=== PATIENT | male | born 1950 | race Caucasian/White ===

== ENCOUNTER 2018-10-27 13:59 | Inpatient (IN) | payer MEDICARE, OTHER, SELFPAY ==
[2018-10-27] VITALS (8 sets, daily range): BP systolic 106–129; BP diastolic 67–75; PULSE 67–72; RESP 14–18; TEMP 36.8–37.1; O2SAT 94–98; BMI 37.0; BMI 35.8
--- NOTE | 2018-10-27 14:15 | RAD_ITS ---
STUDY: X-RAY - RIGHT KNEE REASON FOR EXAM: Male, 67 years old. Fall. Pain. TECHNIQUE: 4 view(s) of the knee. COMPARISON: None. FINDINGS: There is no evidence of fracture or dislocation. There are mild tricompartmental degenerative changes. There is chondrocalcinosis of the menisci. There are no radiodense foreign bodies. RAD/Knee 4 or More Views IMPRESSION: No fracture or dislocation in the right knee. Mild degenerative change. Chondrocalcinosis.. Electronically Signed: Lance Wilder, at 15:55 EDT Tel , Service support ,
--- NOTE | 2018-10-27 14:15 | CT_ITS ---
STUDY: CT BRAIN WITHOUT CONTRAST REASON FOR EXAM: Male, 67 years old. Injury RADIATION DOSAGE (If Supplied By Facility): CTDIvol = ( 44.99 ) mGy, DLP = ( 863.60 ) mGycm TECHNIQUE: Transaxial CT imaging of the brain was performed without administration of intravenous contrast material. Individualized dose optimization techniques were used for this CT. COMPARISON: None. FINDINGS: There is no acute bleed or infarct. There are chronic ischemic and atrophic changes. The ventricles are normal in configuration. There is no hydrocephalus. The visualized paranasal sinuses are clear. The mastoid air cells are well aerated. There is no skull fracture. CT/Brain/Head without Contrast IMPRESSION: No acute intracranial abnormality. Chronic ischemic and atrophic changes. Electronically Signed: Lance Wilder, at 16:12 EDT Tel , Service support ,
--- NOTE | 2018-10-27 14:16 | RAD_ITS ---
STUDY: X-RAY CHEST REASON FOR EXAM: Male, 67 years old. Status post fall. Pain. TECHNIQUE: Frontal and lateral views of the chest COMPARISON: None. FINDINGS: The lungs are clear. There are no pleural effusions. There is no pneumothorax. The heart is enlarged. The visualized osseous structures are within normal limits. RAD/Chest PA and Lateral IMPRESSION: Cardiomegaly. Clear lungs. Electronically Signed: Lance Wilder, at 15:51 EDT Tel , Service support ,
--- NOTE | 2018-10-27 14:16 | RAD_ITS ---
STUDY: X-RAY - LEFT KNEE REASON FOR EXAM: Male, 67 years old. Fall. Pain. TECHNIQUE: 3 view(s) of the knee. COMPARISON: None. FINDINGS: There are cortical irregularities in the tibial eminence and medial tibial plateau which likely represent nondisplaced fractures. There is a minimally displaced fracture of the proximal fibula. There is a small joint effusion noted. There is a vascular stent noted in the left thigh. RAD/Knee 3 Views IMPRESSION: Minimally displaced fracture of the proximal fibula. Cortical irregularities in the tibial eminence and medial tibial plateau which likely represent nondisplaced fractures. Electronically Signed: Lance Wilder, at 15:53 EDT Tel , Service support ,
--- NOTE | 2018-10-27 14:16 | RAD_ITS ---
STUDY: X-RAY - LEFT WRIST REASON FOR EXAM: Male, 67 years old. Fall. Pain. TECHNIQUE: 4 view(s) of the wrist were obtained. COMPARISON: None. FINDINGS: There is no evidence of fracture or dislocation. There are mild degenerative changes. There are no radiodense foreign bodies. RAD/Wrist min 3 Views IMPRESSION: No fracture or dislocation in the left wrist. Mild degenerative change. Electronically Signed: Lance Wilder, at 15:56 EDT Tel , Service support ,
--- NOTE | 2018-10-27 14:16 | RAD_ITS ---
STUDY: X-RAY - RIGHT TIBIA AND FIBULA REASON FOR EXAM: Male, 67 years old. Trauma TECHNIQUE: 4 view(s) of the tibia and fibula were obtained. COMPARISON: None. FINDINGS: There is a minimally displaced fracture of the right distal fibula. The remainder of the visualized osseous structures are intact. There are no radiodense foreign bodies. RAD/Tibia & Fibula 2 Views IMPRESSION: Minimally displaced fracture of the distal fibula. Electronically Signed: Lance Wilder, at 16:01 EDT Tel , Service support ,
--- NOTE | 2018-10-27 14:18 | ED.DCSUM_ITS ---
- ER Visit Summary Date of Service: 10/27/18 Chief Complaint: Fall 6 feet and no load test mechanic. History of Present Illness: The patient is a 67 M history of peripheral arterial disease and hypertension. Prior right femur normal scope for meniscal tear. Patient states that he was carrying boxes into a load test mechanic shop he did not see that as the load test mechanic pit was open and he stepped in the etiology striking his head against the floor wall then landing on his feet and the following of both knees. This occurred yesterday. States today he has had trouble walking due to pain. He was not evaluated yesterday. He is on a blood thinner Eliquis. He denies any headache, neck pain, chest pain or abdominal pain. No back pain. Physical Examination: Older male no acute distress. Vital signs are stable. Afebrile. H EENT exam is superficial laceration which is closed and not bleeding on his right moravian area. There is a small tender area there about signs of a quarter. Gives her a reactive light. Otherwise scalp and posterior scalp unremarkable. C-spine nontender. Trachea midline. Lungs clear to auscultation bilaterally. Heart regular rhythm no murmur. Chest wall nontender. Abdomen soft nontender. Nondistended normal bowel sounds no peritoneal signs. Pelvic girdle intact. Patient is moving all 4 extremities. He is able to dorsi plantar flexion. He is diabetic neuropathy and chronic decreased sensation in both feet. There is an abrasion along the length of his right lower tibia. He has bilateral knee discomfort with no gross bony deformity. He has mild tenderness to his left wrist but no bony deformity. He is equal symmetrical shear scrapman strength. Neurologically is awake and alert with no focal motor deficits. Test Results: CT scan of the brain without contrast acute abnormality. No acute bleed. Left wrist x-ray 3 views shows no acute abnormality 3 views read both by myself the radiologist. Right knee x-ray 4 views shows no acute abnormality. Chronic changes. Right tib-fib x-ray distal fibula fracture lateral malleolus. This may be old patient had a prior fracture of the right lateral malleolus. Left knee x-ray 4 views shows a tibial spine nondisplaced fracture and proximal fibula fracture. Chest x-ray AP and lateral 2 views no acute abnormality. Hospitalist will need a CBC, BMP which he will check. Emergency Department Course and Treatment: Patient is currently stable. He is not requesting anything for pain. X-rays and CAT scan will be obtained. Treatment Plan: Patient is unable to ambulate. Was placed on the left knee immobilizer. The fracture of the right hallux may be old. He and I discussed that and I read the interpretation of his prior ankle x-ray clinic. The hospitalist will admit the patient. The orthopedic surgeon who will consult. And manager social media. Disposition: Patient Impression: Fell 6 feet into load test mechanic pit Closed head injury on blood thinner Bilateral knee pain post fall Left knee tibial spine and proximal fibula fracture Left wrist pain post fall secondary to wrist sprain and contusion Recent right distal fibula fracture Unable to ambulate secondary to bilateral lower extremity fractures Anticoagulated on Eliquis, aspirin and Plavix. This note was generated with [employer] dictation software. It may contain incorrect words, spelling, and punctuation that were not noted in review of the chart prior to signing ED Disposition - Plan for ED Patient: Referrals: Pedro Mcnair MD [Primary Care Provider] -
--- NOTE | 2018-10-27 16:10 | RAD_ITS ---
STUDY: X-RAY - LEFT ANKLE REASON FOR EXAM: Male, 67 years old. Fall TECHNIQUE: 3 view(s) of the ankle. COMPARISON: None. FINDINGS: There is no evidence of fracture or dislocation. There are no significant degenerative changes. There are no radiodense foreign bodies. RAD/Ankle min 3 Views IMPRESSION: No fracture or dislocation. Electronically Signed: Lance Wilder, at 17:14 EDT Tel , Service support ,
[2018-10-27] MEDS: HYDROcodone Bitartrate/Apap 5/325 Tablet PO (16:30)
--- NOTE | 2018-10-27 16:33 | PCM.HP.STD ---
Problem List (1) Left medial tibial plateau fracture Status: Acute (2) Displaced fracture of proximal end of left fibula Status: Acute (3) Closed head injury Status: Acute (4) Ocular melanoma Status: Chronic (5) Paroxysmal atrial fibrillation Status: Chronic (6) Peripheral vascular disease Status: Chronic (7) Tobacco abuse Status: Chronic (8) Hypertension Status: Chronic History of Present Illness Date of Admission: 10/27/18 Chief Complaint: Fall, left knee pain. The patient is a 67 year old M with past medical history as mentioned above presented to the emergency room because of left knee pain after he had a fall yesterday. Yesterday, he was carrying boxes into a construction equipment mechanic shop and he did not realize that the construction equipment mechanic pit was open and he fell down into the pit Which Is about 6 Feet depth striking his head and landed on his feet and both knees. He mentioned that yesterday, he did have some pain on his left knee but was manageable and he was able to walk. Today, the pain got worse, it was on the front of the left knee, sharp pain, nonradiating, aggravated by movement of his left knee or standing on it, 10 out of 10 in severity upon movement or standing and to oxygen at rest and without relieving factors. He strike his head but he denied loss of consciousness, headache, dizziness or lightheadedness. In the emergency department, his vital signs were stable. Routine blood work was remarkable for mild leukocytosis, chronic thrombocytopenia and serum creatinine of 1.50. INR is 1.3. CT scan brain without contrast showed no acute abnormality, no intracerebral bleed and no skull fractures. X-ray of the right knee showed no acute fractures. X-ray of the left knee revealed minimally displaced fracture of the proximal fibula with probable nondisplaced fracture of the medial tibial plateau. X-ray of the right tibia and fibula revealed minimally displaced fracture of the distal fibula. Chest x-ray showed mild cardiomegaly, no acute findings. He is being admitted for fall with closed head injury, minimally displaced fracture of the proximal left fibula, probable nondisplaced fracture of the left medial tibial plateau and minimally displaced fracture of the right distal fibula. Past Medical History Past Medical History (Chronic Problems): Chronic Problems Ocular melanoma (Chronic) Paroxysmal atrial fibrillation (Chronic) Peripheral vascular disease (Chronic) Tobacco abuse (Chronic) Hypertension (Chronic) Allergies nebivolol HCl [From Bystolic] Allergy (Verified 10/27/18 14:00) Other Penicillins Allergy (Verified 10/27/18 14:00) Other trandolapril [From Tarka] Allergy (Verified 10/27/18 14:00) Other verapamil HCl [From Tarka] Allergy (Verified 10/27/18 14:00) Other Home Medications: Ambulatory Orders Medication Instructions Recorded Apixaban [Eliquis] 5 mg PO BID 10/27/18 Clonidine HCl 0.2 mg PO BID 10/27/18 Dorzolamide HCl/Timolol Maleat 1 drp RIGHT EYE BID 10/27/18 [Cosopt Eye Drops] Hydrochlorothiazide [Hctz] 25 mg PO DAILY 10/27/18 Losartan Potassium 100 mg PO DAILY 10/27/18 Metoprolol Tartrate [Lopressor 25 mg PO BID 10/27/18 (beta kenny)] Multivit-Min/FA/Lycopen/Lutein 1 tab PO DAILY 10/27/18 [Centrum Silver Men Tablet] Surgical History: - - Angioplasty of the bilateral lower extremities with stenting of the left lower extremity for peripheral vascular disease. Eye surgery for melanoma. Psychiatric History: No pertinent psych hx Lives: Spouse/ Significant Other Smoking Status: Current every day smoker Tobacco Use: Cigarettes Alcohol: None Drugs: None - *Family History Maternal History Items: No pertinent history Paternal History Items: No pertinent history Review of Systems Constitutional: Denies: Anorexia, Chills, Fever, Weakness Eyes: Denies: Blurred vision, Double vision, Drainage, Redness HEENT: Denies: Difficulty Hearing, Ear Pain, Eye Pain, Nasal Congestion, Sore Throat Cardiovascular: Denies: Chest Pain, Chest Pressure, Chest Tightness, Heaviness, Light Headedness, Palpitations, Syncope Respiratory: Denies: Cough, Hemoptysis, Pleuritic Pain, Shortness of Breath, Sputum production, Wheezing Gastrointestinal: Denies: Abdominal Pain, Constipation, Diarrhea, Nausea, Vomiting Genitourinary: Denies: Dysuria, Frequency, Hematuria Musculoskeletal: Reports: Leg Pain. Denies: Arm Pain, Back Pain, Foot Pain Skin: Denies: Dryness, Rash Neurological: Denies: Balance problems, Blurred vision, Double vision, Change in Speech, Slurred speech, Confusion, Headaches, Incoordination, Numbness, Tingling Psychiatric: Denies: Anxiety, Depression Endocrine: Denies: Change in Body Habitus, Polydipsia, Polyuria VTE Information - Inpt Only VTE Present on Admission: No VTE Mechan Device Prophylaxis: None VTE Pharm Prophylaxis ordered?: No Patient Problems: Active and Suspected Problems Left medial tibial plateau fracture (Acute) Displaced fracture of proximal end of left fibula (Acute) Closed head injury (Acute) - Physical Exam General: Alert, Oriented x3, Cooperative, No apparent distress HEENT: Atraumatic, PERRLA, EOMI, Normocephalic Oral: Moist Mucosa Neck: Supple, No JVD, Negative Carotid Bruits, Trachea Midline, Thyroid Normal Size and Texture Lungs: Clear to auscultation, Normal air movement, No rhonchi, No wheeze, No rales, Diminished Cardiovascular: Regular rate, Regular Rhythm, Normal S1, Normal S2, PMI Normal Abdomen: Bowel Sounds Present, Soft, Non Tender, Non-Distended, No Hepato-splenomegaly Extremities: No clubbing, No cyanosis, No edema Skin: No rashes, No breakdown Lymphatic: No Cervical, Supraclavicular, or Inguinal Adenopathy Neurological: Cranial nerves II-XII grossly intact, Motor Exam 5/5 strength throughout Psych/Mental Status: Normal Affect, Appropriate, Alert and oriented to time, place, person, mood and affect Vital Signs Temp Pulse Resp BP Pulse Ox 98.3 F 68 18 125/70 H 96 10/27/18 14:00 10/27/18 16:19 10/27/18 16:19 10/27/18 16:19 10/27/18 16:19 Oxygen Delivery Method Room Air Weight: 289 lb 0.416 oz Body Mass Index (BMI) 37.0 Assessment/Plan All Active Problems Left medial tibial plateau fracture (Acute) Displaced fracture of proximal end of left fibula (Acute) Closed head injury (Acute) This is a 67 years old male patient presented to the emergency room because of fall with left knee pain, found to have closed head injury, minimally displaced fracture of the left proximal fibula, probable left medial tibial plateau nondisplaced fracture and minimally displaced fracture of the right proximal fibula and is being admitted for evaluation and treatment. #1 minimally displaced fracture of the left proximal fibula/probable left medial tibial plateau nondisplaced fracture/minimally displaced fracture of the right distal fibula: Secondary to mechanical fall, patient fell into the mechanical pit which is 6 feet down. X-ray of the right and left knees reviewed. His vital signs are stable. Plan: Admit to [facility] floor, telemetry, OxyIR PRN for pain, Tylenol PRN for pain, IV fluids, IV Zofran PRN, orthopedic surgery consult, repeat CBC and BMP tomorrow morning, PT OT evaluation and treatment. #2 closed head injury: While on Eliquis. Patient denies any loss of consciousness or headache. CT scan brain showed no acute findings. Plan to monitor for now. #3 renal insufficiency: Unknown if it is acute or chronic. Back in 2013, BUN and creatinine was normal. Admission creatinine is 1.50, BUN is 22. Patient has been on HCTZ and losartan. Plan: IV fluids for hydration, input output chart, repeat BMP tomorrow morning, hold HCTZ and losartan. #4 hypertension: Blood pressure stable, continue clonidine and metoprolol, hold losartan and HCTZ as above. #5 paroxysmal atrial fibrillation: Rate is controlled, in sinus rhythm. Plan to continue metoprolol for rate control, hold Eliquis for now. #6 peripheral vascular disease: Status post bilateral angioplasty and stent placement to the left lower extremity. Stable, no acute issues. #7 history of ocular melanoma: Status post surgery, in remission. #8 DVT prophylaxis: Hold Eliquis for now until orthopedic surgery decide if patient needs surgical repair. This note was generated with [employer] dictation software. It may contain incorrect words, spelling, and punctuation that were not noted in checking the note before signing. Code Visit Inpatient E&M: 19540 Init Hosp L3
[2018-10-27 16:51] LABS: Absolute Lymphocyte Count 2.34 X10^3/uL (0.83-4.51); Absolute Neutrophil Count 8.7 X10^3/uL (2.0-7.7); Basophil# 0.04 X10^3/uL; Basophil% 0.3 % (0-1); Eosinophil# 0.46 X10^3/uL; Eosinophils% 3.5 % (0-5); Hematocrit 45.2 % (40-54); Hemoglobin 15.1 g/dL (13.0-16.5); Lymphocyte # 2.34 X10^3/ul (4.0); Lymphocyte % 17.6 % (19-41); Mean Corp Hgb Conc 33.4 g/dL (32-36); Mean Corpuscular Hgb 33.7 pg (27.0-32.0); Mean Corpuscular Volume 100.9 fL (80-94); Mean Platelet Vol. 12.4 fl (6.2-12.0); Monocyte# 1.66 X10^3/uL; Monocyte% 12.5 % (0-10); NRBC Flagged by Analyzer 0 % (0-5); Neutrophil # 8.69 X10^3/uL (2.7-7.7); Neutrophil % 65.6 % (47-70); POSITIVE DIFFERENTIAL YES; Platelet Count 100 K/mm3 (150-450); RBC Distribution Width CV 14.2 % (11.6-14.6); RBC Distribution Width SD 52.4 fl (35.1-43.9); Red Blood Count 4.48 M/mm3 (4.6-6.2); White Blood Count 13.3 K/mm3 (4.4-11.0)
[2018-10-27 16:55] LABS: Differential Indicated SCAN CRITERIA MET
[2018-10-27 17:03] LABS: International Normalized Ratio 1.3; Prothrombin Time (Protime)PT. 15.8 SECONDS (11.7-14.9)
[2018-10-27 17:06] LABS: Anion Gap 6 (5-15); BUN 22 mg/dL (7-18); BUN/Creat Ratio 14.7 RATIO (10-20); Calcium,Total 9.5 mg/dL (8.5-10.1); Chloride 100 mmol/L (98-107); EST Glomerular Filtration Rate 49 mL/min (>60); Est Glom Filt Rate - Afr Amer 60 mL/min (>60); Glucose 102 mg/dL (74-106); Potassium 3.7 mmol/L (3.5-5.1); Sodium Level 138 mmol/L (136-145)
[2018-10-27 17:24] LABS: Differential Comment SCANNED
[2018-10-27] MEDS: 0.9% Normal Saline 1,000 ML 100 ML IV (18:03)
[2018-10-27] MEDS: oxyCODONE 5 MG Tablet PO (21:04)
[2018-10-27] MEDS: cloNIDine HCl 0.2 MG Tablet PO (21:05)
[2018-10-27] MEDS: Metoprolol Tartrate 25 MG Tablet PO (21:05)
[2018-10-27] MEDS: Dorzolamide HCL/Timolol 10 ml Bottle 1 DRP RIGHT EYE (23:08)
[2018-10-28] VITALS (12 sets, daily range): BP systolic 124–142; BP diastolic 69–88; PULSE 68–78; RESP 16–18; TEMP 36.7–37.2; O2SAT 92–96
[2018-10-28] MEDS: 0.9% Normal Saline 1,000 ML 100 ML IV (04:12)
[2018-10-28 06:14] LABS: Absolute Lymphocyte Count 2.09 X10^3/uL (0.83-4.51); Absolute Neutrophil Count 6.1 X10^3/uL (2.0-7.7); Basophil# 0.03 X10^3/uL; Basophil% 0.3 % (0-1); Eosinophil# 0.52 X10^3/uL; Eosinophils% 5.2 % (0-5); Lymphocyte # 2.09 X10^3/ul (4.0); Lymphocyte % 20.7 % (19-41); Mean Corp Hgb Conc 33.3 g/dL (32-36); Mean Corpuscular Hgb 33.9 pg (27.0-32.0); Mean Corpuscular Volume 101.7 fL (80-94); Monocyte# 1.24 X10^3/uL; Monocyte% 12.3 % (0-10); NRBC Flagged by Analyzer 0 % (0-5); Neutrophil # 6.14 X10^3/uL (2.7-7.7); Neutrophil % 60.9 % (47-70); Platelet Count 83 K/mm3 (150-450); RBC Distribution Width CV 13.9 % (11.6-14.6); RBC Distribution Width SD 52.6 fl (35.1-43.9); Red Blood Count 4.13 M/mm3 (4.6-6.2); White Blood Count 10.1 K/mm3 (4.4-11.0)
[2018-10-28 06:35] LABS: Anion Gap 6 (5-15); BUN 22 mg/dL (7-18); BUN/Creat Ratio 15.8 RATIO (10-20); Calcium,Total 8.6 mg/dL (8.5-10.1); Chloride 103 mmol/L (98-107); Creatinine, Serum 1.39 mg/dL (0.70-1.30); EST Glomerular Filtration Rate 54 mL/min (>60); Est Glom Filt Rate - Afr Amer 65 mL/min (>60); Estimated Creatinine Clearance 59.14 ml/min; Glucose 122 mg/dL (74-106); Potassium 3.5 mmol/L (3.5-5.1); Sodium Level 138 mmol/L (136-145)
--- NOTE | 2018-10-28 06:44 | PCM.PROGNOTE ---
Patient Problems: Active and Suspected Problems Left medial tibial plateau fracture (Acute) Displaced fracture of proximal end of left fibula (Acute) Closed head injury (Acute) Subjective: Pain is adequately controlled. He had a fracture of the R ankle in August and saw a Dr. Redman at [facility] and wore a boot. He denies CP, SOB, Nausea. Dr. Rodriguez has been consulted from orthopedics. Objective: PHYSICAL EXAM: GENERAL: alert, oriented X 3, Cooperative, NAD ORAL: moist mucosa, no mucosal lesions NECK: No JVD, supple, trachea midline LUNGS: CTA, symmetric chest expansion HEART: RRR, Normal S1 and S2, no rub, no gallop ABDOMEN: soft, NT, ND, BS present, no guarding with palpation EXTREMITIES: no edema, no cyanosis, no calf tenderness SKIN: No rashes, no breakdown NEUROLOGIC: no focal neurologic deficits PSYCH: appropriate, normal affect, pleasant - Physical Exam Vital Signs Temp Pulse Resp BP Pulse Ox 99 F 68 18 131/69 H 94 10/28/18 02:15 10/28/18 05:19 10/28/18 02:15 10/28/18 02:15 10/28/18 02:15 Oxygen Delivery Method Room Air Weight: 279 lb 3 oz Body Mass Index (BMI) 35.8 Intake and Output for Last 24 Hours 10/26/18 10/27/18 10/28/18 23:59 23:59 23:59 Intake Total 240 / 440 1200 / 1200 Output Total 700 / 700 Balance 240 / 40 500 / 500 Laboratory Tests Past 24 Hrs 10/27/18 10/27/18 10/27/18 16:40 16:40 16:40 WBC 13.3 H RBC 4.48 L Hgb 15.1 Hct 45.2 MCV 100.9 H MCH 33.7 H MCHC 33.4 RDW Std Deviation 52.4 H RDW Coeff of Sabra 14.2 Plt Count 100 L MPV 12.4 H Immature Gran % (Auto) 0.500 Neut % (Auto) 65.6 Lymph % (Auto) 17.6 L [place] % (Auto) 12.5 H Eos % (Auto) 3.5 Baso % (Auto) 0.3 Absolute Neuts (auto) 8.7 H Absolute Lymphs (auto) 2.34 Nucleated RBC % 0 Differential Comment SCANNED Diff Path Review July foll PT 15.8 H INR 1.3 Sodium 138 Potassium 3.7 Chloride 100 Carbon Dioxide 32.0 Anion Gap 6 BUN 22 H Creatinine 1.50 H Estim Creat Clear Calc 54.80 Est GFR (MDRD) Af Amer 60 Est GFR (MDRD) Non-Af 49 L BUN/Creatinine Ratio 14.7 Glucose 102 Calcium 9.5 10/28/18 10/28/18 05:42 05:42 WBC 10.1 RBC 4.13 L Hgb 14.0 Hct 42.0 MCV 101.7 H MCH 33.9 H MCHC 33.3 RDW Std Deviation 52.6 H RDW Coeff of [place] 13.9 Plt Count 83 L MPV 13.0 H Immature Gran % (Auto) 0.600 Neut % (Auto) 60.9 Lymph % (Auto) 20.7 [place] % (Auto) 12.3 H Eos % (Auto) 5.2 H Baso % (Auto) 0.3 Absolute Neuts (auto) 6.1 Absolute Lymphs (auto) 2.09 Nucleated RBC % 0 Differential Comment Diff Path Review PT INR Sodium 138 Potassium 3.5 Chloride 103 Carbon Dioxide 29.0 Anion Gap 6 BUN 22 H Creatinine 1.39 H Estim Creat Clear Calc 59.14 Est GFR (MDRD) Af Amer 65 Est GFR (MDRD) Non-Af 54 L BUN/Creatinine Ratio 15.8 Glucose 122 H Calcium 8.6 Medical Necessity - Tobacco Use Smoking Status: Current every day smoker Tobacco Use: Cigarettes Assessment/Plan All Active Problems Left medial tibial plateau fracture (Acute) Displaced fracture of proximal end of left fibula (Acute) Closed head injury (Acute) Impressions 1. Left medial tibial plateau fracture, displaced fracture of the proximal end of the left fibula, left hemarthrosis of the knee, closed head injury secondary to a fall approximately [address] Hunt today and placed in a long cast left. 2. Right subacute lateral malleolus fracture-Dr. Hunt recommended a tall Cam walking boot and weightbearing as tolerated. 3. Closed head injury in a patient on Eliquis-a noncontrasted CT brain at admission showed no acute findings. Patient denies cephalgia. No focal neurologic deficits. Will continue to hold Eliquis for another 24 hours and if no headache or deficits were likely restart. 4. Paroxysmal atrial fibrillation-currently in sinus rhythm. Continue metoprolol and restart Eliquis in another few days. DC today if he is able to get around....awaiting PT eval. Pt has improved quicker than expected......we anticipated he may need surgery Will need a wheelchair to get around since he has fractures in both legs. Pt refuses to stay in the hospital even though he did poorly with PT and he has steps at home. also refused to consider admission to rehab for gait training. will DC home
--- NOTE | 2018-10-28 07:47 | RAD_ITS ---
STUDY: X-RAY - RIGHT ANKLE REASON FOR EXAM: Male, 67 years old. Pain following injury. TECHNIQUE: 3 view(s) of the ankle. COMPARISON: None. FINDINGS: Nondisplaced oblique fracture of the lateral malleolus. Normal tibiotalar articulation and ankle mortise. Normal visualized talus and calcaneus. 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 Soft tissue swelling. RAD/Ankle min 3 Views IMPRESSION: Nondisplaced oblique fracture of the lateral malleolus with overlying soft tissue swelling. Electronically Signed: Hubert Bolaños, at 13:22 EDT , Service support ,
[2018-10-28] MEDS: Dorzolamide HCL/Timolol 10 ml Bottle 1 DRP RIGHT EYE ×2 (08:13→21:28)
[2018-10-28] MEDS: cloNIDine HCl 0.2 MG Tablet PO ×2 (08:13→21:28)
[2018-10-28] MEDS: Metoprolol Tartrate 25 MG Tablet PO ×2 (08:13→21:28)
[2018-10-28] MEDS: oxyCODONE 5 MG Tablet PO ×3 (09:21→19:00)
--- NOTE | 2018-10-28 12:07 | CASEMGMT ---
RN CM Assessment Presentation: L tibial spine nondisplaced fracture and proximal fibula fracture, L knee immobilizer. Intro role of CM and purpose of RN CM assessment to patient in room. Demographics, PCP and Pharmacy verified. Pt states he was independent prior to admission, hopes to return home using crutches or cane. RN CM discussed PT/OT will see pt and give recommendations. PCP: Dr. Pedro Mcnair Specialists: Dr. Hunt Preferred Pharmacy: [facility] Pharmacy Insurance: [facility] Prescription Benefit: yes LNOK: Daughter, Addie Cash Living Arrangements: Lives in one story home, 1 stair in home only. Pt has crutches, cane. Plans to return home on dc.Pt states he was independent prior to admission. Transportation: Drives, however states he has assistance with transportation if needed. DME: crutches, cane. HHC: none Patient DC goals: Home with family support DC PLAN: anticipate home. PT/OT evaluations and ortho consult pending. Sonya MCINTOSH RN ACM
--- NOTE | 2018-10-28 13:30 | CON.PCM_ITS ---
Reason for Consult Date of Consultation: 10/28/18 Reason for Consultation: Left tibial plateau fracture fibular head fracture. right distal fibula fracture History of Present Illness: The patient is a 67 year old M who is retired who stepped into a 6 foot pit at a friend's house injuring his left leg. July 15 patient did sustain a minimally displaced lateral malleolus fracture treated at another facility with a walking boot for 6 weeks he was complaining of increased pain over this area as well I do not have images from other facility to compare however he was admitted to the hospital secondary to in the inability to ambulate he denies hip or back pain admits to mild left ankle pain as well. Denies any loss of consciousness numbness tingling o Past Medical History Past Medical History (Chronic Problems): Chronic Problems Ocular melanoma (Chronic) Paroxysmal atrial fibrillation (Chronic) Peripheral vascular disease (Chronic) Tobacco abuse (Chronic) Hypertension (Chronic) Allergies nebivolol HCl [From Bystolic] Allergy (Verified 10/27/18 14:00) Other Penicillins Allergy (Verified 10/27/18 14:00) Other trandolapril [From Tarka] Allergy (Verified 10/27/18 14:00) Other verapamil HCl [From Tarka] Allergy (Verified 10/27/18 14:00) Other Home Medications: Ambulatory Orders Medication Instructions Recorded Apixaban [Eliquis] 5 mg PO BID 10/27/18 Clonidine HCl 0.2 mg PO BID 10/27/18 Dorzolamide HCl/Timolol Maleat 1 drp RIGHT EYE BID 10/27/18 [Cosopt Eye Drops] Hydrochlorothiazide [Hctz] 25 mg PO DAILY 10/27/18 Losartan Potassium 100 mg PO DAILY 10/27/18 Metoprolol Tartrate [Lopressor 25 mg PO BID 10/27/18 (beta kenny)] Multivit-Min/FA/Lycopen/Lutein 1 tab PO DAILY 10/27/18 [Centrum Silver Men Tablet] Surgical History: - - Angioplasty of the bilateral lower extremities with stenting of the left lower extremity for peripheral vascular disease. Eye surgery for melanoma. Psychiatric History: No pertinent psych hx Lives: Spouse/ Significant Other Smoking Status: Current every day smoker Tobacco Use: Cigarettes Alcohol: None Drugs: None - *Family History Maternal History Items: No pertinent history Paternal History Items: No pertinent history Review of Systems Constitutional: Denies: Chills, Fever, Fatigue Respiratory: Denies: Shortness of Breath Musculoskeletal: Reports: Joint Pain, Muscle pain Patient Problems: Active and Suspected Problems Left medial tibial plateau fracture (Acute) Displaced fracture of proximal end of left fibula (Acute) Closed head injury (Acute) Objective: X-ray left knee:demonstrates nondisplaced tibial spine fracture extending into medial and lateral joint line nondisplaced fibular head fracture X-ray right ankle demonstrates minimally displaced distal fibula fracture Serrano A Procedure: Arthrocentesis of left knee under sterile conditions with alcohol and Betadine superior lateral approach used with 18-gauge needle 25 cc of blood removed to aid in full extension of casting Procedure: Long leg cast applied with knee in full extension - Physical Exam General: Alert, Oriented x3, Cooperative, No apparent distress Extremities: - - Left knee joint effusion no sign of infection compartment soft compressible neurovascular intact nontender medial or lateral malleoli he is tender over the proximal fibula tappable pedal pulses intact sensation light touch. Right ankle tender to palpation lateral malleolus nontender medial malleolus neurovascular intact Psych/Mental Status: Normal Affect Vital Signs Temp Pulse Resp BP Pulse Ox 98.6 F 69 16 124/81 H 92 10/28/18 08:15 10/28/18 08:15 10/28/18 08:15 10/28/18 08:15 10/28/18 08:15 Oxygen Delivery Method Room Air Weight: 279 lb 3 oz Body Mass Index (BMI) 35.8 Intake and Output for Last 24 Hours 10/26/18 10/27/18 10/28/18 23:59 23:59 23:59 Intake Total 240 / 440 1972.33 / 1972.33 Output Total 700 / 700 Balance 240 / 40 1273.33 / 1273.33 Laboratory Tests Past 24 Hrs 10/27/18 10/27/18 10/27/18 16:40 16:40 16:40 WBC 13.3 H RBC 4.48 L Hgb 15.1 Hct 45.2 MCV 100.9 H MCH 33.7 H MCHC 33.4 RDW Std Deviation 52.4 H RDW Coeff of Sabra 14.2 Plt Count 100 L MPV 12.4 H Immature Gran % (Auto) 0.500 Neut % (Auto) 65.6 Lymph % (Auto) 17.6 L [place] % (Auto) 12.5 H Eos % (Auto) 3.5 Baso % (Auto) 0.3 Absolute Neuts (auto) 8.7 H Absolute Lymphs (auto) 2.34 Nucleated RBC % 0 Differential Comment SCANNED Diff Path Review July foll PT 15.8 H INR 1.3 Sodium 138 Potassium 3.7 Chloride 100 Carbon Dioxide 32.0 Anion Gap 6 BUN 22 H Creatinine 1.50 H Estim Creat Clear Calc 54.80 Est GFR (MDRD) Af Amer 60 Est GFR (MDRD) Non-Af 49 L BUN/Creatinine Ratio 14.7 Glucose 102 Calcium 9.5 10/28/18 10/28/18 05:42 05:42 WBC 10.1 RBC 4.13 L Hgb 14.0 Hct 42.0 MCV 101.7 H MCH 33.9 H MCHC 33.3 RDW Std Deviation 52.6 H RDW Coeff of Sabra 13.9 Plt Count 83 L MPV 13.0 H Immature Gran % (Auto) 0.600 Neut % (Auto) 60.9 Lymph % (Auto) 20.7 [place] % (Auto) 12.3 H Eos % (Auto) 5.2 H Baso % (Auto) 0.3 Absolute Neuts (auto) 6.1 Absolute Lymphs (auto) 2.09 Nucleated RBC % 0 Differential Comment Diff Path Review PT INR Sodium 138 Potassium 3.5 Chloride 103 Carbon Dioxide 29.0 Anion Gap 6 BUN 22 H Creatinine 1.39 H Estim Creat Clear Calc 59.14 Est GFR (MDRD) Af Amer 65 Est GFR (MDRD) Non-Af 54 L BUN/Creatinine Ratio 15.8 Glucose 122 H Calcium 8.6 Assessment/Plan All Active Problems Left medial tibial plateau fracture (Acute) Displaced fracture of proximal end of left fibula (Acute) Closed head injury (Acute) Left knee tibial spine fracture nondisplaced Aspiration of left knee hemarthrosis was performed Application of left long leg cast was performed Patient should keep the left lower extremity elevated above heart for next week. He will benefit from crutches as well as a wheelchair with leg extension support Toe-touch weightbearing left lower extremity We will have cast shoe applied to left leg cast Right subacute lateral malleolus fracture Serrano A no films available for comparison from injury in July would recommend tall cam walking boot weightbearing as tolerated Follow-up in the office 3 weeks x-rays out of cast and likely conversion to locking Troy brace
--- NOTE | 2018-10-28 15:21 | CASEMGMT ---
Addendum entered by Candis Persaud 10/28/18 16:13: SW still waiting for call back from Courtney. SW met with pt and introduced self and role at [facility]. Pt's present in room. Pt is alert and orientated x3. Pt gave this worker permission to speak to him in front of his guest. SW informed pt that per PT/OT pt is not safe to return home and are recommending [facility]. SW informed pt that this worker would have to check with [facility] to determine if they are able to accept pt if he is agreeable. Pt states I am going home, I will do therapy but at home or outpatient. SW informed pt that it is safety concern for him to return home at this time as pt was min assist of 1-2 for transfers and bed mobility today. Pt states I got up off the bathroom by myself. SW asked pt if he got to the bathroom on his own and pt stated no. SW asked pt how he was going to make it to the bathroom at home and pt stated I'll walk. SW again reiterated that it is a safety concern for pt to return home at this time and informed pt that he could fall at home and hurt himself or his . Pt still denying RU or SNF. Pt's asked pt how she was going to get him into the home and pt again stated put me in the back of the truck and I'll walk from the truck to the door. SW informed pt that he is a fall risk and could fall at home and pt stated I won't fall at home. Pt again adamant about going home, denied RU or SNF. Pt agreeable to [facility]. SW informed pt that RN FREDDY is working on HHC and wheelchair for pt. Pt and pt's state understanding, denied additional needs or concerns at this time. VENU updated RN FREDDY, RN and physician that pt is adamantly refusing RU or SNF. Plan: Pt refusing SNF or RU. Pt to go home with [facility] JOSEPHINE Head Original Note: Social Work Note PT/OT are recommending RU for Pt. VENU placed a call to Courtney with RU and left her a message regarding referral. SW waiting for call back. JOSEPHINE Head
--- NOTE | 2018-10-28 16:09 | DCINST_ITS ---
- Discharge Diagnoses Current Active Problems: Current Active and Chronic Problems Left medial tibial plateau fracture (Acute) Displaced fracture of proximal end of left fibula (Acute) Closed head injury (Acute) Ocular melanoma (Chronic) Paroxysmal atrial fibrillation (Chronic) Peripheral vascular disease (Chronic) You will use the following diet at home:: Cardiac Your food should be the consistency of: Regular Your liquids should be the consistency of: Regular/Thin Discharge Activity: - - Weight bearing as tolerated on the R leg and toe touch weight bearing only on the left leg. Ice area for (Minutes): 15 - Left knee 3 times a day Keep extremity elevated above heart level: Left Leg Call your doctor if you observe: Fever of 101 or Higher, Inability to have a bowel movement, Shortness of breath, Dizziness, Chest pain, Calf discomfort, Uncontrolled pain, - - headaches, change in mental status Additional Instructions: You can restart the Apixaban tomorrow. Allergies/Adverse Reactions: Allergies nebivolol HCl [From Bystolic] Allergy (Verified 10/27/18 14:00) Other Penicillins Allergy (Verified 10/27/18 14:00) Other trandolapril [From Tarka] Allergy (Verified 10/27/18 14:00) Other verapamil HCl [From Tarka] Allergy (Verified 10/27/18 14:00) Other Medications to take at Discharge Apixaban [Eliquis] 5 mg PO BID 10/27/18 Clonidine HCl 0.2 mg PO BID 10/27/18 Dorzolamide HCl/Timolol Maleat [Cosopt Eye Drops] 1 drp RIGHT EYE BID 10/27/18 Hydrochlorothiazide [Hctz] 25 mg PO DAILY 10/27/18 Losartan Potassium 100 mg PO DAILY 10/27/18 Metoprolol Tartrate [Lopressor (beta kenny)] 25 mg PO BID 10/27/18 Multivit-Min/FA/Lycopen/Lutein [Centrum Silver Men Tablet] 1 tab PO DAILY 10/27/18 Oxycodone HCl/Acetaminophen [Percocet 7.5-325 mg Tablet] 1 tab PO Q6H PRN PRN 7 Days #28 tab 10/28/18 The following prescriptions were given: Oxycodone HCl/Acetaminophen [Percocet 7.5-325 mg Tablet] 1 tab PO Q6H PRN PRN 7 Days #28 tab PRN Reason: Pain Prescription Printed Primary Care Physician: Pedro Mcnair MD [Primary Care Provider] - Please follow up with your Primary Care Physician in: 1 week Test Results: Test results from this visit will be discussed in further detail at your follow- up appointment, if applicable. Please Follow Up With: Jose David Hunt DO When: 3 weeks Proposed Discharge Date: 10/28/18
--- NOTE | 2018-10-28 16:14 | CASEMGMT ---
Addendum entered by Nicolasa Tesfaye 10/28/18 16:24: Confirmation received that fax to [employer] went through successfully. Original Note: LUCI HAYES NOTE: PT/OT evals have been completed. SNF recommended. Candis LEA, made aware and in to talk with pt. Per Candis, pt is refusing to go to a SNF. To room to discuss discharge planning with pt and pt's who is at bedside. Pt states he is aware of therapies recommendations but pt states he still wishes to return home and wants HHC. Discussed concerns for his safety if returning home, but pt adamant that he goes home, stating I can do just as well doing my own therapy @ home. Pt given list of [facility] agencies. Pt and request [facility]. Call placed to [facility] and spoke with Milly/referral made. She states they are able to accept pt and start of care will be Friday. Pt and made aware and are agreeable to this. Per Dr Delatorre, pt will need W/C w/elevated leg rest. Pt and state they have no preference of DME company and are agreeable to [facility]. Script obtained for W/C and faxed to [employer]. [place] to [place] [facility] was made aware pt is [place] today. She states they will deliver the W/C once they have the information scanned into their system. Documentation from physician stating the need for the W/C also faxed to [facility] at this time. Pt has been given cast boot/shoe for left foot per Dr Delatorre's request. Darren MCINTOSH RN, CM
--- NOTE | 2018-10-28 16:20 | DS.PCM_ITS ---
Discharge Date and Diagnosis - Problem List Patient Problems: Active and Suspected Problems Left medial tibial plateau fracture (Acute) Displaced fracture of proximal end of left fibula (Acute) Closed head injury (Acute) Date of Admission: 10/27/18 Date of Discharge: 10/28/18 - Primary Discharge Diagnosis Active and Suspected Problems Traumatic Left medial tibial plateau fracture (Acute) due to a fall Traumatic Displaced fracture of proximal end of left fibula (Acute) Closed head injury (Acute) Right subacute lateral malleolus fracture - Secondary Discharge Diagnosis Chronic Problems Ocular melanoma (Chronic) Paroxysmal atrial fibrillation (Chronic) Peripheral vascular disease (Chronic) Tobacco abuse (Chronic) Hypertension (Chronic) Hospital Course and Treatment Imaging Results: 10/28/18 07:47 Ankle min 3 Views [RAD] Urgent Clinical Impression(s) from Imaging Studies Brain CT 10/27/18 14:15 IMPRESSION: No acute intracranial abnormality. Chronic ischemic and atrophic changes. Electronically Signed: Lance Wilder, at 16:12 EDT Tel , Service support , Knee X-Ray 10/27/18 14:15 IMPRESSION: No fracture or dislocation in the right knee. Mild degenerative change. Chondrocalcinosis.. Electronically Signed: Lance Wilder, at 15:55 EDT Tel , Service support , Chest X-Ray 10/27/18 14:16 IMPRESSION: Cardiomegaly. Clear lungs. Electronically Signed: Lance Wilder, at 15:51 EDT Tel , Service support , Knee X-Ray 10/27/18 14:16 IMPRESSION: Minimally displaced fracture of the proximal fibula. Cortical irregularities in the tibial eminence and medial tibial plateau which likely represent nondisplaced fractures. Electronically Signed: Lance Wilder, at 15:53 EDT Tel , Service support , Tibia/Fibula X-Ray 10/27/18 14:16 IMPRESSION: Minimally displaced fracture of the distal fibula. Electronically Signed: Lance Wilder, at 16:01 EDT Tel , Service support , Wrist X-Ray 10/27/18 14:16 IMPRESSION: No fracture or dislocation in the left wrist. Mild degenerative change. Electronically Signed: Lance Wilder, at 15:56 EDT Tel , Service support , Ankle X-Ray 10/27/18 16:10 IMPRESSION: No fracture or dislocation. Electronically Signed: Lance Wilder, at 17:14 EDT Tel , Service support , Ankle X-Ray 10/28/18 07:47 IMPRESSION: Nondisplaced oblique fracture of the lateral malleolus with overlying soft tissue swelling. Electronically Signed: Hubert Bolaños, at 13:22 EDT , Service support , Laboratory Results - last 24 hr 10/27/18 10/27/18 10/27/18 16:40 16:40 16:40 WBC 13.3 H RBC 4.48 L Hgb 15.1 Hct 45.2 MCV 100.9 H MCH 33.7 H MCHC 33.4 RDW Std Deviation 52.4 H RDW Coeff of Sabra 14.2 Plt Count 100 L MPV 12.4 H Immature Gran % (Auto) 0.500 Neut % (Auto) 65.6 Lymph % (Auto) 17.6 L Early % (Auto) 12.5 H Eos % (Auto) 3.5 Baso % (Auto) 0.3 Absolute Neuts (auto) 8.7 H Absolute Lymphs (auto) 2.34 Nucleated RBC % 0 Differential Comment SCANNED Diff Path Review May foll PT 15.8 H INR 1.3 Sodium 138 Potassium 3.7 Chloride 100 Carbon Dioxide 32.0 Anion Gap 6 BUN 22 H Creatinine 1.50 H Estim Creat Clear Calc 54.80 Est GFR (MDRD) Af Amer 60 Est GFR (MDRD) Non-Af 49 L BUN/Creatinine Ratio 14.7 Glucose 102 Calcium 9.5 10/28/18 10/28/18 05:42 05:42 WBC 10.1 RBC 4.13 L Hgb 14.0 Hct 42.0 MCV 101.7 H MCH 33.9 H MCHC 33.3 RDW Std Deviation 52.6 H RDW Coeff of Sabra 13.9 Plt Count 83 L MPV 13.0 H Immature Gran % (Auto) 0.600 Neut % (Auto) 60.9 Lymph % (Auto) 20.7 Early % (Auto) 12.3 H Eos % (Auto) 5.2 H Baso % (Auto) 0.3 Absolute Neuts (auto) 6.1 Absolute Lymphs (auto) 2.09 Nucleated RBC % 0 Differential Comment Diff Path Review PT INR Sodium 138 Potassium 3.5 Chloride 103 Carbon Dioxide 29.0 Anion Gap 6 BUN 22 H Creatinine 1.39 H Estim Creat Clear Calc 59.14 Est GFR (MDRD) Af Amer 65 Est GFR (MDRD) Non-Af 54 L BUN/Creatinine Ratio 15.8 Glucose 122 H Calcium 8.6 Consultations 10/27/18 19:14 Consult: 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 He also has a subacute fracture of the right malleolus which we have no comparison film for. He is chronically on Eliquis and struck his head but noncontrasted CT of the brain at admission showed no acute abnormalities. He has not complained of headaches, visual changes or any focal neurologic deficits since admission. He was seen in consult by Dr. Hunt and a long cast was placed on the LLE after draining hemarthrosis from the left knee. He was also placed in a tall cam walking boot on the RLE. He was seen in consult by PT and OT and he was not steady ambulating with crutches. Rehab was recommended prior to going home. Pt was agreeable to transfer to 4th floor rehab on 10/29/18. He will follow up with Dr. Hunt in the office in 3 weeks. Eliquis will be restarted. He remained in NSR for the duration of the time on telemetry while in the hospital. GENERAL: alert, oriented X 3, Cooperative, NAD ORAL: moist mucosa, no mucosal lesions NECK: No JVD, supple, trachea midline LUNGS: CTA, symmetric chest expansion HEART: RRR, Normal S1 and S2, no rub, no gallop ABDOMEN: soft, NT, ND, BS present, no guarding with palpation EXTREMITIES: no edema, no cyanosis, no calf tenderness SKIN: No rashes, no breakdown NEUROLOGIC: no focal neurologic deficits PSYCH: appropriate, normal affect, not happy about going to rehab.....would rather go home but he is not stable, has steps at home and he is at high risk for falls. This note was generated with [employer] dictation software. It may contain incorrect words, spelling, and punctuation that were not noted in checking the note before signing. Patient Problems: Active and Suspected Problems Left medial tibial plateau fracture (Acute) Displaced fracture of proximal end of left fibula (Acute) Closed head injury (Acute) - Physical Exam Vital Signs Temp Pulse Resp BP Pulse Ox 98.0 F 78 18 136/88 H 95 10/28/18 15:20 10/28/18 15:20 10/28/18 15:20 10/28/18 15:20 10/28/18 15:20 Oxygen Delivery Method Room Air Weight: 279 lb 3 oz Body Mass Index (BMI) 35.8 Intake and Output for Last 24 Hours 10/26/18 10/27/18 10/28/18 23:59 23:59 23:59 Intake Total 240 / 440 1973.33 / 1973.33 Output Total 700 / 700 Balance 240 / 40 1273.33 / 1273.33 Laboratory Tests Past 24 Hrs 10/27/18 10/27/18 10/27/18 16:40 16:40 16:40 WBC 13.3 H RBC 4.48 L Hgb 15.1 Hct 45.2 MCV 100.9 H MCH 33.7 H MCHC 33.4 RDW Std Deviation 52.4 H RDW Coeff of Sabra 14.2 Plt Count 100 L MPV 12.4 H Immature Gran % (Auto) 0.500 Neut % (Auto) 65.6 Lymph % (Auto) 17.6 L Early % (Auto) 12.5 H Eos % (Auto) 3.5 Baso % (Auto) 0.3 Absolute Neuts (auto) 8.7 H Absolute Lymphs (auto) 2.34 Nucleated RBC % 0 Differential Comment SCANNED Diff Path Review July foll PT 15.8 H INR 1.3 Sodium 138 Potassium 3.7 Chloride 100 Carbon Dioxide 32.0 Anion Gap 6 BUN 22 H Creatinine 1.50 H Estim Creat Clear Calc 54.80 Est GFR (MDRD) Af Amer 60 Est GFR (MDRD) Non-Af 49 L BUN/Creatinine Ratio 14.7 Glucose 102 Calcium 9.5 10/28/18 10/28/18 05:42 05:42 WBC 10.1 RBC 4.13 L Hgb 14.0 Hct 42.0 MCV 101.7 H MCH 33.9 H MCHC 33.3 RDW Std Deviation 52.6 H RDW Coeff of Sabra 13.9 Plt Count 83 L MPV 13.0 H Immature Gran % (Auto) 0.600 Neut % (Auto) 60.9 Lymph % (Auto) 20.7 Early % (Auto) 12.3 H Eos % (Auto) 5.2 H Baso % (Auto) 0.3 Absolute Neuts (auto) 6.1 Absolute Lymphs (auto) 2.09 Nucleated RBC % 0 Differential Comment Diff Path Review PT INR Sodium 138 Potassium 3.5 Chloride 103 Carbon Dioxide 29.0 Anion Gap 6 BUN 22 H Creatinine 1.39 H Estim Creat Clear Calc 59.14 Est GFR (MDRD) Af Amer 65 Est GFR (MDRD) Non-Af 54 L BUN/Creatinine Ratio 15.8 Glucose 122 H Calcium 8.6 Discharge Activity: - - Weight bearing as tolerated on the R leg and toe touch weight bearing only on the left leg. Ice area for (Minutes): 15 - Left knee 3 times a day Keep extremity elevated above heart level: Left Leg Call your doctor if you observe: Fever of 101 or Higher, Inability to have a bowel movement, Shortness of breath, Dizziness, Chest pain, Calf discomfort, Uncontrolled pain, - - headaches, change in mental status Home Medications: Medications to take at Discharge Apixaban [Eliquis] 5 mg PO BID 10/27/18 Clonidine HCl 0.2 mg PO BID 10/27/18 Dorzolamide HCl/Timolol Maleat [Cosopt Eye Drops] 1 drp RIGHT EYE BID 10/27/18 Hydrochlorothiazide [Hctz] 25 mg PO DAILY 10/27/18 Losartan Potassium 100 mg PO DAILY 10/27/18 Metoprolol Tartrate [Lopressor (beta kenny)] 25 mg PO BID 10/27/18 Multivit-Min/FA/Lycopen/Lutein [Centrum Silver Men Tablet] 1 tab PO DAILY 10/27/18 Oxycodone [Oxyir] 5 - 10 mg PO Q4H PRN PRN 1 Days #1 tab 10/29/18 Following Prescrptions Were Given to Patient: Oxycodone [Oxyir] 5 - 10 mg PO Q4H PRN PRN 1 Days #1 tab PRN Reason: Pain Primary Care Physician: Pedro Mcnair MD [Primary Care Provider] - Please follow up with your Primary Care Physician in: 1 week Please Follow Up With: Jose David Hunt DO When: 3 weeks Disposition: Inpt Rehab Unit/Facility Minutes spent on discharge:: 30 Patient Condition:: Stable Medical Necessity - Tobacco Use Smoking Status: Current every day smoker Tobacco Use: Cigarettes Meaningful Use Info Meaningful Use Diagnoses (Choose all that apply): None applicable Code Visit Inpatient E&M: 75315 Disch Hosp
[2018-10-29 03:35] VITALS: BP 137/90; PULSE 71; RESP 20; TEMP 36.5; O2SAT 92
[2018-10-29 08:15] VITALS: O2SAT 95
[2018-10-29 08:28] LABS: Pathologist Review Reviewed
[2018-10-29 08:50] VITALS: BP 161/75; PULSE 75; RESP 16; TEMP 37; O2SAT 92
[2018-10-29 08:51] VITALS: PULSE 75
[2018-10-29] MEDS: Dorzolamide HCL/Timolol 10 ml Bottle 1 DRP RIGHT EYE (08:51)
[2018-10-29] MEDS: cloNIDine HCl 0.2 MG Tablet PO (08:51)
[2018-10-29] MEDS: Metoprolol Tartrate 25 MG Tablet PO (08:51)
[2018-10-29] MEDS: oxyCODONE 5 MG Tablet PO ×2 (08:52→14:14)
[2018-10-29] MEDS: 0.9% NaCl Peripheral Flush Adult/Peds IV (09:45)
--- NOTE | 2018-10-29 10:48 | CASEMGMT ---
Social Work Note VENU placed a call to Courtney with RU and provided referral. Courtney states is able to accept pt today. VENU met with pt and discussed RU. Pt agreeable to discharging to today. VENU placed a call to Courtney with [facility] and updated her that pt will be discharged to today. Plan: RU today Candis Persaud [employer], [employer]
--- NOTE | 2018-10-29 11:48 | PCM.HP.COS ---
History of Present Illness Date of Admission: 10/29/18 Chief Complaint: Debility secondary to left tibial plateau fx, fibular head fx, right malleous fx. The patient is a 67 year old M with PMH of Paroxysmal atrial fibrillation, PVD, HTN, and Closed head injury, HX of right subacute lateral malleolus fx 6 weeks ago, Tobacco use, ocular melanoma in 2011, admitted to [facility] IP RU on 10/29/18 for debility secondary to left tibial plateau fx, fibular head fx, right malleolus fx, for greater than 3 hours of therapy with a goal of retuning home at or near his prior level of independence. 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 Patient stated he did hit his head and but denied LOC. CT of brain showed no acute bleed, infarct or skull fx. X-rays obtained. Right knee x-ray showed minimally displaced fx of the proximal fibula, cortical irregularities in the tibial eminence and medial tibial plateau, likely represent nondisplaced fractures, Tibia/Fibula X-ray showed minimally displace fx of the distal fibula. Left ankle X-ray no fx or dislocation. Right ankle X-ray showed nondisplaced fx of the lateral malleolus with overlying soft tissue swelling. Right wrist X-ay showed no fx or dislocation. Orthopedic Surgeon Dr. Hunt was consulted on 10/28/2018 and performed arthrocentesis of left knee and removed 25 cc of blood to aid in full extension of casting. Patient to wear Cam walking boot to right lower extremity d/t right subacute lateral malleolus fx. Patient is weight bearing at tolerated to RLE and Toe-touch weightbearing to LLE. Patient was currently on Elquis for atrial fibrillation, ok to resume on 10/30/2018. Patient lives in a one level house with 3 steps to enter with significant other. Currently retired. Patient was independent with ADL's, mobility and driving prior to admission. Past Medical History Past Medical History (Chronic Problems): Chronic Problems Ocular melanoma (Chronic) Paroxysmal atrial fibrillation (Chronic) Peripheral vascular disease (Chronic) Tobacco abuse (Chronic) Hypertension (Chronic) Allergies nebivolol HCl [From [facility]] Allergy (Verified 10/27/18 14:00) Other Penicillins Allergy (Verified 10/27/18 14:00) Other trandolapril [From [facility]] Allergy (Verified 10/27/18 14:00) Other verapamil HCl [From [facility]] Allergy (Verified 10/27/18 14:00) Other Home Medications: Ambulatory Orders Medication Instructions Recorded Apixaban [Eliquis] 5 mg PO BID 10/27/18 Clonidine HCl 0.2 mg PO BID 10/27/18 Dorzolamide HCl/Timolol Maleat 1 drp RIGHT EYE BID 10/27/18 [Cosopt Eye Drops] Hydrochlorothiazide [Hctz] 25 mg PO DAILY 10/27/18 Losartan Potassium 100 mg PO DAILY 10/27/18 Metoprolol Tartrate [Lopressor 25 mg PO BID 10/27/18 (beta kenny)] Multivit-Min/FA/Lycopen/Lutein 1 tab PO DAILY 10/27/18 [Centrum Silver Men Tablet] Oxycodone [Oxyir] 5 - 10 mg PO Q4H PRN PRN 1 Days #1 10/29/18 tab Surgical History: - - Angioplasty of the bilateral lower extremities with stenting of the left lower extremity for peripheral vascular disease. Right eye surgery for ocular melanoma [place] [address] Diaz. 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 Denies: Blurred vision, Cataracts, Double vision, Vision Change HEENT: Denies: Difficulty Hearing, Difficulty Swallowing, Head Aches, Sinus Congestion, Sinus Drainage Cardiovascular: Denies: Chest Pain, Chest Pressure, Chest Tightness, Palpitations Respiratory: Denies: Cough, Shortness of Breath, Shortness of breath at rest, Sputum production Gastrointestinal: Denies: Abdominal Pain, Constipation, Diarrhea, Nausea, Vomiting Genitourinary: Denies: Dysuria, Frequency, Incontinence Musculoskeletal: Reports: Joint Pain - Left lower extremity post fractures- dull, constant mild ache at rest. Skin: Denies: Rash, Wounds Neurological: Denies: Blurred vision, Double vision, Change in Speech, Slurred speech, Confusion, Focal weakness, Numbness, Tingling Psychiatric: Reports: Anxiety - at times has anxiety, no medication. Denies: Depression, Homicidal Ideations, Suicidal Ideations Hematologic/ Lymphatic: Denies: Easy Bruising, Easy Bleeding VTE Information - Inpt Only VTE Present on Admission: No VTE Mechan Device Prophylaxis: None VTE Pharm Prophylaxis ordered?: Yes Patient Problems: Active and Suspected Problems Left medial tibial plateau fracture (Acute) Displaced fracture of proximal end of left fibula (Acute) Closed head injury (Acute) - Physical Exam General: Alert, Oriented x3, Cooperative HEENT: PERRLA, - - right eye blind- chronic 2012 Oral: Moist Mucosa Neck: Supple, No JVD Lungs: Clear to auscultation, Normal air movement Cardiovascular: Regular rate, Regular Rhythm Abdomen: Bowel Sounds Present, Soft, Non Tender, Obese Extremities: No clubbing, No cyanosis, No edema Musculoskeletal: - - LLE full cast Neurological: Cranial nerves II-XII grossly intact - except blind to right eye-chronic, - - Motor strength RUE, RLE, LUE 5/5, Cast to LLE minimal movement Psych/Mental Status: Normal Affect, Appropriate, Alert and oriented to time, place, person, mood and affect Vital Signs Temp Pulse Resp BP Pulse Ox 98.6 F 75 16 161/75 H 92 10/29/18 08:50 10/29/18 08:51 10/29/18 08:50 10/29/18 08:50 10/29/18 08:50 Oxygen Delivery Method Room Air Weight: 126.637 kg Body Mass Index (BMI) 35.8 Intake and Output for Last 24 Hours 10/27/18 10/28/18 10/29/18 23:59 23:59 23:59 Intake Total 240 / 440 2573.33 / 2823.33 1080 / 1080 Output Total 1250 / 1250 600 / 600 Balance 240 / 40 1323.33 / 1573.33 480 / 480 Laboratory Tests Past 24 Hrs 10/27/18 16:40 Diff Path Review Reviewed Assessment/Plan All Active Problems Left medial tibial plateau fracture (Acute) Displaced fracture of proximal end of left fibula (Acute) Closed head injury (Acute) The patient is a 67 year old M with PMH of Paroxysmal atrial fibrillation, PVD, HTN, and Closed head injury, HX of right subacute lateral malleolus fx 6 weeks ago, Tobacco use, ocular melanoma in 2011, admitted to [facility] IP RU on 10/29/18 for debility secondary to left tibial plateau fx, fibular head fx, right malleolus fx, for greater than 3 hours of therapy with a goal of retuning home at or near his prior level of independence. 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 Patient stated he did hit his head and but denied LOC. CT of brain showed no acute bleed, infarct or skull fx. X-rays obtained. Right knee x-ray showed minimally displaced fx of the proximal fibula, cortical irregularities in the tibial eminence and medial tibial plateau, likely represent nondisplaced fractures, Tibia/Fibula X-ray showed minimally displace fx of the distal fibula. Left ankle X-ray no fx or dislocation. Right ankle X-ray showed nondisplaced fx of the lateral malleolus with overlying soft tissue swelling. Right wrist X-ay showed no fx or dislocation. Orthopedic Surgeon Dr. Hunt was consulted on 10/28/2018 and performed arthrocentesis of left knee and removed 25 cc of blood to aid in full extension of casting. Patient to wear Cam walking boot to right lower extremity d/t right subacute lateral malleolus fx. Patient is weight bearing at tolerated to RLE and Toe-touch weightbearing to LLE. Patient was currently on Elquis for atrial fibrillation, ok to resume on 10/30/2018. Patient lives in a one level house with 3 steps to enter with significant other. Currently retired. Patient was independent with ADL's, mobility and driving prior to admission. Plan - PT for mobility - OT for ADLs - Analgesics as needed - Left tibial, fibular head, right malleolus fx. Weightbearing status: LLE TTWB, RLE WBAT, Cam boot walking boot to RLE. Cast to LLE. F/U with Dr. Hunt in 3 weeks. Do not get cast wet. - Paroxysmal atrial fibrillation: on Lopressor, restart eliquis on 10/30/18 - HTN on clonidine, HCTZ, losartan - PVD discussed smoking cessation - Tobacco use- on nicotine patch - Closed head injury- stable CT of brain showed no acute hemorrhage, infarct or skull fx - Anxiety no tx at this time - GI/DVT prophylaxis on pepcid/eliquis - Medical management per hospitalist- consult - Bowel protocol - Fall precautions - F/U with Dr. Hunt in 3 weeks and PCP
[2018-10-29 14:10] VITALS: BP 114/55; PULSE 68; RESP 16; TEMP 36.7; O2SAT 94
[2018-10-29] MEDS: Acetaminophen 325 MG Tablet 650 MG PO (14:16)
== END 2018-10-29 14:30 | DRG 563 ==
LOC: ED 14:40 → MS3 16:29
PROVIDERS: Admitting Provider Internal Medicine; Emergency Provider Emergency Medicine; Family Provider Family Medicine; PCP Family Medicine; Referring Provider Hospitalist; Visit Provider Internal Medicine
DX: S82.832A Other fracture of upper and lower end of left fibula, initial encounter for closed fracture (principal); M25.062 Hemarthrosis, left knee; S82.145A Nondisplaced bicondylar fracture of left tibia, initial encounter for closed fracture; S82.61XA Displaced fracture of lateral malleolus of right fibula, initial encounter for closed fracture; W17.89XA Other fall from one level to another, initial encounter; S09.90XA Unspecified injury of head, initial encounter; D69.6 Thrombocytopenia, unspecified; N18.3 Chronic kidney disease, stage 3 (moderate); I48.0 Paroxysmal atrial fibrillation; I12.9 Hypertensive chronic kidney disease with stage 1 through stage 4 chronic kidney disease, or unspecified chronic kidney disease; I73.9 Peripheral vascular disease, unspecified; F17.210 Nicotine dependence, cigarettes, uncomplicated; Z79.82 Long term (current) use of aspirin; Z95.820 Peripheral vascular angioplasty status with implants and grafts; Z85.840 Personal history of malignant neoplasm of eye; Z79.01 Long term (current) use of anticoagulants
CPT/HCPCS: 36415; 70450; 71046; 73110; 73562; 73564; 73590; 73610; 80048; 85025; 85610; 97163; 97166; 99285; 99406; J7030; A4216

== ENCOUNTER 2018-10-29 14:38 | Inpatient (IN) | payer MEDICARE, OTHER, SELFPAY ==
[2018-10-27 17:09] VITALS: BMI 35.8
[2018-10-29 14:55] VITALS: BP 161/76; PULSE 74; RESP 18; TEMP 36.8; O2SAT 96; BMI 36.9; BMI 37.0
--- NOTE | 2018-10-29 15:28 | PCM.RU.PYE ---
Admission Information Status Changes from Prescreening?: No changes Identified Actual Problem List:: Mobility Impaired, Self Care Deficit Potential Problem List:: DVT, Bleeding, Infection, UTI, Aspiration, Falls, Skin Integrity, Depression Risk of Complications DVT: LMWH, KYLAH Hose, Sequential Compression Device Bleeding: Monitor Lab Values, Nursing to Teach Precautions for anti-coagulation therapy., Wound, if applicable, to be assessed every shift., Stroke patients assessed for lethargy or change in status. Infection: Clinical Staff to Monitor for S/S of infection:, S/S of infection include fever, redness, warmth, etc. Urinary Tract Infection: Monitor for frequency, burning, discomfort, or incontinence., Nursing will obtain urine sample for urinalysis and C&S when ordered. Aspiration: Clinical staff will monitor for coughing, drooling, congestion., Speech will evaluate swallowing and dsyphasia., Nursing will monitor patient swallowing during meals. Falls: Patient will be evaluated for Fall Precautions, Patient will be placed on Fall Precautions as indicated per protocol. Skin Breakdown: Nursing will assess skin daily using assessment tool., Nursing will place on Skin Breakdown Precautions as indicated. Pain: Clinical staff will assess patient's pain level per protocol., Medications will be given, if needed, and the pain level reassessed., Other methods: Massage, distraction, decrease stimulus, etc. used PRN. Plan of Care Patient requires physician specializing in physical medicine and rehab oversight to provide close medical supervision of rehab issues including: Pain Management, Sleep Problems, Bowel and Bladder, Medical and co-morbidity Management, DVT prophylaxis, Rehabilitation Leadership, Coordination of treatment team Patient needs Physical Therapy: For a minimum of 1 hour, At least 5 out of 7 days Patient needs Physical Therapy to improve:: Mobility, Mobility, Mobility, Strengthening, Transfers, Stretching, ROM, Endurance, Stairs, Gait, Balance Patient needs Occupational Therapy: For a minimum of 1 hour, At least 5 out of 7 days Patient needs Occupational Therapy to improve ADL's incl.: Eating, Grooming, Bathing, Dressing, Toileting, Toilet transfers, Community Reintegration, Higher functioning activities, Household tasks, Adaptive Equipment, Splinting, Other activities as determined Patient requires speech therapy: For a minimum of 1 hour, At least 5 out of 7 days Patient requires speech therapy for: Swallowing, Cognition, Language Skills, Compensatory Strategies Patient requires 24/ Rehabilitation Nursing for: Pain Issues, Identifying and preventing risk factors, Monitoring and reporting current medical conditions, Assisting with ambulation, transfer, and all ADL's, Teaching patients about disease process and medications, Family teaching, Providing safe environment, Bowel and Bladder Issues, Skin integrity, Medication Management Patient needs Local City Driver/ Case Management for: Discharge Planning, Arranging Home Equipment or Services, Family Interventions Patient needs Dietary and Nutrition Services for: Adequate Nutrition, Nutritional Supplements, Nutritional Education Goals Patient will remain: free from falls, or injury at time of discharge. Patient will perform bed mobility at: MOD I level of assist. Patient will complete transfers from bed to chair at: MOD I level of assist. Patient will ambulate: 100 feet, with MOD I assist, with LRD Patient will complete upper body dressing at: MOD I level of assist. Patient will complete lower body dressing at: MOD I level of assist. Patient will complete toileting at: MOD I level of assist. Patient will perform bathing at: MOD I level of assist. Patient will complete grooming at: MOD I level of assist. Patient will complete home management skills at: MOD I level of assist. Patient will achieve: 12 stairs, at MOD I assist Patient will have pain level of: of 3 or less Patient's skin will: remain intact, free from infection. Patient will receive: adequate nutrition. Discharge Planning Pt Prognosis for Sig. Practical Improv. w/in Reasonable Time: Good Estimated Length of stay (days): 16 Anticipated D/C Destination: Home with Outpt Therapy Was Preadmission Assessment Accurate?: Yes
[2018-10-29 18:39] VITALS: BP 115/53; PULSE 76; RESP 18; TEMP 36.9; O2SAT 93
[2018-10-29 20:59] VITALS: BP 139/80; PULSE 111
[2018-10-29] MEDS: Acetaminophen 500 MG Tablet 1000 MG PO (21:03)
[2018-10-29 21:04] VITALS: BP 139/80; PULSE 111
[2018-10-29] MEDS: Dorzolamide HCL/Timolol 10 ml Bottle 1 DRP RIGHT EYE (21:04)
[2018-10-29] MEDS: Metoprolol Tartrate 25 MG Tablet PO (21:04)
[2018-10-29] MEDS: cloNIDine HCl 0.2 MG Tablet PO (21:05)
[2018-10-29 23:24] VITALS: O2SAT 95
--- NOTE | 2018-10-30 02:33 | NURSING ---
PT HAS NOT VOIDED YET THIS SHIFT. PT HAS BEEN SLEEPING. PT AWAKENED BY STAFF AND ASKED IF HE WOULD ATTEMPT TO URINATE AT THIS TIME. PT STATES THAT HE FEELS HE COULD URINATE IF HE ATTEMPTED, BUT THAT HE WANTS TO WAIT LONGER UNTIL HE HAS A STRONGER URGE TO VOID. PT DENIES WANTED ANY PAIN MEDICATION AT THIS TIME. RETURNS TO RESTING WITH EYES CLOSED.
[2018-10-30 05:40] LABS: Hematocrit 42.1 % (40-54); Hemoglobin 14.1 g/dL (13.0-16.5); Mean Corp Hgb Conc 33.5 g/dL (32-36); Mean Corpuscular Hgb 33.8 pg (27.0-32.0); Platelet Count 107 K/mm3 (150-450); RBC Distribution Width CV 13.6 % (11.6-14.6); RBC Distribution Width SD 50.4 fl (35.1-43.9); Red Blood Count 4.17 M/mm3 (4.6-6.2)
[2018-10-30 05:50] LABS: Anion Gap 9 (5-15); BUN 20 mg/dL (7-18); BUN/Creat Ratio 14.4 RATIO (10-20); Calcium,Total 8.3 mg/dL (8.5-10.1); Chloride 105 mmol/L (98-107); Creatinine, Serum 1.39 mg/dL (0.70-1.30); EST Glomerular Filtration Rate 54 mL/min (>60); Est Glom Filt Rate - Afr Amer 65 mL/min (>60); Estimated Creatinine Clearance 59.14 ml/min; Glucose 130 mg/dL (74-106); Potassium 3.3 mmol/L (3.5-5.1); Sodium Level 142 mmol/L (136-145)
[2018-10-30] MEDS: Acetaminophen 500 MG Tablet 1000 MG PO ×3 (06:26→19:57)
[2018-10-30 08:00] VITALS: BP 141/75; PULSE 105; RESP 20; TEMP 36.8; O2SAT 94
[2018-10-30 09:06] VITALS: BP 141/75; PULSE 105
[2018-10-30] MEDS: cloNIDine HCl 0.2 MG Tablet PO ×2 (09:06→20:00)
[2018-10-30] MEDS: Metoprolol Tartrate 25 MG Tablet PO ×2 (09:06→19:58)
[2018-10-30] MEDS: Losartan Potassium 100 MG Tablet PO (09:06)
[2018-10-30] MEDS: Multivitamins,Ther W-Minerals Tablet 1 TABLET PO (09:06)
[2018-10-30] MEDS: Famotidine 20 MG Tablet PO (09:07)
[2018-10-30] MEDS: hydroCHLOROthiazide 25 MG Tablet PO (09:07)
[2018-10-30] MEDS: Dorzolamide HCL/Timolol 10 ml Bottle 1 DRP RIGHT EYE ×2 (09:07→20:00)
[2018-10-30] MEDS: oxyCODONE 5 MG Tablet PO ×2 (09:12→13:29)
--- NOTE | 2018-10-30 09:30 | NURSING ---
PT IS IRRITABLE WITH CARE, IS NONCOMPLIENT WITH DIRECTIONS FROM NURSING STAFF. PT REFUSES TO FOLLOW SAFETY GUIDELINES. DOES NOT ALLOW GAIT BELT, ASSISTIVE DEVICE OR ASSIST FROM STAFF. PT EDUCATED ON REASONS FOR SAFETY DEVICES. PT FOUND WITH CIGARETTE AND RESOLUTION ANALYST IN BED. CIGARETTE AND RESOLUTION ANALYST REMOVED FROM ROOM-LOCKED IN MED DRAWER UNTIL SIG OTHER COMES TO TAKE HOME-PT AGREEABLE- NICOTINE PATCH IN PLACE. WILL CONT TO MONITOR AND ENFORCE SAFETY PROCEDURES.
[2018-10-30 10:55] VITALS: O2SAT 96
--- NOTE | 2018-10-30 10:57 | PCM.PN.NEU ---
Subjective: K+ 3.3, K-dur 40 meq x1, repeat K+ level in am. Nursing notified hospitalist aware labs, no further new orders. Discussed with patient to call for assistance with all transfers, use of gait belt, no smoking/cessation, use devices recommended by therapy, and to wear Cam boot to right foot as directed. Patient verbalized understanding. At this time, pain is controlled. Denies further questions. - Physical Exam General: Alert, Oriented x3, Cooperative HEENT: PERRLA - blind right eye-chronic, EOMI Oral: Moist Mucosa Neck: Supple, No JVD Lungs: Clear to auscultation, Normal air movement Cardiovascular: Regular rate, Regular Rhythm Abdomen: Bowel Sounds Present, Soft, Non Tender Extremities: No clubbing, No cyanosis, No edema Musculoskeletal: - - LLE full cast Neurological: Cranial nerves II-XII grossly intact - chronic-blind to right eye, - - Motor strength RUE, RLE, LUE 5/5, Cast to LLE minimal movement Psych/Mental Status: Normal Affect, Appropriate, Alert and oriented to time, place, person, mood and affect Vital Signs Temp Pulse Resp BP Pulse Ox 98.2 F 105 H 20 H 141/75 H 94 10/30/18 08:00 10/30/18 09:06 10/30/18 08:00 10/30/18 09:06 10/30/18 08:00 Oxygen Delivery Method Room Air Weight: 130.635 kg Body Mass Index (BMI) 36.9 Intake and Output for Last 24 Hours 10/28/18 10/29/18 10/30/18 23:59 23:59 23:59 Intake Total 240 / 240 220 / 220 Output Total 450 / 450 Balance 240 / 240 -230 / -230 Laboratory Tests Past 24 Hrs 10/30/18 10/30/18 05:05 05:05 WBC 8.0 RBC 4.17 L Hgb 14.1 Hct 42.1 MCV 101.0 H MCH 33.8 H MCHC 33.5 RDW Std Deviation 50.4 H RDW Coeff of Sabra 13.6 Plt Count 107 L MPV 13.0 H Sodium 142 Potassium 3.3 L Chloride 105 Carbon Dioxide 28.0 Anion Gap 9 BUN 20 H Creatinine 1.39 H Estim Creat Clear Calc 59.14 Est GFR (MDRD) Af Amer 65 Est GFR (MDRD) Non-Af 54 L BUN/Creatinine Ratio 14.4 Glucose 130 H Calcium 8.3 L Medical Necessity - Tobacco Use Smoking Status: Current every day smoker Assessment/Plan All Active Problems Left medial tibial plateau fracture (Acute) Displaced fracture of proximal end of left fibula (Acute) Closed head injury (Acute) The patient is a 67 year old M with PMH of Paroxysmal atrial fibrillation, PVD, HTN, and Closed head injury, HX of right subacute lateral malleolus fx 6 weeks ago, Tobacco use, ocular melanoma in 2011, admitted to [facility] IP RU on 10/29/18 for debility secondary to left tibial plateau fx, fibular head fx, right malleolus fx, for greater than 3 hours of therapy with a goal of retuning home at or near his prior level of independence. Patient presented to 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 Patient stated he did hit his head and but denied LOC. CT of brain showed no acute bleed, infarct or skull fx. X-rays obtained. Right knee x-ray showed minimally displaced fx of the proximal fibula, cortical irregularities in the tibial eminence and medial tibial plateau, likely represent nondisplaced fractures, Tibia/Fibula X-ray showed minimally displace fx of the distal fibula. Left ankle X-ray no fx or dislocation. Right ankle X-ray showed nondisplaced fx of the lateral malleolus with overlying soft tissue swelling. Right wrist X-ay showed no fx or dislocation. Orthopedic Surgeon Dr. Hunt was consulted on 10/28/2018 and performed arthrocentesis of left knee and removed 25 cc of blood to aid in full extension of casting. Patient to wear Cam walking boot to right lower extremity d/t right subacute lateral malleolus fx. Patient is weight bearing at tolerated to RLE and Toe-touch weightbearing to LLE. Patient was currently on Elquis for atrial fibrillation, ok to resume on 10/30/2018. Patient lives in a one level house with 3 steps to enter with significant other. Currently retired. Patient was independent with ADL's, mobility and driving prior to admission. Plan - PT for mobility - OT for ADLs - Analgesics as needed - Left tibial, fibular head, right malleolus fx. Weightbearing status: LLE TTWB, RLE WBAT, Cam boot walking boot to RLE. Cast to LLE. F/U with Dr. Hunt in 3 weeks. Do not get cast wet. - Paroxysmal atrial fibrillation: on Lopressor, restart eliquis on 10/30/18 - HTN on clonidine, HCTZ, losartan - PVD discussed smoking cessation - Tobacco use- on nicotine patch - Closed head injury- stable CT of brain showed no acute hemorrhage, infarct or skull fx - Anxiety no tx at this time - GI/DVT prophylaxis on pepcid/eliquis - Hypokalemia 3.3 K-dur 40 meq x1, repeat K+ in am - Medical management per hospitalist- consult - Bowel protocol - Fall precautions - F/U with Dr. Hunt in 3 weeks and PCP
--- NOTE | 2018-10-30 14:54 | NURSING ---
PT FOUND SITTING ON SIDE OF BED WITH PA ALARMING. PT REPORTS DIFFICULTY TALKING. STATES HE HAS TO GO TO RESTROOM AND ATTEMPTING TO GET OUT OF BED ON OWN. REPORTS TO TAPE CONTROLLED MACHINE STITCHER I DON'T FEEL RIGHT. II=140/77, IM=590. AFTER A MIN OF SITTING ON SIDE OF BED PT REPORTS HE HAD BEEN SLEEPING AND WOKE SUDDENLY. NO DIFFICULTY SPEAKING OR CONFUSION NOTED AT THIS TIME. PT STATES HE FEELS FINE NOW. LU LOCKETT IN ROOM-EVALUATED PT. PT TOOK 10MG OXYIR AT 1330 THEN TOOK NAP. NNO FROM LU LOCKETT AT THIS TIME. WILL CONT TO MONITOR. PA REAPPLIED.
[2018-10-30 19:52] VITALS: BP 120/89; PULSE 110; RESP 16; TEMP 36.7; O2SAT 96
[2018-10-30 19:58] VITALS: PULSE 96
[2018-10-30] MEDS: APIXABAN 5 MG TABLET PO (20:00)
--- NOTE | 2018-10-30 22:53 | NURSING ---
PA found off x2 so far this shift. Bed alarm now on
[2018-10-31] MEDS: Acetaminophen 500 MG Tablet 1000 MG PO ×3 (04:37→19:40)
--- NOTE | 2018-10-31 07:31 | NURSING ---
When transferring to during night to go to bathroom, pt refused to use walker. States I want to do this my way. Nearly fell x2 even with two assist. RN repeated that pt should use walker, pt refused again.
--- NOTE | 2018-10-31 07:54 | PCA ---
While in bathroom this AM patient refused to use assistive devices to maintain balance while transferring to toilet and refused assist from OPERATIONS RESEARCH ENGINEER x2. Patient using edge of sink and door to maintain balance even with 2 staff members present to assist stating I am in control My feet work Don't touch me I can do it. RNWendy notified.
[2018-10-31] MEDS: Losartan Potassium 100 MG Tablet PO (08:38)
[2018-10-31] MEDS: oxyCODONE 5 MG Tablet PO (08:38)
[2018-10-31] MEDS: cloNIDine HCl 0.2 MG Tablet PO ×2 (08:38→19:42)
[2018-10-31] MEDS: Multivitamins,Ther W-Minerals Tablet 1 TABLET PO (08:38)
[2018-10-31] MEDS: hydroCHLOROthiazide 25 MG Tablet PO (08:38)
[2018-10-31] MEDS: Senna/Docusate Sodium 1 Tablet 2 TABLET PO (08:38)
[2018-10-31] MEDS: Famotidine 20 MG Tablet PO (08:38)
[2018-10-31 08:39] VITALS: BP 119/77; PULSE 77
[2018-10-31] MEDS: Metoprolol Tartrate 25 MG Tablet PO ×2 (08:39→19:41)
[2018-10-31] MEDS: APIXABAN 5 MG TABLET PO ×2 (08:39→19:41)
[2018-10-31] MEDS: Dorzolamide HCL/Timolol 10 ml Bottle 1 DRP RIGHT EYE ×2 (09:07→19:39)
[2018-10-31 09:47] VITALS: BP 119/77; PULSE 77; RESP 18; TEMP 36.7; O2SAT 94
[2018-10-31 10:41] LABS: Anion Gap 6 (5-15); BUN 24 mg/dL (7-18); BUN/Creat Ratio 16.2 RATIO (10-20); Calcium,Total 8.8 mg/dL (8.5-10.1); Chloride 106 mmol/L (98-107); Creatinine, Serum 1.48 mg/dL (0.70-1.30); EST Glomerular Filtration Rate 50 mL/min (>60); Est Glom Filt Rate - Afr Amer 61 mL/min (>60); Estimated Creatinine Clearance 55.54 ml/min; Glucose 116 mg/dL (74-106); Potassium 4.1 mmol/L (3.5-5.1); Sodium Level 141 mmol/L (136-145)
--- NOTE | 2018-10-31 16:40 | NURSING ---
Pt and pt's girl friend transferred pt into his wheel chair without staff assistance. Educated pt and his girl friend on the need to have staff assist with transfers. They both verbalize understaging. Will continue to monitor.
--- NOTE | 2018-10-31 18:01 | NURSING ---
Pt is irritable with care and is noncompliant with directions from nursing staff and therapy. Pt refuses to follow safety guidelines. Refusing Gait belt, and to use walker. Refusing to allow staff to assist him with transfers. States I can do it, don't touch me. Pt reeducated on reason for safety devices. Will continue to monitor and reenforce safety procedures.
[2018-10-31 19:41] VITALS: PULSE 83
[2018-10-31 19:45] VITALS: BP 123/68; PULSE 83; RESP 16; TEMP 36.6; O2SAT 95
[2018-11-01] MEDS: Acetaminophen 500 MG Tablet 1000 MG PO ×3 (06:54→20:06)
[2018-11-01 07:28] VITALS: BP 131/95; PULSE 72; RESP 20; TEMP 36.7; O2SAT 93
[2018-11-01] MEDS: Dorzolamide HCL/Timolol 10 ml Bottle 1 DRP RIGHT EYE ×2 (09:55→20:06)
[2018-11-01 09:56] VITALS: PULSE 74
[2018-11-01] MEDS: hydroCHLOROthiazide 25 MG Tablet PO (09:56)
[2018-11-01] MEDS: Famotidine 20 MG Tablet PO (09:56)
[2018-11-01] MEDS: Losartan Potassium 100 MG Tablet PO (09:56)
[2018-11-01] MEDS: Metoprolol Tartrate 25 MG Tablet PO ×2 (09:56→20:04)
[2018-11-01] MEDS: cloNIDine HCl 0.2 MG Tablet PO ×2 (09:57→20:06)
[2018-11-01] MEDS: APIXABAN 5 MG TABLET PO ×2 (09:57→20:05)
[2018-11-01] MEDS: Multivitamins,Ther W-Minerals Tablet 1 TABLET PO (09:57)
--- NOTE | 2018-11-01 13:07 | NURSING ---
Pt girlfriend transferring pt from bed to chair unassisted by staff. Education provided to pt and girlfriend on importance of staff being present and assisting with all transfers etc. Pt disarming alarms. Education provided. Both pt and girlfriend voiced understanding at this time. Will continue to monitor.
[2018-11-01 16:28] VITALS: O2SAT 94
--- NOTE | 2018-11-01 18:39 | NURSING ---
Reviewed and agree with APPLICATIONS SYSTEMS ENGINEER's FIMS and charting
--- NOTE | 2018-11-01 19:59 | PN_ITS ---
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 He also has a subacute fracture of the right malleolus which we have no comparison film for. He is chronically on Eliquis and struck his head but noncontrasted CT of the brain at admission showed no acute abnormalities. He did not complain of headaches, visual changes or any focal neurologic deficits. He was seen in consult by Dr. Hunt and a long cast was placed on the LLE after draining hemarthrosis from the left knee. He was also placed in a tall cam walking boot on the RLE. He was seen in consult by PT and OT and he was not steady ambulating with crutches. Rehab was recommended prior to going home. He initially refused to go to rehab and wanted to go home. He was later agreeable to transfer to 4th floor rehab on 10/29/18. He has been disagreeable with the staff and refuses to use a gait belt and refuses to participate in many of the activities. He tells me that he walks fi ne. He tells me that his pain is well controlled. and he denies CP, SOB, nausea, constipation. He is not very pleasant. He is frustrated that he is not home. Objective: GENERAL: alert, oriented X 3, no very pleasant, short clipped answers and not wanting to talk. Has been refusing activities with PT and also refusing to use the gait belt when they have him up. He is lying in bed without the boot on the RLE. ORAL: moist mucosa, no mucosal lesions NECK: No JVD, supple, trachea midline LUNGS: CTA, symmetric chest expansion, diminished HEART: RRR, Normal S1 and S2, no rub, no gallop ABDOMEN: soft, NT, ND, BS present, no guarding with palpation EXTREMITIES: no edema, no cyanosis, no calf tenderness SKIN: No rashes, no breakdown, the abrasions on the anterior RLE are healing. There is no erythema and not purulent DC NEUROLOGIC: no focal neurologic deficits PSYCH: appropriate, normal affect, not happy about going to rehab.....would rather go home but he is not stable, has steps at home and he is at high risk for falls. - Physical Exam Vital Signs Temp Pulse Resp BP Pulse Ox 98.0 F 74 20 H 131/95 H 94 11/01/18 07:28 11/01/18 09:56 11/01/18 07:28 11/01/18 07:28 11/01/18 16:28 Oxygen Delivery Method Room Air Weight: 287 lb 14.779 oz Body Mass Index (BMI) 36.9 Intake and Output for Last 24 Hours 10/30/18 10/31/18 11/01/18 23:59 23:59 23:59 Intake Total 650 / 650 860 / 860 Output Total 450 / 450 Balance 200 / 200 860 / 860 Medical Necessity - Tobacco Use Smoking Status: Current every day smoker Assessment/Plan All Active Problems Left medial tibial plateau fracture (Acute) Displaced fracture of proximal end of left fibula (Acute) Closed head injury (Acute) Impressions 1. Left medial tibial plateau fracture and displaced fracture of the proximal end of the left fibula-status post placement of a long cast by Dr. Hunt. Will follow up with Dr. Hunt in the office in 3 weeks. 2. Previous right lateral malleolus fracture-in a long boot 3. Tobacco dependence 4. Paroxysmal atrial fibrillation 5. Chronic anticoagulation with apixaban 6. Hypertension 7. History of ocular melanoma 8. Chronic renal failure stage III His progress is impeded by his own stubbornness and refusal to take direction, participate in activities and wear a gait belt for safety when he is up. I do not expect him to do well because of non-compliance ....he has steps at home. Refusing to use AD. Code Visit Inpatient E&M: 06817 Subs Hosp L2
[2018-11-01 20:00] VITALS: BP 155/77; PULSE 80; RESP 16; TEMP 36.6; O2SAT 96
[2018-11-01 20:04] VITALS: PULSE 85
[2018-11-01 22:00] VITALS: PULSE 85; RESP 16; O2SAT 96
--- NOTE | 2018-11-02 00:53 | NURSING ---
Pt used call light appropriately to ask staff for assistance to empty urinal. Pt asked EDUCATION ASSISTANT to move crutches to bedside for pt in case pt gets bored during the night. EDUCATION ASSISTANT educated pt on safety measures in place and advised pt to call for assistance for ambulation in any way. Pt stated he knew the rules. Pt found with PA removed despite repeated pleas to keep safety measures in place for pt.
[2018-11-02] MEDS: Acetaminophen 500 MG Tablet 1000 MG PO ×3 (06:34→20:40)
[2018-11-02 07:24] VITALS: BP 137/82; PULSE 71; RESP 17; TEMP 36.6; O2SAT 99
--- NOTE | 2018-11-02 07:24 | NURSING ---
pt refused a.m. care when asked. Pt was compliant with call light for toileting.
[2018-11-02] MEDS: Dorzolamide HCL/Timolol 10 ml Bottle 1 DRP RIGHT EYE ×2 (07:50→20:42)
[2018-11-02] MEDS: APIXABAN 5 MG TABLET PO ×2 (07:50→20:41)
[2018-11-02] MEDS: Multivitamins,Ther W-Minerals Tablet 1 TABLET PO (07:50)
[2018-11-02 07:51] VITALS: BP 151/61; PULSE 71
[2018-11-02] MEDS: cloNIDine HCl 0.2 MG Tablet PO ×2 (07:51→20:41)
[2018-11-02] MEDS: hydroCHLOROthiazide 25 MG Tablet PO (07:51)
[2018-11-02] MEDS: Losartan Potassium 100 MG Tablet PO (07:51)
[2018-11-02] MEDS: Metoprolol Tartrate 25 MG Tablet PO ×2 (07:51→20:41)
[2018-11-02] MEDS: Famotidine 20 MG Tablet PO (07:51)
--- NOTE | 2018-11-02 15:24 | PCA ---
pt. called out for assistance for a transfer from bed to wheelchair. i pulled the wheelchair up to his bed and locked it. pt. states it can't be locked when i get in it and proceeds to unlock the wheelchair. pt refused to wear gait belt, or to use his walker for transfer. LUCI Nguyen and i tried to assist the patient to transfer, and he tells us to back up. education provided on why we need to lock the wheelchair for a transfer, and on the importance of using a gait belt and walker.
--- NOTE | 2018-11-02 16:26 | NURSING ---
pt continues to be noncompliant with directions from nursing staff and therapy. Pt refuses to follow safety guidelines. Refusing Gait belt, and to use walker. Refusing to allow staff to assist him with transfers. Pt reeducated on reason for safety devices. Will continue to monitor and reenforce safety procedures.
[2018-11-02 18:33] VITALS: BP 110/64; PULSE 80; RESP 18; TEMP 36.9; O2SAT 94
[2018-11-02 20:00] VITALS: PULSE 80; RESP 18; O2SAT 94
[2018-11-02 20:41] VITALS: BP 110/64; PULSE 80
--- NOTE | 2018-11-02 21:55 | NURSING ---
clinical findings completed at 1999, staff offered pt to do hs and oral care and pt refused stating that he would in the morning. pt reports that his pain is at a tolerant level 3/10 on pain scale.
--- NOTE | 2018-11-03 03:13 | NURSING ---
Reviewed and agree with BEAM WORKER documentation and FIMs charting.
[2018-11-03] MEDS: Acetaminophen 500 MG Tablet 1000 MG PO ×2 (06:50→12:56)
--- NOTE | 2018-11-03 06:57 | NURSING ---
staff offered am care or to have therapy assist him and pt stated that he would wait until after therapy. staff replied that he had therapy at 0800 and would be happy to assist if he would need help. pt did not respond.
[2018-11-03 07:23] VITALS: BP 140/80; PULSE 68; RESP 16; TEMP 36.6; O2SAT 93
[2018-11-03 08:37] VITALS: BP 140/80; PULSE 68
[2018-11-03] MEDS: Famotidine 20 MG Tablet PO (08:37)
[2018-11-03] MEDS: Metoprolol Tartrate 25 MG Tablet PO (08:37)
[2018-11-03] MEDS: APIXABAN 5 MG TABLET PO (08:37)
[2018-11-03] MEDS: hydroCHLOROthiazide 25 MG Tablet PO (08:37)
[2018-11-03] MEDS: oxyCODONE 5 MG Tablet PO (08:37)
[2018-11-03] MEDS: Dorzolamide HCL/Timolol 10 ml Bottle 1 DRP RIGHT EYE (08:38)
[2018-11-03] MEDS: Multivitamins,Ther W-Minerals Tablet 1 TABLET PO (08:38)
[2018-11-03] MEDS: cloNIDine HCl 0.2 MG Tablet PO (08:38)
[2018-11-03] MEDS: Losartan Potassium 100 MG Tablet PO (08:38)
--- NOTE | 2018-11-03 11:19 | PN_ITS ---
Subjective: Chief complaint: Follow-up after consultation for medical management following admission to inpatient rehabilitation unit. Patient seen and examined. No acute events overnight. Patient mentioned that his left knee pain is manageable. He denied any significant complaints. His vital signs are stable. He is being discharged home today. - Physical Exam General: Alert, Oriented x3, Cooperative, No apparent distress HEENT: Atraumatic, PERRLA, EOMI, Normocephalic Oral: Moist Mucosa, No Gingival or Mucosal Lesions/ Ulcerations Neck: Supple, No JVD, Negative Carotid Bruits, Trachea Midline, Thyroid Normal Size and Texture Lungs: Clear to auscultation, Normal air movement, No rhonchi, No wheeze, No rales, Diminished Cardiovascular: Regular rate, Regular Rhythm, Normal S1, Normal S2, PMI Normal Abdomen: Bowel Sounds Present, Soft, Non Tender, Non-Distended, No Hepato- splenomegaly Extremities: No clubbing, No cyanosis, No edema Skin: No rashes, No breakdown Lymphatic: No Cervical, Supraclavicular, or Inguinal Adenopathy Neurological: Cranial nerves II-XII grossly intact, Motor Exam 5/5 strength throughout Psych/Mental Status: Normal Affect, Alert and oriented to time, place, person, mood and affect Vital Signs Temp Pulse Resp BP Pulse Ox 97.9 F 68 16 140/80 H 93 11/03/18 07:23 11/03/18 08:37 11/03/18 07:23 11/03/18 08:37 11/03/18 07:23 Oxygen Delivery Method Room Air Weight: 287 lb 14.779 oz Body Mass Index (BMI) 36.9 Intake and Output for Last 24 Hours 11/01/18 11/02/18 11/03/18 23:59 23:59 23:59 Intake Total 440 / 440 440 / 440 Balance 440 / 440 440 / 440 Medical Necessity - Tobacco Use Smoking Status: Current every day smoker Assessment/Plan All Active Problems Left medial tibial plateau fracture (Acute) Displaced fracture of proximal end of left fibula (Acute) Closed head injury (Acute) This is a 67 years old male patient admitted to the inpatient rehabilitation unit after mechanical fall caused minimally displaced fracture of the left proximal fibula, left medial tibial plateau nondisplaced fracture with left knee hemarthrosis status post aspiration and minimally displaced fracture of the right proximal fibula and we were consulted to see the patient for medical management. #1 minimally displaced fracture of the left proximal fibula/ left medial tibial plateau nondisplaced fracture/left knee hemarthrosis: Status post aspiration. Status post application of long left leg cast. Patient is on OxyIR PRN for pain. Orthopedic surgery has been seeing the patient. He is on wheelchair. According to the patient, plan to DC home today. #2 minimally displaced fracture of the right distal fibula: He is on tall cam walking boot, weightbearing as tolerated. #3 closed head injury: While on Eliquis. Patient denies any loss of consciousness or headache. CT scan brain done when patient was admitted to the hospital showed no acute findings. He has been stable. #3 Stage III chronic kidney disease: Baseline creatinine has been around 1.3 to 1.5 mg/dL. It has been stable, most recent was 1.48. #4 hypertension: Blood pressure stable, continue clonidine, HCTZ, losartan and metoprolol. #5 paroxysmal atrial fibrillation: Rate is controlled, in sinus rhythm. continue metoprolol for rate control, continue Eliquis for anticoagulation. #6 peripheral vascular disease: Status post bilateral angioplasty and stent placement to the left lower extremity. Stable, no acute issues. #7 history of ocular melanoma: Status post surgery, in remission. #8 DVT prophylaxis: Continue Eliquis. This note was generated with [employer] dictation software. It may contain incorrect words, spelling, and punctuation that were not noted in checking the note before signing. Code Visit Inpatient E&M: 72855 Subs Hosp L2
--- NOTE | 2018-11-03 11:46 | CASEMGMT ---
Social Work IDT met with patient and loi' for Team Meeting. Patient requesting to DC today. Pt wanted to DC earlier, but needed w/c from [employer] that he was renting previously. Pt was refusing safety precautions with therapy and completing all of therapy treatments. Pt refused HHC or outpatient. No referrals needed. Plan: DC home with loi' 11/03 with w/c. KOURTNEY SalgadoW
--- NOTE | 2018-11-03 12:14 | PCM.DC ---
- Discharge Diagnoses Reason(s) for Visit for Discharge Instructions: Debility secondary to Left tibial, fibular head, right malleolus fx You will use the following diet at home:: Cardiac Your food should be the consistency of: Regular Your liquids should be the consistency of: Regular/Thin Discharge Activity: May Not Drive, - - Do not get Left lower extremity cast wet Weight Bearing Status: Weight bearing as tolerated - Right lower extremity- Wear Cam walking boot with activity/transfers, Toe touch weight bearing - Left lower extremity Call your doctor if you observe: Fever of 101 or Higher, Coldness, Increased Pain, Numbness or Tingling, Change in Color, Inability to urinate, Inability to have a bowel movement, Shortness of breath, Dizziness, Fainting spells, Swelling in the ankles, Chest pain, Prolonged hiccoughing, Increased palpitations (irregular heartbeat), Calf discomfort, Uncontrolled pain Instructions: Tips for Quitting Smoking (Cardiovascular), Kicking the Smoking Habit, Coping with Smoking Withdrawal, Getting Support for Quitting Smoking, Staying Smoke-Free, Your High Blood Pressure Risk Factors, High Blood Pressure (Hypertension) Additional Instructions: Do not smoke with nicotine patch on. Smoking cessation education risks/benefits. Allergies/Adverse Reactions: Allergies nebivolol HCl [From Bystolic] Allergy (Verified 10/27/18 14:00) Other Penicillins Allergy (Verified 10/27/18 14:00) Other trandolapril [From Tarka] Allergy (Verified 10/27/18 14:00) Other verapamil HCl [From Tarka] Allergy (Verified 10/27/18 14:00) Other Medications to take at Discharge Apixaban [Eliquis] 5 mg PO BID 10/27/18 Acetaminophen [Tylenol] 1,000 mg PO Q8 tab 11/03/18 Clonidine HCl [Catapres] 0.2 mg PO BID tab 11/03/18 Dorzolamide HCL/Timolol [Cosopt Opth Drops] 1 drp RIGHT EYE BID bottle 11/03/18 Hydrochlorothiazide [Hctz] 25 mg PO DAILY tab 11/03/18 Losartan Potassium [Cozaar] 100 mg PO DAILY tab 11/03/18 Metoprolol Tartrate [Lopressor (beta kenny)] 25 mg PO BID tab 11/03/18 Multivitamins,Ther W-Minerals [Multivitamin With Minerals] 1 tab PO DAILY@0800 tab 11/03/18 Nicotine [Nicoderm] 14 mg TRANSDERM. DAILY #30 patch 11/03/18 The following prescriptions were given: Nicotine [Nicoderm] 14 mg TRANSDERM. DAILY #30 patch Transmission Status: Received by [facility]/pharmacy #[id number] Primary Care Physician: Pedro Mcnair MD [Primary Care Provider] - Please follow up with your Primary Care Physician in: call to schedule an appointment today Test Results: Test results from this visit will be discussed in further detail at your follow-up appointment, if applicable. Please Follow Up With: Dr. Hunt - [phone] When: call to schedule appointment today Proposed Discharge Date: 11/03/18
--- NOTE | 2018-11-03 12:44 | DS.PCM_ITS ---
Rehab Discharge Summary DATE OF ADMISSION: 10/29/18 DATE OF DISCHARGE: 11/03/18 - Rehab Diagnosis Debility secondary to Left proximal fibula/tibial plateau,right distal fibula, right malleolus fx Patient Problems: Active and Suspected Problems Morbid obesity due to excess calories (Acute) BMI 37.0 with co-mobidity HTN - Physical Exam General: Alert, Oriented x3 HEENT: Atraumatic, PERRLA, EOMI, - - Right eye blind- chronic Oral: Moist Mucosa Neck: Supple, No JVD Lungs: Clear to auscultation, Normal air movement Cardiovascular: Regular rate, Regular Rhythm Abdomen: Bowel Sounds Present, Soft, Non Tender, Obese Extremities: No clubbing, No cyanosis, No edema Musculoskeletal: - - LLE cast Neurological: Cranial nerves II-XII grossly intact - right eye blind-chronic, Deep Tendon Reflexes 2+/4 and Symmetrical, Motor Exam 5/5 strength throughout - Cast to LLE minimal movement Psych/Mental Status: Normal Affect, Appropriate, Alert and oriented to time, place, person, mood and affect Vital Signs Temp Pulse Resp BP Pulse Ox 97.9 F 68 16 140/80 H 93 11/03/18 07:23 11/03/18 08:37 11/03/18 07:23 11/03/18 08:37 11/03/18 07:23 Oxygen Delivery Method Room Air Weight: 130.6 kg Body Mass Index (BMI) 36.9 Intake and Output for Last 24 Hours 11/01/18 11/02/18 11/03/18 23:59 23:59 23:59 Intake Total 440 / 440 440 / 440 Balance 440 / 440 440 / 440 Discharge Diet: Low fat/ Low Cholesterol Discharge Activity: May Not Drive, - - Do not get Left lower extremity cast wet Weight Bearing Status: Weight bearing as tolerated - Right lower extremity- Wear Cam walking boot with activity/transfers, Toe touch weight bearing - Left lower extremity Call your doctor if you observe: Fever of 101 or Higher, Coldness, Increased Pain, Numbness or Tingling, Change in Color, Inability to urinate, Inability to have a bowel movement, Shortness of breath, Dizziness, Fainting spells, Swelling in the ankles, Chest pain, Prolonged hiccoughing, Increased palpitations (irregular heartbeat), Calf discomfort, Uncontrolled pain Home Medications: Medications to take at Discharge Apixaban [Eliquis] 5 mg PO BID 10/27/18 Acetaminophen [Tylenol] 1,000 mg PO Q8 tab 11/03/18 Clonidine HCl [Catapres] 0.2 mg PO BID tab 11/03/18 Dorzolamide HCL/Timolol [Cosopt Opth Drops] 1 drp RIGHT EYE BID bottle 11/03/18 Hydrochlorothiazide [Hctz] 25 mg PO DAILY tab 11/03/18 Losartan Potassium [Cozaar] 100 mg PO DAILY tab 11/03/18 Metoprolol Tartrate [Lopressor (beta kenny)] 25 mg PO BID tab 11/03/18 Multivitamins,Ther W-Minerals [Multivitamin With Minerals] 1 tab PO DAILY@0800 tab 11/03/18 Nicotine [Nicoderm] 14 mg TRANSDERM. DAILY #30 patch 11/03/18 Following Prescrptions Were Given to Patient: Nicotine [Nicoderm] 14 mg TRANSDERM. DAILY #30 patch Transmission Status: Received by [facility]/pharmacy #[id number] Primary Care Physician: Pedro Mcnair MD [Primary Care Provider] - Please follow up with your Primary Care Physician in: call to schedule an appointment today Please Follow Up With: Dr. Hunt - [phone] When: call to schedule appointment today Patient Instructions: Tips for Quitting Smoking (Cardiovascular), Your High Blood Pressure Risk Factors, Getting Support for Quitting Smoking, Coping with Smoking Withdrawal, Staying Smoke-Free, High Blood Pressure (Hypertension), Kicking the Smoking Habit Additional Instructions: No smoking with nicotine patch on. Education on smoking cessation and risk/be nefits Disposition: Home Patient Condition:: Stable Rehab Course The patient is a 67 year old M with PMH of Paroxysmal atrial fibrillation, PVD, HTN, and Closed head injury, Morbid obesity (BMI 37.0 with co-morbidity HTN), HX of right subacute lateral malleolus fx 6 weeks ago, Tobacco use, ocular melanoma in 2011, admitted to [facility] on 10/29/18 for debility secondary to left tibial plateau fx, fibular head fx, right malleolus fx, for greater than 3 hours of therapy with a goal of retuning home at or near his prior level of independence. 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 Patient stated he did hit his head and but denied LOC. CT of brain showed no acute bleed, infarct or skull fx. X-rays obtained. Left knee x-ray showed minimally displaced fx of the proximal fibula, cortical irregularities in the tibial eminence and medial tibial plateau, likely represent nondisplaced fractures. Right knee x-ray showed no fx or dislocation. Right Tibia/Fibula X-ray showed minimally displace fx of the distal fibula. Left ankle X-ray no fx or dislocation. Right ankle X-ray showed nondisplaced fx of the lateral malleolus with overlying soft tissue swelling. Left wrist X-ray showed no fx or dislocation. Orthopedic Surgeon Dr. Hunt was consulted on 10/28/2018 and performed arthrocentesis of left knee and removed 25 cc of blood to aid in full extension of casting. Patient to wear Cam walking boot to right lower extremity d/t right subacute lateral malleolus fx. Patient is weight bearing at tolerated to RLE and Toe-touch weightbearing to LLE. Patient was currently on Elquis for atrial fibrillation, ok to resume on 10/30/2018. Patient lives in a one level house with 3 steps to enter with significant other. Currently retired. Patient was independent with ADL's, mobility and driving prior to admission. During IP RU course Eliquis was restarted on 10/30/18 due to diagnosis of closed head injury- stable. Patient requested discharge today on 11/03/18 and PT/OT recommended at discharge- patient declined. Discussed smoking cessation diet, exercise, wt. loss, Weightbearing status: LLE TTWB, RLE WBAT, Cam boot walking boot to RLE to be maintained until further instructions by Dr. Hunt. Pateint to f/u with Dr. Hunt and PCP. Meaningful Use Info Meaningful Use Diagnoses (Choose all that apply): None applicable
[2018-11-03 13:02] VITALS: BP 101/60; PULSE 78; RESP 16; TEMP 36.8; O2SAT 95
== END 2018-11-03 13:30 | disposition home or self-care (01) | DRG 561 ==
PROVIDERS: Nurse Practitioner Family; Admitting Provider Psychiatry & Neurology Neurology; Family Provider Family Medicine; PCP Family Medicine; Referring Provider Psychiatry & Neurology Neurology; Visit Provider Hospitalist
DX: S82.61XD Displaced fracture of lateral malleolus of right fibula, subsequent encounter for closed fracture with routine healing (principal); S82.142D Displaced bicondylar fracture of left tibia, subsequent encounter for closed fracture with routine healing; S82.832D Other fracture of upper and lower end of left fibula, subsequent encounter for closed fracture with routine healing; E66.01 Morbid (severe) obesity due to excess calories; Z68.37 Body mass index [BMI] 37.0-37.9, adult; N18.3 Chronic kidney disease, stage 3 (moderate); I12.9 Hypertensive chronic kidney disease with stage 1 through stage 4 chronic kidney disease, or unspecified chronic kidney disease; I48.0 Paroxysmal atrial fibrillation; F17.200 Nicotine dependence, unspecified, uncomplicated; I73.9 Peripheral vascular disease, unspecified; Z85.840 Personal history of malignant neoplasm of eye; W17.89XD Other fall from one level to another, subsequent encounter; S09.90XD Unspecified injury of head, subsequent encounter; H54.40 Blindness, one eye, unspecified eye
CPT/HCPCS: 36415; 80048; 85027; 97110; 97162; 97166; 97530; 97802; 99406

== ENCOUNTER → 2018-11-18 08:20 | Outpatient (CLI) | payer MEDICARE, OTHER, SELFPAY ==
[2018-11-18 08:00] VITALS: BMI 36.9
--- NOTE | 2018-11-18 08:22 | RAD_ITS ---
STUDY: X-RAY - LEFT KNEE REASON FOR EXAM: Male, 67 years old. Fracture. TECHNIQUE: 3 view(s) of the knee. COMPARISON: October 27, 2018. FINDINGS: Normal visualized distal femur. Mild lucency through the tibial eminence which may represent nondisplaced fracture. Again seen is a mildly displaced fracture of the proximal fibula. There is evidence of mild interval healing without change in alignment.. Normal proximal tibiofibular articulation. Normal medial femorotibial compartment. Normal lateral femorotibial compartment. Normal patellofemoral articulation. Again seen is a stent in the distal SFA, proximal popliteal artery unchanged from prior study. RAD/Knee 1 or 2 Views IMPRESSION: 1. Healing fracture of the proximal fibula. 2. Lucency through the base of the tibial eminence consistent with fracture. This is slightly less well visualized suggesting partial healing. There is no change in alignment. Electronically Signed: Kenji Fan DO at 17:21 EDT Tel [phone], Service support ,
--- NOTE | 2018-11-18 08:22 | RAD_ITS ---
STUDY: X-RAY - RIGHT ANKLE REASON FOR EXAM: Male, 67 years old. Fracture. TECHNIQUE: 3 view(s) of the ankle. COMPARISON: Right ankle, October 28, 2018. FINDINGS: Normal visualized distal tibia. Again seen is the fracture of the distal fibula. This appears unchanged in alignment from previous examination. There is evidence of minimal callus formation. Normal tibiotalar articulation and ankle mortise. Normal visualized talus and calcaneus. The visualized subtalar, talonavicular, calcaneocuboid and tarsal articulations are normal. Mild persistent lateral soft tissue swelling. RAD/Ankle min 3 Views IMPRESSION: Healing fracture of the distal fibula without change in alignment. Electronically Signed: Kenji Fan DO at 17:18 EDT Tel [phone], Service support ,
== END ==
PROVIDERS: Family Provider Family Medicine; PCP Family Medicine; Referring Provider Orthopaedic Surgery; Visit Provider Orthopaedic Surgery
DX: S82.891A Other fracture of right lower leg, initial encounter for closed fracture (principal)
CPT/HCPCS: 73560; 73610

== ENCOUNTER → 2018-12-09 15:12 | Outpatient (CLI) | payer MEDICARE, OTHER, SELFPAY ==
[2018-12-09 08:07] VITALS: BMI 36.9
--- NOTE | 2018-12-09 15:14 | RAD_ITS ---
STUDY: X-RAY - LEFT KNEE REASON FOR EXAM: Male, 68 years old. Follow-up tibial and fibular fracture. TECHNIQUE: 2 view(s) of the knee. COMPARISON: Prior exam of November 18, 2018 FINDINGS: Healing medial tibial plateau fracture without change in alignment. Healing fracture of the proximal fibular diaphysis and neck without change in alignment. Now out of plaster. Normal medial femorotibial compartment. Normal lateral femorotibial compartment. Normal patellofemoral articulation. Endovascular stent of the mid and distal superficial femoral artery included in the [id number]. RAD/Knee 1 or 2 Views IMPRESSION: Healing fractures of the medial tibial plateau and proximal fibula without change in alignment now out of plaster. Electronically Signed: Karley Michelle MD at 15:42 EDT , Service support ,
== END ==
PROVIDERS: Family Provider Family Medicine; PCP Family Medicine; Referring Provider Orthopaedic Surgery; Visit Provider Orthopaedic Surgery
DX: S82.132A Displaced fracture of medial condyle of left tibia, initial encounter for closed fracture (principal)
CPT/HCPCS: 73560

== ENCOUNTER 2019-01-06 14:00 | Outpatient (RCR) | payer MEDICARE, OTHER, SELFPAY ==
[2018-11-18 08:00] VITALS: BMI 36.9
--- NOTE | 2018-12-02 09:30 | HP.PTEVAL ---
Patient's Visit Information JOSE L ZARAGOZA is a 68 year old M referred to Physical Therapy by Jose David Hunt DO with a diagnosis of L medial tibial plateau fx, displaced, left fibula fx and R ankle fx. Date of Evaluation: 11/27/18 Physical Therapist: Roberto Da Silva DPT - Visit Plan Frequency: 2x /Week Duration: 4-6 Weeks Plan: Pt. is NWBing on LLE, TROM braced unlocked to 30deg for the next week, then able to be opended to full. Pt. to maintain NWBing on LLE until seeing physician. Start with B ankle strengthening to tolerance, slow progression of knee ROM. Pt. is lacking TKE on LLE and limited with flexion. Progress as tolerated. - Subjective Findings: Pt. is here today for his initial evaluation with diagnosis of L medial tibial plateau fx, displaces proximal end of left fibula fx and R ankle fx. Pt. had a R ankle fx in July and was doing. On 10/27 he fell in a garage pit and resulted in L tibial fxs. Pt. is currently NWBing on his L leg with TROM brace locked into extension. Pt. is WBAT on R ankle. Pt. has been walking short distances with crutches maintaining NWBing on his LLE. Pt. denies N/T in either LE. Pt. reports mild pain currently it only hurts if I move wrong. Pt. reports not removing his brace since getting it. He is hopeful to get back to all recreational activities without limitations. - Pain L knee Pain Intensity (Out of 10): 1 R ankle Pain Intensity (Out of 10): 0 - Objective POSTURE: Pt. is able to maintain proper WBing in stance with crutches without LOB. PALPATION: Pt. has mild edeam throughout BLEs, worse on L. Negative homans sign. Pt. has mild tenderness along knee joint line, but minimal. NEURO: Normal throughout. Pt. has normal sensation and DTR of RLE. ROM: R ankle- DF 8deg, PF 40deg, INV 8deg, EVR 3deg. R knee full without increase in symptoms. LLE: ankle- DF 10deg, PF 38deg, INV 8deg, EVR 4deg. Knee- 0 4-30deg. MMT: RLE: ankle 4/5 throughout; knee- 5/5 throughout; hip- 4+/5 throughout except hip abd 4/5. LLE: ankle 4/5 throughout; knee- DNT; hip- SLR x10 with brace, abd x10 with brace. GAIT: Pt. is able to ambulate with crutches with proper NWBing on LLE. Pt. is walking household distances wihtout issues. Pt. walked 50ft. this date. STAIRS: DNT - Goals Goal 1:: Pt. to be I with HEP. Goal Time Frame: 4-6 Weeks Goal 2:: Pt. to have increased L knee ROM to 0-0-120deg without increase in symptoms. Goal Time Frame: 4-6 Weeks Goal 3:: Pt. to walk household distances maintain proper WBing on LLE with use of crutches, Independently. Goal Time Frame: 4-6 Weeks Goal 4:: Pt. to have increased R ankle strength to 5/5 throughout withotu increase in symptoms. Goal Time Frame: 4-6 Weeks - Rehabilitation Potential Physical Therapy Diagnosis: Pt. has signs and symptoms consistent with L medial tibial plateau fx, displaces proximal end of left fibula fx and R ankle fx. Pt. has subsequent difficutly with walking, hypombility and weakness. Pt .would benefit from PT to work on above limitations. Rehabilitation Potential: Good - Anticipated Interventions Patient/Client Instruction: Educate patient on: Condition, Plan of Care, Risk Factors, Benefits of Fitness Program For the Purpose of:: To improve safety, To improve health and function, To foster healthy habits, To improve decision making, To facilitate caregiver knowledge, To improve self management, To prevent re-injury Therapeutic Exercise to Include: Strength training, Endurance training, Body mechanics, Postural training, Flexibilty training, Gait and locomotor training, Passive ROM, Active ROM For the Purpose of:: To decrease pain, To decrease swelling/inflammation, To increase ROM, To improve nutrient delivery to tissue, To increase oxygenation perfusion, To improve muscle performance and motor function, To improve ability to perform ADL's, To increase tolerance to activity/condition/position, To improve gait and locomotor functions, To improve health of tissue, To decrease soft tissue restriction Thank you for the opportunity to evaluate your patient. For Medicare and Medicare HMO plans, please review the plan of care and approve it. It will need to be FAXED BACK to us at [phone] for Medicare purposes. For Medicare only, by signing this I certify the plan of care. Please let me know if there are questions or concerns regarding this plan of care. Physician Signature: Date:
== END 2019-01-06 19:00 | disposition home or self-care (01) ==
LOC: PT 14:00
PROVIDERS: Family Provider Family Medicine; PCP Family Medicine; Visit Provider Orthopaedic Surgery
DX: S82.142D Displaced bicondylar fracture of left tibia, subsequent encounter for closed fracture with routine healing (principal); S82.832D Other fracture of upper and lower end of left fibula, subsequent encounter for closed fracture with routine healing; S82.891D Other fracture of right lower leg, subsequent encounter for closed fracture with routine healing
CPT/HCPCS: 97110; 97161

== ENCOUNTER → 2019-01-06 15:09 | Outpatient (CLI) | payer MEDICARE, OTHER, SELFPAY ==
[2019-01-06 09:36] VITALS: BMI 36.9
--- NOTE | 2019-01-06 15:17 | RAD_ITS ---
STUDY: X-RAY - LEFT KNEE REASON FOR EXAM: Male, 68 years old. Injury TECHNIQUE: For view(s) of the knee. COMPARISON: None. FINDINGS: Normal distal femur There is a mildly depressed intra-articular fracture of the medial tibial plateau with mild overlapping of fracture fragments... There is also a spiral fracture of the fibular neck with mild separation of fracture fragments. There is a nondisplaced fracture of the patella. Normal proximal tibiofibular articulation. Normal medial femorotibial compartment. Normal lateral femorotibial compartment. Normal patellofemoral articulation. There is a stent noted within the distal superficial femoral artery. RAD/Knee 4 or More Views IMPRESSION: Acute depressed fracture of the medial tibial plateau in association with spiral fracture of the fibular neck and nondisplaced fracture of the patella. Electronically Signed: Skinny Harris MD at 22:31 EST , Service support ,
== END ==
PROVIDERS: Family Provider Family Medicine; PCP Family Medicine; Referring Provider Orthopaedic Surgery; Visit Provider Orthopaedic Surgery
DX: S82.142A Displaced bicondylar fracture of left tibia, initial encounter for closed fracture (principal); S82.442A Displaced spiral fracture of shaft of left fibula, initial encounter for closed fracture; S82.002A Unspecified fracture of left patella, initial encounter for closed fracture; X58.XXXA Exposure to other specified factors, initial encounter
CPT/HCPCS: 73564

== ENCOUNTER → 2019-01-06 16:17 | Outpatient (CLI) | payer MEDICARE, OTHER, SELFPAY ==
[2019-01-06 09:36] VITALS: BMI 36.9
--- NOTE | 2019-01-06 16:22 | VDLE_ITS ---
Reason For Study: Swelling Procedure LEFT Exam performed in department. GSV is normal. Peroneal veins were not visualized well. Pt CFV is compressible, spontaneous, phasic, unable to tolerate compressions in groin, competent, and demonstrates normal demonstarted with color flow. augmentation. A preliminary report was called and/or faxed FV is compressible, spontaneous, phasic, to [place]. competent and demonstrates normal augmentation. POP V is compressible, spontaneous, phasic, competent and demonstrates normal augmentation. T/P Trunk is compressible. PTV is compressible. LT PerV is compressible. Interpretation Summary There is no evidence of left lower extremity deep vein thrombosis. Left great saphenous vein appears patent and compressible segmentally. See technical limitations of exam Ordering Physician: Jose David Hunt Referring Physician: Pedro Mcnair Performed By: Candis Casas RVT
== END ==
LOC: CVS 16:21
PROVIDERS: Family Provider Family Medicine; PCP Family Medicine; Referring Provider Orthopaedic Surgery; Visit Provider Orthopaedic Surgery
DX: S82.142A Displaced bicondylar fracture of left tibia, initial encounter for closed fracture (principal); S82.442A Displaced spiral fracture of shaft of left fibula, initial encounter for closed fracture; S82.002A Unspecified fracture of left patella, initial encounter for closed fracture; X58.XXXA Exposure to other specified factors, initial encounter; M79.89 Other specified soft tissue disorders
CPT/HCPCS: 73564; 93971

== ENCOUNTER 2020-05-04 08:32 | Outpatient (RCR) | payer MEDICARE, SELFPAY ==
[2019-01-06 09:36] VITALS: BMI 36.9
[2020-05-04] MEDS: COVID-19 VACC, MRNA(PFIZER)/PF 30 MCG/0.3 ML SYRINGE IM (17:53)
[2020-05-25] MEDS: COVID-19 VACC, MRNA(PFIZER)/PF 30 MCG/0.3 ML SYRINGE IM (16:58)
== END 2020-08-08 23:59 ==
LOC: IMMUN 08:32
PROVIDERS: PCP Family Medicine; Referring Provider Family Medicine; Visit Provider Family Medicine
DX: Z23 Encounter for immunization (principal)
CPT/HCPCS: 0001A; 0002A; 91300

== ENCOUNTER → 2020-05-19 16:13 | Outpatient (CLI) | payer MEDICARE, OTHER, SELFPAY ==
[2019-01-06 09:36] VITALS: BMI 36.9
--- NOTE | 2020-05-19 16:17 | CT_ITS ---
STUDY: CT CHEST WITHOUT CONTRAST- LOW DOSE SCREENING PROTOCOL REASON FOR EXAM: Male, 69 years old. Current smoker. 25 pack per year history. No current symptoms of lung cancer or pulmonary infection. Shared decision-making with referring PCP documented in patient''s record. TECHNIQUE: Low dose screening CT examination performed from the base of the neck to the upper abdomen. Sagittal and coronal reformatted images performed. Sagittal and coronal MIP images provided. The measurements provided are average, rounded measurements per ACR guidelines. Individualized dose optimization techniques were used for this CT. COMPARISON: None. FINDINGS: 3 mm noncalcified nodule of the right upper lobe on image 107 series 2. No additional noncalcified nodules. No localized groundglass opacities. There is no demonstrated pleural abnormality. Normal heart and pericardium. There are calcifications of the coronary arteries. Normal mediastinum. Normal hilar regions. Normal unenhanced pulmonary arteries. Mild atherosclerosis of the thoracic aorta. Normal osseous structures. There is no demonstrated abnormality of the visualized upper abdomen. CT/Low Dose CT Lung Screening IMPRESSION: 1. No significant indeterminate incidental findings requiring additional imaging. 2. Incidental findings include atherosclerosis including coronary arteries. ASSESSMENT CATEGORY: LungRADS 2 - Benign Appearance or Behavior. Continue annual screening with LDCT in 12 months, per established ACR guidelines. Electronically Signed: Mahamed Rosas MD ([place]) at 16:37 EDT , Service support ,
== END ==
PROVIDERS: PCP Family Medicine; Referring Provider Internal Medicine Hematology & Oncology; Visit Provider Internal Medicine Hematology & Oncology
DX: Z87.891 Personal history of nicotine dependence (principal)
CPT/HCPCS: 71271

== ENCOUNTER 2023-04-25 14:56 | Inpatient (IN) | payer MEDICARE, OTHER, SELFPAY ==
[2023-04-25] VITALS (12 sets, daily range): BP systolic 145–184; BP diastolic 84–103; PULSE 75–91; RESP 16–24; TEMP 36.4–37.9; O2SAT 85–96; BMI 36.7; BMI 36.6
[2023-04-25] MEDS: Acetaminophen 500 MG Tablet 1000 MG PO (15:50)
[2023-04-25] MEDS: 0.9% Normal Saline (500mL Bag) 500 ML 999 ML IV (16:05)
--- NOTE | 2023-04-25 16:10 | RAD_ITS ---
STUDY: X-RAY CHEST REASON FOR EXAM: Male, 72 years old. Hypoxia TECHNIQUE: Single frontal view of the chest. COMPARISON: CT chest May 19, 2020. October 27, 2018 chest x-ray. FINDINGS: Increased interstitial markings right lower lobe . There is no demonstrated pleural abnormality. Moderate cardiomegaly. Normal mediastinum and zee. Normal visualized pulmonary arteries. Normal visualized aortic arch and descending thoracic aorta. Normal visualized thoracic spine. Normal visualized ribs, clavicles, and shoulders. There is no demonstrated abnormality of the visualized soft tissue structures of the upper abdomen. RAD/Chest 1 View (Portable) IMPRESSION: Right lower lobe interstitial infiltrate. Electronically Signed: Guru Nelson MD at 16:47 EST ,
[2023-04-25 16:15] LABS: Absolute Lymphocyte Count 0.54 X10^3/uL (0.83-4.51); Absolute Neutrophil Count 5.3 X10^3/uL (2.0-7.7); Basophil# 0.02 X10^3/uL; Basophil% 0.3 % (0-1); Eosinophil# 0.01 X10^3/uL; Eosinophils% 0.1 % (0-5); Hematocrit 47.4 % (40-54); Hemoglobin 15.3 g/dL (13.0-16.5); Lymphocyte # 0.54 X10^3/ul (0.83-4.51); Mean Corp Hgb Conc 32.3 g/dL (32-36); Mean Corpuscular Hgb 31.7 pg (27.0-32.0); Mean Corpuscular Volume 98.1 fL (80-94); Mean Platelet Vol. 12.9 fl (6.2-12.0); Monocyte# 0.86 X10^3/uL; Monocyte% 12.8 % (0-10); NRBC Flagged by Analyzer 0 % (0-5); Neutrophil # 5.25 X10^3/uL (2.7-7.7); Neutrophil % 78.1 % (47-70); POSITIVE COUNT YES; POSITIVE DIFFERENTIAL YES; Platelet Count 85 K/mm3 (150-450); RBC Distribution Width CV 14.6 % (11.6-14.6); RBC Distribution Width SD 52.8 fl (35.1-43.9); Red Blood Count 4.83 M/mm3 (4.6-6.2); White Blood Count 6.7 K/mm3 (4.4-11.0)
[2023-04-25 16:16] LABS: Differential Indicated SCAN CRITERIA MET
--- NOTE | 2023-04-25 16:17 | EDS_ITS ---
HPI <Milly Diaz RN - Last Filed: 04/25/23 19:20> History of Present Illness Chief Complaint: Hypertension Detail of Chief Complaint: Weakness, fever, headache, cough Informant: patient Onset/Context/Timing Onset: Hours (36) Context: Sudden Onset Timing: Continuous Current Severity: 3/10 Maximum Severity: 8/10 Worsened by: Activity Relieved by: Tylenol Narrative Narrative: Patient presents to the ED from home for fever, generalized weakness, headache, and cough beginning approximately 36 hours ago. Patient reports his significant other has been ill as well. Her symptoms improved after 2 days. Cough has been productive with clear sputum. Patient reports initially had clear nasal drainage which resolved this morning. Patient also reports occasional dry heaves. He reports still drinking fluids but has had decreased appetite. He also states today he has had decreased urine output and an episode of urinary incontinence yesterday and today. Describes headache as 3/10 pain. Reports headache improved after being placed on 2 L O2 via nasal cannula due to sats 85% on room air upon arrival to ED. Patient reports chills, sweats, and fever at home. Did not take temperature at home. Was taking Tylenol 1 g for fever and headache at home with moderate relief. Last dose 0800. Patient also reports he did not receive the influenza vaccine for this year. Patient denies recent travel and recent surgeries. Prior similar symptoms: No Recent Illness/Hospitalization: No PFSH <Milly Diaz RN - Last Filed: 04/25/23 19:20> PFSH Home Medications apixaban 5 mg tablet 5 mg PO BID blood thinner 10/27/18 [History Last Taken 10/27/18] acetaminophen 500 mg tablet 1,000 mg (2 x 500 mg) PO Q8 11/03/18 [Rx Last Taken Unknown] clonidine HCl 0.2 mg tablet 0.2 mg PO BID 11/03/18 [Rx Last Taken Unknown] dorzolamide 22.3 mg-timolol 6.8 mg/mL eye drops 1 drp RIGHT EYE BID 11/03/18 [Rx Last Taken Unknown] hydrochlorothiazide 25 mg tablet 25 mg PO DAILY 11/03/18 [Rx Last Taken Unknown] losartan 100 mg tablet 100 mg PO DAILY 11/03/18 [Rx Last Taken Unknown] metoprolol tartrate 25 mg tablet 25 mg PO BID 11/03/18 [Rx Last Taken Unknown] multivitamin,ot-bzwd-bonrtbbu 27 mg-0.4 mg tablet 1 tab PO DAILY@0800 11/03/18 [Rx Last Taken Unknown] nicotine 14 mg/24 hr daily transdermal patch 14 mg TRANSDERM. DAILY #30 patches 11/03/18 [Rx Last Taken Unknown] tramadol 50 mg tablet 50 mg PO Q8H PRN pain #30 tabs 12/09/18 [Rx Last Taken Unknown] Allergy/AdvReac Type Severity Reaction Status Date / Time nebivolol HCl [From Bystolic] Allergy Other Verified 04/25/23 14:57 Penicillins Allergy Other Verified 04/25/23 14:57 trandolapril [From Tarka] Allergy Other Verified 04/25/23 14:57 verapamil HCl [From Tarka] Allergy Other Verified 04/25/23 14:57 Social History Smoking Status: Current every day smoker tobacco type: cigarettes ROS <Milly Diaz RN - Last Filed: 04/25/23 19:20> ROS ED Constitutional Constitutional ED: Reports chills, fever(s) and sweats Eyes Eyes: Denies change in vision ENT ENT ED: Reports rhinorrhea and sore throat; Denies ear pain Cardiovascular Cardiovascular: Denies chest pain, palpitations or racing heartbeat Respiratory/Chest Respiratory/Chest: Reports cough, dyspnea on exertion and other Details: Productive cough with clear sputum Gastrointestinal Gastrointestinal: Reports other Details: Dry heaves ; Denies abdominal pain or diarrhea Genitourinary Genitourinary ED: Reports other Details: 2 episodes of urinary incontinence with 1 being yesterday and 1 today. ; Denies dysuria or hematuria Musculoskeletal Musculoskeletal: Reports arthralgias and myalgias Integumentary Denies rash Neurologic Neurologic: Reports headache(s) and weakness Hematologic/Lymphatic Hematologic/Lymphatic: Reports systems reviewed and no addt'l complaints, except as documented EXAM <Milly Diaz RN - Last Filed: 04/25/23 19:20> Physical Exam Const Vital Signs: 04/25/23 15:00 04/25/23 15:03 04/25/23 16:04 Temperature 100.2 F H 100.2 F H 98.4 F Temperature Source Oral Oral Oral Pulse Rate 91 75 90 Respiratory Rate 22 H 18 24 H Respiratory Effort Respiratory Pattern Blood Pressure 166/101 H 166/101 H 166/103 H Blood Pressure Mean 122 122 124 Pulse Ox 85 92 94 Oxygen Delivery Method Room Air Nasal Cannula Nasal Cannula Oxygen Flow Rate (L/min) 2 2 04/25/23 16:10 04/25/23 17:03 04/25/23 18:04 Temperature 98.2 F 97.8 F Temperature Source Oral Oral Pulse Rate 86 89 Respiratory Rate 24 H 17 Respiratory Effort Short of Breath Respiratory Pattern Tachypnea Blood Pressure 161/84 H 151/87 H Blood Pressure Mean 109 108 Pulse Ox 95 96 Oxygen Delivery Method Nasal Cannula Nasal Cannula Oxygen Flow Rate (L/min) 2 2 04/25/23 18:37 Temperature Temperature Source Pulse Rate Respiratory Rate 23 H Respiratory Effort Respiratory Pattern Blood Pressure Blood Pressure Mean Pulse Ox 87 Oxygen Delivery Method Room Air Oxygen Flow Rate (L/min) Positive well nourished and well developed General Appearance ED: well developed and NAD HEENT Reports moist mucous membranes Eyes PERRL Neck no lymphadenopathy, supple and no JVD Chest Wall inspection of chest normal and palpation of chest normal Resp normal respiratory effort and clear to auscultation bilaterally Auscultation: Negative for rales, rhonchi or wheezes Cardio S1 normal heart sound and S2 normal heart sound Rhythm: abnormal rhythm irregularly irregular and other (A-fib on monitor. Patient with history of paroxysmal atrial fibrillation.) GI normal to inspection, nondistended, normoactive bowel sounds and non-tender Palpation: soft Extremity Extremity Narrative: 2+ pitting edema to bilateral lower extremities. Chronic discussion coloration of lower extremities noted. General Extremety ED: Yes edema; Negative for tenderness General Extremity: edema Neuro oriented x3 Sensorium / Orientation: alert Motor Exam: strength 5/5 throughout Psych mental status grossly normal Skin no rashes or lesions noted and no wounds <Dr. Fatoumata Rodas MD - Last Filed: 04/25/23 19:10> Physical Exam Const Vital Signs: 04/25/23 15:00 04/25/23 15:03 04/25/23 16:04 Temperature 100.2 F H 100.2 F H 98.4 F Temperature Source Oral Oral Oral Pulse Rate 91 75 90 Respiratory Rate 22 H 18 24 H Respiratory Effort Respiratory Pattern Blood Pressure 166/101 H 166/101 H 166/103 H Blood Pressure Mean 122 122 124 Pulse Ox 85 92 94 Oxygen Delivery Method Room Air Nasal Cannula Nasal Cannula Oxygen Flow Rate (L/min) 2 2 04/25/23 16:10 04/25/23 17:03 04/25/23 18:04 Temperature 98.2 F 97.8 F Temperature Source Oral Oral Pulse Rate 86 89 Respiratory Rate 24 H 17 Respiratory Effort Short of Breath Respiratory Pattern Tachypnea Blood Pressure 161/84 H 151/87 H Blood Pressure Mean 109 108 Pulse Ox 95 96 Oxygen Delivery Method Nasal Cannula Nasal Cannula Oxygen Flow Rate (L/min) 2 2 04/25/23 18:37 Temperature Temperature Source Pulse Rate Respiratory Rate 23 H Respiratory Effort Respiratory Pattern Blood Pressure Blood Pressure Mean Pulse Ox 87 Oxygen Delivery Method Room Air Oxygen Flow Rate (L/min) MDM <Milly Diaz RN - Last Filed: 04/25/23 19:20> [facility] MDM Narrative Medical decision making narrative: Patient placed on counter stitcher. IV inserted. Labwork obtained to evaluate for leukocytosis, anemia, and electrolyte derangement. Influenza, COVID, RSV swab obtained. Chest x-ray obtained to evaluate for acute lung pathology, cardiac size, or mediastinal abnormality. Acetaminophen ordered due to fever. Normal saline 1 L bolus followed by 150 mL/h ordered due to fever. Patient's viral panel negative. Therefore CTA of chest will be ordered due to hypoxia to rule out PE. History & Record Review Discussion w/independent historian: Patient Lab Data Attestation: I reviewed the patient's lab results. Labs: Laboratory Results - last 24 hr 04/25/23 04/25/23 15:44 16:00 WBC 6.7 RBC 4.83 Hgb 15.3 Hct 47.4 MCV 98.1 H MCH 31.7 MCHC 32.3 RDW Std Deviation 52.8 H RDW Coeff of Sabra 14.6 Plt Count 85 L MPV 12.9 H Immature Gran % (Auto) 0.700 Neut % (Auto) 78.1 H Lymph % (Auto) 8.0 L Hamlin % (Auto) 12.8 H Eos % (Auto) 0.1 Baso % (Auto) 0.3 Absolute Neuts (auto) 5.3 Absolute Lymphs (auto) 0.54 L Nucleated RBC % 0 Differential Comment SEE COMMENTS Platelet Estimate MOD DEC RBC Morphology N CHROM Anisocytosis 1+ Macrocytosis 1+ Sodium 139 Potassium 4.5 Chloride 104 Carbon Dioxide 29.0 Anion Gap 6 BUN 25 H Creatinine 2.05 H Estim Creat Clear Calc 45.94 Est GFR (MDRD) Af Amer 41 L Est GFR (MDRD) Non-Af 34 L BUN/Creatinine Ratio 12.2 Glucose 132 H Calcium 9.1 Total Bilirubin 0.70 AST 29 ALT 22 Alkaline Phosphatase 73 Total Protein 7.8 Albumin 3.6 Globulin 4.2 Albumin/Globulin Ratio 0.9 Radiography Chest X-Ray - ED: 1 View and Read by Radiologist Diagnostic Testing: Clinical Impression(s) from Imaging Studies Chest X-Ray 04/25/23 16:10 IMPRESSION: Right lower lobe interstitial infiltrate. Electronically Signed: Guru Nelson MD at 16:47 EST Reading Location ID and State: [address] [place] [address] Tel , Service support , Chest CTA 04/25/23 17:18 IMPRESSION: Moderate pericardial effusion increased. Prominent nonspecific mediastinal lymphadenopathy. Mild infiltrate left lower lobe. 2.7 cm left thyroid lesion. Recommend follow-up nonemergent thyroid ultrasound. Large cystic lesion within the liver incompletely imaged at the edge of the [id number]. Electronically Signed: Guru Nelson MD at 18:56 EST Reading Location ID and State: [facility] / [place] Tel , Service support , Differential Diagnosis Chest pain/SOB: pulmonary embolism, pneumonia and CHF Management Discussion w/another healthcare provider: Other (Dr. Rodas, ED report provider) Treatment and Re-Evaluation :: Lab work reviewed. CBC with normal white count of 6.7. Neutrophils slightly elevated at 78.1%. Hemoglobin at 15.3%. Chemistries show an elevated BUN of 25, elevated creatinine 2.05, elevated glucose of 132. Patient was given 500 normal saline bolus followed by normal saline 150 mL/h. Patient was given Tylenol for fever. Repeat temp was 97.8. CT of the chest that was ordered to rule out PE showed a moderate pericardial effusion. It also showed a mild left lower lobe infiltrate. For this patient will be given Zithromax and Rocephin. Lab work and imaging discussed with patient. Due to hypoxia, it is recommended that patient be admitted. Patient agreeable with plan. Hospitalist will be contacted by Dr. Rodas. Patient seen and evaluated with GENIE student. I personally interviewed and examined the patient. I was involved in all aspects of patient's orders, interpretation of results, and treatment. Patient presents with 3-day history of cough, congestion, fever, weakness. He states his is ill with similar but she seems to be improving while he is getting worse. He denies history of COPD or asthma. He is slightly hypoxic on room air at 85% on arrival. Patient is currently on Eliquis for history of paroxysmal A-fib. Patient sitting upright in bed in no acute distress. He appears ill but not tox ic. Head and neck examination is unremarkable. Heart is regular. Lung sounds are grossly clear bilaterally. Abdomen is soft, obese, nontender. Lower extremity examination reveals chronic venous stasis changes to his legs. CBC was normal white count 6.7 with 78% neutrophils. Hemoglobin is 15.3. Chemistry studies reveal a BUN of 25 and a creatinine of 2.05. It appears his baseline creatinine is around 1.5. His glucose is 132. His LFTs are unremarkable. Urinalysis has been ordered but he has not yet been able to produce a sample. Chest x-ray per my interpretation reveals chronic changes w ith no focal infiltrate. Radiology interpretation is reviewed and feels that there may be a right lower lobe interstitial infiltrate. Patient swab for COVID, influenza, and RSV is negative. Given his hypoxia he was sent for CTA of the chest. This reveals a moderate pericardial effusion which is increased in size compared to prior study. Mild infiltrate noted in the left lower lobe. Given the left lower lobe infiltrate he will be treated with Rocephin and Zithromax. Blood cultures have already been obtained. Fever did improve with Tylenol. EKG was obtained because of the patient's pericardial effusion. This reveals atrial fibrillation at 89 bpm with single PVC. Normal voltage size noted. Patient be discussed with hospitalist regarding admission given his hypoxia on room air. <Dr. Fatoumata Rodas MD - Last Filed: 04/25/23 19:10> [facility] Lab Data Labs: Laboratory Results - last 24 hr 04/25/23 04/25/23 15:44 16:00 WBC 6.7 RBC 4.83 Hgb 15.3 Hct 47.4 MCV 98.1 H MCH 31.7 MCHC 32.3 RDW Std Deviation 52.8 H RDW Coeff of Sabra 14.6 Plt Count 85 L MPV 12.9 H Immature Gran % (Auto) 0.700 Neut % (Auto) 78.1 H Lymph % (Auto) 8.0 L Hamlin % (Auto) 12.8 H Eos % (Auto) 0.1 Baso % (Auto) 0.3 Absolute Neuts (auto) 5.3 Absolute Lymphs (auto) 0.54 L Nucleated RBC % 0 Differential Comment SEE COMMENTS Platelet Estimate MOD DEC RBC Morphology N CHROM Anisocytosis 1+ Macrocytosis 1+ Sodium 139 Potassium 4.5 Chloride 104 Carbon Dioxide 29.0 Anion Gap 6 BUN 25 H Creatinine 2.05 H Estim Creat Clear Calc 45.94 Est GFR (MDRD) Af Amer 41 L Est GFR (MDRD) Non-Af 34 L BUN/Creatinine Ratio 12.2 Glucose 132 H Calcium 9.1 Total Bilirubin 0.70 AST 29 ALT 22 Alkaline Phosphatase 73 Total Protein 7.8 Albumin 3.6 Globulin 4.2 Albumin/Globulin Ratio 0.9 Radiography Diagnostic Testing: Clinical Impression(s) from Imaging Studies Chest X-Ray 04/25/23 16:10 IMPRESSION: Right lower lobe interstitial infiltrate. Electronically Signed: Guru Nelson MD at 16:47 EST , Chest CTA 04/25/23 17:18 IMPRESSION: Moderate pericardial effusion increased. Prominent nonspecific mediastinal lymphadenopathy. Mild infiltrate left lower lobe. 2.7 cm left thyroid lesion. Recommend follow-up nonemergent thyroid ultrasound. Large cystic lesion within the liver incompletely imaged at the edge of the [id number]. Electronically Signed: Guru Nelson MD at 18:56 EST , Treatment and Re-Evaluation :: Patient seen and evaluated with GENIE student. I personally interviewed and examined the patient. I was involved in all aspects of patient's orders, interpretation of results, and treatment. Patient presents with 3-day history of cough, congestion, fever, weakness. He states his is ill with similar but she seems to be improving while he is getting worse. He denies history of COPD or asthma. He is slightly hypoxic on room air at 85% on arrival. Patient is currently on Eliquis for history of paroxysmal A-fib. Patient sitting upright in bed in no acute distress. He appears ill but not toxic. Head and neck examination is unremarkable. Heart is regular. Lung sounds are grossly clear bilaterally. Abdomen is soft, obese, nontender. Lower extremity examination reveals chronic venous stasis changes to his legs. CBC was normal white count 6.7 with 78% neutrophils. Hemoglobin is 15.3. Chemistry studies reveal a BUN of 25 and a creatinine of 2.05. It appears his baseline creatinine is around 1.5. His glucose is 132. His LFTs are unremarkable. Urinalysis has been ordered but he has not yet been able to produce a sample. Chest x-ray per my interpretation reveals chronic changes with no focal infiltrate. Radiology interpretation is reviewed and feels that there may be a right lower lobe interstitial infiltrate. Patient swab for COVID, influenza, and RSV is negative. Given his hypoxia he was sent for CTA of the chest. This reveals a moderate pericardial effusion which is increased in size compared to prior study. Mild infiltrate noted in the left lower lobe. Given the left lower lobe infiltrate he will be treated with Rocephin and Zithromax. Blood cultures have already been obtained. Fever did improve with Tylenol. EKG was obtained because of the patient's pericardial effusion. This reveals atrial fibrillation at 89 bpm with single PVC. Normal voltage size noted. Patient be discussed with hospitalist regarding admission given his hypoxia on room air. Discharge Plan Dx/Rx/DC Orders Clinical Impression: Hypoxia, Pneumonia Disposition Disposition: Acute Care [facility]
[2023-04-25 16:47] LABS: Anisocytosis 1+; Differential Comment SEE COMMENTS; Macrocytosis 1+; Platelet Estimate MOD DEC (ADEQ); Red Cell Morphology N CHROM NORMAL (NORM C&C)
[2023-04-25 16:48] LABS: ALB/GLOB Ratio 0.9 RATIO (0.9-2.4); AST(SGOT) 29 U/L (15-37); Alanine Aminotransfer ALT/SGPT 22 U/L (16-61); Albumin, Serum 3.6 g/dL (3.2-5.0); Alkaline Phosphatase 73 U/L (45-117); Anion Gap 6 (5-15); BUN 25 mg/dL (7-18); BUN/Creat Ratio 12.2 RATIO (10-20); Calcium,Total 9.1 mg/dL (8.5-10.1); Chloride 104 mmol/L (98-107); Creatinine, Serum 2.05 mg/dL (0.70-1.30); EST Glomerular Filtration Rate 34 mL/min (>60); Est Glom Filt Rate - Afr Amer 41 mL/min (>60); Estimated Creatinine Clearance 45.94 ml/min; Globulin 4.2 g/dL (2.2-4.2); Glucose 132 mg/dL (74-106); Potassium 4.5 mmol/L (3.5-5.1); Protein, Total 7.8 g/dL (6.4-8.2); Sodium Level 139 mmol/L (136-145)
--- NOTE | 2023-04-25 17:18 | CT_ITS ---
STUDY: CTA CHEST REASON FOR EXAM: Male, 72 years old. hypoxia RADIATION DOSAGE (If Supplied By Facility): CTDIvol = ( 12.66 ) mGy, DLP = ( 582.99 ) mGycm TECHNIQUE: The examination was performed with the intravenous administration of isovue 370 100 ml. Post-processing of the angiographic images was performed, with multiplanar reformation and 3D reconstruction. Individualized dose optimization techniques were used for this CT. COMPARISON: Chest x-ray April [address] chest May 1930 FINDINGS: Normal enhancement of the main pulmonary artery and right and left pulmonary arteries. Normal enhancement of the bilateral peripheral pulmonary arteries. There is no demonstrated pulmonary embolism. Normal thoracic aorta and visualized great vessels. There is no demonstrated aortic dissection. Moderate pericardial effusion increased. Calcific coronary artery disease. Prominent nonspecific mediastinal lymphadenopathy measuring up to 2.8 x 1.8 cm in the pretracheal region. Normal hilar regions. Normal visualized trachea and bronchi. Mild interstitial infiltrates left lung. Normal pulmonary parenchyma. Normal pleura. * Normal chest wall structures. 2.9 cm hypodense lesion left thyroid more conspicuous. Normal osseous structures. 12 x 8.5 cm cystic lesion right lobe of the liver. CT/CTA Chest W/WO Contrast IMPRESSION: Moderate pericardial effusion increased. Prominent nonspecific mediastinal lymphadenopathy. Mild infiltrate left lower lobe. 2.7 cm left thyroid lesion. Recommend follow-up nonemergent thyroid ultrasound. Large cystic lesion within the liver incompletely imaged at the edge of the [id number]. Electronically Signed: Guru Nelson MD at 18:56 EST ,
[2023-04-25] MEDS: 0.9% Normal Saline (1000mL) 1,000 ML 150 ML IV (18:04)
--- OUTSIDE RECORDS SUMMARY | 2023-04-25 18:42 | XMS RPT_ITS | CCD ---
Author Name Unknown Address [address] [facility] [address] [place] [address] Organization [facility] Care Team Providers Care [employer] Name Role Phone ARISTEOKATHERIN AGUILERA Unavailable Unavailable YADY LY Unavailable Unavailable ANGELIA NAZARIO Unavailable Unavailable Xu TEIXEIRA, Carleen Adams Primary Care Provider Zeinab TEIXEIRA, Danny Gleason Unavailable Xu TEIXEIRA, Carleen Adams Primary Care Provider Zeinab TEIXEIRA, Danny Gleason Unavailable Xu TEIXEIRA, Carleen Adams Primary Care Provider Xu TEIXEIRA, Carleen Adams Primary Care Provider Zeinab TEIXEIRA, Danny Gleason Unavailable Zeinab TEIXEIRA, Danny A Unavailable Zeinab TEIXEIRA, Danny A Unavailable Zeinab TEIXEIRA, Danny A Unavailable CARLEEN MCNAIR Referring Unavailable CLEVE GALLEGO Attending Unavailable CARLEEN MCNAIR Primary Care Unavailable CARLEEN MCNAIR Referring Unavailable CARLEEN MCNAIR Primary Care Unavailable XAVIER DICK Attending Unavailable CARLEEN MCNAIR Referring Unavailable CARLEEN MCNAIR Primary Care Unavailable CARLEEN MCNAIR Referring Unavailable CARLEEN MCNAIR Primary Care Unavailable CARLEEN MCNAIR Primary Care Unavailable CARLEEN MCNAIR Attending Unavailable CARLEEN MCNAIR Primary Care Unavailable PRABHA MULTANI Attending Unavailable ESTHELA HERNANDEZ Attending Unavailable CARLEEN MCNAIR Primary Care Unavailable CARLEEN MCNAIR Referring Unavailable CARLEEN MCNAIR Referring Unavailable CARLEEN MCNAIR Primary Care Unavailable CARLEEN MCNAIR Primary Care Unavailable CARLEEN MCNAIR Attending Unavailable CLEVE GALLEGO Attending Unavailable CLEVE GALLEGO Referring Unavailable CARLEEN MCNAIR Primary Care Unavailable Allergies Allergy Classification Reported Allergen(s) Allergy Type Date of Onset Reaction(s) Facility (20 sources) nebivolol; Translations: [NEBIVOLOL] Drug Allergy 3 Rash [facility] Other [facility] (20 sources) Penicillins; Translations: [PENICILLINS] Propensity to adverse reactions to drug (disorder) 2 Rash [facility] Repository (20 sources) trandolapril / verapamil; Translations: [TRANDOLAPRIL-VE RAPAMIL] Drug Allergy 3 Cough [facility] Repository (20 sources) MARIJUANA/CANNAB INOID; Translations: [MARIJUANA/CANNA BINOID] Propensity to adverse reactions to drug (disorder) 8 Other: See Comments [facility] Repository (20 sources) Verapamil; Translations: [VERAPAMIL] Drug Allergy 9 Other: See Comments [facility] Medications Current Medications Medication Drug Class(es) Dates Sig (Normalized) Sig (Original) DULoxetine 30 mg delayed release oral capsule (3 sources) Serotonin and Norepinephrine Reuptake Inhibitor Start: 04-14-2023 End: 04-13-2024 take 1 capsule by mouth once daily DULoxetine (CYMBALTA) 30 mg capsule Indications: Neuropathy - (NOS) Take 1 capsule by mouth once daily. 90 capsule 3 04/14/2023 04/13/2024 Active Completed/Discontinued Medications Medication Drug Class(es) Dates Sig (Normalized) Sig (Original) apixaban 5 mg oral tablet (20 sources) Factor Xa Inhibitor Start: 01-28-2023 End: 04-09-2023 take 1 tablet by mouth twice daily apixaban (ELIQUIS) 5 mg tab(s) Take 1 tablet by mouth two times a day. 180 tablet 1 04/09/2023 Active Problems Active Problems Problem Classification Problem Date Documented Date Episodic/Chronic Cancer; other and unspecified primary (20 sources) Malignant melanoma of right choroid; Translations: [Malignant neoplasm of right choroid] Onset: 12-08-2012 08-01-2016 Chronic Cancer; other and unspecified primary (16 sources) Malignant melanoma of eye; Translations: [Malignant neoplasm of unspecified site of unspecified eye] Onset: 09-30-2022 09-30-2022 Chronic Cardiac dysrhythmias (20 sources) Paroxysmal atrial fibrillation; Translations: [Paroxysmal atrial fibrillation] Onset: 01-04-2015 10-01-2017 Chronic Cataract (20 sources) Cataract associated with radiation; Translations: [Other specified cataract] Onset: 07-15-2013 07-15-2013 Chronic Chronic kidney disease (20 sources) Chronic kidney disease stage 3; Translations: [CKD (chronic kidney disease) stage 3, GFR 30-59 ml/min] Onset: 10-01-2017 10-01-2017 Chronic Chronic kidney disease (1 source) Chronic kidney disease; Translations: [Stage 3 chronic kidney disease, unspecified whether stage 3a or 3b CKD (HCC)] Onset: 10-02-2017 Coagulation and hemorrhagic disorders (20 sources) Thrombocytopenia, unspecified; Translations: [Chronic idiopathic thrombocytopenic purpura] Onset: 10-02-2017 04-29-2018 Chronic Diabetes mellitus without complication (20 sources) Hyperglycemia; Translations: [Hyperglycemia, unspecified] Onset: 04-25-2018 04-25-2018 Episodic Disorders of lipid metabolism (20 sources) Hypercholesterolemia; Translations: [Pure hypercholesterolemia, unspecified] Onset: 10-14-2013 10-14-2013 Chronic Essential hypertension (20 sources) Hypertensive disorder; Translations: [Essential (primary) hypertension] Onset: 07-20-2012 10-01-2017 Chronic Fever of unknown origin (1 source) Fever, unspecified; Translations: [Fever, unspecified] Onset: 10-01-2017 Episodic Glaucoma (1 source) 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; Translations: [Glaucoma secondary to other eye disorders, right eye, indeterminate stage] 04-22-2023 Chronic Hypertension with complications and secondary hypertension (20 sources) Chronic kidney disease stage 3 due to hypertension; Translations: [Hypertensive chronic kidney disease with stage 1 through stage 4 chronic kidney disease, or unspecified chronic kidney disease] Onset: 11-03-2020 11-03-2020 Chronic Occlusion or stenosis of precerebral arteries (6 sources) Bilateral stenosis of carotid arteries; Translations: [Occlusion and stenosis of bilateral carotid arteries] Chronic Other and unspecified benign neoplasm (3 sources) History of polyp of colon; Translations: [Personal history of colonic polyps] 09-30-2022 Episodic Other diseases of kidney and ureters (5 sources) Renal impairment; Translations: [Disorder of kidney and ureter, unspecified] Episodic Other eye disorders (20 sources) Iris and ciliary body vascular disorder; Translations: [Other vascular disorders of iris and ciliary body, unspecified eye] Onset: 01-18-2014 01-18-2014 Chronic Other injuries and conditions due to external causes (1 source) Systemic inflammatory response syndrome (SIRS) of non-infectious origin without acute organ dysfunction; Translations: [Systemic inflammatory response syndrome (sirs) of non-infectious origin without acute organ dysfunction] Onset: 10-01-2017 Episodic Other liver diseases (1 source) Nonspecific elevation of levels of transaminase and lactic acid dehydrogenase [LDH]; Translations: [Nonspecific elevation of levels of transaminase and lactic acid dehydrogenase (ldh)] Onset: 10-01-2017 Episodic Other lower respiratory disease (1 source) Cough; Translations: [Cough] Onset: 10-01-2017 Episodic Other nervous system disorders (20 sources) Neuropathy; Translations: [Polyneuropathy, unspecified] Onset: 03-05-2021 03-05-2021 Chronic Other nutritional; endocrine; and metabolic disorders (20 sources) Obesity; Translations: [Obesity, unspecified] Onset: 01-04-2015 01-04-2015 Chronic Peripheral and visceral atherosclerosis (20 sources) Peripheral vascular disease, unspecified; Translations: [Peripheral vascular disease, unspecified] Onset: 07-20-2013 07-20-2013 Chronic Residual codes; unclassified (20 sources) Obstructive sleep apnea syndrome; Translations: [Obstructive sleep apnea (adult) (pediatric)] Onset: 01-04-2015 10-01-2017 Chronic Residual codes; unclassified (1 source) Tobacco user; Translations: [Tobacco use] Episodic Substance-related disorders (20 sources) Smoker; Translations: [Nicotine dependence, unspecified, uncomplicated] Onset: 04-06-2013 10-01-2017 Chronic Unclassified (20 sources) SUMMARY Onset: 04-06-2013 Past or Other Problems Problem Classification Problem Date Documented Da te Episodic/Chronic Allergic reactions (20 sources) Solar degeneration; Translations: [Other skin changes due to chronic exposure to nonionizing radiation] Onset: 02-21-2013 02-21-2013 Episodic Fracture of lower limb (15 sources) Fracture of tibial plateau; Translations: [Displaced bicondylar fracture of unspecified tibia, initial encounter for closed fracture] Onset: 09-30-2022 09-30-2022 Episodic Lymphadenitis (20 sources) Lymphadenopathy; Translations: [Generalized enlarged lymph nodes] Onset: 01-28-2012 01-28-2012 Episodic Other aftercare (20 sources) Drug therapy finding; Translations: [roasterman (current) use of anticoagulants] Onset: 01-04-2015 01-04-2015 Episodic Other and unspecified benign neoplasm (20 sources) Polyp of sigmoid colon; Translations: [Polyp of colon] Onset: 09-29-2017 09-29-2017 Episodic Other and unspecified benign neoplasm (1 source) Personal history of colonic polyps; Translations: [History of colonic polyps] Onset: 12-03-2022 Episodic Other diseases of kidney and ureters (20 sources) Cyst of kidney; Translations: [Cyst of kidney, acquired] Onset: 11-27-2021 11-27-2021 Episodic Other diseases of kidney and ureters (1 source) Disorder of kidney and ureter, unspecified; Translations: [Renal insufficiency] Onset: 10-07-2022 Episodic Other injuries and conditions due to external causes (20 sources) Radiation damage to optic nerve; Translations: [Injury of optic nerve, unspecified eye, initial encounter] Onset: 06-09-2012 06-09-2012 Episodic Other injuries and conditions due to external causes (15 sources) Closed injury of head; Translations: [Unspecified injury of head, initial encounter] Onset: 09-30-2022 09-30-2022 Episodic Other screening for suspected conditions (not mental disorders or infectious disease) (2 sources) Patient encounter status; Translations: [Encounter for screening for malignant neoplasm of colon] Onset: 01-07-2023 01-07-2023 Episodic Other skin disorders (20 sources) Actinic keratosis; Translations: [Actinic keratosis] Onset: 02-21-2013 02-21-2013 Episodic Other skin disorders (20 sources) Inflamed seborrheic keratosis; Translations: [Inflamed seborrheic keratosis] Onset: 02-21-2013 02-21-2013 Episodic Other skin disorders (20 sources) Foot callus; Translations: [Corns and callosities] Onset: 03-05-2021 03-05-2021 Episodic Retinal detachments; defects; vascular occlusion; and retinopathy (20 sources) Serous retinal detachment; Translations: [Serous retinal detachment, unspecified eye] Onset: 01-28-2012 01-28-2012 Episodic Viral infection (20 sources) Verruca vulgaris; Translations: [Viral wart, unspecified] Onset: 02-21-2013 02-21-2013 Episodic Results Test Name Value Interpretation Reference Range Facil ity Vital Signs Date Time Vital Sign Value Performing Clinician Donna mcarthur 04-14-2023 11:38-0500 Diastolic blood pressure 86 mm[Hg] Carleen Mcnair MD Work Phone: [facility] 04-14-2023 11:38-0500 Systolic blood pressure 130 mm[Hg] Carleen Mcnair MD Work Phone: [facility] 04-14-2023 11:12-0500 Body weight 132 kg Carleen cMnair MD Work Phone: [facility] 04-14-2023 11:12-0500 Heart rate 57 /min Carleen Mcnair MD Work Phone: [facility] 04-14-2023 11:12-0500 SaO2% (BldA) [Mass fraction] 95 % Carleen Mcnair MD Work Phone: [facility] 01-07-2023 14:02-0500 Diastolic blood pressure 68 mm[Hg] Cleve Gallego MD Work Phone: [facility] 01-07-2023 14:02-0500 Heart rate 84 /min Cleve Gallego MD Work Phone: [facility] 01-07-2023 14:02-0500 Respiratory rate 16 /min Cleve Gallego MD Work Phone: [facility] 01-07-2023 14:02-0500 SaO2% (BldA) [Mass fraction] 93 % Cleve Gallego MD Work Phone: [facility] 01-07-2023 14:02-0500 Systolic blood pressure 120 mm[Hg] Cleve Gallego MD Work Phone: [facility] 01-07-2023 11:32-0500 Body temperature 96.21 [degF] Cleve Gallego MD Work Phone: [facility] 12-03-2022 15:51-0400 Body height 188 cm Cleve Gallego MD Work Phone: [facility] 12-03-2022 15:51-0400 Body temperature 97.81 [degF] Cleve Gallego MD Work Phone: [facility] 12-03-2022 15:51-0400 Body weight 129.73 kg Cleve Gallego MD Work Phone: [facility] 12-03-2022 15:51-0400 Diastolic blood pressure 92 mm[Hg] Cleve Gallego MD Work Phone: [facility] 12-03-2022 15:51-0400 Heart rate 64 /min Cleve Gallego MD Work Phone: [facility] 12-03-2022 15:51-0400 SaO2% (BldA) [Mass fraction] 96 % Cleve Gallego MD Work Phone: [facility] 12-03-2022 15:51-0400 Systolic blood pressure 150 mm[Hg] Cleve Gallego MD Work Phone: [facility] 09-30-2022 13:41-0400 Body height 188 cm Carleen Mcnair MD Work Phone: [facility] 09-30-2022 13:41-0400 Body weight 127.01 kg Carleen Mcnair MD Work Phone: [facility] 09-30-2022 13:41-0400 Diastolic blood pressure 72 mm[Hg] Carleen Mcnair MD Work Phone: [facility] 09-30-2022 13:41-0400 Heart rate 57 /min Carleen Mcnair MD Work Phone: [facility] 09-30-2022 13:41-0400 SaO2% (BldA) [Mass fraction] 97 % Carleen Mcnair MD Work Phone: [facility] 09-30-2022 13:41-0400 Systolic blood pressure 132 mm[Hg] Carleen Mcnair MD Work Phone: [facility] 04-29-2022 09:19-0500 Diastolic blood pressure 76 mm[Hg] Prabha Haagen SCIENTIST PROPAGATOR.WINDOW SHADE CUTTER AND MOUNTER Work Phone: [facility] 04-29-2022 09:19-0500 Heart rate 56 /min Prabha Haagen SCIENTIST PROPAGATOR.WINDOW SHADE CUTTER AND MOUNTER Work Phone: [facility] 04-29-2022 09:19-0500 Respiratory rate 18 /min Prabha Haagen SCIENTIST PROPAGATOR.WINDOW SHADE CUTTER AND MOUNTER Work Phone: [facility] 04-29-2022 09:19-0500 SaO2% (BldA) [Mass fraction] 95 % Prabha Haagen SCIENTIST PROPAGATOR.WINDOW SHADE CUTTER AND MOUNTER Work Phone: [facility] 04-29-2022 09:19-0500 Systolic blood pressure 128 mm[Hg] Prabha Haagen SCIENTIST PROPAGATOR.WINDOW SHADE CUTTER AND MOUNTER Work Phone: [facility] 03-27-2022 14:09-0500 Diastolic blood pressure 76 mm[Hg] Carleen Mcnair MD Work Phone: [facility] 03-27-2022 14:09-0500 Systolic blood pressure 140 mm[Hg] Carleen Mcnair MD Work Phone: [facility] 03-27-2022 13:47-0500 Body height 188 cm Carleen Mcnair MD Work Phone: [facility] 03-27-2022 13:47-0500 Body weight 127.01 kg Carleen Mcnair MD Work Phone: [facility] 03-27-2022 13:47-0500 Heart rate 60 /min Carleen Mcnair MD Work Phone: [facility] 03-27-2022 13:47-0500 SaO2% (BldA) [Mass fraction] 99 % Carleen Mcnair MD Work Phone: [facility] 11-29-2021 15:03-0400 Diastolic blood pressure 70 mm[Hg] Edelmira Lucas DO Work Phone: [facility] 11-29-2021 15:03-0400 Heart rate 101 /min Edelmira Lucas DO Work Phone: [facility] 11-29-2021 15:03-0400 SaO2% (BldA) [Mass fraction] 97 % Edelmira Lucas DO Work Phone: [facility] 11-29-2021 15:03-0400 Systolic blood pressure 130 mm[Hg] Edelmira Lucas DO Work Phone: [facility] 11-12-2021 09:47-0400 Body weight 133.36 kg Carleen Mcnair MD Work Phone: [facility] 11-12-2021 09:47-0400 Diastolic blood pressure 62 mm[Hg] Carleen Mcnair MD Work Phone: [facility] 11-12-2021 09:47-0400 Heart rate 60 /min Carleen Mcnair MD Work Phone: [facility] 11-12-2021 09:47-0400 Systolic blood pressure 92 mm[Hg] Carleen Mcnair MD Work Phone: [facility] Encounters Encounter Date Encounter Type Care Provider Facility Start: 04-22-2023 End: 04-22-2023 ambulatory ESTHELA HERNANDEZ Facility:[facility] Start: 04-22-2023 End: 04-22-2023 Patient encounter procedure Esthela Hernandez OD Work Phone: Ophthalmology Procedures Date Procedure Procedure Detail Performing Clinician Start: 01-07-2023 Colonoscopy flx dx w /collj spec when pfrmd Cleve Gallego MD Work Phone: Start: 01-07-2023 Colonoscopy Cleve mcgee MD Work Phone: Start: 10-07-2022 Us retroperitoneal r eal time w/image complete Carleen Mcnair MD Work Phone: Start: 09-30-2022 Lipid 1996 panel - S laurie or Plasma Cleve Gallego MD Work Phone: Start: 11-27-2021 Us retroperitoneal r eal time w/image complete Carleen Mcnair MD Work Phone: Start: 11-12-2021 Adult depression scr eening assessment Carleen Mcnair MD Work Phone: Start: 04-30-2020 Adult depression scr eening assessment Carleen Mcnair MD Work Phone: Start: 10-25-2019 Colonoscopy Carleen Sue MD Work Phone: Plan of Treatment Date Care Activity Detail Author Start: 01-07-2033 Colonoscopy Colonoscopy [facility] Start: 01-07-2033 Colorectal Cancer Screening Colorectal Cancer Screening [facility] Start: 01-07-2033 Screening for malign ant neoplasm of colon [facility] Start: 10-01-2027 Lipid 1996 panel - S laurie or Plasma Lipid Screening [facility] Start: 10-01-2027 Lipid panel [facility] Start: 10-01-2027 LIPID SCREEN LIPID SCREEN [facility] Start: 04-14-2026 Diabetes Screening Diabetes Screenin g [facility] Start: 01-07-2026 Colonoscopy Colonoscopy [facility] Start: 01-07-2026 Colorectal Cancer Screening Colorectal Cancer Screening [facility] Start: 11-13-2025 LIPID SCREEN LIPID SCREEN [facility] Start: 09-30-2025 DIABETES SCREEN DIABETES SCREEN [facility] Start: 09-30-2025 Diabetes Screening Diabetes Screenin g [facility] Start: 11-12-2024 DIABETES SCREEN DIABETES SCREEN [facility] Start: 04-14-2024 Annual PCP Team Transition Teacher wagner Disease Visit Annual PCP Team Chronic Disease Visit [facility] Start: 04-14-2024 Complete blood [facility] Start: 04-14-2024 Creatinine measurement Serum Creatin ine [facility] Start: 11-14-2023 DIABETES SCREEN DIABETES SCREEN [facility] Start: 10-01-2023 ANNUAL PCP TEAM CANVAS BASTER JUMPBASTING WAGNER DISEASE VISIT ANNUAL PCP TEAM CHRONIC DISEASE VISIT [facility] Start: 10-01-2023 Complete blood count Hemoglobin/Sharath tocrit [facility] Start: 10-01-2023 Creatinine measurement Serum Creatin ine [facility] Start: 10-01-2023 HEMOGLOBIN/HEMATOCRIT HEMOGLOBIN/HEM ATOCRIT [facility] Start: 10-01-2023 SERUM CREATININE SERUM CREATININE [facility] Start: 10-01-2023 SHINGRIX VACCINE (1 of 2) SHINGRIX V ACCINE (1 of 2) [facility] Immunizations Immunization Date Immunization Notes Care Provider [facility] 04-25-2018 influenza virus vacc ine, unspecified formulation Cleve Gallego MD Work Phone: [facility] 12-04-2015 influenza, seasonal, injectable, preservative free Carleen Mcnair MD Work Phone: [facility] 06-20-2015 pneumococcal conjuga te vaccine, 13 valearl Mcnair MD Work Phone: [facility] Work Phone: 03-07-2014 influenza, seasonal, injectable Carleen Mcnair MD Work Phone: [facility] 03-07-2014 pneumococcal polysaccharide vaccine, 23 valent Carleen Mcnair MD Work Phone: [facility] 12-01-2002 pneumococcal polysaccharide vaccine, 23 valearl Mcnair MD Work Phone: [facility] Work Phone: Payers Date Payer Category Payer [employer] ( and others) [id number] 2015 Unknown FOR LIFE [id number] 2015-Present [phone] [address] [place] [address] Indemnity [id number] 2015 Unknown [id number] 2014 Medicare MEDICARE MEDICAR E A AND B [id number] 2014-Present [phone] [place] [address] Medicare [id number] 2014 Medicare MEDICARE MEDICAR E A AND B [id number] 2014-Present [phone] [place] [address] Medicare [id number] 2014 Medicare [id number] Social History Date Type Detail Facility Start: 11-26-2011 End: 11-12-2021 Tobacco smoking status NHIS Smokes tobacco daily [facility] Work Phone: History of tobacco use Cigarette Smoker [facility] Work Phone: Start: 11-26-2011 End: 09-30-2022 Cigarettes smoked current (pack per day) - Reported 0.5 [facility] Start: 11-26-2011 End: 11-12-2021 Tobacco use and exposure Smokeless tobacco non-user [facility] Work Phone: Start: 03-15-2021 End: 04-22-2023 Alcohol intake Current non-drinker of alcohol (finding) [facility] Start: 04-30-2020 End: 03-05-2021 History SDOH Alcohol Frequency 1 [facility] Start: 04-30-2020 History SDOH Alcohol Std Drinks 98 [facility] Start: 04-30-2020 End: 04-29-2022 History SDOH Social Connections Phone 5 [facility] Start: 04-30-2020 End: 04-29-2022 History SDOH Social Connections Membership 2 [facility] Start: 04-30-2020 End: 04-29-2022 History SDOH Social Connections Living 8 [facility] Start: 04-30-2020 End: 04-29-2022 History SDOH Physical Activity DPW 0 [facility] Start: 04-30-2020 Education 21 [facility] Start: 1950 Sex Assigned At Male [facility] Start: 11-02-2021 End: 11-12-2021 Exposure to SARS-CoV-2 (event) Not sure [facility] Start: 04-29-2022 End: 09-30-2022 Social connection and isolation panel [facility] Do you belong to any clubs or organizations such as jewish groups, unions, fraternal or athletic groups, or school groups? No [facility] Are you now , , , , never or living with a partner? Living with partner [facility] How often to you hav e a drink containing alcohol? Never [facility] How many standard dr inks containing alcohol do you have on a typical day? Patient does not drink [facility] Do you feel stress - tense, restless, nervous, or anxious, or unable to sleep at night because your mind is troubled all the time - these days [OSQ] Not at all [facility] (I/We) worried wheth er (my/our) food would run out before (I/we) got money to buy more. Never true [facility] Start: 08-19-2018 Gender identity Identifies as male gender (finding) [facility] Start: 08-19-2018 Sexual orientation Heterosexual (finding) [facility] Medical Equipment Procedure Code Equipment Code Equipment Origin al Text Equipment Identifier Dates Lens Iol +22.5 D iop Acrsf Iq - [id number] Start: 04-28-2014 Goals Date Patient Goal Desired Activity /State Personal health goal Clinical Notes 10-01-2017 to 04-22-2023 Esthela Hernandez, JOHNNY - 04/22/2023 10:08 AM Carleen Davidson MD - 04/14/2023 11:07 AM ESTTelephone Encounter - Marah Cooney RN - 01/21/2023 9:51 AM ESTPatient InstructionsPatient Instructions Note Date & Type Note Facility 04-22-2023 Note HNO ID: [id number] Author: ESTHELA HERNANDEZ OD Service: ? Author Type: MILLING OPERATOR Type: Progress Notes Filed: 04/22/2023 10:13 Note Text: 1. Combined forms of age-related cataract, left eye + visually significant BCVA: 20/70 with large myopic shift 2. 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 Urged patient to follow-up with Dr. Donald Diaz for yearly check up (has not seen in 5+ years) Patient refuses travel to [place] I educated pt on importance of follow-up to make sure melanoma is stable due to high risk including threat to life 3. 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 Pseudophakia, right eye Stable Follow-up for cat eval with Berta Hernandez, JOHNNY April 22, 2023 10:08 AM [facility] 04-22-2023 History of Present illness Narrative 1. Combined forms of age-related cataract, left eye + visually significant BCVA: 20/70 with large myopic shift 2. 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 Urged patient to follow-up with Dr. Donald Diaz for yearly check up (has not seen in 5+ years) Patient refuses travel to [place] I educated pt on importance of follow-up to make sure melanoma is stable due to high risk including threat to life 3. 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 Pseudophakia, right eye Stable Follow-up for cat eval with Berta Hernandez, JOHNNY April 22, 2023 10:08 AM documented in this encounter [facility] 04-14-2023 Note HNO ID: [id number] Author: CARLEEN MCNAIR MD Service: ? Author Type: Physician Type: Progress Notes Filed: 04/14/2023 14:01 Note Text: Patient presents with: 6 Month Exam HPI: Patient presents today for office visit for follow. Neuropathy is getting worse. Now has it in his hands. Increasing in lower legs and feet. Had emg indicating polyneuropathy hansa 5 years ago. Had labs done in 2020. Is on gabapentin. Can be uncomfortable. Has been thought to be idiopathic. Did not have chemo for his remote melanoma. Was treated with radiation. No new falls. Some imbalance issues. HTN: Patient is compliant with meds Yes Monitors bp at home: Yes. Denies side effects: Yes. Chest pain: No. Dyspnea: No. Edema: stable. Palpitations: No. Syncope: No. Headache: No. Dizziness: No. Gets labs from heme onc and follow with them. No bleeding or bruising issues. Follows with cardiology. Is overdue to see them. Overdue to see vascular surgery. Needs to see optho. MEDICATIONS: Current Outpatient Medications Medication Sig gabapentin (NEURONTIN) 400 mg capsule Take 1 capsule by mouth three times a day for 90 days. apixaban (ELIQUIS) 5 mg tab(s) Take 1 tablet by mouth two times a day. metoprolol tartrate, short acting, (LOPRESSOR) 25 mg tablet Take 1 tablet by mouth two times a day. olmesartan (BENICAR) 40 mg tablet Take 1 tablet by mouth once daily. cloNIDine HCl (CATAPRES) 0.2 mg tablet Take 1 tablet by mouth twice daily. Yxyjbsuatgddq-Geywymbw-Gqsoby (CENTRUM SILVER) tab Take 1 tablet by mouth once daily. dorzolamide-timolol (COSOPT) 22.3-6.8 mg/mL ophthalmic solution USE 1 DROP IN THE RIGHT EYE TWICE A DAY No current facility-administered medications for this visit. 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 Transthoracic echocardiography showed LVEF 55%. TSH was normal. Transesophageal echocardiography was negative for left trial appendage thrombus. Successful DC cardioversion on 04/07/2013. Currently in Normal sinus rhythm. Anticoagulation for cerebrovascular prophylaxis initiated with Rivaroxaban. Exercise stress test to assess effort tolerance was fair But showed poorly controlled hypertension, thus Losartan is being increased from 50 mg/d to 100 mg/d. Verapamil has been stopped. Being discharged today. Out-patient pharmacologic stress test on 05/11/13 Follow-up with on 05/24/13. [Appointment already scheduled; Office number [phone]] WPW (Rzpfz-Ziteipisi-Myfem syndrome) 04/06/2013 Patient has been previously told that he has WPW when reviewed at other facilities but has never been offered rx.review of [facility] ECGs in [facility] do not show clear evidence of WPW. Exercise stress test to assess effort tolerance didn't induce arrhythmia or change activation.As the test was sub-optimal, Out-patient pharmacologic stress has been scheduled. PAST SURGICAL HISTORY Procedure Laterality Date AVASTIN (BEVACIZUMAB) 1.25MG INTRAVITREAL INJECTION OD (RIGHT EYE) Right 05/31/2014 CARDIOVERSION ELECTIVE ARRHYTHMIA INTERNAL SPX 04/2013 COLONOSCOPY FLX DX W/COLLJ SPEC WHEN PFRMD 10/07/2016 Colonoscopy COLONOSCOPY FLX DX W/COLLJ SPEC WHEN PFRMD 10/25/2019 Colonoscopy COLONOSCOPY SCREENING 01/07/2023 10 year follow up for screening recommended KNEE ARTHROSCOPY/SURGERY torn meniscus, right PAST SURGICAL HISTORY OF 12/13/2011 right eye, choroidal tumor removed / plaque REVASCULARIZATION ILIAC ARTERY ANGIOP 1ST VSL 08/10/2013 REVSC OPN/PRQ FEM/POP W/STNT/ANGIOP SM VSL 09/14/2013 VINITA (TRANSESOPHAGEAL ECHO) 04/2013 XCAPSL CTRC RMVL INSJ IO LENS PROSTH W/O ECP 04/28/2014 Cataract Extraction with PC IOL OD FAMILY HISTORY Problem Relation Age of Onset Hypertension Father Ischemic Heart Disease Father Ischemic Heart Disease Mother No Ocular Disease Other Social History Tobacco Use Smoking status: Every Day Packs/day: 0.50 Years: 50.00 Additional pack years: 0.00 Total pack years: 25.00 Types: Cigarettes Smokeless tobacco: Never Vaping Use Vaping Use: Never used Substance Use Topics Alcohol use: No Drug use: No Reviewed current medications, al (more content not included)... [facility] 04-14-2023 History of Present illness Narrative Patient presents with: 6 Month Exam HPI: Patient presents today for office visit for follow. Neuropathy is getting worse. Now has it in his hands. Increasing in lower legs and feet. Had emg indicating polyneuropathy hansa 5 years ago. Had labs done in 2020. Is on gabapentin. Can be uncomfortable. Has been thought to be idiopathic. Did not have chemo for his remote melanoma. Was treated with radiation. No new falls. Some imbalance issues. HTN: Patient is compliant with meds Yes Monitors bp at home: Yes. Denies side effects: Yes. Chest pain: No. Dyspnea: No. Edema: stable. Palpitations: No. Syncope: No. Headache: No. Dizziness: No. Gets labs from heme onc and follow with them. No bleeding or bruising issues. Follows with cardiology. Is overdue to see them. Overdue to see vascular surgery. Needs to see optho. MEDICATIONS: Current Outpatient Medications Medication Sig gabapentin (NEURONTIN) 400 mg capsule Take 1 capsule by mouth three times a day for 90 days. apixaban (ELIQUIS) 5 mg tab(s) Take 1 tablet by mouth two times a day. metoprolol tartrate, short acting, (LOPRESSOR) 25 mg tablet Take 1 tablet by mouth two times a day. olmesartan (BENICAR) 40 mg tablet Take 1 tablet by mouth once daily. cloNIDine HCl (CATAPRES) 0.2 mg tablet Take 1 tablet by mouth twice daily. Leoncpnrzvwpq-Fipaarbf-Ylhlzo (CENTRUM SILVER) tab Take 1 tablet by mouth once daily. dorzolamide-timolol (COSOPT) 22.3-6.8 mg/mL ophthalmic solution USE 1 DROP IN THE RIGHT EYE TWICE A DAY No current facility-administered medications for this visit. 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 Transthoracic echocardiography showed LVEF 55%. TSH was normal. Transesophageal echocardiography was negative for left trial appendage thrombus. Successful DC cardioversion on 04/07/2013. Currently in Normal sinus rhythm. Anticoagulation for cerebrovascular prophylaxis initiated with Rivaroxaban. Exercise stress test to assess effort tolerance was fair But showed poorly controlled hypertension, thus Losartan is being increased from 50 mg/d to 100 mg/d. Verapamil has been stopped. Being discharged today. Out-patient pharmacologic stress test on 05/11/13 Follow-up with on 05/24/13. [Appointment already scheduled; Office number [phone]] WPW (Tqpfv-Zumsfydkd-Hphcz syndrome) 04/06/2013 Patient has been previously told that he has WPW when reviewed at other facilities but has never been offered rx.review of [facility] ECGs in [facility] do not show clear evidence of WPW. Exercise stress test to assess effort tolerance didn't induce arrhythmia or change activation.As the test was sub-optimal, Out-patient pharmacologic stress has been scheduled. PAST SURGICAL HISTORY Procedure Laterality Date AVASTIN (BEVACIZUMAB) 1.25MG INTRAVITREAL INJECTION OD (RIGHT EYE) Right 05/31/2014 CARDIOVERSION ELECTIVE ARRHYTHMIA INTERNAL SPX 04/2013 COLONOSCOPY FLX DX W/COLLJ SPEC WHEN PFRMD 10/07/2016 Colonoscopy COLONOSCOPY FLX DX W/COLLJ SPEC WHEN PFRMD 10/25/2019 Colonoscopy COLONOSCOPY SCREENING 01/07/2023 10 year follow up for screening recommended KNEE ARTHROSCOPY/SURGERY torn meniscus, right PAST SURGICAL HISTORY OF 12/13/2011 right eye, choroidal tumor removed / plaque REVASCULARIZATION ILIAC ARTERY ANGIOP 1ST VSL 08/10/2013 REVSC OPN/PRQ FEM/POP W/STNT/ANGIOP SM VSL 09/14/2013 VINITA (TRANSESOPHAGEAL ECHO) 04/2013 XCAPSL CTRC RMVL INSJ IO LENS PROSTH W/O ECP 04/28/2014 Cataract Extraction with PC IOL OD FAMILY HISTORY Problem Relation Age of Onset Hypertension Father Ischemic Heart Disease Father Ischemic Heart Disease Mother No Ocular Disease Other Social History Tobacco Use Smoking status: Every Day Packs/day: 0.50 Years: 50.00 Additional pack years: 0.00 Total pack years: 25.00 Types: Cigarettes Smokeless tobacco: Never Vaping Use Vaping Use: Never used Substance Use Topics Alcohol use: No Drug use: No Reviewed current medications, allergies, past medical history, surgical history, family history and social history today. REVIEW OF SYSTEMS All other reviewed and negative other than HPI. HEALTH MAINTENANCE: Reviewed health maintenance issues today and recommended the following in detail. BP Controlled (<130/80) Never done RSV Vaccine(1 - 1-dose 60+ series) Never done Covid-19 Vaccine( season) due on 11/01/2022 Advance Directive Discussion due on 03/03/2023 Depression Assessment due on 03/03/2023 VITALS: BP 130/86 Pulse (!) 57 Wt 132 kg (291 lb) SpO2 95% BMI 37.36 kg/m Last 4 Encounter Wt Readings: Date: Wt: 12/03/2022 129.7 kg (286 lb) 09/30/2022 127 kg (280 lb) 03/27/2022 127 kg (280 lb) 11/12/2021 133.4 kg (294 lb) PHYSICAL EXAMINATION: General appearance: Well appearing, alert, in no acute distress, well-hydrated, well nourished. Skin: Skin color, texture, turgor normal, no suspicious rashes or lesions Lungs: Lungs clear to auscultation. No wheezing, rhonchi, rales Heart: RRR without murmur, gallop, or rubs. No ectopy Abdomen: Normal abdominal exam, Abdomen soft, non-tender. Bowel sounds normal. No masses, organomegaly Extremities: No deformities, edema, skin discoloration, clubbing or cyanosis. Good capillary refill. \ ASSESSMENT/PLAN: 1. Neuropathy - (NOS) - ICD9: 355.9, ICD10: G62.9 (primary diagnosis) - Discussed risks and benefits of new medication with the patient. Advised them to call if any side effects or questions. - follow up in six weeks. - DULOXETINE 30 MG CAPSULE,DELAYED RELEASE 2. Essential hypertension - ICD9: 401.9, ICD10: I10 - Controlled - Continue current medications - CLONIDINE HCL 0.2 MG TABLET 3. Primary hypertension - ICD9: 401.9, ICD10: I10 - Controlled - CBC + DIFF - COMP METABOLIC PANEL - LIPID PANEL BASIC 4. PAD (peripheral artery disease) ([facility]) - ICD9: 443.9, ICD10: I73.9 - over due for follow up - CAROTID ARTERIES [facility] - CONSULT TO VASCULAR SURGERY 5. PAF (paroxysmal atrial fibrillation) ([facility]) - ICD9: 427.31, ICD10: I48.0 - CONSULT TO CARDIOLOGY 6. Hypercholesterolemia - ICD9: 272.0, ICD10: E78.00 - stable. 7. PSVT (paroxysmal supraventricular tachycardia) - ICD9: 427.0, ICD10: I47.10 - CONSULT TO CARDIOLOGY 8. Hypertensive kidney disease with stage 3 chronic kidney disease, unspecified whether stage 3a or 3b CKD ([facility]) - ICD9: 403.90, 585.3, ICD10: I12.9, N18.30 - Controlled - Continue current medications - follow labs. 9. Current smoker - ICD9: 305.1, ICD10: F17.200 - Cessation encouraged. - Physiologic and physical aspects of tobacco addiction as well as strategies for quitting were discussed. - Counseling was given focusing on the harmful effects of this addiction especially given the patient's medical condition(s) which will be worsened because of the chemicals in tobacco. 10. HOMERO (obstructive sleep apnea) - ICD9: 327.23, ICD10: G47.33 Stable. 11. Stage 3 chronic kidney disease, unspecified whether stage 3a or 3b CKD (HCC) - ICD9: 585.3, ICD10: N18.30 - as above. 12. Hyperglycemia - ICD9: 790.29, ICD10: R73.9 - follow labs. 13. Melanoma, choroid, right eye - Right Eye - ICD9: 190.6, ICD10: C69.31 - stable 14. Chronic ITP (idiopathic thrombocytopenia) (HCC) - ICD9: 287.31, ICD10: D69.3 - per heme onc 15. Anticoagulated by anticoagulation treatment - ICD9: V58.61, ICD10: Z79.01 - stable. 16. Prediabetes - ICD9: 790.29, ICD10: R73.03 - HGB A1C 17. Cataract, unspecified cataract type, unspecified laterality - ICD9: 366.9, ICD10: H26.9 - CONSULT TO OPHTHALMOLOGY 18. Bilateral carotid artery stenosis - ICD9: 433.10, 433.30, ICD10: I65.23 - US CAROTID ARTERIES [facility] - CONSULT TO VASCULAR SURGERY Carleen Mcnair RTO in six weeks and prn. documented in this encounter [facility] 01-21-2023 Miscellaneous Notes Received MyChart msg from pt requesting refill on his Gabapentin. Last OV 09/30/22 Next OV 04/14/23 documented in this encounter [facility] 01-11-2023 Miscellaneous Notes FOLLOW UP ENDOSCOPY - RESULTS AND RECOMMENDATIONS NAME: Jose L Cash [facility] NO.: [id number] : 1950 DATE: January 11, 2023 PRIMARY CARE PROVIDER: Carleen Mcnair MD Jose L Cash is a patient referred for endoscopy for a personal history of colon polyps. I performed lower endoscopy on January 07, 2023. The patient was found to have: Lower Endoscopy Impression: - Four medium polyps at the recto-sigmoid colon, removed with a cold snare. Resected and retrieved. - Mucosal nodule in the rectum. - The examination was otherwise normal on direct and retroflexion views. Pathology demonstrated: FINAL DIAGNOSIS A. Rectosigmoid, polypectomy: - Fragments of hyperplastic polyp. IMPRESSION: hyperplastic polyps PLAN: INSTRUCTIONS FOLLOWING A POLYP FOUND AT COLONOSCOPY You were found to have hyperplastic colon polyps. I recommend you undergo repeat endoscopy in 10 years. If you note bleeding, change in bowel habits, or other suspicious colon related symptoms before that time, those symptoms should be evaluated as necessary. If you have any difficulties or concerns, you should contact our office immediately. The patient is instructed to follow-up with your primary care provider I have instructed my staff to forward the above information to the patient and to the appropriate providers documented in this encounter [facility] 01-07-2023 Nurse Note Patient arrived laying on left side. Patient does not appear to be in any pain at this time and denies such when asked. Abdomen appears to be nondistended and soft to palpation. Patient encouraged to belch and pass gas as needed. documented in this encounter [facility] 01-07-2023 History and physical note UPDATED PROCEDURAL SEDATION HISTORY AND PHYSICAL EXAMINATION SERVICE DATE: 01/07/2023 SERVICE TIME: 11:48 AM PHYSICAL EXAM MUST BE COMPLETED ON ADMISSION PROCEDURE: Procedure Indications: The History and Physical (completed in the past 30 days) has been reviewed and the patient has been examined. The contents accurately reflect the patient's condition with the following additions or revisions since the H&P was completed. ASA Class: ASA Class:: Patient with mild systemic disease Examination indicates no changes. AIRWAY: Airway Visualization of Uvula: Yes Mouth opening greater than 2 fingerbreadths: Yes Neck Full Range of Motion: Yes LUNGS: Lungs clear to auscultation CARDIAC: Regular rhythm,Regular rate Provisional Diagnosis/Treatment Plan: history of polyps - Colonoscopy SEDATION GOAL: Moderate This H&P can be found in the attached. SIGNATURE: Cleve Gallego MD PATIENT NAME: Jose L Cash DATE: January 07, 2023 TIME: 11:48 AM Source Note - Cleve Gallego MD - 01/07/2023 11:45 AM EST Images from the original note were not included. HISTORY AND PHYSICAL Jose L Cash 1950 REFERRING PHYSICIAN: Carleen Mcnair MD CHIEF COMPLAINT: Consult (Colonoscopy, last colonoscopy 2019) HPI: The patient is a 72 year old male referred for endoscopy. Jose L notes no current colon complaints The patient notes no history of upper GI complaints. Jose L has undergone prior endoscopy. Patient has multiple previous colonoscopies demonstrating both adenomatous and serrated polyps. His last colonoscopy was performed by Dr. Burch in 2019 who recommended 3-year follow-up. The patient is being seen by me today at the request of Dr. Carleen Mcnair MD for my opinion and advice regarding follow-up colonoscopy for personal history of colon polyps. PAST MEDICAL HISTORY PAST MEDICAL HISTORY Diagnosis Date Arrhythmia Atrial fibrillation (HCC) Cataract OD Choroid melanoma of right eye (HCC) 2011 CPAP (continuous positive airway pressure) dependence Hypercholesterolemia 10/14/2013 Hypertension Obstructive sleep apnea PAD (peripheral artery disease) (HCC) 07/20/2013 Personal history of unspecified urinary disorder Pulmonary nodule, right CT 06/15/14 3mm stable from 11/28/11 RUL Radiation cataract - Right Eye 07/15/2013 Solar Lentigines 02/21/2013 SUMMARY 04/06/2013 62 year old Male with past medical history of hypertension, Ttorl-Xucafbjkv-Tdsxr syndrome admitted with new-onset Atrial fibrillation. Transthoracic echocardiography showed LVEF 55%. TSH was normal. Transesophageal echocardiography was negative for left trial appendage thrombus. Successful DC cardioversion on 04/07/2013. Currently in Normal sinus rhythm. Anticoagulation for cerebrovascular prophylaxis initiated with Rivaroxaban. Exercise stress test to assess effort tolerance was fair But showed poorly controlled hypertension, thus Losartan is being increased from 50 mg/d to 100 mg/d. Verapamil has been stopped. Being discharged today. Out-patient pharmacologic stress test on 05/11/13 Follow-up with on 05/24/13. [Appointment already scheduled; Office number [phone]] WPW (Xefwr-Jvkucptlf-Xazzh syndrome) 04/06/2013 Patient has been previously told that he has WPW when reviewed at other facilities but has never been offered rx.review of [facility] ECGs in [facility] do not show clear evidence of WPW. Exercise stress test to assess effort tolerance didn't induce arrhythmia or change activation.As the test was sub-optimal, Out-patient pharmacologic stress has been scheduled. PAST SURGICAL HISTORY PAST SURGICAL HISTORY Procedure Laterality Date AVASTIN (BEVACIZUMAB) 1.25MG INTRAVITREAL INJECTION OD (RIGHT EYE) Right 05/31/14 CARDIOVERSION ELECTIVE ARRHYTHMIA INTERNAL SPX 04/2013 COLONOSCOPY FLX DX W/COLLJ SPEC WHEN PFRMD 10/07/2016 Colonoscopy COLONOSCOPY FLX DX W/COLLJ SPEC WHEN PFRMD 10/25/2019 Colonoscopy KNEE ARTHROSCOPY/SURGERY torn meniscus, right PAST SURGICAL HISTORY OF 12-13-2011 right eye, choroidal tumor removed / plaque REVASCULARIZATION ILIAC ARTERY ANGIOP 1ST VSL 08-10-13 REVSC OPN/PRQ FEM/POP W/STNT/ANGIOP SM VSL 09-14-13 VINITA (TRANSESOPHAGEAL ECHO) 04/2013 XCAPSL CTRC RMVL INSJ IO LENS PROSTH W/O ECP 04/28/2014 Cataract Extraction with PC IOL OD CURRENT MEDICATIONS Current Outpatient Medications Medication Sig apixaban (ELIQUIS) 5 mg tab(s) Take 1 tablet by mouth twice daily. gabapentin (NEURONTIN) 400 mg capsule Take 1 capsule by mouth three times daily for 90 days. olmesartan (BENICAR) 40 mg tablet Take 1 tablet by mouth once daily. cloNIDine HCl (CATAPRES) 0.2 mg tablet Take 1 tablet by mouth twice daily for 14 days. metoprolol tartrate, short acting, (LOPRESSOR) 25 mg tablet Take 1 tablet by mouth twice daily. dorzolamide-timolol (COSOPT) 22.3-6.8 mg/mL ophthalmic solution USE 1 DROP IN THE RIGHT EYE TWICE A DAY Grpyqfdtdjury-Obctjadg-Leqfqa (CENTRUM SILVER) tab Take 1 tablet by mouth once daily. peg 3350-Electrolytes (GOLYTELY) 236-22.74-6.74 -5.86 gram suspension Take 4,000 mL by mouth one time only for 1 dose. Refer to printed prep instructions from your provider. cloNIDine HCl (CATAPRES) 0.2 mg tablet Take 1 tablet by mouth twice daily. (Patient not taking: Reported on 12/03/2022) No current facility-administered medications for this visit. ALLERGIES: Marijuana/Cannabinoid, Bystolic [Nebivolol], Penicillins, Tarka [Trandolapril-Verapamil], and Verapamil PERSONAL HISTORY: SOCIAL HISTORY Social History Tobacco Use Smoking status: Every Day Packs/day: 0.50 Years: 50.00 Additional pack years: 0.00 Total pack years: 25.00 Types: Cigarettes Smokeless tobacco: Never Vaping Use Vaping Use: Never used Substance Use Topics Alcohol use: No Alcohol/week: 0.0 standard drinks of alcohol Drug use: No FAMILY HISTORY: FAMILY HISTORY FAMILY HISTORY Problem Relation Age of Onset Hypertension Father Ischemic Heart Disease Father Ischemic Heart Disease Mother No Ocular Disease Other REVIEW OF SYMPTOMS: The review of systems data was entered by the nurse and reviewed by in Nursing Notes: Yaritza Bashir LPN 12/03/2022 3:54 PM Signed REVIEW OF SYSTEMS: General: The patient denies fatigue, denies weight loss, denies weight gain, denies feeling hot, and denies feelings of cold. Eyes: The patient denies glaucoma, notes eye injury/surgery, does not wear glasses or contacts. Ear/Nose/Throat: The patient denies allergies, denies hayfever, denies ear infections, and denies bloody noses. Cardiovascular: The patient denies chest pain, notes heart disease, denies high blood pressure,denies cardiac stent, denies prior heart attack, notes irregular heart beat, denies high cholesterol, denies poor circulation, denies heart failure, other cardiac issues, notes claudication, denies cold feet, denies peripheral arterial stent. Respiratory: The patient denies tuberculosis, notes pneumonia, denies frequent cough, denies pulmonary embolism, denies shortness of breath, and denies coughing up blood. Gastrointestinal: The patient denies difficulty swallowing, denies acid reflux, denies ulcers, denies vomiting, denies jaundice/hepatitis, denies gallbladder problems, denies black or tarry stools, denies hemorrhoids, denies bleeding from rectum, denies diverticulitis, denies constipation, notes diarrhea, denies loss of stool control, and denies hernias. Kidney/Bladder: The patient denies kidney stones, denies urine infections, and denies bloody urine. Skin: The patient denies a history of skin cancer, denies bleeding/changing moles, and denies a history of skin rash. Neurologic: The patient denies a history of epilepsy/convulsions, denies headaches, denies head/spinal injuries, and denies stroke/TIA. Psychiatric: The patient denies psychiatric medications, denies depression, and denies voices, denies substance abuse. Endocrine: The patient denies thyroid disorders, denies diabetes, and denies hormonal problems. Hematologic: The patient denies a history of bruising, denies bleeding, and denies anemia, denies blood clots. Infections: The patient notes a history of measles and mumps, denies rheumatic fever, and denies sexually transmitted diseases. Musculoskeletal: The patient denies back pain/injury, denies back problems, denies sciatica, denies knee/foot trouble, denies arthritis, or denies gout. When was patient's last Mammogram screening? N/A Last Colonoscopy: 2019 Yaritza Bashir LPN PHYSICAL EXAMINATION: General: The patient is 72 year old male, well nourished, well hydrated in no acute distress. The patient is oriented to time, place, and person. VITALS: Blood pressure 150/92, pulse 64, temperature 36.6 C (97.8 F), height 188 cm (6' 2 ), weight 129.7 kg (286 lb), SpO2 96 %. Body mass index is 36.72 kg/m . HEENT: Normal cephalic, ataumatic, pupils are equally round, sclera are anicteric, mucous membranes are moist, oropharynx is clear. Neck has no masses, asymmetry or lymphadenopathy. Thyroid is unremarkable. Respiratory: Clear to auscultation and percussion. Normal respiratory excursion and pattern. Cardiac: Examination is regular rate and rhythm. Abdominal exam: Soft, nontender, with no palpable masses. No hepatosplenomegaly. No palpable hernias. Rectal exam: exam deferred Extremities: no clubbing, cyanosis or edema. No adenopathy. Other: LABORATORY VALUES: As Noted RADIOLOGIC STUDIES: As Noted Assessment IMPRESSION: Personal history of colon polyps. PLAN: I plan to perform lower endoscopy. We discussed the risks and benefits of the planned endoscopy. I have informed the patient that complications can occur including failure to complete the endoscopy and perforation. The patient had the opportunity to ask questions concerning the planned endoscopy. My staff has also explained the procedure to the patient in understandable terms and has given the patient printed material concerning the procedure. The patient freely consents to surgery. I plan to use golytely bowel preparation for endoscopy Diagnoses: (Z86.010) History of colonic polyps My findings have been communicated to Dr. Carleen Mcnair MD via shared medical record. This note will be forwarded to Dr. Carleen Mcnair MD. Return to Clinic: The patient is instructed to follow-up with me after the testing has been completed. Cleve Gallego MD UPDATED PROCEDURAL SEDATION HISTORY AND PHYSICAL EXAMINATION SERVICE DATE: 01/07/2023 SERVICE TIME: 12:42 PM PHYSICAL EXAM MUST BE COMPLETED ON ADMISSION PROCEDURE: Procedure Indications: The History and Physical (completed in the past 30 days) has been reviewed and the patient has been examined. The contents accurately reflect the patient's condition with the following additions or revisions since the H&P was completed. ASA Class: ASA Class:: Patient with severe systemic disease Examination indicates no changes. AIRWAY: Airway Visualization of Uvula: Yes Mouth opening greater than 2 fingerbreadths: Yes Neck Full Range of Motion: Yes LUNGS: Lungs clear to auscultation CARDIAC: Regular rhythm,Regular rate Provisional Diagnosis/Treatment Plan: screening colonoscopy SEDATION GOAL: Moderate This H&P can be found in the attached. SIGNATURE: Cleve Gallego MD PATIENT NAME: Jose L Cash DATE: January 07, 2023 TIME: 12:42 PM Source Note - Cleve Gallego MD - 01/07/2023 11:45 AM EST Images from the original note were not included. HISTORY AND PHYSICAL Jose L Cash 1950 REFERRING PHYSICIAN: Carleen Mcnair MD CHIEF COMPLAINT: Consult (Colonoscopy, last colonoscopy 2019) HPI: The patient is a 72 year old male referred for endoscopy. Jose L notes no current colon complaints The patient notes no history of upper GI complaints. Jose L has undergone prior endoscopy. Patient has multiple previous colonoscopies demonstrating both adenomatous and serrated polyps. His last colonoscopy was performed by Dr. Burch in 2019 who recommended 3-year follow-up. The patient is being seen by me today at the request of Dr. Carleen Mcnair MD for my opinion and advice regarding follow-up colonoscopy for personal history of colon polyps. PAST MEDICAL HISTORY PAST MEDICAL HISTORY Diagnosis Date Arrhythmia Atrial fibrillation (HCC) Cataract OD Choroid melanoma of right eye (HCC) 2011 CPAP (continuous positive airway pressure) dependence Hypercholesterolemia 10/14/2013 Hypertension Obstructive sleep apnea PAD (peripheral artery disease) (HCC) 07/20/2013 Personal history of unspecified urinary disorder Pulmonary nodule, right CT 06/15/14 3mm stable from 11/28/11 RUL Radiation cataract - Right Eye 07/15/2013 Solar Lentigines 02/21/2013 SUMMARY 04/06/2013 62 year old Male with past medical history of hypertension, Qvpoo-Gtmcvlzhr-Esrnu syndrome admitted with new-onset Atrial fibrillation. Transthoracic echocardiography showed LVEF 55%. TSH was normal. Transesophageal echocardiography was negative for left trial appendage thrombus. Successful DC cardioversion on 04/07/2013. Currently in Normal sinus rhythm. Anticoagulation for cerebrovascular prophylaxis initiated with Rivaroxaban. Exercise stress test to assess effort tolerance was fair But showed poorly controlled hypertension, thus Losartan is being increased from 50 mg/d to 100 mg/d. Verapamil has been stopped. Being discharged today. Out-patient pharmacologic stress test on 05/11/13 Follow-up with on 05/24/13. [Appointment already scheduled; Office number [phone]] WPW (Hrois-Zfqawkkbv-Tqkag syndrome) 04/06/2013 Patient has been previously told that he has WPW when reviewed at other facilities but has never been offered rx.review of [facility] ECGs in [facility] do not show clear evidence of WPW. Exercise stress test to assess effort tolerance didn't induce arrhythmia or change activation.As the test was sub-optimal, Out-patient pharmacologic stress has been scheduled. PAST SURGICAL HISTORY PAST SURGICAL HISTORY Procedure Laterality Date AVASTIN (BEVACIZUMAB) 1.25MG INTRAVITREAL INJECTION OD (RIGHT EYE) Right 05/31/14 CARDIOVERSION ELECTIVE ARRHYTHMIA INTERNAL SPX 04/2013 COLONOSCOPY FLX DX W/COLLJ SPEC WHEN PFRMD 10/07/2016 Colonoscopy COLONOSCOPY FLX DX W/COLLJ SPEC WHEN PFRMD 10/25/2019 Colonoscopy KNEE ARTHROSCOPY/SURGERY torn meniscus, right PAST SURGICAL HISTORY OF 12-13-2011 right eye, choroidal tumor removed / plaque REVASCULARIZATION ILIAC ARTERY ANGIOP 1ST VSL 08-10-13 REVSC OPN/PRQ FEM/POP W/STNT/ANGIOP SM VSL 09-14-13 VINITA (TRANSESOPHAGEAL ECHO) 04/2013 XCAPSL CTRC RMVL INSJ IO LENS PROSTH W/O ECP 04/28/2014 Cataract Extraction with PC IOL OD CURRENT MEDICATIONS Current Outpatient Medications Medication Sig apixaban (ELIQUIS) 5 mg tab(s) Take 1 tablet by mouth twice daily. gabapentin (NEURONTIN) 400 mg capsule Take 1 capsule by mouth three times daily for 90 days. olmesartan (BENICAR) 40 mg tablet Take 1 tablet by mouth once daily. cloNIDine HCl (CATAPRES) 0.2 mg tablet Take 1 tablet by mouth twice daily for 14 days. metoprolol tartrate, short acting, (LOPRESSOR) 25 mg tablet Take 1 tablet by mouth twice daily. dorzolamide-timolol (COSOPT) 22.3-6.8 mg/mL ophthalmic solution USE 1 DROP IN THE RIGHT EYE TWICE A DAY Pxzpmorxbcrnz-Tvcwfasl-Quraup (CENTRUM SILVER) tab Take 1 tablet by mouth once daily. peg 3350-Electrolytes (GOLYTELY) 236-22.74-6.74 -5.86 gram suspension Take 4,000 mL by mouth one time only for 1 dose. Refer to printed prep instructions from your provider. cloNIDine HCl (CATAPRES) 0.2 mg tablet Take 1 tablet by mouth twice daily. (Patient not taking: Reported on 12/03/2022) No current facility-administered medications for this visit. ALLERGIES: Marijuana/Cannabinoid, Bystolic [Nebivolol], Penicillins, Tarka [Trandolapril-Verapamil], and Verapamil PERSONAL HISTORY: SOCIAL HISTORY Social History Tobacco Use Smoking status: Every Day Packs/day: 0.50 Years: 50.00 Additional pack years: 0.00 Total pack years: 25.00 Types: Cigarettes Smokeless tobacco: Never Vaping Use Vaping Use: Never used Substance Use Topics Alcohol use: No Alcohol/week: 0.0 standard drinks of alcohol Drug use: No FAMILY HISTORY: FAMILY HISTORY FAMILY HISTORY Problem Relation Age of Onset Hypertension Father Ischemic Heart Disease Father Ischemic Heart Disease Mother No Ocular Disease Other REVIEW OF SYMPTOMS: The review of systems data was entered by the nurse and reviewed by in Nursing Notes: Yaritza Bashir LPN 12/03/2022 3:54 PM Signed REVIEW OF SYSTEMS: General: The patient denies fatigue, denies weight loss, denies weight gain, denies feeling hot, and denies feelings of cold. Eyes: The patient denies glaucoma, notes eye injury/surgery, does not wear glasses or contacts. Ear/Nose/Throat: The patient denies allergies, denies hayfever, denies ear infections, and denies bloody noses. Cardiovascular: The patient denies chest pain, notes heart disease, denies high blood pressure,denies cardiac stent, denies prior heart attack, notes irregular heart beat, denies high cholesterol, denies poor circulation, denies heart failure, other cardiac issues, notes claudication, denies cold feet, denies peripheral arterial stent. Respiratory: The patient denies tuberculosis, notes pneumonia, denies frequent cough, denies pulmonary embolism, denies shortness of breath, and denies coughing up blood. Gastrointestinal: The patient denies difficulty swallowing, denies acid reflux, denies ulcers, denies vomiting, denies jaundice/hepatitis, denies gallbladder problems, denies black or tarry stools, denies hemorrhoids, denies bleeding from rectum, denies diverticulitis, denies constipation, notes diarrhea, denies loss of stool control, and denies hernias. Kidney/Bladder: The patient denies kidney stones, denies urine infections, and denies bloody urine. Skin: The patient denies a history of skin cancer, denies bleeding/changing moles, and denies a history of skin rash. Neurologic: The patient denies a history of epilepsy/convulsions, denies headaches, denies head/spinal injuries, and denies stroke/TIA. Psychiatric: The patient denies psychiatric medications, denies depression, and denies voices, denies substance abuse. Endocrine: The patient denies thyroid disorders, denies diabetes, and denies hormonal problems. Hematologic: The patient denies a history of bruising, denies bleeding, and denies anemia, denies blood clots. Infections: The patient notes a history of measles and mumps, denies rheumatic fever, and denies sexually transmitted diseases. Musculoskeletal: The patient denies back pain/injury, denies back problems, denies sciatica, denies knee/foot trouble, denies arthritis, or denies gout. When was patient's last Mammogram screening? N/A Last Colonoscopy: 2019 Yaritza Bashir LPN PHYSICAL EXAMINATION: General: The patient is 72 year old male, well nourished, well hydrated in no acute distress. The patient is oriented to time, place, and person. VITALS: Blood pressure 150/92, pulse 64, temperature 36.6 C (97.8 F), height 188 cm (6' 2 ), weight 129.7 kg (286 lb), SpO2 96 %. Body mass index is 36.72 kg/m . HEENT: Normal cephalic, ataumatic, pupils are equally round, sclera are anicteric, mucous membranes are moist, oropharynx is clear. Neck has no masses, asymmetry or lymphadenopathy. Thyroid is unremarkable. Respiratory: Clear to auscultation and percussion. Normal respiratory excursion and pattern. Cardiac: Examination is regular rate and rhythm. Abdominal exam: Soft, nontender, with no palpable masses. No hepatosplenomegaly. No palpable hernias. Rectal exam: exam deferred Extremities: no clubbing, cyanosis or edema. No adenopathy. Other: LABORATORY VALUES: As Noted RADIOLOGIC STUDIES: As Noted Assessment IMPRESSION: Personal history of colon polyps. PLAN: I plan to perform lower endoscopy. We discussed the risks and benefits of the planned endoscopy. I have informed the patient that complications can occur including failure to complete the endoscopy and perforation. The patient had the opportunity to ask questions concerning the planned endoscopy. My staff has also explained the procedure to the patient in understandable terms and has given the patient printed material concerning the procedure. The patient freely consents to surgery. I plan to use PureLiFi preparation for endoscopy Diagnoses: (Z86.010) History of colonic polyps My findings have been communicated to Dr. Carleen Mcnair MD via shared medical record. This note will be forwarded to Dr. Carleen Mcnair MD. Return to Clinic: The patient is instructed to follow-up with me after the testing has been completed. Cleve Gallego MD Images from the original note were not included. HISTORY AND PHYSICAL Jose L Hoffman Shailesh 1950 REFERRING PHYSICIAN: Carleen Mcnair MD CHIEF COMPLAINT: Consult (Colonoscopy, last colonoscopy 2019) HPI: The patient is a 72 year old male referred for endoscopy. Jose L notes no current colon complaints The patient notes no history of upper GI complaints. Jose L has undergone prior endoscopy. Patient has multiple previous colonoscopies demonstrating both adenomatous and serrated polyps. His last colonoscopy was performed by Dr. Burch in 2019 who recommended 3-year follow-up. The patient is being seen by me today at the request of Dr. Carleen Mcnair MD for my opinion and advice regarding follow-up colonoscopy for personal history of colon polyps. PAST MEDICAL HISTORY PAST MEDICAL HISTORY Diagnosis Date Arrhythmia Atrial fibrillation (HCC) Cataract OD Choroid melanoma of right eye (HCC) 2011 CPAP (continuous positive airway pressure) dependence Hypercholesterolemia 10/14/2013 Hypertension Obstructive sleep apnea PAD (peripheral artery disease) (HCC) 07/20/2013 Personal history of unspecified urinary disorder Pulmonary nodule, right CT 06/15/14 3mm stable from 11/28/11 RUL Radiation cataract - Right Eye 07/15/2013 Solar Lentigines 02/21/2013 SUMMARY 04/06/2013 62 year old Male with past medical history of hypertension, Bpoaq-Efbfdwmkj-Ssftp syndrome admitted with new-onset Atrial fibrillation. Transthoracic echocardiography showed LVEF 55%. TSH was normal. Transesophageal echocardiography was negative for left trial appendage thrombus. Successful DC cardioversion on 04/07/2013. Currently in Normal sinus rhythm. Anticoagulation for cerebrovascular prophylaxis initiated with Rivaroxaban. Exercise stress test to assess effort tolerance was fair But showed poorly controlled hypertension, thus Losartan is being increased from 50 mg/d to 100 mg/d. Verapamil has been stopped. Being discharged today. Out-patient pharmacologic stress test on 05/11/13 Follow-up with on 05/24/13. [Appointment already scheduled; Office number [phone]] WPW (Ckxqm-Jcuvoaess-Zoxii syndrome) 04/06/2013 Patient has been previously told that he has WPW when reviewed at other facilities but has never been offered rx.review of [facility] ECGs in [facility] do not show clear evidence of WPW. Exercise stress test to assess effort tolerance didn't induce arrhythmia or change activation.As the test was sub-optimal, Out-patient pharmacologic stress has been scheduled. PAST SURGICAL HISTORY PAST SURGICAL HISTORY Procedure Laterality Date AVASTIN (BEVACIZUMAB) 1.25MG INTRAVITREAL INJECTION OD (RIGHT EYE) Right 05/31/14 CARDIOVERSION ELECTIVE ARRHYTHMIA INTERNAL SPX 04/2013 COLONOSCOPY FLX DX W/COLLJ SPEC WHEN PFRMD 10/07/2016 Colonoscopy COLONOSCOPY FLX DX W/COLLJ SPEC WHEN PFRMD 10/25/2019 Colonoscopy KNEE ARTHROSCOPY/SURGERY torn meniscus, right PAST SURGICAL HISTORY OF 12-13-2011 right eye, choroidal tumor removed / plaque REVASCULARIZATION ILIAC ARTERY ANGIOP 1ST VSL 08-10-13 REVSC OPN/PRQ FEM/POP W/STNT/ANGIOP VSL 09-14-13 VINITA (TRANSESOPHAGEAL ECHO) 04/2013 XCAPSL CTRC RMVL INSJ IO LENS PROSTH W/O ECP 04/28/2014 Cataract Extraction with PC IOL OD CURRENT MEDICATIONS Current Outpatient Medications Medication Sig apixaban (ELIQUIS) 5 mg tab(s) Take 1 tablet by mouth twice daily. gabapentin (NEURONTIN) 400 mg capsule Take 1 capsule by mouth three times daily for 90 days. olmesartan (BENICAR) 40 mg tablet Take 1 tablet by mouth once daily. cloNIDine HCl (CATAPRES) 0.2 mg tablet Take 1 tablet by mouth twice daily for 14 days. metoprolol tartrate, short acting, (LOPRESSOR) 25 mg tablet Take 1 tablet by mouth twice daily. dorzolamide-timolol (COSOPT) 22.3-6.8 mg/mL ophthalmic solution USE 1 DROP IN THE RIGHT EYE TWICE A DAY Gvokfsdvjhiqz-Qtdttrey-Jsbmnm (CENTRUM SILVER) tab Take 1 tablet by mouth once daily. peg 3350-Electrolytes (GOLYTELY) 236-22.74-6.74 -5.86 gram suspension Take 4,000 mL by mouth one time only for 1 dose. Refer to printed prep instructions from your provider. cloNIDine HCl (CATAPRES) 0.2 mg tablet Take 1 tablet by mouth twice daily. (Patient not taking: Reported on 12/03/2022) No current facility-administered medications for this visit. ALLERGIES: Marijuana/Cannabinoid, Bystolic [Nebivolol], Penicillins, Tarka [Trandolapril-Verapamil], and Verapamil PERSONAL HISTORY: SOCIAL HISTORY Social History Tobacco Use Smoking status: Every Day Packs/day: 0.50 Years: 50.00 Additional pack years: 0.00 Total pack years: 25.00 Types: Cigarettes Smokeless tobacco: Never Vaping Use Vaping Use: Never used Substance Use Topics Alcohol use: No Alcohol/week: 0.0 standard drinks of alcohol Drug use: No FAMILY HISTORY: FAMILY HISTORY FAMILY HISTORY Problem Relation Age of Onset Hypertension Father Ischemic Heart Disease Father Ischemic Heart Disease Mother No Ocular Disease Other REVIEW OF SYMPTOMS: The review of systems data was entered by the nurse and reviewed by in Nursing Notes: Yaritza Bashir LPN 12/03/2022 3:54 PM Signed REVIEW OF SYSTEMS: General: The patient denies fatigue, denies weight loss, denies weight gain, denies feeling hot, and denies feelings of cold. Eyes: The patient denies glaucoma, notes eye injury/surgery, does not wear glasses or contacts. Ear/Nose/Throat: The patient denies allergies, denies hayfever, denies ear infections, and denies bloody noses. Cardiovascular: The patient denies chest pain, notes heart disease, denies high blood pressure,denies cardiac stent, denies prior heart attack, notes irregular heart beat, denies high cholesterol, denies poor circulation, denies heart failure, other cardiac issues, notes claudication, denies cold feet, denies peripheral arterial stent. Respiratory: The patient denies tuberculosis, notes pneumonia, denies frequent cough, denies pulmonary embolism, denies shortness of breath, and denies coughing up blood. Gastrointestinal: The patient denies difficulty swallowing, denies acid reflux, denies ulcers, denies vomiting, denies jaundice/hepatitis, denies gallbladder problems, denies black or tarry stools, denies hemorrhoids, denies bleeding from rectum, denies diverticulitis, denies constipation, notes diarrhea, denies loss of stool control, and denies hernias. Kidney/Bladder: The patient denies kidney stones, denies urine infections, and denies bloody urine. Skin: The patient denies a history of skin cancer, denies bleeding/changing moles, and denies a history of skin rash. Neurologic: The patient denies a history of epilepsy/convulsions, denies headaches, denies head/spinal injuries, and denies stroke/TIA. Psychiatric: The patient denies psychiatric medications, denies depression, and denies voices, denies substance abuse. Endocrine: The patient denies thyroid disorders, denies diabetes, and denies hormonal problems. Hematologic: The patient denies a history of bruising, denies bleeding, and denies anemia, denies blood clots. Infections: The patient notes a history of measles and mumps, denies rheumatic fever, and denies sexually transmitted diseases. Musculoskeletal: The patient denies back pain/injury, denies back problems, denies sciatica, denies knee/foot trouble, denies arthritis, or denies gout. When was patient's last Mammogram screening? N/A Last Colonoscopy: 2019 Yaritza Bashir LPN PHYSICAL EXAMINATION: General: The patient is 72 year old male, well nourished, well hydrated in no acute distress. The patient is oriented to time, place, and person. VITALS: Blood pressure 150/92, pulse 64, temperature 36.6 C (97.8 F), height 188 cm (6' 2 ), weight 129.7 kg (286 lb), SpO2 96 %. Body mass index is 36.72 kg/m . HEENT: Normal cephalic, ataumatic, pupils are equally round, sclera are anicteric, mucous membranes are moist, oropharynx is clear. Neck has no masses, asymmetry or lymphadenopathy. Thyroid is unremarkable. Respiratory: Clear to auscultation and percussion. Normal respiratory excursion and pattern. Cardiac: Examination is regular rate and rhythm. Abdominal exam: Soft, nontender, with no palpable masses. No hepatosplenomegaly. No palpable hernias. Rectal exam: exam deferred Extremities: no clubbing, cyanosis or edema. No adenopathy. Other: LABORATORY VALUES: As Noted RADIOLOGIC STUDIES: As Noted Assessment IMPRESSION: Personal history of colon polyps. PLAN: I plan to perform lower endoscopy. We discussed the risks and benefits of the planned endoscopy. I have informed the patient that complications can occur including failure to complete the endoscopy and perforation. The patient had the opportunity to ask questions concerning the planned endoscopy. My staff has also explained the procedure to the patient in understandable terms and has given the patient printed material concerning the procedure. The patient freely consents to surgery. I plan to use golytely bowel preparation for endoscopy Diagnoses: (Z86.010) History of colonic polyps My findings have been communicated to Dr. Carleen Mcnair MD via shared medical record. This note will be forwarded to Dr. Carleen Mcnair MD. Return to Clinic: The patient is instructed to follow-up with me after the testing has been completed. Cleve Gallego MD documented in this encounter [facility] 12-12-2022 Miscellaneous Notes Patient has been identified by name and date of : Yes Patient phones for refill(s): Requested Prescriptions Pending Prescriptions Disp Refills metoprolol tartrate, short acting, (LOPRESSOR) 25 mg tablet 180 tablet 3 Sig: Take 1 tablet by mouth two times a day. Date of last office visit in primary care:09/30/2022 Date of next office visit in primary care: 04/14/2023 Please advise. Thank you. Lakesha Fish LPN. documented in this encounter [facility] 12-03-2022 Note HNO ID: [id number] Author: Cleve Gallego MD Service: ? Author Type: Physician Type: Progress Notes Filed: 12/03/2022 6:54 PM Note Text: HISTORY AND PHYSICAL Jose L Cash 1950 REFERRING PHYSICIAN: Carleen Mcnair MD CHIEF COMPLAINT: Consult (Colonoscopy, last colonoscopy 2019) HPI: The patient is a 72 year old male referred for endoscopy. Jose L notes no current colon complaints The patient notes no history of upper GI complaints. Jose L has undergone prior endoscopy. Patient has multiple previous colonoscopies demonstrating both adenomatous and serrated polyps. His last colonoscopy was performed by Dr. Burch in 2019 who recommended 3-year follow-up. The patient is being seen by me today at the request of Dr. Carleen Mcnair MD for my opinion and advice regarding follow-up colonoscopy for personal history of colon polyps. PAST MEDICAL HISTORY Diagnosis Date Arrhythmia Atrial fibrillation (HCC) Cataract OD Choroid melanoma of right eye (HCC) 2011 CPAP (continuous positive airway pressure) dependence Hypercholesterolemia 10/14/2013 Hypertension Obstructive sleep apnea PAD (peripheral artery disease) (HCC) 07/20/2013 Personal history of unspecified urinary disorder Pulmonary nodule, right CT 06/15/14 3mm stable from 11/28/11 RUL Radiation cataract - Right Eye 07/15/2013 Solar Lentigines 02/21/2013 SUMMARY 04/06/2013 62 year old Male with past medical history of hypertension, Mseoh-Ucgwbqsck-Uevre syndrome admitted with new-onset Atrial fibrillation. Transthoracic echocardiography showed LVEF 55%. TSH was normal. Transesophageal echocardiography was negative for left trial appendage thrombus. Successful DC cardioversion on 04/07/2013. Currently in Normal sinus rhythm. Anticoagulation for cerebrovascular prophylaxis initiated with Rivaroxaban. Exercise stress test to assess effort tolerance was fair But showed poorly controlled hypertension, thus Losartan is being increased from 50 mg/d to 100 mg/d. Verapamil has been stopped. Being discharged today. Out-patient pharmacologic stress test on 05/11/13 Follow-up with on 05/24/13. [Appointment already scheduled; Office number [phone]] WPW (Qvmxc-Svaevcnss-Ldvcu syndrome) 04/06/2013 Patient has been previously told that he has WPW when reviewed at other facilities but has never been offered rx.review of [facility] ECGs in [facility] do not show clear evidence of WPW. Exercise stress test to assess effort tolerance didn't induce arrhythmia or change activation.As the test was sub-optimal, Out-patient pharmacologic stress has been scheduled. PAST SURGICAL HISTORY Procedure Laterality Date AVASTIN (BEVACIZUMAB) 1.25MG INTRAVITREAL INJECTION OD (RIGHT EYE) Right 05/31/14 CARDIOVERSION ELECTIVE ARRHYTHMIA INTERNAL SPX 04/2013 COLONOSCOPY FLX DX W/COLLJ SPEC WHEN PFRMD 10/07/2016 Colonoscopy COLONOSCOPY FLX DX W/COLLJ SPEC WHEN PFRMD 10/25/2019 Colonoscopy KNEE ARTHROSCOPY/SURGERY torn meniscus, right PAST SURGICAL HISTORY OF 12-13-2011 right eye, choroidal tumor removed / plaque REVASCULARIZATION ILIAC ARTERY ANGIOP 1ST VSL 08-10-13 REVSC OPN/PRQ FEM/POP W/STNT/ANGIOP SM VSL 09-14-13 VINITA (TRANSESOPHAGEAL ECHO) 04/2013 XCAPSL CTRC RMVL INSJ IO LENS PROSTH W/O ECP 04/28/2014 Cataract Extraction with PC IOL OD Current Outpatient Medications Medication Sig apixaban (ELIQUIS) 5 mg tab(s) Take 1 tablet by mouth twice daily. gabapentin (NEURONTIN) 400 mg capsule Take 1 capsule by mouth three times daily for 90 days. olmesartan (BENICAR) 40 mg tablet Take 1 tablet by mouth once daily. cloNIDine HCl (CATAPRES) 0.2 mg tablet Take 1 tablet by mouth twice daily for 14 days. metoprolol tartrate, short acting, (LOPRESSOR) 25 mg tablet Take 1 tablet by mouth twice daily. dorzolamide-timolol (COSOPT) 22.3-6.8 mg/mL ophthalmic solution USE 1 DROP IN THE RIGHT EYE TWICE A DAY Zqytmxphdcjgd-Mzxudfhr-Ooddzj (CENTRUM SILVER) tab Take 1 tablet by mouth once daily. peg 3350-Electrolytes (GOLYTELY) 236-22.74-6.74 -5.86 gram suspension Take 4,000 mL by mouth one time only for 1 dose. Refer to printed prep instructions from your provider. cloNIDine HCl (CATAPRES) 0.2 mg tablet Take 1 tablet by mouth twice daily. (Patient not taking: Reported on 12/03/2022) No current facility-administered medications for this visit. ALLERGIES: Marijuana/Cannabinoid, Bystolic [Nebivolol], Penicillins, Tarka [Trandolapril-Verapamil], and Verapamil PERSONAL HISTORY: Social History Tobacco Use Smoking status: Every Day Packs/day: 0.50 Years: 50.00 Additional pack years: 0.00 Total pack years: 25.00 Types: Cigarettes Smokeless tobacco: Never Vaping Use Vaping Use: Never used Substance Use Topics Alcohol use: No Alcohol/week: 0.0 standard drinks of alcohol Drug use: No FAMILY HISTORY: FAMILY HISTORY Problem Relation Age of Onset Hypertension Father Ischemic Heart Disease Father Ischemic Heart (more content not included)... [facility] 12-03-2022 History of Present illness Narrative HISTORY AND PHYSICAL Jose L Cash 1950 REFERRING PHYSICIAN: Carleen Mcnair MD CHIEF COMPLAINT: Consult (Colonoscopy, last colonoscopy 2019) HPI: The patient is a 72 year old male referred for endoscopy. Jose L notes no current colon complaints The patient notes no history of upper GI complaints. Jose L has undergone prior endoscopy. Patient has multiple previous colonoscopies demonstrating both adenomatous and serrated polyps. His last colonoscopy was performed by Dr. Burch in 2019 who recommended 3-year follow-up. The patient is being seen by me today at the request of Dr. Carleen Mcnair MD for my opinion and advice regarding follow-up colonoscopy for personal history of colon polyps. PAST MEDICAL HISTORY Diagnosis Date Arrhythmia Atrial fibrillation (HCC) Cataract OD Choroid melanoma of right eye (HCC) 2011 CPAP (continuous positive airway pressure) dependence Hypercholesterolemia 10/14/2013 Hypertension Obstructive sleep apnea PAD (peripheral artery disease) (HCC) 07/20/2013 Personal history of unspecified urinary disorder Pulmonary nodule, right CT 06/15/14 3mm stable from 11/28/11 RUL Radiation cataract - Right Eye 07/15/2013 Solar Lentigines 02/21/2013 SUMMARY 04/06/2013 62 year old Male with past medical history of hypertension, Jnmpm-Seugkbqgw-Agmiz syndrome admitted with new-onset Atrial fibrillation. Transthoracic echocardiography showed LVEF 55%. TSH was normal. Transesophageal echocardiography was negative for left trial appendage thrombus. Successful DC cardioversion on 04/07/2013. Currently in Normal sinus rhythm. Anticoagulation for cerebrovascular prophylaxis initiated with Rivaroxaban. Exercise stress test to assess effort tolerance was fair But showed poorly controlled hypertension, thus Losartan is being increased from 50 mg/d to 100 mg/d. Verapamil has been stopped. Being discharged today. Out-patient pharmacologic stress test on 05/11/13 Follow-up with on 05/24/13. [Appointment already scheduled; Office number [phone]] WPW (Plaen-Jfbhscajm-Nnaqt syndrome) 04/06/2013 Patient has been previously told that he has WPW when reviewed at other facilities but has never been offered rx.review of [facility] ECGs in [facility] do not show clear evidence of WPW. Exercise stress test to assess effort tolerance didn't induce arrhythmia or change activation.As the test was sub-optimal, Out-patient pharmacologic stress has been scheduled. PAST SURGICAL HISTORY Procedure Laterality Date AVASTIN (BEVACIZUMAB) 1.25MG INTRAVITREAL INJECTION OD (RIGHT EYE) Right 05/31/14 CARDIOVERSION ELECTIVE ARRHYTHMIA INTERNAL SPX 04/2013 COLONOSCOPY FLX DX W/COLLJ SPEC WHEN PFRMD 10/07/2016 Colonoscopy COLONOSCOPY FLX DX W/COLLJ SPEC WHEN PFRMD 10/25/2019 Colonoscopy KNEE ARTHROSCOPY/SURGERY torn meniscus, right PAST SURGICAL HISTORY OF 12-13-2011 right eye, choroidal tumor removed / plaque REVASCULARIZATION ILIAC ARTERY ANGIOP 1ST VSL 08-10-13 REVSC OPN/PRQ FEM/POP W/STNT/ANGIOP SM VSL 09-14-13 VINITA (TRANSESOPHAGEAL ECHO) 04/2013 XCAPSL CTRC RMVL INSJ IO LENS PROSTH W/O ECP 04/28/2014 Cataract Extraction with PC IOL OD Current Outpatient Medications Medication Sig apixaban (ELIQUIS) 5 mg tab(s) Take 1 tablet by mouth twice daily. gabapentin (NEURONTIN) 400 mg capsule Take 1 capsule by mouth three times daily for 90 days. olmesartan (BENICAR) 40 mg tablet Take 1 tablet by mouth once daily. cloNIDine HCl (CATAPRES) 0.2 mg tablet Take 1 tablet by mouth twice daily for 14 days. metoprolol tartrate, short acting, (LOPRESSOR) 25 mg tablet Take 1 tablet by mouth twice daily. dorzolamide-timolol (COSOPT) 22.3-6.8 mg/mL ophthalmic solution USE 1 DROP IN THE RIGHT EYE TWICE A DAY Sdbitaqrbnwew-Xidxdeke-Dtyjqs (CENTRUM SILVER) tab Take 1 tablet by mouth once daily. peg 3350-Electrolytes (GOLYTELY) 236-22.74-6.74 -5.86 gram suspension Take 4,000 mL by mouth one time only for 1 dose. Refer to printed prep instructions from your provider. cloNIDine HCl (CATAPRES) 0.2 mg tablet Take 1 tablet by mouth twice daily. (Patient not taking: Reported on 12/03/2022) No current facility-administered medications for this visit. ALLERGIES: Marijuana/Cannabinoid, Bystolic [Nebivolol], Penicillins, Tarka [Trandolapril-Verapamil], and Verapamil PERSONAL HISTORY: Social History Tobacco Use Smoking status: Every Day Packs/day: 0.50 Years: 50.00 Additional pack years: 0.00 Total pack years: 25.00 Types: Cigarettes Smokeless tobacco: Never Vaping Use Vaping Use: Never used Substance Use Topics Alcohol use: No Alcohol/week: 0.0 standard drinks of alcohol Drug use: No FAMILY HISTORY: FAMILY HISTORY Problem Relation Age of Onset Hypertension Father Ischemic Heart Disease Father Ischemic Heart Disease Mother No Ocular Disease Other REVIEW OF SYMPTOMS: The review of systems data was entered by the nurse and reviewed by in Nursing Notes: Yaritza Bashir LPN 12/03/2022 3:54 PM Signed REVIEW OF SYSTEMS: General: The patient denies fatigue, denies weight loss, denies weight gain, denies feeling hot, and denies feelings of cold. Eyes: The patient denies glaucoma, notes eye injury/surgery, does not wear glasses or contacts. Ear/Nose/Throat: The patient denies allergies, denies hayfever, denies ear infections, and denies bloody noses. Cardiovascular: The patient denies chest pain, notes heart disease, denies high blood pressure,denies cardiac stent, denies prior heart attack, notes irregular heart beat, denies high cholesterol, denies poor circulation, denies heart failure, other cardiac issues, notes claudication, denies cold feet, denies peripheral arterial stent. Respiratory: The patient denies tuberculosis, notes pneumonia, denies frequent cough, denies pulmonary embolism, denies shortness of breath, and denies coughing up blood. Gastrointestinal: The patient denies difficulty swallowing, denies acid reflux, denies ulcers, denies vomiting, denies jaundice/hepatitis, denies gallbladder problems, denies black or tarry stools, denies hemorrhoids, denies bleeding from rectum, denies diverticulitis, denies constipation, notes diarrhea, denies loss of stool control, and denies hernias. Kidney/Bladder: The patient denies kidney stones, denies urine infections, and denies bloody urine. Skin: The patient denies a history of skin cancer, denies bleeding/changing moles, and denies a history of skin rash. Neurologic: The patient denies a history of epilepsy/convulsions, denies headaches, denies head/spinal injuries, and denies stroke/TIA. Psychiatric: The patient denies psychiatric medications, denies depression, and denies voices, denies substance abuse. Endocrine: The patient denies thyroid disorders, denies diabetes, and denies hormonal problems. Hematologic: The patient denies a history of bruising, denies bleeding, and denies anemia, denies blood clots. Infections: The patient notes a history of measles and mumps, denies rheumatic fever, and denies sexually transmitted diseases. Musculoskeletal: The patient denies back pain/injury, denies back problems, denies sciatica, denies knee/foot trouble, denies arthritis, or denies gout. When was patient's last Mammogram screening? N/A Last Colonoscopy: 2019 Yaritza Bashir LPN PHYSICAL EXAMINATION: General: The patient is 72 year old male, well nourished, well hydrated in no acute distress. The patient is oriented to time, place, and person. VITALS: Blood pressure 150/92, pulse 64, temperature 36.6 C (97.8 F), height 188 cm (6' 2 ), weight 129.7 kg (286 lb), SpO2 96 %. Body mass index is 36.72 kg/m . HEENT: Normal cephalic, ataumatic, pupils are equally round, sclera are anicteric, mucous membranes are moist, oropharynx is clear. Neck has no masses, asymmetry or lymphadenopathy. Thyroid is unremarkable. Respiratory: Clear to auscultation and percussion. Normal respiratory excursion and pattern. Cardiac: Examination is regular rate and rhythm. Abdominal exam: Soft, nontender, with no palpable masses. No hepatosplenomegaly. No palpable hernias. Rectal exam: exam deferred Extremities: no clubbing, cyanosis or edema. No adenopathy. Other: LABORATORY VALUES: As Noted RADIOLOGIC STUDIES: As Noted Assessment IMPRESSION: Personal history of colon polyps. PLAN: I plan to perform lower endoscopy. We discussed the risks and benefits of the planned endoscopy. I have informed the patient that complications can occur including failure to complete the endoscopy and perforation. The patient had the opportunity to ask questions concerning the planned endoscopy. My staff has also explained the procedure to the patient in understandable terms and has given the patient printed material concerning the procedure. The patient freely consents to surgery. I plan to use golytely bowel preparation for endoscopy Diagnoses: (Z86.010) History of colonic polyps My findings have been communicated to Dr. Carleen Mcnair MD via shared medical record. This note will be forwarded to Dr. Carleen Mcnair MD. Return to Clinic: The patient is instructed to follow-up with me after the testing has been completed. Cleve Gallego MD documented in this encounter [facility] 12-03-2022 Instructions Cleve Gallego MD - 12/03/2022 4:30 PM EDT Images from the original note were not included. Bowel Preparation Instructions for: Golytely, Nulytely, Trilyte or Colyte (polyethylene glycol 3350 and electrolytes) IF YOU DO NOT FOLLOW THESE DIRECTIONS, YOUR COLONOSCOPY WILL BE CANCELLED. [place] Instructions: Your bowel must be empty so that your doctor can clearly view your colon. Follow all of the instructions in this handout EXACTLY as they are written. Do NOT eat any solid food the ENTIRE day before your colonoscopy. Drink only clear liquids. Buy your bowel preparation at least 5 days before your colonoscopy. TRANSPORTATION on the Day of Your Exam A responsible person MUST be present with you at Check In prior to your colonoscopy and REMAIN in the endoscopy area until you are discharged. You are NOT ALLOWED to drive, take a taxi or bus, or leave the Endoscopy Center ALONE. If you do not have a responsible sanitation truck driver (family member or friend) with you to take you home, your exam cannot be done with sedation and will be cancelled. Please bring a list of all of your current medications, including any Over-the Counter medications with you. Medications If you take insulin, diabetic medications or blood thinners such as Coumadin (warfarin), Plavix (clopidogrel), Ticlid (ticlopidine hydrochloride), Agrylin (anagrelide), Xarelto (Rivaroxaban), Pradaxa (Dabigatran), Eliquis (Apixaban), and Effient (Prasugrel). You MUST call the doctors who orders those medicines for instructions on altering the dosage before your colonoscopy. All other medications should be taken the day of the exam with a sip of water including ASPIRIN. Five (5) Days Before Your Colonoscopy Do NOT take medicines that stop diarrhea - such as Imodium, Kaopectate, or Pepto Bismol. Do NOT take fiber supplements - such as Metamucil, Citrucel, or Perdiem. Do NOT take products that contain iron - such as multi-vitamins (the label lists what is in the products). Do NOT take Vitamin E. Buy the prescription bowel preparation solution at your local pharmacy or drugstore pharmacy. 01/2019 Bowel Preparation Instructions for: Golytely, Nulytely, Trilyte or Colyte (polyethylene glycol 3350 and electrolytes) Three (3) Days Before Your Colonoscopy Do NOT eat high-fiber foods - such as popcorn, beans, seeds (flax, sunflower, quinoa), multigrain bread, nuts, salad/vegetables, or fresh and dried fruit. One (1) Day Before Your Colonoscopy Only drink clear liquids the ENTIRE DAY before your colonoscopy. Do NOT eat any solid foods. Drink at least 8 ounces of clear liquids every hour after waking up. The clear liquids you can drink include: Clear Liquid (NO RED LIQUIDS) DO NOT DRINK Gatorade, Pedialyte or Powerade Clear broth or bouillon Coffee or tea (no milk or non-dairy creamer) Carbonated and non-carbonated soft drinks Keyon-Aid or other fruit flavored drinks Strained fruit juices (no pulp) Jell-O, popsicles, hard candy Water Alcohol Milk or non-dairy creamers Noodles or vegetables in soup Juice with pulp Liquid you cannot see through Do not use tobacco/vaping products The bowel preparation solution will be consumed in two parts. Mix the solution the evening before your colonoscopy and refrigerate before drinking. You may add the flavor pack that came with the bowel preparation. Do NOT add ice, sugar or any other flavorings to the solution. Part 1 At 6:00 PM - Evening before your colonoscopy Drink an 8-oz glass of bowel preparation every 10 minutes for a total of 8 glasses. You may continue to drink clear liquids until midnight. Part 2 On the day of your colonoscopy you may drink clear liquids up to (three) 3 hours before your procedure. 4 1/2 hours before your colonoscopy Drink an 8-oz glass of bowel preparation every 10 minutes for a total of 8 glasses. Fifteen (15) minutes later, drink an 8-oz glass of clear liquids every 15 minutes for a total of 2 glasses. You may continue to drink clear liquids up to (three) 3 hours before your exam. 2 01/2019 documented in this encounter [facility] 12-03-2022 Nurse Note REVIEW OF SYSTEMS: General: The patient denies fatigue, denies weight loss, denies weight gain, denies feeling hot, and denies feelings of cold. Eyes: The patient denies glaucoma, notes eye injury/surgery, does not wear glasses or contacts. Ear/Nose/Throat: The patient denies allergies, denies hayfever, denies ear infections, and denies bloody noses. Cardiovascular: The patient denies chest pain, notes heart disease, denies high blood pressure,denies cardiac stent, denies prior heart attack, notes irregular heart beat, denies high cholesterol, denies poor circulation, denies heart failure, other cardiac issues, notes claudication, denies cold feet, denies peripheral arterial stent. Respiratory: The patient denies tuberculosis, notes pneumonia, denies frequent cough, denies pulmonary embolism, denies shortness of breath, and denies coughing up blood. Gastrointestinal: The patient denies difficulty swallowing, denies acid reflux, denies ulcers, denies vomiting, denies jaundice/hepatitis, denies gallbladder problems, denies black or tarry stools, denies hemorrhoids, denies bleeding from rectum, denies diverticulitis, denies constipation, notes diarrhea, denies loss of stool control, and denies hernias. Kidney/Bladder: The patient denies kidney stones, denies urine infections, and denies bloody urine. Skin: The patient denies a history of skin cancer, denies bleeding/changing moles, and denies a history of skin rash. Neurologic: The patient denies a history of epilepsy/convulsions, denies headaches, denies head/spinal injuries, and denies stroke/TIA. Psychiatric: The patient denies psychiatric medications, denies depression, and denies voices, denies substance abuse. Endocrine: The patient denies thyroid disorders, denies diabetes, and denies hormonal problems. Hematologic: The patient denies a history of bruising, denies bleeding, and denies anemia, denies blood clots. Infections: The patient notes a history of measles and mumps, denies rheumatic fever, and denies sexually transmitted diseases. Musculoskeletal: The patient denies back pain/injury, denies back problems, denies sciatica, denies knee/foot trouble, denies arthritis, or denies gout. When was patient's last Mammogram screening? N/A Last Colonoscopy: 2019 Yaritza Bashir LPN documented in this encounter [facility] 11-27-2022 Miscellaneous Notes Images from the original note were not included. Attempted to contact patient at numbers listed on record. No answer on each. Message left to call PCP office and ask for a triage nurse, to discuss sx's as states in [facility] message on 11/26. (Copied below). Monae Rosas RN COPIED: [facility]supporting Carleen Mcnair MD) EL 11/26/22 4:51 PM Hi Doc. My oxygen level is down having a difficult time breathing overall feel weak no appetite. Tried to make appointment but said nothing available until January Let s go to the races! Thanks, Jose L. documented in this encounter [facility] 10-21-2022 Miscellaneous Notes Received Primary Data message that pt received mail order Rx. Brigitte Ya Ma documented in this encounter [facility] 10-15-2022 Miscellaneous Notes Patient has been identified by name and date of : Yes Patient phones for refill(s): Requested Prescriptions Pending Prescriptions Disp Refills gabapentin (NEURONTIN) 400 mg capsule 270 capsule 0 Sig: Take 1 capsule by mouth three times daily for 90 days. Date of last office visit in primary care: 09/30/2022 Next appointment scheduled 04/14/2023 Please advise. Thank you. Lakesha Fish LPN documented in this encounter [facility] 10-07-2022 Note HNO ID: [id number] Author: Oumou Agudelo RDMS Service: ? Author Type: Tool Polishing Machine Operator Type: Progress Notes Filed: 10/07/2022 11:51 AM Note Text: Radiology Service Progress Note PATIENT NAME: Jose L Cash DATE OF SERVICE: October 07, 2022 TIME: 11:51 AM PATIENT IDENTITY VERIFICATION COMPLETED USING TWO (2) IDENTIFIERS: Name and Date of confirmed by patient verbally. FALL SCREENING: Has the patient had 2 falls in the last year or 1 fall with injury or currently using an Ambulatory Assistive Device (Walker, Cane, Wheelchair, Crutches, etc.)? Yes, Patient High Risk for Falls What interventions were put in place to prevent falls during this visit? Instructed Patient to Call for Help if Needed, Offered Assistance with Transfers/Clothing, Instructed Patient to Remain Seated (Not on Exam Table) Until Exam, and Increased Observations by Caregivers PATIENT GENDER DATA: Male PATIENT RELEVANT IMPLANT DATA REVIEWED: Not Applicable RADIOLOGY DEPARTMENT: Ultrasound PERIPHERAL IV DATA: Not applicable SIGNED BY: Oumou Agudelo RDMS RVT October 07, 2022 11:51 AM [facility] 10-07-2022 History of Present illness Narrative Radiology Service Progress Note PATIENT NAME: Jose L Cash DATE OF SERVICE: October 07, 2022 TIME: 11:51 AM PATIENT IDENTITY VERIFICATION COMPLETED USING TWO (2) IDENTIFIERS: Name and Date of confirmed by patient verbally. FALL SCREENING: Has the patient had 2 falls in the last year or 1 fall with injury or currently using an Ambulatory Assistive Device (Walker, Cane, Wheelchair, Crutches, etc.)? Yes, Patient High Risk for Falls What interventions were put in place to prevent falls during this visit? Instructed Patient to Call for Help if Needed, Offered Assistance with Transfers/Clothing, Instructed Patient to Remain Seated (Not on Exam Table) Until Exam, and Increased Observations by Caregivers PATIENT GENDER DATA: Male PATIENT RELEVANT IMPLANT DATA REVIEWED: Not Applicable RADIOLOGY DEPARTMENT: Ultrasound PERIPHERAL IV DATA: Not applicable SIGNED BY: Oumou Agudelo RDMS RVT October 07, 2022 11:51 AM documented in this encounter [facility] 10-03-2022 Note HNO ID: [id number] Author: Xavier Dick MD Service: ? Author Type: Physician Type: Progress Notes Filed: 10/03/2022 9:11 AM Note Text: Called patient reviewed current cbc. All stable, platelets mildly decreased stable from prior. Other flags noted, nothing of concern Will plan to recheck cbc in 6 months or so, order placed. 10 minute call. Xavier Dick MD. October 03, 2022 [facility] 10-02-2022 Miscellaneous Notes Apts scheduled. Elizabet Walton LPN Jose L returned call, given below results/recommendation, verbalized understanding. PSS please contact Patient to scheduled Renal US & hematology appt. Meggan Joe LPN Called and spoke with Hue, significant other who's able to receive medical information about patient. Patient not with her and at home sleeping. She was driving and taking her son home and phone conversation was cutting in and out. She is going to call back when she gets home to review results and recommendations below from Provider. Please review notes below. Brigitte Ya Ma His kidney function is still up from when he was to get labs before. Ua was ordered and not done. Needs done. Make sure pushing adequate fluids. Recheck bmp in one week and get renal us. Platelets are low but stable. He has not followed with hematology in a year. Dr. Armas has retired. Needs to follow up with his colleagues. documented in this encounter [facility] 09-30-2022 Note HNO ID: [id number] Author: Carleen Mcnair MD Service: ? Author Type: Physician Type: Progress Notes Filed: 09/30/2022 2:11 PM Note Text: Patient presents with: 6 Month Exam HPI: Patient presents today for office visit for follow up. HTN: HCTZ stopped. Continues on Olmesartan 40 mg daily, and Clonidine 0.2 mg twice daily. Occasionally monitoring at home Stable Denies chest pain Some SOB with exertion- unchanged No headaches or dizziness Occasional palpitations. Hx of A-fib No syncope No edema Follows with Cardiology. Continues on Eliquis No bleeding or bruising issues Taking Gabapentin for pain MEDICATIONS: Current Outpatient Medications Medication Sig olmesartan (BENICAR) 40 mg tablet Take 1 tablet by mouth once daily. gabapentin (NEURONTIN) 400 mg capsule Take 1 capsule by mouth three times daily for 90 days. cloNIDine HCl (CATAPRES) 0.2 mg tablet Take 1 tablet by mouth twice daily for 14 days. cloNIDine HCl (CATAPRES) 0.2 mg tablet Take 1 tablet by mouth twice daily. metoprolol tartrate, short acting, (LOPRESSOR) 25 mg tablet Take 1 tablet by mouth twice daily. apixaban (ELIQUIS) 5 mg tab(s) Take 1 tablet by mouth twice daily. dorzolamide-timolol (COSOPT) 22.3-6.8 mg/mL ophthalmic solution USE 1 DROP IN THE RIGHT EYE TWICE A DAY Oeooywidksgtt-Zsjrfmyj-Nmozrp (CENTRUM SILVER) tab Take 1 tablet by mouth once daily. No current facility-administered medications for this visit. ALLERGIES: ALLERGIES Allergen Reactions Marijuana/Cannabino* Other: See Comments blisters Bystolic [Nebivolol] Rash Penicillins Rash Tarka [Trandolapril* Cough Verapamil Other: See Comments PAST MEDICAL HISTORY Diagnosis Date Arrhythmia Atrial fibrillation (HCC) Cataract OD Choroid melanoma of right eye (HCC) 2011 CPAP (continuous positive airway pressure) dependence Hypercholesterolemia 10/14/2013 Hypertension Obstructive sleep apnea PAD (peripheral artery disease) (HCC) 07/20/2013 Personal history of unspecified urinary disorder Pulmonary nodule, right CT 06/15/14 3mm stable from 11/28/11 RUL Radiation cataract - Right Eye 07/15/2013 Solar Lentigines 02/21/2013 SUMMARY 04/06/2013 62 year old Male with past medical history of hypertension, Gtmgo-Qnttxgkhe-Pbwkk syndrome admitted with new-onset Atrial fibrillation. Transthoracic echocardiography showed LVEF 55%. TSH was normal. Transesophageal echocardiography was negative for left trial appendage thrombus. Successful DC cardioversion on 04/07/2013. Currently in Normal sinus rhythm. Anticoagulation for cerebrovascular prophylaxis initiated with Rivaroxaban. Exercise stress test to assess effort tolerance was fair But showed poorly controlled hypertension, thus Losartan is being increased from 50 mg/d to 100 mg/d. Verapamil has been stopped. Being discharged today. Out-patient pharmacologic stress test on 05/11/13 Follow-up with on 05/24/13. [Appointment already scheduled; Office number [phone]] WPW (Pwwek-Bawgvnhwc-Xecbi syndrome) 04/06/2013 Patient has been previously told that he has WPW when reviewed at other facilities but has never been offered rx.review of [facility] ECGs in [facility] do not show clear evidence of WPW. Exercise stress test to assess effort tolerance didn't induce arrhythmia or change activation.As the test was sub-optimal, Out-patient pharmacologic stress has been scheduled. PAST SURGICAL HISTORY Procedure Laterality Date AVASTIN (BEVACIZUMAB) 1.25MG INTRAVITREAL INJECTION OD (RIGHT EYE) Right 05/31/14 CARDIOVERSION ELECTIVE ARRHYTHMIA INTERNAL SPX 04/2013 COLONOSCOPY FLX DX W/COLLJ SPEC WHEN PFRMD 10/07/2016 Colonoscopy COLONOSCOPY FLX DX W/COLLJ SPEC WHEN PFRMD 10/25/2019 Colonoscopy KNEE ARTHROSCOPY/SURGERY torn meniscus, right PAST SURGICAL HISTORY OF 12-13-2011 right eye, choroidal tumor removed / plaque REVASCULARIZATION ILIAC ARTERY ANGIOP 1ST VSL 08-10-13 REVSC OPN/PRQ FEM/POP W/STNT/ANGIOP SM VSL 09-14-13 VINITA (TRANSESOPHAGEAL ECHO) 04/2013 XCAPSL CTRC RMVL INSJ IO LENS PROSTH W/O ECP 04/28/2014 Cataract Extraction with PC IOL OD FAMILY HISTORY Problem Relation Age of Onset Hypertension Father Ischemic Heart Disease Father Ischemic Heart Disease Mother No Ocular Disease Other Social History Tobacco Use Smoking status: Every Day Packs/day: 0.50 Years: 50.00 Total pack years: 25.00 Types: Cigarettes Smokeless tobacco: Never Substance Use Topics Alcohol use: No Alcohol/week: 0.0 standard drinks of alcohol Drug use: No Reviewed current medications, allergies, past medical history, surgical history, family history and social history today. REVIEW OF SYSTEMS All other reviewed and negative other than HPI. HEALTH MAINTENANCE: Reviewed health maintenance issues today and recommended the following in detail. DTAP,TDAP,TD(1 - Tdap) Never done SHINGRIX VACCINE(1 of 2) Never done COVID-19 VACCINE(4 - Pfizer series) due on (more content not included)... [facility] 09-30-2022 History of Present illness Narrative Patient presents with: 6 Month Exam HPI: Patient presents today for office visit for follow up. HTN: HCTZ stopped. Continues on Olmesartan 40 mg daily, and Clonidine 0.2 mg twice daily. Occasionally monitoring at home Stable Denies chest pain Some SOB with exertion- unchanged No headaches or dizziness Occasional palpitations. Hx of A-fib No syncope No edema Follows with Cardiology. Continues on Eliquis No bleeding or bruising issues Taking Gabapentin for pain MEDICATIONS: Current Outpatient Medications Medication Sig olmesartan (BENICAR) 40 mg tablet Take 1 tablet by mouth once daily. gabapentin (NEURONTIN) 400 mg capsule Take 1 capsule by mouth three times daily for 90 days. cloNIDine HCl (CATAPRES) 0.2 mg tablet Take 1 tablet by mouth twice daily for 14 days. cloNIDine HCl (CATAPRES) 0.2 mg tablet Take 1 tablet by mouth twice daily. metoprolol tartrate, short acting, (LOPRESSOR) 25 mg tablet Take 1 tablet by mouth twice daily. apixaban (ELIQUIS) 5 mg tab(s) Take 1 tablet by mouth twice daily. dorzolamide-timolol (COSOPT) 22.3-6.8 mg/mL ophthalmic solution USE 1 DROP IN THE RIGHT EYE TWICE A DAY Czctuyqofzmyd-Odrffwgs-Ixeucx (CENTRUM SILVER) tab Take 1 tablet by mouth once daily. No current facility-administered medications for this visit. ALLERGIES: ALLERGIES Allergen Reactions Marijuana/Cannabino* Other: See Comments blisters Bystolic [Nebivolol] Rash Penicillins Rash Tarka [Trandolapril* Cough Verapamil Other: See Comments PAST MEDICAL HISTORY Diagnosis Date Arrhythmia Atrial fibrillation (HCC) Cataract OD Choroid melanoma of right eye (HCC) 2011 CPAP (continuous positive airway pressure) dependence Hypercholesterolemia 10/14/2013 Hypertension Obstructive sleep apnea PAD (peripheral artery disease) (HCC) 07/20/2013 Personal history of unspecified urinary disorder Pulmonary nodule, right CT 06/15/14 3mm stable from 11/28/11 RUL Radiation cataract - Right Eye 07/15/2013 Solar Lentigines 02/21/2013 SUMMARY 04/06/2013 62 year old Male with past medical history of hypertension, Akreo-Qpjopflaq-Bsngo syndrome admitted with new-onset Atrial fibrillation. Transthoracic echocardiography showed LVEF 55%. TSH was normal. Transesophageal echocardiography was negative for left trial appendage thrombus. Successful DC cardioversion on 04/07/2013. Currently in Normal sinus rhythm. Anticoagulation for cerebrovascular prophylaxis initiated with Rivaroxaban. Exercise stress test to assess effort tolerance was fair But showed poorly controlled hypertension, thus Losartan is being increased from 50 mg/d to 100 mg/d. Verapamil has been stopped. Being discharged today. Out-patient pharmacologic stress test on 05/11/13 Follow-up with on 05/24/13. [Appointment already scheduled; Office number [phone]] WPW (Ctvbs-Ukzvtubot-Pjpyp syndrome) 04/06/2013 Patient has been previously told that he has WPW when reviewed at other facilities but has never been offered rx.review of [facility] ECGs in [facility] do not show clear evidence of WPW. Exercise stress test to assess effort tolerance didn't induce arrhythmia or change activation.As the test was sub-optimal, Out-patient pharmacologic stress has been scheduled. PAST SURGICAL HISTORY Procedure Laterality Date AVASTIN (BEVACIZUMAB) 1.25MG INTRAVITREAL INJECTION OD (RIGHT EYE) Right 05/31/14 CARDIOVERSION ELECTIVE ARRHYTHMIA INTERNAL SPX 04/2013 COLONOSCOPY FLX DX W/COLLJ SPEC WHEN PFRMD 10/07/2016 Colonoscopy COLONOSCOPY FLX DX W/COLLJ SPEC WHEN PFRMD 10/25/2019 Colonoscopy KNEE ARTHROSCOPY/SURGERY torn meniscus, right PAST SURGICAL HISTORY OF 12-13-2011 right eye, choroidal tumor removed / plaque REVASCULARIZATION ILIAC ARTERY ANGIOP 1ST VSL 08-10-13 REVSC OPN/PRQ FEM/POP W/STNT/ANGIOP VSL 09-14-13 VINITA (TRANSESOPHAGEAL ECHO) 04/2013 XCAPSL CTRC RMVL INSJ IO LENS PROSTH W/O ECP 04/28/2014 Cataract Extraction with PC IOL OD FAMILY HISTORY Problem Relation Age of Onset Hypertension Father Ischemic Heart Disease Father Ischemic Heart Disease Mother No Ocular Disease Other Social History Tobacco Use Smoking status: Every Day Packs/day: 0.50 Years: 50.00 Total pack years: 25.00 Types: Cigarettes Smokeless tobacco: Never Substance Use Topics Alcohol use: No Alcohol/week: 0.0 standard drinks of alcohol Drug use: No Reviewed current medications, allergies, past medical history, surgical history, family history and social history today. REVIEW OF SYSTEMS All other reviewed and negative other than HPI. HEALTH MAINTENANCE: Reviewed health maintenance issues today and recommended the following in detail. DTAP,TDAP,TD(1 - Tdap) Never done SHINGRIX VACCINE(1 of 2) Never done COVID-19 VACCINE(4 - Pfizer series) due on 03/01/2021 HEMOGLOBIN/HEMATOCRIT due on 11/13/2021 ADVANCE DIRECTIVE DISCUSSION due on 03/03/2022 DEPRESSION ASSESSMENT Never done COLORECTAL CANCER SCREENING due on 10/24/2022 VITALS: BP 132/72 Pulse (!) 57 Ht 188 cm (6' 2 ) Wt 127 kg (280 lb) SpO2 97% BMI 35.95 kg/m Last 4 Encounter Wt Readings: Date: Wt: 03/27/2022 127 kg (280 lb) 11/12/2021 133.4 kg (294 lb) 05/10/2021 134.5 kg (296 lb 9.6 oz) 03/05/2021 133.8 kg (295 lb) PHYSICAL EXAMINATION: General appearance: Well appearing, alert, in no acute distress, well-hydrated, well nourished. Skin: Skin color, texture, turgor normal, no suspicious rashes or lesions Head: Normocephalic, no masses, lesions, tenderness or abnormalities Neck: Supple, no adenopath Lungs: Lungs clear to auscultation. No wheezing, rhonchi, rales Heart: RRR without murmur, gallop, or rubs. No ectopy Abdomen: Normal abdominal exam, Abdomen soft, non-tender. Bowel sounds normal. No masses, organomegaly ASSESSMENT/PLAN: 1. Primary hypertension - ICD9: 401.9, ICD10: I10 (primary diagnosis) - Controlled - Continue current medications 2. Neuropathy - (NOS) - ICD9: 355.9, ICD10: G62.9 - stable on meds. 3. PAF (paroxysmal atrial fibrillation) (HCC) - ICD9: 427.31, ICD10: I48.0 - call if any isseus 4. Hypercholesterolemia - ICD9: 272.0, ICD10: E78.0 - LIPID PANEL, NONFASTING 5. HOMERO (obstructive sleep apnea) - ICD9: 327.23, ICD10: G47.33 - stable. 6. Chronic ITP (idiopathic thrombocytopenia) (HCC) - ICD9: 287.31, ICD10: D69.3 - CBC + DIFF 7. Stage 3 chronic kidney disease, unspecified whether stage 3a or 3b CKD (HCC) - ICD9: 585.3, ICD10: N18.30 - follow labs - CBC + DIFF - COMP METABOLIC PANEL 8. Hyperglycemia - ICD9: 790.29, ICD10: R73.9 - HGB A1C 9. Malignant melanoma of eye, unspecified laterality (HCC) - ICD9: 190.9, ICD10: C69.90 Stable 10. Renal insufficiency - ICD9: 593.9, ICD10: N28.9 - URINALYSIS, WITH MICROSCOPIC 11. History of colonic polyps - ICD9: V12.72, ICD10: Z86.010 - CONSULT TO GENERAL SURGERY Carleen Mcnair MD documented in this encounter [facility] 07-12-2022 Miscellaneous Notes Patient phones requesting refills as follows: Requested Prescriptions Pending Prescriptions Disp Refills gabapentin (NEURONTIN) 400 mg capsule 270 capsule 0 Sig: Take 1 capsule by mouth three times daily for 90 days. ROBEL 04/29/22 NOV 09/30/22 Please review and advise. Johnny Ramirez LPN documented in this encounter [facility] 04-29-2022 Note HNO ID: [id number] Author: Prabha Multani APRN.[employer] Service: ? Author Type: Nurse Practitioner Type: Progress Notes Filed: 04/29/2022 9:50 AM Note Text: This is a 71 year old male who presents today with: Patient presents with: Recheck: 1 month BP check HISTORY OF PRESENT ILLNESS: Jose L Cash is a 71 year old male. Patient presents with: Recheck: 1 month BP check Pt presents today for 1 month recheck of blood pressure. Refers that at last visit, blood pressure was a little elevated. Had stopped the HCTZ prior to that. HTN: Patient is compliant with meds Yes Monitors bp at home: Yes -- occasionally. I don't get anything drastic. Denies side effects: No. Chest pain: No. Dyspnea: get some SOB with walking, but that has been unchanged. Edema: No. Palpitations: No. Syncope: No. Headache: No. Dizziness: No. PAST MEDICAL HISTORY: PAST MEDICAL HISTORY Diagnosis Date Arrhythmia Atrial fibrillation (HCC) Cataract OD Choroid melanoma of right eye ([facility]) 2011 CPAP (continuous positive airway pressure) dependence Hypercholesterolemia 10/14/2013 Hypertension Obstructive sleep apnea PAD (peripheral artery disease) ([facility]) 07/20/2013 Personal history of unspecified urinary disorder Pulmonary nodule, right CT 06/15/14 3mm stable from 11/28/11 RUL Radiation cataract - Right Eye 07/15/2013 Solar Lentigines 02/21/2013 SUMMARY 04/06/2013 62 year old Male with past medical history of hypertension, Chjrw-Bocnbkang-Oywet syndrome admitted with new-onset Atrial fibrillation. Transthoracic echocardiography showed LVEF 55%. TSH was normal. Transesophageal echocardiography was negative for left trial appendage thrombus. Successful DC cardioversion on 04/07/2013. Currently in Normal sinus rhythm. Anticoagulation for cerebrovascular prophylaxis initiated with Rivaroxaban. Exercise stress test to assess effort tolerance was fair But showed poorly controlled hypertension, thus Losartan is being increased from 50 mg/d to 100 mg/d. Verapamil has been stopped. Being discharged today. Out-patient pharmacologic stress test on 05/11/13 Follow-up with on 05/24/13. [Appointment already scheduled; Office number [phone]] WPW (Kqezl-Zwzftynpr-Uyjoc syndrome) 04/06/2013 Patient has been previously told that he has WPW when reviewed at other facilities but has never been offered rx.review of [facility] ECGs in [facility] do not show clear evidence of WPW. Exercise stress test to assess effort tolerance didn't induce arrhythmia or change activation.As the test was sub-optimal, Out-patient pharmacologic stress has been scheduled. PAST SURGICAL HISTORY Procedure Laterality Date AVASTIN (BEVACIZUMAB) 1.25MG INTRAVITREAL INJECTION OD (RIGHT EYE) Right 05/31/14 CARDIOVERSION ELECTIVE ARRHYTHMIA INTERNAL SPX 04/2013 COLONOSCOPY FLX DX W/COLLJ SPEC WHEN PFRMD 10/07/2016 Colonoscopy COLONOSCOPY FLX DX W/COLLJ SPEC WHEN PFRMD 10/25/2019 Colonoscopy KNEE ARTHROSCOPY/SURGERY torn meniscus, right PAST SURGICAL HISTORY OF 12-13-2011 right eye, choroidal tumor removed / plaque REVASCULARIZATION ILIAC ARTERY ANGIOP 1ST VSL 08-10-13 REVSC OPN/PRQ FEM/POP W/STNT/ANGIOP SM VSL 09-14-13 VINITA (TRANSESOPHAGEAL ECHO) 04/2013 XCAPSL CTRC RMVL INSJ IO LENS PROSTH W/O ECP 04/28/2014 Cataract Extraction with PC IOL OD ALLERGIES Marijuana/Cannabinoid, Bystolic [Nebivolol], Penicillins, Tarka [Trandolapril-Verapamil], and Verapamil MEDICATIONS Current Outpatient Medications Medication Sig gabapentin (NEURONTIN) 400 mg capsule Take 1 capsule by mouth three times daily for 90 days. metoprolol tartrate, short acting, (LOPRESSOR) 25 mg tablet Take 1 tablet by mouth twice daily. apixaban (ELIQUIS) 5 mg tab(s) Take 1 tablet by mouth twice daily. dorzolamide-timolol (COSOPT) 22.3-6.8 mg/mL ophthalmic solution USE 1 DROP IN THE RIGHT EYE TWICE A DAY olmesartan (BENICAR) 40 mg tablet Take 1 tablet by mouth once daily. cloNIDine HCl (CATAPRES) 0.2 mg tablet Take 1 tablet by mouth twice daily. Aindaccuifiel-Vkvoewkc-Kfftle (CENTRUM SILVER) tab Take 1 tablet by mouth once daily. No current facility-administered medications for this visit. FAMILY HISTORY Problem Relation Age of Onset Hypertension Father Ischemic Heart Disease Father Ischemic Heart Disease Mother No Ocular Disease Other Social History Tobacco Use Smoking status: Every Day Packs/day: 0.50 Years: 50.00 Pack years: 25.00 Types: Cigarettes Smokeless tobacco: Never Substance Use Topics Alcohol use: No Alcohol/week: 0.0 standard drinks Drug use: No EXAM: BP 128/76 Pulse (!) 56 Resp 18 SpO2 95% PHYSICAL EXAM: General Appearance: Well appearing, alert, in no acute distress, well-hydrated, well nourished.. Skin: Skin color, texture, turgor normal, no suspicious rashes or lesions. Head: Normocephalic, no masses, lesions, tenderness or abnormalities. Eyes: Anicteric sclera. Extraocular movements are in (more content not included)... [facility] 04-29-2022 Instructions Prabha Multani APRN.CNP - 04/29/2022 9:44 AM EST Continue the same medication. Get your labwork done. Recheck, as scheduled with Dr. Mcnair. documented in this encounter [facility] 04-29-2022 History of Present illness Narrative This is a 71 year old male who presents today with: Patient presents with: Recheck: 1 month BP check HISTORY OF PRESENT ILLNESS: Jose L Cash is a 71 year old male. Patient presents with: Recheck: 1 month BP check Pt presents today for 1 month recheck of blood pressure. Refers that at last visit, blood pressure was a little elevated. Had stopped the HCTZ prior to that. HTN: Patient is compliant with meds Yes Monitors bp at home: Yes -- occasionally. I don't get anything drastic. Denies side effects: No. Chest pain: No. Dyspnea: get some SOB with walking, but that has been unchanged. Edema: No. Palpitations: No. Syncope: No. Headache: No. Dizziness: No. PAST MEDICAL HISTORY: PAST MEDICAL HISTORY Diagnosis Date Arrhythmia Atrial fibrillation (HCC) Cataract OD Choroid melanoma of right eye (HCC) 2011 CPAP (continuous positive airway pressure) dependence Hypercholesterolemia 10/14/2013 Hypertension Obstructive sleep apnea PAD (peripheral artery disease) (HCC) 07/20/2013 Personal history of unspecified urinary disorder Pulmonary nodule, right CT 06/15/14 3mm stable from 11/28/11 RUL Radiation cataract - Right Eye 07/15/2013 Solar Lentigines 02/21/2013 SUMMARY 04/06/2013 62 year old Male with past medical history of hypertension, Ziefe-Wygovkjqi-Rodgn syndrome admitted with new-onset Atrial fibrillation. Transthoracic echocardiography showed LVEF 55%. TSH was normal. Transesophageal echocardiography was negative for left trial appendage thrombus. Successful DC cardioversion on 04/07/2013. Currently in Normal sinus rhythm. Anticoagulation for cerebrovascular prophylaxis initiated with Rivaroxaban. Exercise stress test to assess effort tolerance was fair But showed poorly controlled hypertension, thus Losartan is being increased from 50 mg/d to 100 mg/d. Verapamil has been stopped. Being discharged today. Out-patient pharmacologic stress test on 05/11/13 Follow-up with on 05/24/13. [Appointment already scheduled; Office number [phone]] WPW (Bkjmd-Ttqexkvdt-Ldvvc syndrome) 04/06/2013 Patient has been previously told that he has WPW when reviewed at other facilities but has never been offered rx.review of [facility] ECGs in [facility] do not show clear evidence of WPW. Exercise stress test to assess effort tolerance didn't induce arrhythmia or change activation.As the test was sub-optimal, Out-patient pharmacologic stress has been scheduled. PAST SURGICAL HISTORY Procedure Laterality Date AVASTIN (BEVACIZUMAB) 1.25MG INTRAVITREAL INJECTION OD (RIGHT EYE) Right 05/31/14 CARDIOVERSION ELECTIVE ARRHYTHMIA INTERNAL SPX 04/2013 COLONOSCOPY FLX DX W/COLLJ SPEC WHEN PFRMD 10/07/2016 Colonoscopy COLONOSCOPY FLX DX W/COLLJ SPEC WHEN PFRMD 10/25/2019 Colonoscopy KNEE ARTHROSCOPY/SURGERY torn meniscus, right PAST SURGICAL HISTORY OF 12-13-2011 right eye, choroidal tumor removed / plaque REVASCULARIZATION ILIAC ARTERY ANGIOP 1ST VSL 08-10-13 REVSC OPN/PRQ FEM/POP W/STNT/ANGIOP VSL 09-14-13 VINITA (TRANSESOPHAGEAL ECHO) 04/2013 XCAPSL CTRC RMVL INSJ IO LENS PROSTH W/O ECP 04/28/2014 Cataract Extraction with PC IOL OD ALLERGIES Marijuana/Cannabinoid, Bystolic [Nebivolol], Penicillins, Tarka [Trandolapril-Verapamil], and Verapamil MEDICATIONS Current Outpatient Medications Medication Sig gabapentin (NEURONTIN) 400 mg capsule Take 1 capsule by mouth three times daily for 90 days. metoprolol tartrate, short acting, (LOPRESSOR) 25 mg tablet Take 1 tablet by mouth twice daily. apixaban (ELIQUIS) 5 mg tab(s) Take 1 tablet by mouth twice daily. dorzolamide-timolol (COSOPT) 22.3-6.8 mg/mL ophthalmic solution USE 1 DROP IN THE RIGHT EYE TWICE A DAY olmesartan (BENICAR) 40 mg tablet Take 1 tablet by mouth once daily. cloNIDine HCl (CATAPRES) 0.2 mg tablet Take 1 tablet by mouth twice daily. Hqysynkfzkpmq-Hmezpziw-Kvzvdg (CENTRUM SILVER) tab Take 1 tablet by mouth once daily. No current facility-administered medications for this visit. FAMILY HISTORY Problem Relation Age of Onset Hypertension Father Ischemic Heart Disease Father Ischemic Heart Disease Mother No Ocular Disease Other Social History Tobacco Use Smoking status: Every Day Packs/day: 0.50 Years: 50.00 Pack years: 25.00 Types: Cigarettes Smokeless tobacco: Never Substance Use Topics Alcohol use: No Alcohol/week: 0.0 standard drinks Drug use: No EXAM: BP 128/76 Pulse (!) 56 Resp 18 SpO2 95% PHYSICAL EXAM: General Appearance: Well appearing, alert, in no acute distress, well-hydrated, well nourished.. Skin: Skin color, texture, turgor normal, no suspicious rashes or lesions. Head: Normocephalic, no masses, lesions, tenderness or abnormalities. Eyes: Anicteric sclera. Extraocular movements are intact. . Lungs: Lungs clear to auscultation. No wheezing, rhonchi, rales.. Heart: RRR without murmur, gallop, or rubs. No ectopy. Extremities: + 1 pitting edema. Neurologic: Gait normal. ASSESSMENT/PLAN: 1. Primary hypertension - ICD9: 401.9, ICD10: I10 - good control - Continue current medication(s) - Recommended regular aerobic exercise. - Recommend home blood pressure monitoring, to bring results in on next visit - Goal of BP <130/80 Lab work as planned. Return as scheduled with Dr. Mcnair. Discussed treatment plan and patient voices understanding. Patient's questions answered appropriately. Medications and potential side effects were discussed and patient voices understanding. Return to the office as scheduled or as needed for worsening/no improvement. Prabha Multani APRN.[employer] This note was partially generated using Dragon voice recognition system. Note was reviewed for accuracy. There may be minor misspellings or grammar miscues with [email or web address] voice recognition. documented in this encounter [facility] 04-01-2022 Miscellaneous Notes Svetlana from [facility] called in and reports Pt most effectively uses his insurance when his medication is ordered 90 days all at once. Provider sent in one month of pills with 2 refills which add up to 90 days. Put in new RX is provider would like to send it this way. Patient has been identified by name and date of : Yes, Provider Dr Mcnair Date 04/01/22 Time 1507. Pharmacy phones for refill(s): Requested Prescriptions Pending Prescriptions Disp Refills gabapentin (NEURONTIN) 400 mg capsule 270 capsule 0 Sig: Take 1 capsule by mouth three times daily for 90 days. Date of last office visit in primary care: 03/27/22 Future visit: 09/30/22 Last 2 Encounter Wt Readings: Date: Wt: 03/27/2022 127 kg (280 lb) 11/12/2021 133.4 kg (294 lb) Previous labs/tests for medication: Blood Pressure: BUN (mg/dL) Date Value 11/12/2021 35 11/13/2020 21 Sodium (mmol/L) Date Value 11/12/2021 136 11/13/2020 140 Last 1 Encounter BP Readings: Date: BP: 03/27/2022 140/76 Liver Function: ALT (U/L) Date Value 11/13/2020 18 AST (U/L) Date Value 11/13/2020 21 Please advise. Thank you. Carey Winkler, RN documented [facility] [facility] 03[facility] History of Present illness Narrative Patient presents with: Pain HPI: Patient presents today for office visit for chronic pain. Gabapentin is not helping. We had stopped hctz. Bp is higher. He had rising renal function was to do bp check after and recheck ua and bmp. Feels his gabapentin is not helping as well as he would like. It does help some but is not as good as he would like. Still with burning in hands and feet. No chest pain or shortness of breath. No edema. No bleeding or bruising issues. Working on weight loss. Stopped drinking pepsi.watching his diet as well. Did follow with Dr. Lucas. MEDICATIONS: Current Outpatient Medications Medication Sig gabapentin (NEURONTIN) 300 mg capsule Take 1 capsule by mouth three times daily for 90 days. metoprolol tartrate, short acting, (LOPRESSOR) 25 mg tablet Take 1 tablet by mouth twice daily. apixaban (ELIQUIS) 5 mg tab(s) Take 1 tablet by mouth twice daily. dorzolamide-timolol (COSOPT) 22.3-6.8 mg/mL ophthalmic solution USE 1 DROP IN THE RIGHT EYE TWICE A DAY olmesartan (BENICAR) 40 mg tablet Take 1 tablet by mouth once daily. cloNIDine HCl (CATAPRES) 0.2 mg tablet Take 1 tablet by mouth twice daily. Ydguwgslatfro-Eoucasll-Idjfej (CENTRUM SILVER) tab Take 1 tablet by mouth once daily. No current facility-administered medications for this visit. ALLERGIES: ALLERGIES Allergen Reactions Marijuana/Cannabino* Other: See Comments blisters Bystolic [Nebivolol] Rash Penicillins Rash Tarka [Trandolapril* Cough Verapamil Other: See Comments PAST MEDICAL HISTORY Diagnosis Date Arrhythmia Atrial fibrillation (HCC) Cataract OD Choroid melanoma of right eye (HCC) 2011 CPAP (continuous positive airway pressure) dependence Hypercholesterolemia 10/14/2013 Hypertension Obstructive sleep apnea PAD (peripheral artery disease) ([facility]) 07/20/2013 Personal history of unspecified urinary disorder Pulmonary nodule, right CT 06/15/14 3mm stable from 11/28/11 RUL Radiation cataract - Right Eye 07/15/2013 Solar Lentigines 02/21/2013 SUMMARY 04/06/2013 62 year old Male with past medical history of hypertension, Ubvnq-Isbbefkpl-Zzesx syndrome admitted with new-onset Atrial fibrillation. Transthoracic echocardiography showed LVEF 55%. TSH was normal. Transesophageal echocardiography was negative for left trial appendage thrombus. Successful DC cardioversion on 04/07/2013. Currently in Normal sinus rhythm. Anticoagulation for cerebrovascular prophylaxis initiated with Rivaroxaban. Exercise stress test to assess effort tolerance was fair But showed poorly controlled hypertension, thus Losartan is being increased from 50 mg/d to 100 mg/d. Verapamil has been stopped. Being discharged today. Out-patient pharmacologic stress test on 05/11/13 Follow-up with on 05/24/13. [Appointment already scheduled; Office number [phone]] WPW (Nvkym-Mymkardle-Glxyn syndrome) 04/06/2013 Patient has been previously told that he has WPW when reviewed at other facilities but has never been offered rx.review of [facility] ECGs in [facility] do not show clear evidence of WPW. Exercise stress test to assess effort tolerance didn't induce arrhythmia or change activation.As the test was sub-optimal, Out-patient pharmacologic stress has been scheduled. PAST SURGICAL HISTORY Procedure Laterality Date AVASTIN (BEVACIZUMAB) 1.25MG INTRAVITREAL INJECTION OD (RIGHT EYE) Right 05/31/14 CARDIOVERSION ELECTIVE ARRHYTHMIA INTERNAL SPX 04/2013 COLONOSCOPY FLX DX W/COLLJ SPEC WHEN PFRMD 10/07/2016 Colonoscopy COLONOSCOPY FLX DX W/COLLJ SPEC WHEN PFRMD 10/25/2019 Colonoscopy KNEE ARTHROSCOPY/SURGERY torn meniscus, right PAST SURGICAL HISTORY OF 12-13-2011 right eye, choroidal tumor removed / plaque REVASCULARIZATION ILIAC ARTERY ANGIOP 1ST VSL 08-10-13 REVSC OPN/PRQ FEM/POP W/STNT/ANGIOP SM VSL 09-14-13 VINITA (TRANSESOPHAGEAL ECHO) 04/2013 XCAPSL CTRC RMVL INSJ IO LENS PROSTH W/O ECP 04/28/2014 Cataract Extraction with PC IOL OD FAMILY HISTORY Problem Relation Age of Onset Hypertension Father Ischemic Heart Disease Father Ischemic Heart Disease Mother No Ocular Disease Other Social History Tobacco Use Smoking status: Every Day Packs/day: 0.50 Years: 50.00 Pack years: 25.00 Types: Cigarettes Smokeless tobacco: Never Substance Use Topics Alcohol use: No Alcohol/week: 0.0 standard drinks Drug use: No Reviewed current medications, allergies, past medical history, surgical history, family history and social history today. REVIEW OF SYSTEMS All other reviewed and negative other than HPI. VITALS: BP 140/76 Pulse 60 Ht 188 cm (6' 2 ) Wt 127 kg (280 lb) SpO2 99% BMI 35.95 kg/m Last 4 Encounter Wt Readings: Date: Wt: 11/12/2021 133.4 kg (294 lb) 05/10/2021 134.5 kg (296 lb 9.6 oz) 03/05/2021 133.8 kg (295 lb) 11/08/2020 131.1 kg (289 lb) PHYSICAL EXAMINATION: General appearance: Well appearing, alert, in no acute distress, well-hydrated, well nourished. Skin: Skin color, texture, turgor normal, no suspicious rashes or lesions Head: Normocephalic, no masses, lesions, tenderness or abnormalities Eyes: Anicteric sclera. Pupils are equally round and reactive to light. Extraocular movements are intact. Lungs: Lungs clear to auscultation. No wheezing, rhonchi, rales Heart: RRR without murmur, gallop, or rubs. No ectopy Abdomen: Normal abdominal exam, Abdomen soft, non-tender. Bowel sounds normal. No masses, organomegaly Extremities: No deformities, edema, skin discoloration, clubbing or cyanosis. Good capillary refill. Musculoskeletal: No joint swelling, deformity, or tenderness ASSESSMENT/PLAN: 1. Primary hypertension - ICD9: 401.9, ICD10: I10 (primary diagnosis) - fair control - Continue current medication(s) - Goal of BP <130/80 - CBC + DIFF - COMP METABOLIC PANEL - LIPID PANEL, NONFASTING 2. Neuropathy - (NOS) - ICD9: 355.9, ICD10: G62.9 - increase gabapentin. - GABAPENTIN 400 MG CAPSULE 3. PAF (paroxysmal atrial fibrillation) ([facility]) - ICD9: 427.31, ICD10: I48.0 4. Stage 3 chronic kidney disease, unspecified whether stage 3a or 3b CKD ([facility]) - ICD9: 585.3, ICD10: N18.30 - reassess - URINALYSIS, WITH MICROSCOPIC 5. Chronic ITP (idiopathic thrombocytopenia) ([facility]) - ICD9: 287.31, ICD10: D69.3 - reassess 6. Hyperglycemia - ICD9: 790.29, ICD10: R73.9 - HGB A1C 7. PAD (peripheral artery disease) ([facility]) - ICD9: 443.9, ICD10: I73.9 8. PSVT (paroxysmal supraventricular tachycardia) ([facility]) - ICD9: 427.0, ICD10: I47.1 9. Chronic kidney disease, stage 3a ([facility]) - ICD9: 585.3, ICD10: N18.31 Carleen Mcnair MD Bp check in one month. Rto in six months documented in this encounter [facility] 01-07-2022 Miscellaneous Notes Patient phones requesting refills as follows: Requested Prescriptions Pending Prescriptions Disp Refills gabapentin (NEURONTIN) 300 mg capsule 90 capsule 2 Sig: Take 1 capsule by mouth three times daily for 90 days. ROBEL 11/12/21 Please review and advise. Johnny Ramirez LPN documented in this encounter [facility] 11-29-2021 History of Present illness Narrative Images from the original note were not included. [facility] V[facility] DEPARTMENT OF VASCULAR SURGERY OUTPATIENT VISIT DATE November 29, 2021 OUTPATIENT VISIT TYPE CONSULTATION SERVICE DATE: 11/29/2021 SERVICE TIME: 3:04 PM PRIMARY CARE PHYSICIAN: Carleen Mcnair MD REFERRING PROVIDER: Carleen Mcnair [address] [facility] [id number] Consult requested for an opinion regarding the evaluation and treatment of the above. My final impression and recommendations will be communicated back to the requesting physician by way of the shared medical record or letter via [place] mail. CHIEF COMPLAINT: Peripheral arterial disease and carotid artery stenosis HISTORY OF PRESENT ILLNESS: Vascular consultation at the request of Dr. Carleen Mcnair. A copy of this consultation note will be provided to the requesting physician by way of shared Medical record or letter to requesting physician via US mail. Mr. Cash is a 70 year old male who is seen today to establish vascular care. He has a history of left SFA intervention and known right SFA occlusion. He does admit to claudication. He recently had a carotid duplex. Denies focal neurologic deficit. He is right handed. He is retired from the [employer] after 28 years of service. PAST MEDICAL HISTORY Diagnosis Date Arrhythmia Atrial fibrillation (HCC) Cataract OD Choroid melanoma of right eye (HCC) 2011 CPAP (continuous positive airway pressure) dependence Hypercholesterolemia 10/14/2013 Hypertension Obstructive sleep apnea PAD (peripheral artery disease) ([facility]) 07/20/2013 Personal history of unspecified urinary disorder Pulmonary nodule, right CT 06/15/14 3mm stable from 11/28/11 RUL Radiation cataract - Right Eye 07/15/2013 Solar Lentigines 02/21/2013 SUMMARY 04/06/2013 62 year old Male with past medical history of hypertension, Ooeds-Wupqyekyq-Ubzaz syndrome admitted with new-onset Atrial fibrillation. Transthoracic echocardiography showed LVEF 55%. TSH was normal. Transesophageal echocardiography was negative for left trial appendage thrombus. Successful DC cardioversion on 04/07/2013. Currently in Normal sinus rhythm. Anticoagulation for cerebrovascular prophylaxis initiated with Rivaroxaban. Exercise stress test to assess effort tolerance was fair But showed poorly controlled hypertension, thus Losartan is being increased from 50 mg/d to 100 mg/d. Verapamil has been stopped. Being discharged today. Out-patient pharmacologic stress test on 05/11/13 Follow-up with on 05/24/13. [Appointment already scheduled; Office number [phone]] WPW (Voqav-Nmlhtopfc-Jmyeh syndrome) 04/06/2013 Patient has been previously told that he has WPW when reviewed at other facilities but has never been offered rx.review of [facility] ECGs in [facility] do not show clear evidence of WPW. Exercise stress test to assess effort tolerance didn't induce arrhythmia or change activation.As the test was sub-optimal, Out-patient pharmacologic stress has been scheduled. PAST SURGICAL HISTORY Procedure Laterality Date AVASTIN (BEVACIZUMAB) 1.25MG INTRAVITREAL INJECTION OD (RIGHT EYE) Right 05/31/14 CARDIOVERSION ELECTIVE ARRHYTHMIA INTERNAL SPX 04/2013 COLONOSCOPY FLX DX W/COLLJ SPEC WHEN PFRMD 10/07/2016 Colonoscopy COLONOSCOPY FLX DX W/COLLJ SPEC WHEN PFRMD 10/25/2019 Colonoscopy KNEE ARTHROSCOPY/SURGERY torn meniscus, right PAST SURGICAL HISTORY OF 12-13-2011 right eye, choroidal tumor removed / plaque REVASCULARIZATION ILIAC ARTERY ANGIOP 1ST VSL 08-10-13 REVSC OPN/PRQ FEM/POP W/STNT/ANGIOP VSL 09-14-13 VINITA (TRANSESOPHAGEAL ECHO) 04/2013 XCAPSL CTRC RMVL INSJ IO LENS PROSTH W/O ECP 04/28/2014 Cataract Extraction with PC IOL OD SOCIAL HISTORY: Social History Tobacco Use Smoking status: Every Day Packs/day: 0.50 Years: 50.00 Pack years: 25.00 Types: Cigarettes Smokeless tobacco: Never Substance Use Topics Alcohol use: No Alcohol/week: 0.0 standard drinks Drug use: No FAMILY HISTORY Problem Relation Age of Onset Hypertension Father Ischemic Heart Disease Father Ischemic Heart Disease Mother No Ocular Disease Other MEDICATIONS: metoprolol tartrate, short acting, (LOPRESSOR) 25 mg tablet Take 1 tablet by mouth twice daily. gabapentin (NEURONTIN) 300 mg capsule Take 1 capsule by mouth three times daily for 90 days. apixaban (ELIQUIS) 5 mg tab(s) Take 1 tablet by mouth twice daily. dorzolamide-timolol (COSOPT) 22.3-6.8 mg/mL ophthalmic solution USE 1 DROP IN THE RIGHT EYE TWICE A DAY olmesartan (BENICAR) 40 mg tablet Take 1 tablet by mouth once daily. cloNIDine HCl (CATAPRES) 0.2 mg tablet Take 1 tablet by mouth twice daily. Jvxoxqthzdivd-Foxmonqx-Dplknn (CENTRUM SILVER) tab Take 1 tablet by mouth once daily. olmesartan (BENICAR) 40 mg tablet Take 1 tablet by mouth once daily. gabapentin (NEURONTIN) 300 mg capsule Take 1 capsule by mouth twice daily for 180 days. ALLERGIES: ALLERGIES Allergen Reactions Marijuana/Cannabino* Other: See Comments blisters Bystolic [Nebivolol] Rash Penicillins Rash Tarka [Trandolapril* Cough Verapamil Other: See Comments REVIEW of SYSTEM: Constitutional: No weight loss, malaise or fevers. HEENT: Negative for frequent or significant headaches, No changes in hearing or vision, no nose bleeds or other nasal problems, Eyes Positive for HAS HAD EYE CANCER Respiratory: Negative for cough, wheezing, or shortness of breath Cardiovascular: Negative for chest pain and Positive for leg swelling and palpitations Gatrointestinal: Negative for abdominal discomfort, blood in stools or black stools or change in bowel habits Genitourinary: No difficulty urination, nocturia >1 times per night or hematuria Musculoskeletal: Negative for joint pain or swelling and muscle pain and Positive for back pain Endocrine: Negative for cold or heat intolerance, polyuria, polydipsia and goiter Hematology/Lymphatic: Negative for prolonged bleeding, bruising easily or swollen nodes Neurologic: No history or headaches, syncope, paralysis, seizures or tremors Integumentary: Negative for lesions, rash, and itching. PHYSICAL EXAM: VITALS: There were no vitals taken for this visit. General: Alert and oriented Integumentary: Normal color, no rash, no lesions. HEENT: EOM, pupils equal, round and reactive. Cardiovascular: Pulse regular. Lungs: Normal breath sounds, no wheezes or crackles. Abdomen: Not examined Extremities: No deformity, no edema or tenderness, no joint swelling or clubbing. Neurological: Normal cognition and motor skills. Vascular: Posterior Tibial Right: Dopplerable Only - Left: Dopplerable Only Dorsalis Pedal Right: Dopplerable Only - Left: Dopplerable Only Diagnostic tests reviewed for today's visit: Most recent labs Most recent imaging Carotid Duplex RIGHT SIDE Internal carotid artery: Occluded. Vertebral artery: Patent and antegrade flow noted. LEFT SIDE Internal carotid artery: 60-79% stenosis. Vertebral artery: Patent and antegrade flow noted. PVRs R 0.68, L-0.65 IMPRESSION: Mr. Cash is a 70 year old male with peripheral arterial disease and asymptomatic carotid artery stenosis . PLAN and RECOMMENDATIONS: Recommend blood pressure and cholesterol control Discussed importance of smoking cessation Recommend continued close routine surveillance and non-interventional therapy for his arterial disease Follow up in in 6 months or sooner with any concerns Medical Decision Making: Medical Decision Making Level: 1 - N/A SIGNATURE: Edelmira Lucas DO PATIENT NAME: Jose L Cash DATE: November 29, 2021 TIME: 3:04 PM documented in this encounter [facility] 11-27-2021 Miscellaneous Notes Spoke /c scheduling, pt is scheduled to see Dr. Lucas on 11/29 in [place]. Pt notified. Johnny Ramirez LPN Reviewed his carotids and pvd. He needs set up to vascular chris. Has 100% occlusion of his right ICA and 60-79 % on the left pvd. Patient aware. Please set up soon documented in this encounter [facility] 11-27-2021 History of Present illness Narrative Radiology Service Progress Note PATIENT NAME: Jose L Cash DATE OF SERVICE: November 27, 2021 TIME: 11:18 AM PATIENT IDENTITY VERIFICATION COMPLETED USING TWO (2) IDENTIFIERS: Name and Date of confirmed by patient verbally. FALL SCREENING: Has the patient had 2 falls in the last year or 1 fall with injury or currently using an Ambulatory Assistive Device (Walker, Cane, Wheelchair, Crutches, etc.)? Yes, Patient High Risk for Falls What interventions were put in place to prevent falls during this visit? Offered Assistance with Transfers/Clothing, Increased Observations by Caregivers, and Patient Refused Interventions/Assistance PATIENT GENDER DATA: Male PATIENT RELEVANT IMPLANT DATA REVIEWED: Not Applicable RADIOLOGY DEPARTMENT: Ultrasound PERIPHERAL IV DATA: Not applicable SIGNED BY: RT Margoth(R) November 27, 2021 11:18 AM documented in this encounter [facility] 11-13-2021 Miscellaneous Notes Patient notified of results and provider's instructions. Patient verbalizes understanding. Patient states that he does not use NSAIDS. Patient take Acetaminophen. Odessa Panda RN TC to pt, left message to return call to office. Johnny Ramirez LPN His kidney function has jumped. Make sure not using any nsaids. Drink plently of liquids. Hold hctz. Recheck bmp and ua and renal us in next week or so. Recheck bp in one to two weeks. Call if any increased shortness of breath or edema. documented in this encounter [facility] 11-12-2021 History of Present illness Narrative Patient presents with: 6 Month Exam HPI: Patient presents today for office visit for follow up. He actually got his labs done today. Would like to increase gabapentin for his neuropathy. It works but the interval is to much. His bp is very tight today. Not overly dizzy or lightheaded. Will check bp at home and call if bp is running consistently below 100 systolic. No chest pain or shortness of breath. No edema. Reminded to follow with cardiology. No palpitations. Has a hx of pvr. No definite worsening claudication although he has some pain he thinks is his neuropathy. Dr. Frye had seen him for the same. He wanted him to check his carotids. He is unsure if he did that. Not treating homero. He very rarely snores per his . MEDICATIONS: CURRENT MEDICATIONS Current Outpatient Medications Medication Sig apixaban (ELIQUIS) 5 mg tab(s) Take 1 tablet by mouth twice daily. olmesartan (BENICAR) 40 mg tablet Take 1 tablet by mouth once daily. cloNIDine HCl (CATAPRES) 0.2 mg tablet Take 1 tablet by mouth twice daily. hydroCHLOROthiazide (HYDRODIURIL, ESIDRIX) 25 mg tablet Take 1 tablet by mouth once daily. metoprolol tartrate, short acting, (LOPRESSOR) 25 mg tablet Take 1 tablet by mouth twice daily. Wdoqkhcwcqlzz-Mrjmrwbs-Sczsvr (CENTRUM SILVER) tab Take 1 tablet by mouth once daily. dorzolamide-timolol (COSOPT) 22.3-6.8 mg/mL ophthalmic solution USE 1 DROP IN THE RIGHT EYE TWICE A DAY gabapentin (NEURONTIN) 300 mg capsule Take 1 capsule by mouth twice daily for 10 days. olmesartan (BENICAR) 40 mg tablet Take 1 tablet by mouth once daily. gabapentin (NEURONTIN) 300 mg capsule Take 1 capsule by mouth twice daily for 180 days. cloNIDine HCl (CATAPRES) 0.2 mg tablet Take 1 tablet by mouth twice daily. hydroCHLOROthiazide (HYDRODIURIL, ESIDRIX) 25 mg tablet Take 1 tablet by mouth once daily. No current facility-administered medications for this visit. ALLERGIES: ALLERGIES ALLERGIES Allergen Reactions Marijuana/Cannabino* Other: See Comments blisters Bystolic [Nebivolol] Rash Penicillins Rash Tarka [Trandolapril* Cough Verapamil Other: See Comments PAST MEDICAL HISTORY PAST MEDICAL HISTORY Diagnosis Date Arrhythmia Atrial fibrillation (HCC) Cataract OD Choroid melanoma of right eye (HCC) 2011 CPAP (continuous positive airway pressure) dependence Hypercholesterolemia 10/14/2013 Hypertension Obstructive sleep apnea PAD (peripheral artery disease) (HCC) 07/20/2013 Personal history of unspecified urinary disorder Pulmonary nodule, right CT 06/15/14 3mm stable from 11/28/11 RUL Radiation cataract - Right Eye 07/15/2013 Solar Lentigines 02/21/2013 SUMMARY 04/06/2013 62 year old Male with past medical history of hypertension, Yhkcs-Zrulpldmu-Ipzxy syndrome admitted with new-onset Atrial fibrillation. Transthoracic echocardiography showed LVEF 55%. TSH was normal. Transesophageal echocardiography was negative for left trial appendage thrombus. Successful DC cardioversion on 04/07/2013. Currently in Normal sinus rhythm. Anticoagulation for cerebrovascular prophylaxis initiated with Rivaroxaban. Exercise stress test to assess effort tolerance was fair But showed poorly controlled hypertension, thus Losartan is being increased from 50 mg/d to 100 mg/d. Verapamil has been stopped. Being discharged today. Out-patient pharmacologic stress test on 05/11/13 Follow-up with on 05/24/13. [Appointment already scheduled; Office number [phone]] WPW (Prapx-Rwnltizcn-Xymlu syndrome) 04/06/2013 Patient has been previously told that he has WPW when reviewed at other facilities but has never been offered rx.review of [facility] ECGs in [facility] do not show clear evidence of WPW. Exercise stress test to assess effort tolerance didn't induce arrhythmia or change activation.As the test was sub-optimal, Out-patient pharmacologic stress has been scheduled. PAST SURGICAL HISTORY PAST SURGICAL HISTORY Procedure Laterality Date AVASTIN (BEVACIZUMAB) 1.25MG INTRAVITREAL INJECTION OD (RIGHT EYE) Right 05/31/14 CARDIOVERSION ELECTIVE ARRHYTHMIA INTERNAL SPX 04/2013 COLONOSCOPY FLX DX W/COLLJ SPEC WHEN PFRMD 10/07/2016 Colonoscopy COLONOSCOPY FLX DX W/COLLJ SPEC WHEN PFRMD 10/25/2019 Colonoscopy KNEE ARTHROSCOPY/SURGERY torn meniscus, right PAST SURGICAL HISTORY OF 12-13-2011 right eye, choroidal tumor removed / plaque REVASCULARIZATION ILIAC ARTERY ANGIOP 1ST VSL 08-10-13 REVSC OPN/PRQ FEM/POP W/STNT/ANGIOP SM VSL 09-14-13 VINITA (TRANSESOPHAGEAL ECHO) 04/2013 XCAPSL CTRC RMVL INSJ IO LENS PROSTH W/O ECP 04/28/2014 Cataract Extraction with PC IOL OD FAMILY HISTORY FAMILY HISTORY Problem Relation Age of Onset Hypertension Father Ischemic Heart Disease Father Ischemic Heart Disease Mother No Ocular Disease Other SOCIAL HISTORY Social History Tobacco Use Smoking status: Every Day Packs/day: 0.50 Years: 50.00 Pack years: 25.00 Types: Cigarettes Smokeless tobacco: Never Substance Use Topics Alcohol use: No Alcohol/week: 0.0 standard drinks Drug use: No Reviewed current medications, allergies, past medical history, surgical history, family history and social history today. REVIEW OF SYSTEMS All other reviewed and negative other than HPI. HEALTH MAINTENANCE: Reviewed health maintenance issues today and recommended the following in detail. DTAP,TDAP,TD(1 - Tdap) Never done SHINGRIX VACCINE(1 of 2) Never done ADVANCE DIRECTIVE DISCUSSION Never done DEPRESSION SCREENING due on 04/30/2021 COVID-19 VACCINE(4 - Booster for Pfizer series) due on 05/04/2021 INFLUENZA(1) due on 11/01/2021 VITALS: BP 92/62 Pulse 60 Wt 133.4 kg (294 lb) BMI 37.75 kg/m Last 4 Encounter Wt Readings: Date: Wt: 05/10/2021 134.5 kg (296 lb 9.6 oz) 03/05/2021 133.8 kg (295 lb) 11/08/2020 131.1 kg (289 lb) 05/11/2020 131.5 kg (290 lb) PHYSICAL EXAMINATION: General appearance: Well appearing, alert, in no acute distress, well-hydrated, well nourished. Skin: Skin color, texture, turgor normal, no suspicious rashes or lesions Neck: Supple, no adenopathy; thyroid symmetric, normal size, no bruits Lungs:CTA bilaterally Heart: RRR without murmur, gallop, or rubs. No ectopy Abdomen: Normal abdominal exam, Abdomen soft, non-tender. Bowel sounds normal. No masses, organomegaly Extremities: No deformities, edema, skin discoloration, clubbing or cyanosis. Good capillary refill. ASSESSMENT/PLAN: 1. PAD (peripheral artery disease) (HCC) - ICD9: 443.9, ICD10: I73.9 (primary diagnosis) - check studies. - [place] CAROTID ARTERIES [facility] - PVR ANK PRESS [facility] 2. Neuropathy - (NOS) - ICD9: 355.9, ICD10: G62.9 - increased gabapentin. 3. HOMERO (obstructive sleep apnea) - ICD9: 327.23, ICD10: G47.33 - declines tx 4. PSVT (paroxysmal supraventricular tachycardia) (HCC) - ICD9: 427.0, ICD10: I47.1 - per cardiology 5. Hypertensive kidney disease with stage 3 chronic kidney disease, unspecified whether stage 3a or 3b CKD (HCC) - ICD9: 403.90, 585.3, ICD10: I12.9, N18.30 - good control - follow bp 6. Hyperglycemia - ICD9: 790.29, ICD10: R73.9 - stable. 7. Bilateral carotid artery stenosis - ICD9: 433.10, 433.30, ICD10: I65.23 - US CAROTID ARTERIES [facility] Carleen Mcnair RTO in six months and prn. documented in this encounter [facility] 10-09-2021 Miscellaneous Notes Lia from [facility] called requesting status of requested refill for 08/2021. Pharmacy calls in requesting the following refill(s): Requested Prescriptions Pending Prescriptions Disp Refills apixaban (ELIQUIS) 5 mg tab(s) 180 tablet 3 Sig: Take 1 tablet by mouth twice daily. documented in this encounter [facility] 08-14-2021 Miscellaneous Notes This has been completed documented in this encounter [facility] 08-14-2021 Miscellaneous Notes Spoke to patient to clarify medication. Patient needs short term gabapentin due to no knowing he needed to call na request that refill so should be in on 08/21-08/22. Also needs year supply of benicar to [facility] orginally sent. Medication is pended correctly please send Allison Pak Ma documented in this encounter [facility] 07-12-2021 Miscellaneous Notes ROBEL 05/10/21 Patient has been identified by name and date of : Yes Pending Prescriptions Disp Refills OLMESARTAN 40 MG TABLET 90 tablet 3 Sig: Take 1 tablet by mouth once daily. LUCIA: No RX INSTRUCTIONS: Patient aware RX will be sent to pharmacy. No need to notify patient. Shannan Walton Pss documented in this encounter [facility] documented as of this encounter (statuses as of 07/12/2021) [facility]08-01-2018 History of Past illness Narrative* Problem Noted Date Resolved Date Sepsis 10/01/2017 11/03/2020 Overview: Unclear source of infection UA pending Blood culture x2 and urine culture Strep and Legionella Ag (has cough) Broad spectrum antibiotic coverage: Vancomycin and Aztreonam (allergic to penicillin) Was given 2L NS in the ER Repeat LA Thrombocytopenia 12/29/2014 11/03/2020 Persistent atrial fibrillation 04/06/2013 1 03/06/2014 Overview: - He had an episode 5 years ago and was cardioverted - Recent reoccurrence unsure when it started. 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 F/U with cardiology for possible VINITA/CV as outpatient Pericardial effusion 01/16/2012 04/25/2018 Overview: 12/08/17 echo LV size NL, mild LVH, EF 62%. Grade 1diastolic dysfunction; RV NL . LA severely dilated, Small to moderate pericardial effusion without tamponade, no change from 04/07/13. 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 documented as of this encounter (statuses as of 08/14/2021) [facility] History of Past illness Narrative* Problem Noted Date Resolved Date Sepsis 10/01/2017 11/03/2020 Overview: Unclear source of infection UA pending Blood culture x2 and urine culture Strep and Legionella Ag (has cough) Broad spectrum antibiotic coverage: Vancomycin and Aztreonam (allergic to penicillin) Was given 2L NS in the ER Repeat LA Thrombocytopenia 12/29/2014 11/03/2020 Persistent atrial fibrillation 04/06/2013 1 03/06/2014 Overview: - He had an episode 5 years ago and was cardioverted - Recent reoccurrence unsure when it started. 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 F/U with cardiology for possible VINITA/CV as outpatient Pericardial effusion 01/16/2012 04/25/2018 Overview: 12/08/17 echo LV size NL, mild LVH, EF 62%. Grade 1diastolic dysfunction; RV NL . LA severely dilated, Small to moderate pericardial effusion without tamponade, no change from 04/07/13. 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 documented as of this encounter (statuses as of 08/14/2021) [facility] History of Past illness Narrative* Problem Noted Date Resolved Date Sepsis 10/01/2017 11/03/2020 Overview: Unclear source of infection UA pending Blood culture x2 and urine culture Strep and Legionella Ag (has cough) Broad spectrum antibiotic coverage: Vancomycin and Aztreonam (allergic to penicillin) Was given 2L NS in the ER Repeat LA Thrombocytopenia 12/29/2014 11/03/2020 Persistent atrial fibrillation 04/06/2013 1 03/06/2014 Overview: - He had an episode 5 years ago and was cardioverted - Recent reoccurrence unsure when it started. 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 F/U with cardiology for possible VINITA/CV as outpatient Pericardial effusion 01/16/2012 04/25/2018 Overview: 12/08/17 echo LV size NL, mild LVH, EF 62%. Grade 1diastolic dysfunction; RV NL . LA severely dilated, Small to moderate pericardial effusion without tamponade, no change from 04/07/13. 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 documented as of this encounter (statuses as of 09/17/2021) [facility] History of Past illness Narrative* Problem Noted Date Resolved Date Sepsis 10/01/2017 11/03/2020 Overview: Unclear source of infection UA pending Blood culture x2 and urine culture Strep and Legionella Ag (has cough) Broad spectrum antibiotic coverage: Vancomycin and Aztreonam (allergic to penicillin) Was given 2L NS in the ER Repeat LA Thrombocytopenia 12/29/2014 11/03/2020 Persistent atrial fibrillation 04/06/2013 1 03/06/2014 Overview: - He had an episode 5 years ago and was cardioverted - Recent reoccurrence unsure when it started. 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 F/U with cardiology for possible VINITA/CV as outpatient Pericardial effusion 01/16/2012 04/25/2018 Overview: 12/08/17 echo LV size NL, mild LVH, EF 62%. Grade 1diastolic dysfunction; RV NL . LA severely dilated, Small to moderate pericardial effusion without tamponade, no change from 04/07/13. 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 documented as of this encounter (statuses as of 10/09/2021) [facility] History of Past illness Narrative* Problem Noted Date Resolved Date Sepsis 10/01/2017 11/03/2020 Overview: Unclear source of infection UA pending Blood culture x2 and urine culture Strep and Legionella Ag (has cough) Broad spectrum antibiotic coverage: Vancomycin and Aztreonam (allergic to penicillin) Was given 2L NS in the ER Repeat LA Thrombocytopenia 12/29/2014 11/03/2020 Persistent atrial fibrillation 04/06/2013 1 03/06/2014 Overview: - He had an episode 5 years ago and was cardioverted - Recent reoccurrence unsure when it started. 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 F/U with cardiology for possible VINITA/CV as outpatient Pericardial effusion 01/16/2012 04/25/2018 Overview: 12/08/17 echo LV size NL, mild LVH, EF 62%. Grade 1diastolic dysfunction; RV NL . LA severely dilated, Small to moderate pericardial effusion without tamponade, no change from 04/07/13. 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 documented as of this encounter (statuses as of 11/12/2021) [facility] History of Past illness Narrative* Problem Noted Date Resolved Date Sepsis 10/01/2017 11/03/2020 Overview: Unclear source of infection UA pending Blood culture x2 and urine culture Strep and Legionella Ag (has cough) Broad spectrum antibiotic coverage: Vancomycin and Aztreonam (allergic to penicillin) Was given 2L NS in the ER Repeat LA Thrombocytopenia 12/29/2014 11/03/2020 Persistent atrial fibrillation 04/06/2013 1 03/06/2014 Overview: - He had an episode 5 years ago and was cardioverted - Recent reoccurrence unsure when it started. 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 F/U with cardiology for possible VINITA/CV as outpatient Pericardial effusion 01/16/2012 04/25/2018 Overview: 12/08/17 echo LV size NL, mild LVH, EF 62%. Grade 1diastolic dysfunction; RV NL . LA severely dilated, Small to moderate pericardial effusion without tamponade, no change from 04/07/13. 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 documented as of this encounter (statuses as of 11/15/2021) [facility]08[facility] History of Past illness Narrative* Problem Noted Date Resolved Date Sepsis 10/01/2017 11/03/2020 Overview: Unclear source of infection UA pending Blood culture x2 and urine culture Strep and Legionella Ag (has cough) Broad spectrum antibiotic coverage: Vancomycin and Aztreonam (allergic to penicillin) Was given 2L NS in the ER Repeat LA Thrombocytopenia 12/29/2014 11/03/2020 Persistent atrial fibrillation 04/06/2013 1 03/06/2014 Overview: - He had an episode 5 years ago and was cardioverted - Recent reoccurrence unsure when it started. 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 F/U with cardiology for possible VINITA/CV as outpatient Pericardial effusion 01/16/2012 04/25/2018 Overview: 12/08/17 echo LV size NL, mild LVH, EF 62%. Grade 1diastolic dysfunction; RV NL . LA severely dilated, Small to moderate pericardial effusion without tamponade, no change from 04/07/13. 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 documented as of this encounter (statuses as of 11/19/2021) [facility]08-[facility] History of Past illness Narrative* Problem Noted Date Resolved Date Sepsis 10/01/2017 11/03/2020 Overview: Unclear source of infection UA pending Blood culture x2 and urine culture Strep and Legionella Ag (has cough) Broad spectrum antibiotic coverage: Vancomycin and Aztreonam (allergic to penicillin) Was given 2L NS in the ER Repeat LA Thrombocytopenia 12/29/2014 11/03/2020 Persistent atrial fibrillation 04/06/2013 03/06/2014 Overview: - He had an episode 5 years ago and was cardioverted - Recent reoccurrence unsure when it started. 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 F/U with cardiology for possible VINITA/CV as outpatient Pericardial effusion 01/16/2012 04/25/2018 Overview: 12/08/17 echo LV size NL, mild LVH, EF 62%. Grade 1diastolic dysfunction; RV NL . LA severely dilated, Small to moderate pericardial effusion without tamponade, no change from 04/07/13. 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 documented as of this encounter (statuses as of 11/27/2021) [facility]08-[facility]2018 History of Past illness Narrative* Problem Noted Date Resolved Date Sepsis 10/01/2017 11/03/2020 Overview: Unclear source of infection UA pending Blood culture x2 and urine culture Strep and Legionella Ag (has cough) Broad spectrum antibiotic coverage: Vancomycin and Aztreonam (allergic to penicillin) Was given 2L NS in the ER Repeat LA Thrombocytopenia 12/29/2014 11/03/2020 Persistent atrial fibrillation 04/06/2013 1 03/06/2014 Overview: - He had an episode 5 years ago and was cardioverted - Recent reoccurrence unsure when it started. 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 F/U with cardiology for possible VINITA/CV as outpatient Pericardial effusion 01/16/2012 04/25/2018 Overview: 12/08/17 echo LV size NL, mild LVH, EF 62%. Grade 1diastolic dysfunction; RV NL . LA severely dilated, Small to moderate pericardial effusion without tamponade, no change from 04/07/13. 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 documented as of this encounter (statuses as of 11/28/2021) [facility]2018 History of Past illness Narrative* Problem Noted Date Resolved Date Sepsis 10/01/2017 11/03/2020 Overview: Unclear source of infection UA pending Blood culture x2 and urine culture Strep and Legionella Ag (has cough) Broad spectrum antibiotic coverage: Vancomycin and Aztreonam (allergic to penicillin) Was given 2L NS in the ER Repeat LA Thrombocytopenia 12/29/2014 11/03/2020 Persistent atrial fibrillation 04/06/2013 1 03/06/2014 Overview: - He had an episode 5 years ago and was cardioverted - Recent reoccurrence unsure when it started. 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 F/U with cardiology for possible VINITA/CV as outpatient Pericardial effusion 01/16/2012 04/25/2018 Overview: 12/08/17 echo LV size NL, mild LVH, EF 62%. Grade 1diastolic dysfunction; RV NL . LA severely dilated, Small to moderate pericardial effusion without tamponade, no change from 04/07/13. 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 documented as of this encounter (statuses as of 12/24/2021) [facility] History of Past illness Narrative* Problem Noted Date Resolved Date Sepsis 10/01/2017 11/03/2020 Overview: Unclear source of infection UA pending Blood culture x2 and urine culture Strep and Legionella Ag (has cough) Broad spectrum antibiotic coverage: Vancomycin and Aztreonam (allergic to penicillin) Was given 2L NS in the ER Repeat LA Thrombocytopenia 12/29/2014 11/03/2020 Persistent atrial fibrillation 04/06/2013 1 03/06/2014 Overview: - He had an episode 5 years ago and was cardioverted - Recent reoccurrence unsure when it started. 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 F/U with cardiology for possible VINITA/CV as outpatient Pericardial effusion 01/16/2012 04/25/2018 Overview: 12/08/17 echo LV size NL, mild LVH, EF 62%. Grade 1diastolic dysfunction; RV NL . LA severely dilated, Small to moderate pericardial effusion without tamponade, no change from 04/07/13. 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 documented as of this encounter (statuses as of 01/07/2022) [facility] History of Past illness Narrative* Problem Noted Date Resolved Date Sepsis 10/01/2017 11/03/2020 Overview: Unclear source of infection UA pending Blood culture x2 and urine culture Strep and Legionella Ag (has cough) Broad spectrum antibiotic coverage: Vancomycin and Aztreonam (allergic to penicillin) Was given 2L NS in the ER Repeat LA Thrombocytopenia 12/29/2014 11/03/2020 Persistent atrial fibrillation 04/06/2013 1 03/06/2014 Overview: - He had an episode 5 years ago and was cardioverted - Recent reoccurrence unsure when it started. 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 F/U with cardiology for possible VINITA/CV as outpatient Pericardial effusion 01/16/2012 04/25/2018 Overview: 12/08/17 echo LV size NL, mild LVH, EF 62%. Grade 1diastolic dysfunction; RV NL . LA severely dilated, Small to moderate pericardial effusion without tamponade, no change from 04/07/13. 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 documented as of this encounter (statuses as of 03/27/2022) [facility] History of Past illness Narrative* Problem Noted Date Resolved Date Sepsis 10/01/2017 11/03/2020 Overview: Unclear source of infection UA pending Blood culture x2 and urine culture Strep and Legionella Ag (has cough) Broad spectrum antibiotic coverage: Vancomycin and Aztreonam (allergic to penicillin) Was given 2L NS in the ER Repeat LA Thrombocytopenia 12/29/2014 11/03/2020 Persistent atrial fibrillation 04/06/2013 1 03/06/2014 Overview: - He had an episode 5 years ago and was cardioverted - Recent reoccurrence unsure when it started. 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 F/U with cardiology for possible VINITA/CV as outpatient Pericardial effusion 01/16/2012 04/25/2018 Overview: 12/08/17 echo LV size NL, mild LVH, EF 62%. Grade 1diastolic dysfunction; RV NL . LA severely dilated, Small to moderate pericardial effusion without tamponade, no change from 04/07/13. 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 documented as of this encounter (statuses as of 04/02/2022) [facility] History of Past illness Narrative* Problem Noted Date Resolved Date Sepsis 10/01/2017 11/03/2020 Overview: Unclear source of infection UA pending Blood culture x2 and urine culture Strep and Legionella Ag (has cough) Broad spectrum antibiotic coverage: Vancomycin and Aztreonam (allergic to penicillin) Was given 2L NS in the ER Repeat LA Thrombocytopenia 12/29/2014 11/03/2020 Persistent atrial fibrillation 04/06/2013 1 03/06/2014 Overview: - He had an episode 5 years ago and was cardioverted - Recent reoccurrence unsure when it started. 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 F/U with cardiology for possible VINITA/CV as outpatient Pericardial effusion 01/16/2012 04/25/2018 Overview: 12/08/17 echo LV size NL, mild LVH, EF 62%. Grade 1diastolic dysfunction; RV NL . LA severely dilated, Small to moderate pericardial effusion without tamponade, no change from 04/07/13. 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 documented as of this encounter (statuses as of 04/29/2022) [facility] History of Past illness Narrative* Problem Noted Date Resolved Date Sepsis 10/01/2017 11/03/2020 Overview: Unclear source of infection UA pending Blood culture x2 and urine culture Strep and Legionella Ag (has cough) Broad spectrum antibiotic coverage: Vancomycin and Aztreonam (allergic to penicillin) Was given 2L NS in the ER Repeat LA Thrombocytopenia 12/29/2014 11/03/2020 Persistent atrial fibrillation 04/06/2013 1 03/06/2014 Overview: - He had an episode 5 years ago and was cardioverted - Recent reoccurrence unsure when it started. 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 F/U with cardiology for possible VINITA/CV as outpatient Pericardial effusion 01/16/2012 04/25/2018 Overview: 12/08/17 echo LV size NL, mild LVH, EF 62%. Grade 1diastolic dysfunction; RV NL . LA severely dilated, Small to moderate pericardial effusion without tamponade, no change from 04/07/13. 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 documented as of this encounter (statuses as of 05/07/2022) [facility] History of Past illness Narrative* Problem Noted Date Resolved Date Sepsis 10/01/2017 11/03/2020 Overview: Unclear source of infection UA pending Blood culture x2 and urine culture Strep and Legionella Ag (has cough) Broad spectrum antibiotic coverage: Vancomycin and Aztreonam (allergic to penicillin) Was given 2L NS in the ER Repeat LA Thrombocytopenia 12/29/2014 11/03/2020 Persistent atrial fibrillation 04/06/2013 1 03/06/2014 Overview: - He had an episode 5 years ago and was cardioverted - Recent reoccurrence unsure when it started. 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 F/U with cardiology for possible VINITA/CV as outpatient Pericardial effusion 01/16/2012 04/25/2018 Overview: 12/08/17 echo LV size NL, mild LVH, EF 62%. Grade 1diastolic dysfunction; RV NL . LA severely dilated, Small to moderate pericardial effusion without tamponade, no change from 04/07/13. 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 documented as of this encounter (statuses as of 07/12/2022) [facility] History of Past illness Narrative* Problem Noted Date Diagnosed Date Resolved Date Sepsis 10/01/2017 11/03/2020 Overview: Unclear source of infection UA pending Blood culture x2 and urine culture Strep and Legionella Ag (has cough) Broad spectrum antibiotic coverage: Vancomycin and Aztreonam (allergic to penicillin) Was given 2L NS in the ER Repeat [place] Thrombocytopenia 12/29/2014 11/03/2020 Persistent atrial fibrillation 04/06/2013 01/04/2015 Overview: - He had an episode 5 years ago and was cardioverted - Recent reoccurrence unsure when it started. 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 F/U with cardiology for possible VINITA/CV as outpatient Pericardial effusion 01/16/2012 019 Overview: 12/08/17 echo LV size NL, mild LVH, EF 62%. Grade 1diastolic dysfunction; RV NL . LA severely dilated, Small to moderate pericardial effusion without tamponade, no change from 04/07/13. 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 documented as of this encounter (statuses as of 10/01/2022) [facility]08-01-2018 History of Past illness Narrative* Problem Noted Date Diagnosed Date Resolved Date Sepsis 10/01/2017 11/03/2020 Overview: Unclear source of infection UA pending Blood culture x2 and urine culture Strep and Legionella Ag (has cough) Broad spectrum antibiotic coverage: Vancomycin and Aztreonam (allergic to penicillin) Was given 2L NS in the ER Repeat LA Thrombocytopenia 12/29/2014 11/03/2020 Persistent atrial fibrillation 04/06/2013 01/04/2015 Overview: - He had an episode 5 years ago and was cardioverted - Recent reoccurrence unsure when it started. 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 F/U with cardiology for possible VINITA/CV as outpatient Pericardial effusion 01/16/2012 019 Overview: 12/08/17 echo LV size NL, mild LVH, EF 62%. Grade 1diastolic dysfunction; RV NL . LA severely dilated, Small to moderate pericardial effusion without tamponade, no change from 04/07/13. 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 documented as of this encounter (statuses as of 10/02/2022) [facility]08-01-2018 History of Past illness Narrative* Problem Noted Date Diagnosed Date Resolved Date Sepsis 10/01/2017 11/03/2020 Overview: Unclear source of infection UA pending Blood culture x2 and urine culture Strep and Legionella Ag (has cough) Broad spectrum antibiotic coverage: Vancomycin and Aztreonam (allergic to penicillin) Was given 2L NS in the ER Repeat LA Thrombocytopenia 12/29/2014 11/03/2020 Persistent atrial fibrillation 04/06/2013 01/04/2015 Overview: - He had an episode 5 years ago and was cardioverted - Recent reoccurrence unsure when it started. 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 F/U with cardiology for possible VINITA/CV as outpatient Pericardial effusion 01/16/2012 019 Overview: 12/08/17 echo LV size NL, mild LVH, EF 62%. Grade 1diastolic dysfunction; RV NL . LA severely dilated, Small to moderate pericardial effusion without tamponade, no change from 04/07/13. 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 documented as of this encounter (statuses as of 10/16/2022) [facility]08-01-2018 History of Past illness Narrative* Problem Noted Date Diagnosed Date Resolved Date Sepsis 10/01/2017 11/03/2020 Overview: Unclear source of infection UA pending Blood culture x2 and urine culture Strep and Legionella Ag (has cough) Broad spectrum antibiotic coverage: Vancomycin and Aztreonam (allergic to penicillin) Was given 2L NS in the ER Repeat LA Thrombocytopenia 12/29/2014 11/03/2020 Persistent atrial fibrillation 04/06/2013 01/04/2015 Overview: - He had an episode 5 years ago and was cardioverted - Recent reoccurrence unsure when it started. 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 F/U with cardiology for possible VINITA/CV as outpatient Pericardial effusion 01/16/2012 019 Overview: 12/08/17 echo LV size NL, mild LVH, EF 62%. Grade 1diastolic dysfunction; RV NL . LA severely dilated, Small to moderate pericardial effusion without tamponade, no change from 04/07/13. 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 documented as of this encounter (statuses as of 10/16/2022) [facility]08-01-2018 History of Past illness Narrative* Problem Noted Date Diagnosed Date Resolved Date Sepsis 10/01/2017 11/03/2020 Overview: Unclear source of infection UA pending Blood culture x2 and urine culture Strep and Legionella Ag (has cough) Broad spectrum antibiotic coverage: Vancomycin and Aztreonam (allergic to penicillin) Was given 2L NS in the ER Repeat LA Thrombocytopenia 12/29/2014 11/03/2020 Persistent atrial fibrillation 04/06/2013 01/04/2015 Overview: - He had an episode 5 years ago and was cardioverted - Recent reoccurrence unsure when it started. 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 F/U with cardiology for possible VINITA/CV as outpatient Pericardial effusion 01/16/2012 019 Overview: 12/08/17 echo LV size NL, mild LVH, EF 62%. Grade 1diastolic dysfunction; RV NL . LA severely dilated, Small to moderate pericardial effusion without tamponade, no change from 04/07/13. 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 documented as of this encounter (statuses as of 10/21/2022) [facility]08-01-2018 History of Past illness Narrative* Problem Noted Date Diagnosed Date Resolved Date Sepsis 10/01/2017 11/03/2020 Overview: Unclear source of infection UA pending Blood culture x2 and urine culture Strep and Legionella Ag (has cough) Broad spectrum antibiotic coverage: Vancomycin and Aztreonam (allergic to penicillin) Was given 2L NS in the ER Repeat LA Thrombocytopenia 12/29/2014 11/03/2020 Persistent atrial fibrillation 04/06/2013 01/04/2015 Overview: - He had an episode 5 years ago and was cardioverted - Recent reoccurrence unsure when it started. 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 F/U with cardiology for possible VINITA/CV as outpatient Pericardial effusion 01/16/2012 019 Overview: 12/08/17 echo LV size NL, mild LVH, EF 62%. Grade 1diastolic dysfunction; RV NL . LA severely dilated, Small to moderate pericardial effusion without tamponade, no change from 04/07/13. 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 documented as of this encounter (statuses as of 12/05/2022) [facility]08-01-2018 History of Past illness Narrative* Problem Noted Date Diagnosed Date Resolved Date Sepsis 10/01/2017 11/03/2020 Overview: Unclear source of infection UA pending Blood culture x2 and urine culture Strep and Legionella Ag (has cough) Broad spectrum antibiotic coverage: Vancomycin and Aztreonam (allergic to penicillin) Was given 2L NS in the ER Repeat LA Thrombocytopenia 12/29/2014 11/03/2020 Persistent atrial fibrillation 04/06/2013 01/04/2015 Overview: - He had an episode 5 years ago and was cardioverted - Recent reoccurrence unsure when it started. 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 F/U with cardiology for possible VINITA/CV as outpatient Pericardial effusion 01/16/2012 019 Overview: 12/08/17 echo LV size NL, mild LVH, EF 62%. Grade 1diastolic dysfunction; RV NL . LA severely dilated, Small to moderate pericardial effusion without tamponade, no change from 2/5/14. 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 documented as of this encounter (statuses as of 12/11/2022) [facility]08-01-2018 History of Past illness Narrative* Problem Noted Date Diagnosed Date Resolved Date Sepsis 10/01/2017 11/03/2020 Overview: Unclear source of infection UA pending Blood culture x2 and urine culture Strep and Legionella Ag (has cough) Broad spectrum antibiotic coverage: Vancomycin and Aztreonam (allergic to penicillin) Was given 2L NS in the ER Repeat LA Thrombocytopenia 12/29/2014 11/03/2020 Persistent atrial fibrillation 04/06/2013 01/04/2015 Overview: - He had an episode 5 years ago and was cardioverted - Recent reoccurrence unsure when it started. 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 F/U with cardiology for possible VINITA/CV as outpatient Pericardial effusion 01/16/2012 019 Overview: 12/08/17 echo LV size NL, mild LVH, EF 62%. Grade 1diastolic dysfunction; RV NL . LA severely dilated, Small to moderate pericardial effusion without tamponade, no change from 04/07/13. 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 documented as of this encounter (statuses as of 12/12/2022) [facility]08-01-2018 History of Past illness Narrative* Problem Noted Date Diagnosed Date Resolved Date Sepsis 10/01/2017 11/03/2020 Overview: Unclear source of infection UA pending Blood culture x2 and urine culture Strep and Legionella Ag (has cough) Broad spectrum antibiotic coverage: Vancomycin and Aztreonam (allergic to penicillin) Was given 2L NS in the ER Repeat LA Thrombocytopenia 12/29/2014 11/03/2020 Persistent atrial fibrillation 04/06/2013 01/04/2015 Overview: - He had an episode 5 years ago and was cardioverted - Recent reoccurrence unsure when it started. 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 F/U with cardiology for possible VINITA/CV as outpatient Pericardial effusion 01/16/2012 019 Overview: 12/08/17 echo LV size NL, mild LVH, EF 62%. Grade 1diastolic dysfunction; RV NL . LA severely dilated, Small to moderate pericardial effusion without tamponade, no change from 04/07/13. 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 documented as of this encounter (statuses as of 01/06/2023) [facility]08-01-2018 History of Past illness Narrative* Problem Noted Date Diagnosed Date Resolved Date Sepsis 10/01/2017 11/03/2020 Overview: Unclear source of infection UA pending Blood culture x2 and urine culture Strep and Legionella Ag (has cough) Broad spectrum antibiotic coverage: Vancomycin and Aztreonam (allergic to penicillin) Was given 2L NS in the ER Repeat [place] Thrombocytopenia 12/29/2014 11/03/2020 Persistent atrial fibrillation 04/06/2013 01/04/2015 Overview: - He had an episode 5 years ago and was cardioverted - Recent reoccurrence unsure when it started. 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 F/U with cardiology for possible VINITA/CV as outpatient Pericardial effusion 01/16/2012 019 Overview: 12/08/17 echo LV size NL, mild LVH, EF 62%. Grade 1diastolic dysfunction; RV NL . LA severely dilated, Small to moderate pericardial effusion without tamponade, no change from 04/07/13. 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 documented as of this encounter (statuses as of 01/08/2023) [facility]08-01-2018 History of Past illness Narrative* Problem Noted Date Diagnosed Date Resolved Date Sepsis 10/01/2017 11/03/2020 Overview: Unclear source of infection UA pending Blood culture x2 and urine culture Strep and Legionella Ag (has cough) Broad spectrum antibiotic coverage: Vancomycin and Aztreonam (allergic to penicillin) Was given 2L NS in the ER Repeat LA Thrombocytopenia 12/29/2014 11/03/2020 Persistent atrial fibrillation 04/06/2013 01/04/2015 Overview: - He had an episode 5 years ago and was cardioverted - Recent reoccurrence unsure when it started. 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 F/U with cardiology for possible VINITA/CV as outpatient Pericardial effusion 01/16/2012 019 Overview: 12/08/17 echo LV size NL, mild LVH, EF 62%. Grade 1diastolic dysfunction; RV NL . LA severely dilated, Small to moderate pericardial effusion without tamponade, no change from 04/07/13. 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 documented as of this encounter (statuses as of 01/11/2023) [facility]08-01-2018 History of Past illness Narrative* Problem Noted Date Diagnosed Date Resolved Date Sepsis 10/01/2017 11/03/2020 Overview: Unclear source of infection UA pending Blood culture x2 and urine culture Strep and Legionella Ag (has cough) Broad spectrum antibiotic coverage: Vancomycin and Aztreonam (allergic to penicillin) Was given 2L NS in the ER Repeat [place] Thrombocytopenia 12/29/2014 11/03/2020 Persistent atrial fibrillation 04/06/2013 01/04/2015 Overview: - He had an episode 5 years ago and was cardioverted - Recent reoccurrence unsure when it started. 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 F/U with cardiology for possible VINITA/CV as outpatient Pericardial effusion 01/16/2012 019 Overview: 12/08/17 echo LV size NL, mild LVH, EF 62%. Grade 1diastolic dysfunction; RV NL . LA severely dilated, Small to moderate pericardial effusion without tamponade, no change from 04/07/13. 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 documented as of this encounter (statuses as of 01/22/2023) [facility]08-01-2018 History of Past illness Narrative* Problem Noted Date Diagnosed Date Resolved Date Sepsis 10/01/2017 11/03/2020 Overview: Unclear source of infection UA pending Blood culture x2 and urine culture Strep and Legionella Ag (has cough) Broad spectrum antibiotic coverage: Vancomycin and Aztreonam (allergic to penicillin) Was given 2L NS in the ER Repeat LA Thrombocytopenia 12/29/2014 11/03/2020 Persistent atrial fibrillation 04/06/2013 01/04/2015 Overview: - He had an episode 5 years ago and was cardioverted - Recent reoccurrence unsure when it started. 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 F/U with cardiology for possible VINITA/CV as outpatient Pericardial effusion 01/16/2012 019 Overview: 12/08/17 echo LV size NL, mild LVH, EF 62%. Grade 1diastolic dysfunction; RV NL . LA severely dilated, Small to moderate pericardial effusion without tamponade, no change from 04/07/13. 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 documented as of this encounter (statuses as of 04/09/2023) [facility]08[facility]01[facility]2018 History of Past illness Narrative* Problem Noted Date Diagnosed Date Resolved Date Sepsis 10/01/2017 11/03/2020 Overview: Unclear source of infection UA pending Blood culture x2 and urine culture Strep and Legionella Ag (has cough) Broad spectrum antibiotic coverage: Vancomycin and Aztreonam (allergic to penicillin) Was given 2L NS in the ER Repeat LA Thrombocytopenia 12/29/2014 11/03/2020 Persistent atrial fibrillation 04/06/2013 01/04/2015 Overview: - He had an episode 5 years ago and was cardioverted - Recent reoccurrence unsure when it started. 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 F/U with cardiology for possible IVNITA/CV as outpatient Pericardial effusion 01/16/2012 019 Overview: 12/08/17 echo LV size NL, mild LVH, EF 62%. Grade 1diastolic dysfunction; RV NL . LA severely dilated, Small to moderate pericardial effusion without tamponade, no change from 04/07/13. 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 documented as of this encounter (statuses as of 04/14/2023) [facility]08[facility] History of Past illness Narrative* Problem Noted Date Diagnosed Date Resolved Date Sepsis 10/01/2017 11/03/2020 Overview: Unclear source of infection UA pending Blood culture x2 and urine culture Strep and Legionella Ag (has cough) Broad spectrum antibiotic coverage: Vancomycin and Aztreonam (allergic to penicillin) Was given 2L NS in the ER Repeat [place] Thrombocytopenia 12/29/2014 11/03/2020 Persistent atrial fibrillation 04/06/2013 01/04/2015 Overview: - He had an episode 5 years ago and was cardioverted - Recent reoccurrence unsure when it started. 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 F/U with cardiology for possible VINITA/CV as outpatient Pericardial effusion 01/16/2012 019 Overview: 12/08/17 echo LV size NL, mild LVH, EF 62%. Grade 1diastolic dysfunction; RV NL . LA severely dilated, Small to moderate pericardial effusion without tamponade, no change from 04/07/13. 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 documented as of this encounter (statuses as of 04/22/2023) [facility] Diagnosis Neuropathy - (NOS) [facility] Diagnosis PAD (peripheral artery disease) ([facility])- Primary Peripheral vascular disease, unspecified Neuropathy - (NOS) HOMERO (obstructive sleep apnea) Obstructive sleep apnea (adult) (pediatric) PSVT (paroxysmal supraventricular tachycardia) ([facility]) Paroxysmal supraventricular tachycardia Hypertensive kidney disease with stage 3 chronic kidney disease, unspecified whether stage 3a or 3b CKD (HCC) Hyperglycemia Other abnormal glucose Bilateral carotid artery stenosis Occlusion and stenosis of carotid artery without mention of cerebral infarction [facility] Diagnosis Renal insufficiency- Primary Unspecified disorder of kidney and ureter [facility] Diagnosis Tobacco abuse Tobacco use disorder [facility] Diagnosis Occlusion of right carotid artery- Primary Occlusion and stenosis of carotid artery without mention of cerebral infarction Stenosis of left carotid artery Occlusion and stenosis of carotid artery without mention of cerebral infarction PVD (peripheral vascular disease) ([facility]) Peripheral vascular disease, unspecified [facility] Diagnosis Renal insufficiency Unspecified disorder of kidney and ureter [facility] Diagnosis Occlusion of right carotid artery Occlusion and stenosis of carotid artery without mention of cerebral infarction Stenosis of left carotid artery Occlusion and stenosis of carotid artery without mention of cerebral infarction PVD (peripheral vascular disease) ([facility]) Peripheral vascular disease, unspecified [facility] Diagnosis Primary hypertension- Primary Unspecified essential hypertension Neuropathy - (NOS) PAF (paroxysmal atrial fibrillation) ([facility]) Atrial fibrillation Stage 3 chronic kidney disease, unspecified whether stage 3a or 3b CKD (HCC) Chronic ITP (idiopathic thrombocytopenia) (HCC) Immune thrombocytopenic purpura Hyperglycemia Other abnormal glucose PAD (peripheral artery disease) (HCC) Peripheral vascular disease, unspecified PSVT (paroxysmal supraventricular tachycardia) (HCC) Paroxysmal supraventricular tachycardia Chronic kidney disease, stage 3a (HCC) [facility] Diagnosis Neuropathy - (NOS) documented in this encounter [facility] note* Diagnosis Primary hypertension- Primary Unspecified essential hypertension documented in this encounter [facility] note* Diagnosis Essential hypertension Unspecified essential hypertension documented in this encounter [facility] note* Diagnosis Neuropathy - (NOS) documented in this encounter [facility] note* Diagnosis Primary hypertension- Primary Unspecified essential hypertension Neuropathy - (NOS) PAF (paroxysmal atrial fibrillation) (HCC) Atrial fibrillation Hypercholesterolemia Pure hypercholesterolemia HOMERO (obstructive sleep apnea) Obstructive sleep apnea (adult) (pediatric) Chronic ITP (idiopathic thrombocytopenia) (HCC) Immune thrombocytopenic purpura Stage 3 chronic kidney disease, unspecified whether stage 3a or 3b CKD (HCC) Hyperglycemia Other abnormal glucose Malignant melanoma of eye, unspecified laterality (HCC) Renal insufficiency Unspecified disorder of kidney and ureter History of colonic polyps Personal history of colonic polyps [facility] Diagnosis Chronic ITP (idiopathic thrombocytopenia) (HCC)- Primary Immune thrombocytopenic purpura Renal insufficiency Unspecified disorder of kidney and ureter [facility] Diagnosis Neuropathy - (NOS) [facility] Diagnosis History of colonic polyps Personal history of colonic polyps [facility]* Diagnosis Renal insufficiency Unspecified disorder of kidney and ureter [facility] Diagnosis Special screening for malignant neoplasms, colon- Primary History of colonic polyps Personal history of colonic polyps documented in this encounter [facility] note* Diagnosis Neuropathy - (NOS)- Primary Essential hypertension Unspecified essential hypertension Primary hypertension Unspecified essential hypertension PAD (peripheral artery disease) (HCC) Peripheral vascular disease, unspecified PAF (paroxysmal atrial fibrillation) (HCC) Atrial fibrillation Hypercholesterolemia Pure hypercholesterolemia PSVT (paroxysmal supraventricular tachycardia) Paroxysmal supraventricular tachycardia Hypertensive kidney disease with stage 3 chronic kidney disease, unspecified whether stage 3a or 3b CKD (HCC) Current smoker Tobacco use disorder HOMERO (obstructive sleep apnea) Obstructive sleep apnea (adult) (pediatric) Stage 3 chronic kidney disease, unspecified whether stage 3a or 3b CKD (HCC) Hyperglycemia Other abnormal glucose Melanoma, choroid, right eye - Right Eye Malignant neoplasm of choroid Chronic ITP (idiopathic thrombocytopenia) (HCC) Immune thrombocytopenic purpura Anticoagulated by anticoagulation treatment Long-term (current) use of anticoagulants Prediabetes Other abnormal glucose Cataract, unspecified cataract type, unspecified laterality Bilateral carotid artery stenosis Occlusion and stenosis of carotid artery without mention of cerebral infarction [facility] Diagnosis Combined forms of age-related cataract, left eye- Primary Choroid melanoma of right eye (HCC) Malignant neoplasm of choroid 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 Pseudophakia, right eye Lens replaced by other means [facility] Outpatient Procedure (Routine) - Authorized Specialty Diagnoses / Procedures Referred By Ada t Referred To Contact [facility] Diagnoses PAD (peripheral artery disease) ([facility]) Procedures PVR ANK PRESS [facility] NON-INVAS PHYSIOLOGIC STD EXTREMITY ART 2 LEVEL Carleen Mcnair MD [address] [place] [address] [facility] [place] [employer] [place] [address] Referral ID Status Reason Start Date Expiration Date Visits Requested Visits Authorized [id number] Authorized Auto-Generat ed Referral 11/12/2021 11/12/2022 1 1 * Outpatient Procedure (Routine) - Authorized Specialty Diagnoses / Procedures Referred By Contac t Referred To Contact [facility] Diagnoses PAD (peripheral artery disease) (HCC) Bilateral carotid artery stenosis Procedures US CAROTID ARTERIES [facility] DUPLEX SCAN EXTRACRANIAL ART COMPL BI STUDY Carleen Mcnair MD [address] [place] [address] [facility] [place] [address] Referral ID Status Reason Start Date Expiration Date Visits Requested Visits Authorized [id number] Authorized Auto-Generat ed Referral 11/12/2021 11/12/2022 1 1 [facility] for referral (narrative)* Diagnostic Procedure Only (Routine) - Authorized Specialty Diagnoses / Procedures Referred By Contac t Referred To Contact US IMAGING Diagnoses Renal insufficiency Procedures US KIDNEY/BLADDER US RETROPERITONEAL REAL TIME W/IMAGE COMPLETE Carleen Mcnair MD [address] [place] [address] [facility] Referral ID Status Reason Start Date Expiration Date Visits Requested Visits Authorized [id number] Authorized Auto-Generat ed Referral 11/13/2021 12/13/2022 1 1 [facility] for referral (narrative)* Diagnostic Procedure Only (Routine) - Closed Specialty Diagnoses / Procedures Referred By Contac t Referred To Contact US IMAGING Diagnoses Renal insufficiency Procedures US KIDNEY/BLADDER US RETROPERITONEAL REAL TIME W/IMAGE COMPLETE Carleen Mcnair MD [address] [place] [address] Us Imaging Referral ID Status Reason Start Date Expiration Date V isits Requested Visits Authorized [id number] Closed Auto-Generate d Referral 11/13/2021 12/13/2022 1 1 T [facility] for referral (narrative)* Outpatient Procedure (Routine) - Pending Review Specialty Diagnoses / Procedures Referred By Contac t Referred To [facility] Diagnoses PVD (peripheral vascular disease) (HCC) Procedures PVR LEG [facility] NON-INVASIVE PHYSIOLOGIC STUDY EXTREMITY 3 Edelmira Salvador DO [address] [place] [address] [facility] [place] [address] [place] [address] Referral ID Status Reason Start Date Expiration Date Visits Requested Visits Authorized [id number] Pending Review Auto-Generat ed Referral 11/29/2021 11/29/2022 1 1 * Outpatient Procedure (Routine) - Pending Review Specialty Diagnoses / Procedures Referred By Contac t Referred To Contact [facility] Diagnoses Occlusion of right carotid artery Stenosis of left carotid artery Procedures US CAROTID ARTERIES [facility] DUPLEX SCAN EXTRACRANIAL ART COMPL BI STUDY Edelmira Lucas DO [address] [place] [address] [facility] [address] [place] [id number] Referral ID Status Reason Start Date Expiration Date Visits Requested Visits Authorized [id number] Pending Review Auto-Generat ed Referral 11/29/2021 11/29/2022 1 1 [facility] for referral (narrative)* Outpatient Procedure (Routine) - Authorized Specialty Diagnoses / Procedures Referred By Contac t Referred To Contact [facility] Diagnoses History of colonic polyps Procedures COLONOSCOPY SCREENING COLONOSCOPY FLX DX W/COLLJ SPEC WHEN PFRMD Cleve Gallego MD [address] [place] [address] [facility] [address] [address] Referral ID Status Reason Start Date Expiration Date Visits Requested Visits Authorized [id number] Authorized Auto-Generat ed Referral 12/03/2022 12/04/2023 1 1 [facility] for referral (narrative)* Diagnostic Procedure Only (Routine) - Closed Specialty Diagnoses / Procedures Referred By Contac t Referred To Contact US IMAGING Diagnoses Renal insufficiency Procedures US KIDNEY/BLADDER US RETROPERITONEAL REAL TIME W/IMAGE COMPLETE Carleen Mcnair MD [address] [place] [address] Us Imaging [facility] Referral ID Status Reason Start Date Expiration Date V isits Requested Visits Authorized [id number] Closed Auto-Generate d Referral 10/01/2022 10/31/2023 1 1 [facility] for referral (narrative)* Outpatient Procedure (Routine) - Closed Specialty Diagnoses / Procedures Referred By Contac t Referred To Contact [facility] Diagnoses History of colonic polyps Procedures COLONOSCOPY SCREENING COLONOSCOPY FLX DX W/COLLJ SPEC WHEN Cleve Bustamante MD [address] [place] [address] [address] Referral ID Status Reason Start Date Expiration Date V isits Requested Visits Authorized [id number] Closed Auto-Generate d Referral 12/03/2022 12/04/2023 1 1 [facility] for visit Narrative* Outpatient Procedure (Routine) - Closed Specialty Diagnoses / Procedures Referred By Ada johnson Referred To Contact [facility] Diagnoses History of colonic polyps Procedures COLONOSCOPY SCREENING COLONOSCOPY FLX DX W/COLLJ SPEC WHEN Cleve Bustamante MD [address] [facility] [place] [address] [address] Referral ID Status Reason Start Date Expiration Date V isits Requested Visits Authorized [id number] Closed Auto-Generate d Referral 12/03/2022 12/04/2023 1 1 [facility] Summary Purpose Family History No Family History Records FoundNo Family History Records Found Advance Directives No Advanced Directives Records FoundDocuments on File Type Date 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 Advance Directive(s) 10/25/2019 7:25 AM Advance Directive(s) 10/01/2017 9:08 PM Advance Directive(s) 10/07/2016 12:41 PM Reason for Referral Specialty Diagnoses / Procedures Referred By Ada johnson Referred To Contact Vascular Surgery Diagnoses Occlusion of right carotid artery Stenosis of left carotid artery PVD (peripheral vascular disease) (HCC) Procedures CONSULT TO VASCULAR SURGERY OFFICE/OUTPATIENT NEW HIGH MDM 60-74 MINUTES Carleen Mcnair MD [address] [place] [address] Referral ID Status Reason Start Date Expiration Date Visits Requested Visits Authorized [id number] Authorized PCP Requested Referral 11/27/2021 11/27/2022 1 1 Specialty Diagnoses / Procedures Referred By Contac t Referred To Contact General Surgery Diagnoses History of colonic polyps Procedures CONSULT TO GENERAL SURGERY OFFICE/OUTPATIENT [facility] 60-74 MINUTES Carleen Mcnair MD [facility] [place] [address] Referral ID Status Reason Start Date Expiration Date Visits Requested Visits Authorized [id number] Authorized PCP Requested Referral 09/30/2022 09/30/2023 1 1 Specialty Diagnoses / Procedures Referred By Contac t Referred To Contact Hematology Diagnoses Chronic ITP (idiopathic thrombocytopenia) ([facility]) Procedures CONSULT TO HEMATOLOGY OFFICE/OUTPATIENT [facility] 60-74 MINUTES Carleen Mcnair MD [address] [place] [address] Referral ID Status Reason Start Date Expiration Date Visits Requested Visits Authorized [id number] Authorized PCP Requested Referral 10/01/2022 10/01/2023 1 1 Specialty Diagnoses / Procedures Referred By Contac t Referred To Contact US IMAGING Diagnoses Renal insufficiency Procedures US KIDNEY/BLADDER US RETROPERITONEAL REAL TIME W/IMAGE COMPLETE Carleen Mcnair MD [address] [place] [address] Us Imaging Referral ID Status Reason Start Date Expiration Date Visits Requested Visits Authorized [id number] Authorized Auto-Generat ed Referral 10/01/2022 10/31/2023 1 1 Specialty Diagnoses / Procedures Referred By Contac t Referred To Contact Ophthalmology Diagnoses Cataract, unspecified cataract type, unspecified laterality Procedures CONSULT TO OPHTHALMOLOGY OFFICE/OUTPATIENT [facility] 60 MINUTES Carleen Mcnair MD [address] [place] [address] Referral ID Status Reason Start Date Expiration Date Visits Requested Visits Authorized [id number] Authorized PCP Requested Referral 04/14/2023 04/13/2024 1 1 Specialty Diagnoses / Procedures Referred By Contac t Referred To Contact Vascular Surgery Diagnoses PAD (peripheral artery disease) ([facility]) Bilateral carotid artery stenosis Procedures CONSULT TO VASCULAR SURGERY OFFICE/OUTPATIENT [facility] 60 MINUTES Carleen Mcnair MD [address] [place] [address] Referral ID Status Reason Start Date Expiration Date Visits Requested Visits Authorized [id number] Authorized PCP Requested Referral 04/14/2023 04/13/2024 1 1 Specialty Diagnoses / Procedures Referred By Contac t Referred [facility] Diagnoses PAD (peripheral artery disease) (HCC) Bilateral carotid artery stenosis Procedures US CAROTID ARTERIES [facility] DUPLEX SCAN EXTRACRANIAL ART COMPL BI STUDY Carleen Mcnair MD [address] [place] [address] [facility] [address] [place] [address] Referral ID Status Reason Start Date Expiration Date Visits Requested Visits Authorized [id number] Authorized Auto-Generat ed Referral 04/14/2023 04/13/2024 1 1 Specialty Diagnoses / Procedures Referred By Contac t Referred To Contact Cardiology Diagnoses PAF (paroxysmal atrial fibrillation) (HCC) PSVT (paroxysmal supraventricular tachycardia) Procedures CONSULT TO CARDIOLOGY OFFICE/OUTPATIENT [facility] 60 MINUTES Carleen Mcnair MD [address] [place] [address] Referral ID Status Reason Start Date Expiration Date Visits Requested Visits Authorized [id number] Authorized PCP Requested Referral 04/14/2023 04/13/2024 1 1 Medications Administered Section Inactive Administered Medications - up to 3 most recent administrations Medication Order MAR Action Action Date Dose Rate Site diphenhydrAMINE 12.5-50 mg injection (BENADRYL) 12.5-50 mg, INTRAVENOUS, DIRECTED, Starting on Fri01/07/23 at 1300, Until Fri01/07/23 at 1658, DOSING DIRECTED BY PHYSICIAN FOR PROCEDURAL SEDATION ONLY, Intraprocedure Given 01/07/2023 12:58 PM EST 50 mg fentaNYL 50 mcg/mL 25-100 mcg injection (SUBLIMAZE) 25-100 mcg, INTRAVENOUS, DIRECTED, Starting on Fri01/07/23 at 1300, Until Fri01/07/23 at 1658, DOSING DIRECTED BY PHYSICIAN FOR PROCEDURAL SEDATION ONLY, Intraprocedure Given 01/07/2023 12:57 PM EST 50 mcg Additional Source Comments (unrecognized sect ion and content) No Status Records FoundNo Status Records Found INFORMATION SOURCE (unrecogn ized section and content) DATE CREATED AUTHOR AUTHOR'S ORGANIZ ATION 04/23/2023 [facility] Source Comments (unrecognize d section and content) In the event this informatio n is protected by the Federal Confidentiality of Alcohol and Drug Abuse Patient Records regulations: The Federal rules restrict any use of the information to criminally investigate or prosecute any alcohol or drug abuse patient.[facility] the event this information is protected by the Federal Confidentiality of Alcohol and Drug Abuse Patient Records regulations: The Federal rules restrict any use of the information to criminally investigate or prosecute any alcohol or drug abuse patient.[facility] Center[facility] the event this information is protected by the Federal Confidentiality of Alcohol and Drug Abuse Patient Records regulations: The Federal rules restrict any use of the information to criminally investigate or prosecute any alcohol or drug abuse patient.[facility] the event this information is protected by the Federal Confidentiality of Alcohol and Drug Abuse Patient Records regulations: The Federal rules restrict any use of the information to criminally investigate or prosecute any alcohol or drug abuse patient.[facility] Center[facility] the event this information is protected by the Federal Confidentiality of Alcohol and Drug Abuse Patient Records regulations: The Federal rules restrict any use of the information to criminally investigate or prosecute any alcohol or drug abuse patient.[facility] Center[facility] the event this information is protected by the Federal Confidentiality of Alcohol and Drug Abuse Patient Records regulations: The Federal rules restrict any use of the information to criminally investigate or prosecute any alcohol or drug abuse patient.[facility] CenterIn the event this information is protected by the Federal Confidentiality of Alcohol and Drug Abuse Patient Records regulations: The Federal rules restrict any use of the information to criminally investigate or prosecute any alcohol or drug abuse patient.[facility] CenterIn the event this information is protected by the Federal Confidentiality of Alcohol and Drug Abuse Patient Records regulations: The Federal rules restrict any use of the information to criminally investigate or prosecute any alcohol or drug abuse patient.[facility] CenterIn the event this information is protected by the Federal Confidentiality of Alcohol and Drug Abuse Patient Records regulations: The Federal rules restrict any use of the information to criminally investigate or prosecute any alcohol or drug abuse patient.[facility] CenterIn the event this information is protected by the Federal Confidentiality of Alcohol and Drug Abuse Patient Records regulations: The Federal rules restrict any use of the information to criminally investigate or prosecute any alcohol or drug abuse patient.[facility] CenterIn the event this information is protected by the Federal Confidentiality of Alcohol and Drug Abuse Patient Records regulations: The Federal rules restrict any use of the information to criminally investigate or prosecute any alcohol or drug abuse patient.[facility] CenterIn the event this information is protected by the Federal Confidentiality of Alcohol and Drug Abuse Patient Records regulations: The Federal rules restrict any use of the information to criminally investigate or prosecute any alcohol or drug abuse patient.[facility] CenterIn the event this information is protected by the Federal Confidentiality of Alcohol and Drug Abuse Patient Records regulations: The Federal rules restrict any use of the information to criminally investigate or prosecute any alcohol or drug abuse patient.[facility] CenterIn the event this information is protected by the Federal Confidentiality of Alcohol and Drug Abuse Patient Records regulations: The Federal rules restrict any use of the information to criminally investigate or prosecute any alcohol or drug abuse patient.[facility] CenterIn the event this information is protected by the Federal Confidentiality of Alcohol and Drug Abuse Patient Records regulations: The Federal rules restrict any use of the information to criminally investigate or prosecute any alcohol or drug abuse patient.[facility] CenterIn the event this information is protected by the Federal Confidentiality of Alcohol and Drug Abuse Patient Records regulations: The Federal rules restrict any use of the information to criminally investigate or prosecute any alcohol or drug abuse patient.[facility] CenterIn the event this information is protected by the Federal Confidentiality of Alcohol and Drug Abuse Patient Records regulations: The Federal rules restrict any use of the information to criminally investigate or prosecute any alcohol or drug abuse patient.[facility] CenterIn the event this information is protected by the Federal Confidentiality of Alcohol and Drug Abuse Patient Records regulations: The Federal rules restrict any use of the information to criminally investigate or prosecute any alcohol or drug abuse patient.[facility] CenterIn the event this information is protected by the Federal Confidentiality of Alcohol and Drug Abuse Patient Records regulations: The Federal rules restrict any use of the information to criminally investigate or prosecute any alcohol or drug abuse patient.[facility] CenterIn the event this information is protected by the Federal Confidentiality of Alcohol and Drug Abuse Patient Records regulations: The Federal rules restrict any use of the information to criminally investigate or prosecute any alcohol or drug abuse patient.[facility] CenterIn the event this information is protected by the Federal Confidentiality of Alcohol and Drug Abuse Patient Records regulations: The Federal rules restrict any use of the information to criminally investigate or prosecute any alcohol or drug abuse patient.[facility] CenterIn the event this information is protected by the Federal Confidentiality of Alcohol and Drug Abuse Patient Records regulations: The Federal rules restrict any use of the information to criminally investigate or prosecute any alcohol or drug abuse patient.[facility] CenterIn the event this information is protected by the Federal Confidentiality of Alcohol and Drug Abuse Patient Records regulations: The Federal rules restrict any use of the information to criminally investigate or prosecute any alcohol or drug abuse patient.[facility] CenterIn the event this information is protected by the Federal Confidentiality of Alcohol and Drug Abuse Patient Records regulations: The Federal rules restrict any use of the information to criminally investigate or prosecute any alcohol or drug abuse patient.[facility] CenterIn the event this information is protected by the Federal Confidentiality of Alcohol and Drug Abuse Patient Records regulations: The Federal rules restrict any use of the information to criminally investigate or prosecute any alcohol or drug abuse patient.[facility] CenterIn the event this information is protected by the Federal Confidentiality of Alcohol and Drug Abuse Patient Records regulations: The Federal rules restrict any use of the information to criminally investigate or prosecute any alcohol or drug abuse patient.[facility] CenterIn the event this information is protected by the Federal Confidentiality of Alcohol and Drug Abuse Patient Records regulations: The Federal rules restrict any use of the information to criminally investigate or prosecute any alcohol or drug abuse patient.[facility] CenterIn the event this information is protected by the Federal Confidentiality of Alcohol and Drug Abuse Patient Records regulations: The Federal rules restrict any use of the information to criminally investigate or prosecute any alcohol or drug abuse patient.[facility] CenterIn the event this information is protected by the Federal Confidentiality of Alcohol and Drug Abuse Patient Records regulations: The Federal rules restrict any use of the information to criminally investigate or prosecute any alcohol or drug abuse patient.[facility] CenterIn the event this information is protected by the Federal Confidentiality of Alcohol and Drug Abuse Patient Records regulations: The Federal rules restrict any use of the information to criminally investigate or prosecute any alcohol or drug abuse patient.[facility] CenterIn the event this information is protected by the Federal Confidentiality of Alcohol and Drug Abuse Patient Records regulations: The Federal rules restrict any use of the information to criminally investigate or prosecute any alcohol or drug abuse patient.[facility] Center[facility] the event this information is protected by the Federal Confidentiality of Alcohol and Drug Abuse Patient Records regulations: The Federal rules restrict any use of the information to criminally investigate or prosecute any alcohol or drug abuse patient.[facility] Reason for Visit (unrecogniz ed section and content) Reason Comments Refill Request Reason Onset Date Comments Refill Request 10/09/2021 Reason Comments 6 Month Exam Reason Comments Results Reason Comments Appointment Reason Comments Radiology US Specialty Diagnoses / Procedures [facility] US IMAGING Diagnoses Renal insufficiency Procedures US KIDNEY/BLADDER US RETROPERITONEAL REAL TIME W/IMAGE COMPLETE Carleen Mcnair MD [address] [place] [address] Us Imaging Referral ID Status Reason Start Date Expiration Date V isits Requested Visits Authorized [id number] Closed Auto-Generate d Referral 11/13/2021 12/13/2022 1 1 Reason Comments New Patient Specialty Diagnoses / Procedures [facility]erred To Contact Vascular Surgery Diagnoses Occlusion of right carotid artery Stenosis of left carotid artery PVD (peripheral vascular disease) ([facility]) Procedures CONSULT TO VASCULAR SURGERY OFFICE/OUTPATIENT NEW HIGH MDM 60-74 MINUTES Carleen Mcnair MD [address] [place] [address] Referral ID Status Reason Start Date Expiration Date V isits Requested Visits Authorized [id number] Closed PCP Requested Referral 11/27/2021 11/27/2022 1 1 Reason Onset Date Comments Refill Request 01/07/2022 Reason Comments Pain Reason Onset Date Comments Refill Request 04/01/2022 Reason Comments Recheck 1 month BP check Reason Onset Date Comments Refill Request 07/12/2022 Reason Comments 6 Month Exam Reason Comments Results Reason Onset Date Comments Refill Request 10/15/2022 Reason Comments Consult Colonoscopy, last co lonoscopy 2019 Specialty Diagnoses / Procedures Referred By Ada johnson Referred To Contact General Surgery Diagnoses History of colonic polyps Procedures CONSULT TO GENERAL SURGERY OFFICE/OUTPATIENT [facility] 60-74 MINUTES Carleen Mcnair MD [address] [place] [address] Referral ID Status Reason Start Date Expiration Date V isits Requested Visits Authorized [id number] Closed PCP Requested Referral 09/30/2022 09/30/2023 1 1 Reason Comments Patient Update Reason Onset Date Comments Refill Request 12/12/2022 Specialty Diagnoses / Procedures Referred By Ada johnson Referred To Contact US IMAGING Diagnoses Renal insufficiency Procedures US KIDNEY/BLADDER US RETROPERITONEAL REAL TIME W/IMAGE COMPLETE Carleen Mcnair MD [address] [place] [address] [place] [address] Referral ID Status Reason Start Date Expiration Date V isits Requested Visits Authorized [id number] Closed Auto-Generate d Referral 10/01/2022 10/31/2023 1 1 Reason Comments Results Reason Onset Date Comments Refill Request 01/21/2023 Reason Onset Date Comments Refill Request 04/09/2023 Reason Comments 6 Month Exam Reason Comments Comprehensive Eye Exam Specialty Diagnoses / Procedures Referred By Ada johnson Referred To Contact Ophthalmology Diagnoses Cataract, unspecified cataract type, unspecified laterality Procedures CONSULT TO OPHTHALMOLOGY OFFICE/OUTPATIENT [facility] 60 MINUTES Carleen Mcnair MD [address] [place] [address] Referral ID Status Reason Start Date Expiration Date V isits Requested Visits Authorized [id number] Closed PCP Requested Referral 04/14/2023 04/13/2024 1 1 Care Teams (unrecognized sec tion and content) [employer] Relationship Specialty Start Date End Date Carleen Mcnair MD [address] [place], [place] [id number] PCP - General Family Practice 10/30/12 Danny Arriola MD [address] [place] [address] Primary Staff Physician Cardiology 05/19/18 [employer] Relationship Specialty Start Date End Date Carleen Mcnair MD [address] [facility] [place] [address] PCP - General Family Practice 10/30/12 Danny Arriola MD [address] [facility] [facility] [place] [address] Primary Staff Physician Cardiology 05/19/18 [employer] Relationship Specialty Start Date End Date Carleen Mcnair MD [address] [place] [address] PCP - General Family Practice 10/30/12 Danny Arriola MD [address] [place] [address] Primary Staff Physician Cardiology 05/19/18 [employer] Relationship Specialty Start Date End Date Carleen Mcnair MD [address] [facility] [place] [address] PCP - General Family Practice 10/30/12 Danny Arriola MD [address] [place] [address] Primary Staff Physician Cardiology 05/19/18 [employer] Relationship Specialty Start Date End Date Carleen Mcnair MD [address] [place] [address] PCP - General Family Practice 10/30/12 Danny Arriola MD [address] [place] [address] Primary Staff Physician Cardiology 05/19/18 [employer] Relationship Specialty Start Date End Date Carleen Mcnair MD [address] [facility] [place] [address] PCP - General Family Practice 10/30/12 Danny Arriola MD [address] [facility] [place] [address] Primary Staff Physician Cardiology 05/19/18 [employer] Relationship Specialty Start Date End Date Carleen Mcnair MD [address] [facility] [place] [address] PCP - General Family Medicine 10/30/12 Danny Arriola MD [address] [facility] [place] [address] Primary Staff Physician Cardiology 05/19/18 [employer] Relationship Specialty Start Date End Date Carleen Mcnair MD [address] [facility] [place] [address] PCP - General Family Medicine 10/30/12 Danny Arriola MD [address] [place] [address] Primary Staff Physician Cardiology 05/19/18 [employer] Relationship Specialty Start Date End Date Carleen Mcnair MD [address] [place] [address], [place] [address] PCP - General Family Medicine 10/30/12 Danny Arriola MD [address] [place] [address] Primary Staff Physician Cardiology 05/19/18 [employer] Relationship Specialty Start Date End Date Carleen Mcnair MD [address] [place] [address], [place] [address] PCP - General Family Medicine 10/30/12 Danny Arriola MD [address] [facility] [place] [address] Primary Staff Physician Cardiology 05/19/18 [employer] Relationship Specialty Start Date End Date Carleen Mcnair MD [address] [place] [address], [place] [address] PCP - General Family Medicine 10/30/12 Danny Arriola MD [address] [place] [address] Primary Staff Physician Cardiology 05/19/18 [employer] Relationship Specialty Start Date End Date Carleen Mcnair MD [address] [place] [address] PCP - General Family Medicine 10/30/12 Danny Arriola MD [address] [place] [address] Primary Staff Physician Cardiology 05/19/18 [employer] Relationship Specialty Start Date End Date Carleen Mcnair MD [address] [place] [address] PCP - General Family Medicine 10/30/12 Danny Arriola MD [address] [place] [address] Primary Staff Physician Cardiology 05/19/18 [employer] Relationship Specialty Start Date End Date Carleen Mcnair MD [address] [place] [address] PCP - General Family Medicine 10/30/12 Danny Arriola MD [address] [place] [address] Primary Staff Physician Cardiology 05/19/18 [employer] Relationship Specialty Start Date End Date Carleen Mcnair MD [address] [place] [address] PCP - General Family Medicine 10/30/12 Danny Arriola MD [address] [place] [address] Primary Staff Physician Cardiology 05/19/18 [employer] Relationship Specialty Start Date End Date Carleen Mcnair MD [address] [place] [address] PCP - General Family Medicine 10/30/12 Danny Arriola MD [address] [place] [address] Primary Staff Physician Cardiology 05/19/18 [employer] Relationship Specialty Start Date End Date Carleen Mcnair MD [address] [facility] [place] [address] PCP - General Family Medicine 10/30/12 Danny Arriola MD [address] [place] [address] Primary Staff Physician Cardiology 05/19/18 [employer] Relationship Specialty Start Date End Date Carleen Mcnair MD [address] [place] [address] PCP - General Family Medicine 10/30/12 Danny Arriola MD [address] [place] [address] Primary Staff Physician Cardiology 05/19/18 [employer] Relationship Specialty Start Date End Date Carleen Mcnair MD [address] [place] [address] PCP - General Family Medicine 10/30/12 Danny Arriola MD [address] [place] [address] Primary Staff Physician Cardiology 05/19/18 [employer] Relationship Specialty Start Date End Date Carleen Mcnair MD [address] [place] [address] PCP - General Family Medicine 10/30/12 Danny Arriola MD [address] [place] [address] Primary Staff Physician Cardiology 05/19/18 [employer] Relationship Specialty Start Date End Date Carleen Mcnair MD [address] [place] [address] PCP - General Family Medicine 10/30/12 Danny Arriola MD [address] [place] [address] Primary Staff Physician Cardiology 05/19/18 [employer] Relationship Specialty Start Date End Date Carleen Mcnair MD [address] [place] [address] PCP - General Family Medicine 10/30/12 Danny Arriola MD [address] [place] [address] Primary Staff Physician Cardiology 05/19/18 [employer] Relationship Specialty Start Date End Date Carleen Mcnair MD [address] [place], [place] [address] PCP - General Family Medicine 10/30/12 Danny Arriola MD [address] [place] [address] Primary Staff Physician Cardiology 05/19/18 [employer] Relationship Specialty Start Date End Date Carleen Mcnair MD [address] [place] [address] PCP - General Family Medicine 10/30/12 Danny Arriola MD [address] [place] [address] Primary Staff Physician Cardiology 05/19/18 [employer] Relationship Specialty Start Date End Date Carleen Mcnair MD [address] [place] [address] PCP - General Family Medicine 10/30/12 Danny Arriola MD [address] [place] [address] Primary Staff Physician Cardiology 05/19/18 [employer] Relationship Specialty Start Date End Date Carleen Mcnair MD [address] [place] [address] PCP - General Family Medicine 10/30/12 Danny Arriola MD [address] [place] [address] Primary Staff Physician Cardiology 05/19/18 [employer] Relationship Specialty Start Date End Date Carleen Mcnair MD [address] [place] [address] PCP - General Family Medicine 10/30/12 Danny Arriola MD [address] [place] [address] Primary Staff Physician Cardiology 05/19/18 [employer] Relationship Specialty Start Date End Date Carleen Mcnair MD [address] [place] [address] PCP - General Family Medicine 10/30/12 Danny Arriola MD [address] [place] [address] Primary Staff Physician Cardiology 05/19/18 FOR RECORDS PERTAINING TO PATIENTS WHO ARE OR HAVE BEEN ENROLLED IN A CHEMICAL DEPENDENCY/SUBSTANCEABUSE PROGRAM, SOME INFORMATION MAY BE OMITTED. This clinical summary was aggregated from multiple sources. Caution should be exercised in using it in the provision of clinical care. This summary normalizes information from multiple sources, and as a consequence, information in this document may materially change the coding, format and clinical context of patient data. In addition, data may be omitted in some cases. CLINICAL DECISIONS SHOULD BE BASED ON THE PRIMARY CLINICAL RECORDS. [facility], [facility]. provides no warranty or guarantee of the accuracy or completeness of information in this document.
--- NOTE | 2023-04-25 19:01 | EKG12_ITS ---
Test Reason : DYSRHYTHMIA Blood Pressure : / mmHG Vent. Rate : 089 BPM Atrial Rate : 000 BPM P-R Int : 000 ms QRS Dur : 092 ms QT Int : 404 ms P-R-T Axes : 000 061 016 degrees QTc Int : 491 ms Atrial fibrillation with premature ventricular or aberrantly conducted complexes Low voltage QRS Prolonged QT Abnormal ECG Confirmed by EMILIANO TEIXEIRA, TIFFANY ([id number]), [employer] magazine JAH LE ([id number]) on 04/28/2023 9:43:07 AM Referred By: Confirmed By:TIFFANY CUMMINGS MD
[2023-04-25] MEDS: Ceftriaxone 1 GM/50 ML BAG IV (19:27)
--- NOTE | 2023-04-25 19:45 | PCM.HP.STD ---
HPI - General General Date of Admission: 04/25/23 Date of Service: 04/25/23 Chief Complaint: Cough, fatigue, malaisea, F/C HPI Narrative The patient is a 72 y/o M w/ PMHx: Obesity, PAF, PAD, HTN, HLD, PVD, Tobacco use, Chronic thrombocytopenia who presents to the [facility] ED on 04/25/23 with history of debility, fever, headache, cough starting 36 hours prior with also his significant ill with similar symptoms however she improved after 48 hours with cough notable for productive clear sputum with also rhinorrhea which seem to have improved with decreased appetite as well as decreased oral intake prompting eventual ED evaluation. Patient did note taking Tylenol for headache described as dull aching rated 3 out of 10 in severity. Workup in the ED included T 100.2 max with most recent repeat 97.6, heart rate 91, BP 166/101, respiratory rate 22, initially 85% on room air with improvement to 96% on 2 L nasal cannula, CBC with WBC 6.7, hemoglobin 15.3, platelets 85 with out marked shift with lymphopenia, CMP with BUN/creatinine 25/2.05, glucose 132 otherwise heparic profile not marked appearing, chest x-ray with right lower lobe interstitial infiltrates, CTPA with moderate pericardial effusion which is increased, prominent nonspecific mediastinal lymphadenopathy, mild infiltrate left lower lobe, 2.7 cm left thyroid lesion with recommended follow-up nonemergent thyroid, large cystic lesion within the liver incompletely imaged. In the ED patient ministered 1 L normal saline, maintenance IV fluid, IV azithromycin and Rocephin as well as Tylenol 1000 mg p.o. x 1. [facility] Medical History (Updated 04/25/23 @ 19:[address] Mohini Leslie MD) Chronic idiopathic thrombocytopenia Chronic neuropathic pain CKD (chronic kidney disease) HLD (hyperlipidemia) Hypertension Obesity Ocular melanoma PAD (peripheral artery disease) Paroxysmal atrial fibrillation Peripheral vascular disease Tobacco abuse Home Medications apixaban 5 mg tablet 5 mg PO BID blood thinner 10/27/18 [History Last Taken 04/25/23] clonidine HCl 0.2 mg tablet 0.2 mg PO BID 11/03/18 [Rx Last Taken 04/25/23] dorzolamide 22.3 mg-timolol 6.8 mg/mL eye drops 1 drp RIGHT EYE BID 09/03/19 [Rx Last Taken 04/25/23] metoprolol tartrate 25 mg tablet 25 mg PO BID 11/03/18 [Rx Last Taken 04/25/23] multivitamin,kt-dwjq-kopsfrbt 27 mg-0.4 mg tablet 1 tab PO DAILY@0800 11/03/18 [Rx Last Taken 04/25/23] acetaminophen 500 mg tablet 1,000 mg PO Q8 PRN pain 04/25/23 [History Last Taken 04/25/23] duloxetine 30 mg capsule,delayed release 30 mg PO DAILY 04/25/23 [History Last Taken 04/25/23] gabapentin 400 mg capsule 400 mg PO TID 04/25/23 [History Last Taken 04/25/23] olmesartan 40 mg tablet 40 mg PO DAILY 04/25/23 [History Last Taken 04/25/23] Allergy/AdvReac Type Severity Reaction Status Date / Time nebivolol HCl [From Bystolic] Allergy Other Verified 04/25/23 14:57 Penicillins Allergy Other Verified 04/25/23 14:57 trandolapril [From Tarka] Allergy Other Verified 04/25/23 14:57 verapamil HCl [From Tarka] Allergy Other Verified 04/25/23 14:57 Family History Mother Heart disease Father Heart disease Surgical History (Updated 04/26/23 @ 00:[address] Mohini Leslie MD) History of eye surgery S/P arthroscopic surgery of right knee S/P peripheral artery angioplasty with stent placement Social History (Updated 04/26/23 @ 00:[address] Mohini Leslie MD) household members: significant other Smoking Status: Current every day smoker tobacco type: cigarettes Smoking packs per day: 0.5 Smoking cigarettes per day: 10.0 alcohol intake: current alcohol intake frequency: a few times a month substance use type: does not use ROS ROS Narrative Admission Review of Systems: CONSTITUTIONAL: No weight loss, + fever, chills, weakness or fatigue. HEENT: + Headache, rhinorrhea. Eyes: No visual loss, blurred vision, double vision or yellow sclerae. Ears, Nose, Throat: No hearing loss, sore throat. SKIN: No rash or itching, lesions, wounds except for + occasional staged ecchymoses, bilateral lower extremity venous stasis skin changes. CARDIOVASCULAR: No chest pain, chest pressure or chest discomfort, palpitations, edema, orthopnea, syncopal events. RESPIRATORY: + Cough productive of clear sputum, mild dyspnea. No wheezing, hemoptysis. GASTROINTESTINAL: + anorexia. No nausea, vomiting or diarrhea, abdominal pain, melena, BRBPR. GENITOURINARY: No dysuria, frequency, urgency or retention. NEUROLOGICAL: + Headache, dizziness. No syncope, paralysis, ataxia, numbness or tingling in the extremities, focal weakness, change in bowel or bladder control, seizure. MUSCULOSKELETAL: + muscle, back pain, joint pain or stiffness. HEMATOLOGIC: No anemia. + Easy bleeding/bruising. LYMPHATICS: No enlarged nodes. No history of splenectomy. PSYCHIATRIC: No history of depression or anxiety. ENDOCRINOLOGIC: + reports of sweating, cold or heat intolerance. No polyuria or polydipsia. ALLERGIES: No history of asthma, hives, eczema or rhinitis. Vital Signs Vital Signs Vital Signs: 04/25/23 15:00 04/25/23 15:03 04/25/23 16:04 Temperature 100.2 F H 100.2 F H 98.4 F Temperature Source Oral Oral Oral Pulse Rate 91 75 90 Respiratory Rate 22 H 18 24 H Respiratory Effort Respiratory Pattern Blood Pressure 166/101 H 166/101 H 166/103 H Blood Pressure Mean 122 122 124 Pulse Ox 85 92 94 Oxygen Delivery Method Room Air Nasal Cannula Nasal Cannula Oxygen Flow Rate (L/min) 2 2 04/25/23 16:10 04/25/23 17:03 04/25/23 18:04 Temperature 98.2 F 97.8 F Temperature Source Oral Oral Pulse Rate 86 89 Respiratory Rate 24 H 17 Respiratory Effort Short of Breath Respiratory Pattern Tachypnea Blood Pressure 161/84 H 151/87 H Blood Pressure Mean 109 108 Pulse Ox 95 96 Oxygen Delivery Method Nasal Cannula Nasal Cannula Oxygen Flow Rate (L/min) 2 2 04/25/23 18:37 04/25/23 19:24 Temperature 97.6 F L Temperature Source Pulse Rate 89 Respiratory Rate 23 H 19 H Respiratory Effort Respiratory Pattern Blood Pressure 168/93 H Blood Pressure Mean 118 Pulse Ox 87 95 Oxygen Delivery Method Room Air Oxygen Flow Rate (L/min) Weight Weight: 286 lb Body Mass Index (BMI) 36.7 Physical Exam Narrative Physical Examination: General: Awake, alert, oriented x 3 and cooperative, seated upright in the ED bed, fatigued and ill-appearing. Skin: Normal color, normal turgor, no icterus, no cyanosis except for occasional staged ecchymoses, notable bilateral lower extremity venous stasis skin changes. HEENT: AT/NC, EOMI, PERRLA, mildly dry MM, no carotid bruits or JVD noted; however thickened neck and facial hair makes examination difficult. Lungs: Diminished, greater bases, right greater than left, mildly increased respiratory rate but no distress, no rales, ronchi or wheezing. Heart: Regular rate and rhythm; no gallop, rub audible. Abdomen: Soft, obese, NTTP, ND, distant normal BS, no appreciated HSM. Extremities: No cyanosis, no clubbing, chronic edema, see skin. Neurological: Patient awake, alert, oriented as noted, cognitive function intact; pupils equally reactive to light and accommodation, cranial nerves II-XII grossly normal, moving all 4 extremities, no focal deficits, strength moderately to severely globally decreased secondary to acute presentation complaints. Psychiatric: Affect appears flat, fatigued, no acute evidence of depressive or anxiety feelings. Results Lab / Micro Data 04/25/23 15:44 04/25/23 16:00 Labs: Laboratory Results - last 24 hr 04/25/23 15:44: WBC 6.7, RBC 4.83, Hgb 15.3, Hct 47.4, MCV 98.1 H, MCH 31.7, MCHC 32.3, RDW Std Deviation 52.8 H, RDW Coeff of [place] 14.6, Plt Count 85 L, MPV 12.9 H, Immature Gran % (Auto) 0.700, Neut % (Auto) 78.1 H, Lymph % (Auto) 8.0 L, [place] % (Auto) 12.8 H, Eos % (Auto) 0.1, Baso % (Auto) 0.3, Absolute Neuts (auto) 5.3, Absolute Lymphs (auto) 0.54 L, Nucleated RBC % 0, Differential Comment SEE COMMENTS, Platelet Estimate MOD DEC, RBC Morphology N CHROM, Anisocytosis 1+, Macrocytosis 1+ 04/25/23 16:00: Sodium 139, Potassium 4.5, Chloride 104, Carbon Dioxide 29.0, Anion Gap 6, BUN 25 H, Creatinine 2.05 H, Estim Creat Clear Calc 45.94, Est GFR (MDRD) Af Amer 41 L, Est GFR (MDRD) Non-Af 34 L, BUN/Creatinine Ratio 12.2, Glucose 132 H, Calcium 9.1, Total Bilirubin 0.70, AST 29, ALT 22, Alkaline Phosphatase 73, Total Protein 7.8, Albumin 3.6, Globulin 4.2, Albumin/Globulin Ratio 0.9 Micro: Microbiology 04/25/23 15:52 Mucosa - Nose SARS-CoV-2, Influenza & RSV (PCR) - Final Imaging Radiology Impression Chest X-Ray 04/25/23 16:10 IMPRESSION: Right lower lobe interstitial infiltrate. Electronically Signed: Guru Nelson MD at 16:47 EST Reading Location ID and State: [facility] / [place] Tel , Service support , Chest CTA 04/25/23 17:18 IMPRESSION: Moderate pericardial effusion increased. Prominent nonspecific mediastinal lymphadenopathy. Mild infiltrate left lower lobe. 2.7 cm left thyroid lesion. Recommend follow-up nonemergent thyroid ultrasound. Large cystic lesion within the liver incompletely imaged at the edge of the [id number]. Electronically Signed: Guru Nelson MD at 18:56 EST Reading Location ID and State: [facility] / [place] Tel , Service support , Assessment & Plan Assessment/Plan (1) Hypoxia: (2) Pneumonia: PLAN: Plan The patient is a 72 y/o M w/ PMHx: Obesity, PAF, PAD, HTN, HLD, PVD, Tobacco use, Chronic thrombocytopenia who presents to the [facility] ED on 04/25/23 with history of debility, fever, headache, cough starting 36 hours prior with also his significant ill with similar symptoms however she improved after 48 hours with cough notable for productive clear sputum with also rhinorrhea which seem to have improved with decreased appetite as well as decreased oral intake prompting eventual ED evaluation. #1. Acute Hypoxia secondary to Acute RLL Pneumonia with likely recent acute viral syndrome with suspected possible superimposed bacterial pneumonia at this time: Will admit to PCU given concurrent moderate pericardial effusion that is noted, maintain on oxygen with wean as tolerated to room air, continue ATC budesonide, PRN albuterol, maintained on IV Rocephin and Azithromycin, HOB, IS parameters w/ pending sputum cultures, full respiratory viral panel and urine antigens. #2. Incidentally noted moderate pericardial effusion: CT imaging reports moderate pericardial effusion increased, will obtain echocardiogram to further evaluate and if necessary may involve cardiology, will in the interim maintain on telemetry monitoring. #3. Acute on chronic thrombocytopenia: Possibly reactive especially given infection, admission platelet 85, baseline previously 80-120 although more frequently in the low 100 range, will continue to trend CBC. #4. CRISTOPHER versus progressing Chronic Kidney Disease Stage III, unclear subtype versus possible component of acute insufficiency on CKD but unable to discern given no recent trending: Admission BUN/Cr 25/2.05, baseline renal function previously 1.3-1.5 however this was in 2019 this certainly could be advanced renal disease, repeat BMP in AM to further elucidate chronicity. #5. Incidental left thyroid lesion: Noted CT imaging with 2.7 cm left thyroid lesion, TSH and free T4 requested, will need nonemergent outpatient thyroid ultrasound follow-up. #6. Incidental large cystic lesion: Given not completely imaged will obtain liver ultrasound to further elucidate. #7. Hypertension: We will continue patient home metoprolol, clonidine, holding on losartan temporarily given unclear kidney function with possible CRISTOPHER,. IV hydralazine in interim. #8. Hyperlipidemia: Per current list not on statin therapy, defer to outpatient. #9. Chronic neuropathy, chronic pain: We will continue patient home duloxetine and gabapentin regimen. #10. PAD: Status post angioplasty bilateral lower extremities with stenting left lower extremity, will continue patient home apixaban regimen, not on statin therapy but clarifying, continue hypertensive regimen. #11. PAF: We will continue patient home metoprolol and apixaban regimen. #12. Tobacco Abuse: Encouraged cessation, inpatient consultation per RT, NR if desired. #13. Obesity: Weight loss and lifestyle changes encouraged. #14. DVT prophylaxis: Continue patient home apixaban regimen. #15. CODE status: Patient HCPOA and living will are not in place but he notes he would want Hue Alan who is his fianc?e to be his decision-maker if he was unable. Discussed CODE status at length including difference between FULL code, DNR-CCA and DNR-CC status. Following discussions about the differences in these status, requested Full Code status. Advanced Care Planning Face to Face Time: 16 minutes. Charges/Coding Visit Charges Inpatient E&M: 23189 Init Hosp L3 Procedures Hospitalists Procedures: 08953 Advncd Care Plan 30 Min
--- OUTSIDE RECORDS SUMMARY | 2023-04-25 20:21 | XMS RPT_ITS | CCD ---
Author Name Unknown Address [address] [place] [address] Organization [facility] Care Team Providers Care Library Technology Instructor Name Role Phone ARISTEOKATHERIN AGUILERA Unavailable Unavailable YADY LY Unavailable Unavailable ANGELIA NAZARIO Unavailable Unavailable Xu TEIXEIRA, Carleen Adams Primary Care Provider Zeinab TEIXEIRA, Danny Gleason Unavailable Xu TEIXEIRA, Carleen Adams Primary Care Provider Zeinab TEIXEIRA, Danny Gleason Unavailable Xu TEIXEIRA, Carleen Adams Primary Care Provider Xu TEIXEIRA, Carleen Adams Primary Care Provider Zeinab TEIXEIRA, Danny Gleason Unavailable [phone] Zeinab TEIXEIRA, Danny A Unavailable Zeinab TEIXEIRA, [...] nebivolol; Translations: [NEBIVOLOL] Drug Allergy 3 Rash [facility] Other [place] [facility] (20 sources) Penicillins; Translations: [PENICILLINS] Propensity to adverse reactions to drug (disorder) 2 Rash [facility] Repository (20 sources) trandolapril / verapamil; Translations: [TRANDOLAPRIL-VE RAPAMIL] Drug Allergy 3 Cough [facility] Repository (20 sources) MARIJUANA/CANNAB INOID; Translations: [MARIJUANA/CANNA BINOID] Propensity to adverse reactions to drug (disorder) 8 Other: See Comments [facility] Repository (20 sources) Verapamil; Translations: [VERAPAMIL] Drug Allergy 9 Other: See Comments [facility] Medications Current Medications Medication Drug [...] aftercare (20 sources) Drug therapy finding; Translations: [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] Onset: 01-04-2015 01-04-2015 [...] 86 mm[Hg] Carleen Mcnair MD Work Phone: [facility] 04-14-2023 11:38-0500 Systolic blood pressure 130 mm[Hg] Carleen Mcnair MD Work Phone: [facility] 04-14-2023 11:12-0500 Body weight 132 kg Carleen Mcnair MD Work Phone: [facility] 04-14-2023 11:12-0500 Heart rate 57 /min Carleen Mcnair MD Work Phone: [facility] 04-14-2023 11:12-0500 SaO2% (BldA) [Mass fraction] 95 % Carleen Mcnair MD Work Phone: [facility] 01-07-2023 14:02-0500 Diastolic blood pressure 68 mm[Hg] Cleve Gallego MD Work Phone: [facility] 01-07-2023 14:02-0500 Heart rate 84 /min Cleve Gallego MD Work Phone: [facility] 01-07-2023 14:02-0500 Respiratory rate 16 /min Cleve Gallego MD Work Phone: [facility] 01-07-2023 14:02-0500 SaO2% (BldA) [Mass fraction] 93 % Cleve Gallego MD Work Phone: [facility] 01-07-2023 14:02-0500 Systolic blood pressure 120 mm[Hg] Cleve Gallego MD Work Phone: [facility] 01-07-2023 11:32-0500 Body temperature 96.21 [degF] Cleve Gallego MD Work Phone: [facility] 12-03-2022 15:51-0400 Body height 188 cm Cleve Gallego MD Work Phone: [facility] 12-03-2022 15:51-0400 Body temperature 97.81 [degF] Cleve Gallego MD Work Phone: [facility] 12-03-2022 15:51-0400 Body weight 129.73 kg Cleve Gallego MD Work Phone: [facility] 12-03-2022 15:51-0400 Diastolic blood pressure 92 mm[Hg] Cleve Gallego MD Work Phone: [facility] 12-03-2022 15:51-0400 Heart rate 64 /min Cleve Gallego MD Work Phone: [facility] 12-03-2022 15:51-0400 SaO2% (BldA) [Mass fraction] 96 % Cleve Gallego MD Work Phone: [facility] 12-03-2022 15:51-0400 Systolic blood pressure 150 mm[Hg] Cleve Gallego MD Work Phone: [facility] 09-30-2022 13:41-0400 Body height 188 cm Carleen Mcnair MD Work Phone: [facility] 09-30-2022 13:41-0400 Body weight 127.01 kg Carleen Mcnair MD Work Phone: [facility] 09-30-2022 13:41-0400 Diastolic blood pressure 72 mm[Hg] Carleen Mcnair MD Work Phone: [facility] 09-30-2022 13:41-0400 Heart rate 57 /min Carleen Mcnair MD Work Phone: [facility] 09-30-2022 13:41-0400 SaO2% (BldA) [Mass fraction] 97 % Carleen Mcnair MD Work Phone: [facility] 09-30-2022 13:41-0400 Systolic blood pressure 132 mm[Hg] Carleen Mcnair MD Work Phone: [facility] 04-29-2022 09:19-0500 Diastolic blood pressure 76 mm[Hg] Prabha Haagen ETL INFORMATICA ARCHITECT.SALESPERSON FURNITURE Work Phone: [facility] 04-29-2022 09:19-0500 Heart rate 56 /min Prabha Haagen ETL INFORMATICA ARCHITECT.SALESPERSON FURNITURE Work Phone: [facility] 04-29-2022 09:19-0500 Respiratory rate 18 /min Prabha Haagen ETL INFORMATICA ARCHITECT.SALESPERSON FURNITURE Work Phone: [facility] 04-29-2022 09:19-0500 SaO2% (BldA) [Mass fraction] 95 % Prabha Haagen ETL INFORMATICA ARCHITECT.SALESPERSON FURNITURE Work Phone: [facility] 04-29-2022 09:19-0500 Systolic blood pressure 128 mm[Hg] Prabha Haagen ETL INFORMATICA ARCHITECT.SALESPERSON FURNITURE Work Phone: [facility] 03-27-2022 14:09-0500 Diastolic blood pressure 76 mm[Hg] Carleen Mcnair MD Work Phone: [facility] 03-27-2022 14:09-0500 Systolic blood pressure 140 mm[Hg] Carleen Mcnair MD Work Phone: [facility] 03-27-2022 13:47-0500 Body height 188 cm Carleen Mcnair MD Work Phone: [facility] 03-27-2022 13:47-0500 Body weight 127.01 kg Carleen Mcnair MD Work Phone: [facility] 03-27-2022 13:47-0500 Heart rate 60 /min Carleen Mcnair MD Work Phone: [facility] 03-27-2022 13:47-0500 SaO2% (BldA) [Mass fraction] 99 % Carleen Mcnair MD Work Phone: [facility] 11-29-2021 15:03-0400 Diastolic blood pressure 70 mm[Hg] Edelmira Lucas DO Work Phone: [facility] 11-29-2021 15:03-0400 Heart rate 101 /min Edelmira Lucas DO Work Phone: [facility] 11-29-2021 15:03-0400 SaO2% (BldA) [Mass fraction] 97 % Edelmira Lucas DO Work Phone: [facility] 11-29-2021 15:03-0400 Systolic blood pressure 130 mm[Hg] Edelmira Lucas DO Work Phone: [facility] 11-12-2021 09:47-0400 Body weight 133.36 kg Carleen Mcnair MD Work Phone: [facility] 11-12-2021 09:47-0400 Diastolic blood pressure 62 mm[Hg] Carleen Mcnair MD Work Phone: [facility] 11-12-2021 09:47-0400 Heart rate 60 /min Carleen Mcnair MD Work Phone: [facility] 11-12-2021 09:47-0400 Systolic blood pressure 92 mm[Hg] Carleen Mcnair MD Work Phone: [facility] Encounters Encounter Date Encounter Type Care Provider Facility Start: 04-22-2023 End: 04-22-2023 ambulatory ESTHELA HERNANDEZ Facility:[facility] Start: 04-22-2023 End: 04-22-2023 Patient encounter [...] Activity Detail Author Start: 01-07-2033 Colonoscopy Colonoscopy [facility] Start: 01-07-2033 Colorectal Cancer Screening Colorectal Cancer Screening [facility] Start: 01-07-2033 Screening for malign ant neoplasm of colon [facility] Start: 10-01-2027 Lipid 1996 panel - S laurie or Plasma Lipid Screening [facility] Start: 10-01-2027 Lipid panel Lipid Screening [facility] Start: 10-01-2027 LIPID SCREEN LIPID SCREEN [facility] Start: 04-14-2026 Diabetes Screening Diabetes Screenin g [facility] Start: 01-07-2026 Colonoscopy Colonoscopy [facility] Start: 01-07-2026 Colorectal Cancer Screening Colorectal Cancer Screening [facility] Start: 11-13-2025 LIPID SCREEN LIPID SCREEN [facility] Start: 09-30-2025 DIABETES SCREEN DIABETES SCREEN [facility] Start: 09-30-2025 Diabetes Screening Diabetes Screenin g [facility] Start: 11-12-2024 DIABETES SCREEN DIABETES SCREEN [facility] Start: 04-14-2024 Annual PCP Team Switch Cleaner wagner Disease Visit Annual PCP Team Chronic Disease Visit [facility] Start: 04-14-2024 Complete blood count [facility] Start: 04-14-2024 Creatinine measurement Serum Creatin ine [facility] Start: 11-14-2023 DIABETES SCREEN DIABETES SCREEN [facility] Start: 10-01-2023 ANNUAL PCP TEAM FOOTBALL SCOUT WAGNER DISEASE VISIT ANNUAL PCP TEAM CHRONIC DISEASE VISIT [facility] Start: 10-01-2023 Complete blood count Hemoglobin/Sharath tocrit [facility] Start: 10-01-2023 Creatinine measurement Serum Creatin ine [facility] Start: 10-01-2023 HEMOGLOBIN/HEMATOCRIT HEMOGLOBIN/HEM ATOCRIT [facility] Start: 10-01-2023 SERUM CREATININE SERUM CREATININE Cl [facility] Start: 10-01-2023 SHINGRIX VACCINE (1 of 2) SHINGRIX V ACCINE (1 of 2) [facility] Immunizations Immunization Date Immunization Notes Care Provider [facility] 04-25-2018 influenza virus vacc ine, unspecified formulation Cleve Gallego MD Work Phone: [facility] 12-04-2015 influenza, seasonal, injectable, preservative free Carleen Mcnair MD Work Phone: [facility] 06-20-2015 pneumococcal conjuga te vaccine, 13 valearl Mcnair MD Work Phone: [facility] Work Phone: 03-07-2014 influenza, seasonal, injectable Carleen Mcnair MD Work Phone: [facility] 03-07-2014 pneumococcal polysaccharide vaccine, 23 valent Carleen Mcnair MD Work Phone: [facility] 12-01-2002 pneumococcal polysaccharide vaccine, 23 valearl Mcnair MD Work Phone: [facility] Work Phone: Payers Date Payer Category Payer [employer] ( and others) [id number] 2015 Unknown FOR LIFE [id number] 2015-Present [phone] [address] [place] [address] Indemnity [id number] 2015 Unknown [id number] 2014 Medicare MEDICARE MEDICAR E A AND B [id number] 2014-Present [phone] [place] [address] Medicare [id number] 2014 Medicare MEDICARE MEDICAR E A AND B [id number] 2014-Present [phone] [place] [address] Medicare [id number] 2014 Medicare [id number] Social History Date Type Detail Facility Start: 11-26-2011 End: 11-12-2021 Tobacco smoking status NHIS Smokes tobacco daily [facility] Work Phone: History of tobacco use Cigarette Smoker C [facility] Work Phone: Start: 11-26-2011 End: 09-30-2022 Cigarettes smoked current (pack per day) - Reported 0.5 [facility] Start: 11-26-2011 End: 11-12-2021 Tobacco use and exposure Smokeless tobacco non-user [facility] Work Phone: Start: 03-15-2021 End: 04-22-2023 Alcohol intake Current non-drinker of alcohol (finding) [facility] Start: 04-30-2020 End: 03-05-2021 History SDOH Alcohol Frequency 1 [facility] Start: 04-30-2020 History SDOH Alcohol Std Drinks 98 [facility] Start: 04-30-2020 End: 04-29-2022 History SDOH Social Connections Phone 5 [facility] Start: 04-30-2020 End: 04-29-2022 History SDOH Social Connections Membership 2 [facility] Start: 04-30-2020 End: 04-29-2022 History SDOH Social Connections Living 8 [facility] Start: 04-30-2020 End: 04-29-2022 History SDOH Physical Activity DPW 0 [facility] Start: 04-30-2020 Education 21 [facility] Start: 1950 Sex Assigned At Male [facility] Start: 11-02-2021 End: 11-12-2021 Exposure to SARS-CoV-2 (event) Not sure [facility] Start: 04-29-2022 End: 09-30-2022 Social connection and isolation panel [facility] Do you belong to any clubs or organizations such as hoahaoism groups, unions, fraternal or athletic groups, or school groups? No [facility] Are you now , , , , never or living with a partner? Living with partner [facility] How often to you hav e a drink containing alcohol? Never [facility] How many standard dr inks containing alcohol do you have on a typical day? Patient does not drink [facility] Do you feel stress - tense, restless, nervous, or anxious, or unable to sleep at night because your mind is troubled all the time - these days [OSQ] Not at all [facility] (I/We) worried wheth er (my/our) food would run out before (I/we) got money to buy more. Never true [facility] Start: 08-19-2018 Gender identity Identifies as male gender (finding) [facility] Start: 08-19-2018 Sexual orientation Heterosexual (finding) [facility] Medical Equipment Procedure Code Equipment Code Equipment Origin al Text Equipment Identifier Dates Lens Iol +22.5 D iop Acrsf Iq - [id number] Start: 04-28-2014 Goals Date Patient Goal Desired Activity /State Personal health goal Clinical Notes 10-01-2017 to 04-22-2023 Esthela Hernandez, JOHNNY - 04/22/2023 10:08 AM Carleen Davidson MD - 04/14/2023 11:07 AM ESTTelephone Encounter - Marah Cooney RN - 01/21/2023 9:51 AM ESTPatient InstructionsPatient Instructions Note Date & Type Note Facility 04-22-2023 Note HNO ID: [id number] Author: ESTHELA HERNANDEZ OD Service: ? Author Type: COOKER CLEANER Type: Progress Notes Filed: 04/22/2023 10:13 Note Text: 1. Combined forms of age-related cataract, left eye + visually significant BCVA: 20/70 with large myopic shift 2. 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 Urged patient to follow-up with Dr. Donald Diaz for yearly check up (has not seen in 5+ years) Patient refuses travel to [place] I educated pt on importance of follow-up to make sure melanoma is stable due to high risk including threat to life 3. 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 Pseudophakia, right eye Stable Follow-up for cat eval with Berta Hernandez, JOHNNY April 22, 2023 10:08 AM [facility] 04-22-2023 History of Present illness Narrative 1. Combined forms of age-related cataract, left eye + visually significant BCVA: 20/70 with large myopic shift 2. 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 Urged patient to follow-up with Dr. Donald Diaz for yearly check up (has not seen in 5+ years) Patient refuses travel to [place] I educated pt on importance of follow-up to make sure melanoma is stable due to high risk including threat to life 3. 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 Pseudophakia, right eye Stable Follow-up for cat eval with Berta Hernandez, JOHNNY April 22, 2023 10:08 AM documented in this encounter [facility] 04-14-2023 Note HNO ID: [id number] Author: CARLEEN MCNAIR MD Service: ? Author [...] Take 1 tablet by mouth twice daily. Okwyduafkoywj-Rjjydpcv-Tlrloh (CENTRUM SILVER) tab Take 1 tablet by [...] Cataract OD Choroid melanoma of right eye ([facility]) 2011 CPAP (continuous positive airway pressure) dependence Hypercholesterolemia 10/14/2013 Hypertension Obstructive sleep apnea PAD (peripheral artery disease) ([facility]) 07/20/2013 Personal history of unspecified urinary disorder Pulmonary nodule, right CT 06/15/14 3mm stable from 11/28/11 RUL Radiation cataract - Right Eye 07/15/2013 [facility] 02/21/2013 SUMMARY 04/06/2013 62 year old Male with past medical history of hypertension, Wtnjw-Yiizccfza-Fsygi syndrome admitted with new-onset Atrial fibrillation. Transthoracic [...] on 05/24/13. [Appointment already scheduled; Office number [phone]] WPW (Vkxcj-Vjturzdfz-Jxrkk syndrome) 04/06/2013 Patient has been previously told that he has WPW when reviewed at other facilities but has never been offered rx.review of [facility] ECGs in [facility] do not show clear evidence of WPW. [...] current medications, al (more content not included)... [facility] 04-14-2023 History of Present illness Narrative Patient [...] Take 1 tablet by mouth twice daily. Ywtuquguimnuh-Niirauok-Rfhbni (CENTRUM SILVER) tab Take 1 tablet by [...] Cataract OD Choroid melanoma of right eye ([facility]) 2011 CPAP (continuous positive airway pressure) dependence Hypercholesterolemia 10/14/2013 Hypertension Obstructive sleep apnea PAD (peripheral artery disease) ([facility]) 07/20/2013 Personal history of unspecified urinary disorder Pulmonary nodule, right CT 06/15/14 3mm stable from 11/28/11 RUL Radiation cataract - Right Eye 07/15/2013 [facility] Lentigines 02/21/2013 SUMMARY 04/06/2013 62 year old Male with past medical history of hypertension, Jvmkd-Upkpbutzl-Dorqy syndrome admitted with new-onset Atrial fibrillation. Transthoracic [...] [Appointment already scheduled; Office number [phone]] WPW (Gdbgn-Rvoargdie-Abbbu syndrome) 04/06/2013 Patient has been previously told that he has WPW when reviewed at other facilities but has never been offered rx.review of [facility] ECGs in [facility] do not show clear evidence of WPW. [...] PANEL BASIC 4. PAD (peripheral artery disease) ([facility]) - ICD9: 443.9, ICD10: I73.9 - over due for follow up - CAROTID ARTERIES [facility] - CONSULT TO VASCULAR SURGERY 5. PAF (paroxysmal atrial fibrillation) ([facility]) - ICD9: 427.31, ICD10: I48.0 - CONSULT TO CARDIOLOGY 6. Hypercholesterolemia - ICD9: 272.0, ICD10: E78.00 - stable. 7. PSVT (paroxysmal supraventricular tachycardia) - ICD9: 427.0, ICD10: I47.10 - CONSULT TO CARDIOLOGY 8. Hypertensive kidney disease with stage 3 chronic kidney disease, unspecified whether stage 3a or 3b CKD ([facility]) - ICD9: 403.90, 585.3, ICD10: I12.9, [...] weeks and prn. documented in this encounter [facility] 01-21-2023 Miscellaneous Notes Received MyChart msg from pt requesting refill on his Gabapentin. Last OV 09/30/22 Next OV 04/14/23 documented in this encounter [facility] 01-11-2023 Miscellaneous Notes FOLLOW UP ENDOSCOPY - RESULTS AND RECOMMENDATIONS NAME: Jose L Cash [facility] NO.: [id number] : 1950 DATE: January 11, 2023 PRIMARY [...] the appropriate providers documented in this encounter [facility] 01-07-2023 Nurse Note Patient arrived laying on left side. Patient does not appear to be in any pain at this time and denies such when asked. Abdomen appears to be nondistended and soft to palpation. Patient encouraged to belch and pass gas as needed. documented in this encounter [facility] 01-07-2023 History and physical note [...] Male with past medical history of hypertension, Mizmh-Rkexlrlhi-Kcnbc syndrome admitted with new-onset Atrial fibrillation. Transthoracic [...] on 05/24/13. [Appointment already scheduled; Office number [phone]] WPW (Zvljy-Fwoimjwnn-Zpsuu syndrome) 04/06/2013 Patient has been previously told that he has WPW when reviewed at other facilities but has never been offered rx.review of [facility] ECGs in [facility] do not show clear evidence of WPW. [...] IN THE RIGHT EYE TWICE A DAY Kjtpwjyzfqgxz-Weeljmke-Myitwu (CENTRUM SILVER) tab Take 1 tablet by [...] entered by the nurse and reviewed by nh Nursing Notes: Yaritza Bashir LPN 12/03/2022 3:54 [...] Male with past medical history of hypertension, Ayzmc-Dkoynghyh-Qjzxs syndrome admitted with new-onset Atrial fibrillation. Transthoracic [...] on 05/24/13. [Appointment already scheduled; Office number [phone]] WPW (Nfnfa-Iqbltffvl-Rhtyr syndrome) 04/06/2013 Patient has been previously told that he has WPW when reviewed at other facilities but has never been offered rx.review of [facility] ECGs in [facility] do not show clear evidence of WPW. [...] IN THE RIGHT EYE TWICE A DAY Rddpilvlwdius-Cumkdaoy-Hpchaj (CENTRUM SILVER) tab Take 1 tablet by [...] entered by the nurse and reviewed by nh Nursing Notes: Yaritza Bashir LPN 12/03/2022 3:54 [...] consents to surgery. I plan to use ESBATech preparation for endoscopy Diagnoses: (Z86.010) History of [...] Male with past medical history of hypertension, Pmscb-Dqjayhuox-Zmyeh syndrome admitted with new-onset Atrial fibrillation. Transthoracic [...] on 05/24/13. [Appointment already scheduled; Office number [phone]] WPW (Guaiz-Gpuzubkyq-Yugfi syndrome) 04/06/2013 Patient has been previously told that he has WPW when reviewed at other facilities but has never been offered rx.review of [facility] ECGs in [facility] do not show clear evidence of WPW. [...] IN THE RIGHT EYE TWICE A DAY Tsrcebawsahbt-Punzivxa-Qbfkki (CENTRUM SILVER) tab Take 1 tablet by [...] entered by the nurse and reviewed by nh Nursing Notes: Yaritza Bashir LPN 12/03/2022 3:54 [...] Cleve Gallego MD documented in this encounter [facility] 12-12-2022 Miscellaneous Notes Patient has [...] Lakesha Fish LPN. documented in this encounter [facility] 12-03-2022 Note HNO ID: [id number] Author: Cleve Gallego MD Service: ? Author [...] Male with past medical history of hypertension, Ualkn-Kagywpfwj-Ndpsq syndrome admitted with new-onset Atrial fibrillation. Transthoracic [...] on 05/24/13. [Appointment already scheduled; Office number [phone]] WPW (Udulk-Rikuhmmyj-Qwkxq syndrome) 04/06/2013 Patient has been previously told that he has WPW when reviewed at other facilities but has never been offered rx.review of [facility] ECGs in [facility] do not show clear evidence of WPW. [...] IN THE RIGHT EYE TWICE A DAY Bngwzernsryhx-Bnsxbegf-Zfueli (CENTRUM SILVER) tab Take 1 tablet by [...] Father Ischemic Heart (more content not included)... [facility] 12-03-2022 History of Present illness Narrative HISTORY [...] Male with past medical history of hypertension, Ekmhl-Jzqxdsslk-Bhmty syndrome admitted with new-onset Atrial fibrillation. Transthoracic [...] on 05/24/13. [Appointment already scheduled; Office number [phone]] WPW (Dzxih-Dzaxyswwa-Fvfac syndrome) 04/06/2013 Patient has been previously told that he has WPW when reviewed at other facilities but has never been offered rx.review of [facility] ECGs in [facility] do not show clear evidence of WPW. [...] IN THE RIGHT EYE TWICE A DAY Cavkttmgyyncn-Dznojlwg-Cikczt (CENTRUM SILVER) tab Take 1 tablet by [...] entered by the nurse and reviewed by nh Nursing Notes: Yaritza Bashir LPN 12/03/2022 3:54 [...] Cleve Gallego MD documented in this encounter [facility] 12-03-2022 Instructions Cleve Gallego MD [...] If you do not have a responsible stacker driver (family member or friend) with you [...] exam. 2 01/2019 documented in this encounter [facility] 12-03-2022 Nurse Note REVIEW OF [...] Yaritza Bashir LPN documented in this encounter [facility] 11-27-2022 Miscellaneous Notes Images from the original note were not included. Attempted to contact patient at numbers listed on record. No answer on each. Message left to call PCP office and ask for a triage nurse, to discuss sx's as states in [facility] message on 11/26. (Copied below). Monae Rosas RN COPIED: [facility]supporting Carleen Mcnair MD) EL 11/26/22 4:51 PM Hi Doc. My oxygen level is down having a difficult time breathing overall feel weak no appetite. Tried to make appointment but said nothing available until January Let s go to the races! Thanks, Jose L. documented in this encounter [facility] 10-21-2022 Miscellaneous Notes Received [employer] message that pt received mail order Rx. Brigitte Ya Ma documented in this encounter [facility] 10-15-2022 Miscellaneous Notes Patient has [...] Lakesha Fish LPN documented in this encounter [facility] 10-07-2022 Note HNO ID: [id number] Author: Oumou Agudelo RDMS Service: ? Author Type: [employer]iz[employer] Software Developer Type: Progress Notes Filed: 10/07/2022 11:51 AM [...] RDMS RVT October 07, 2022 11:51 AM [facility] 10-07-2022 History of Present illness Narrative Radiology [...] IV DATA: Not applicable SIGNED BY: Oumou Agduelo RDMS RVT October 07, 2022 11:51 AM documented in this encounter [facility] 10-03-2022 Note HNO ID: [id number] Author: Xavier Dick MD Service: ? Author Type: Physician Type: Progress Notes Filed: 10/03/2022 9:11 AM Note Text: Called patient reviewed current cbc. All stable, platelets mildly decreased stable from prior. Other flags noted, nothing of concern Will plan to recheck cbc in 6 months or so, order placed. 10 minute call. Xavier Dick MD. October 03, 2022 [facility] 10-02-2022 Miscellaneous Notes Apts scheduled. Elizabet Walton [...] with his colleagues. documented in this encounter [facility] 09-30-2022 Note HNO ID: [id number] Author: Carleen Mcnair MD Service: ? Author [...] IN THE RIGHT EYE TWICE A DAY Aylractmrvtzp-Smwdoybz-Djotsj (CENTRUM SILVER) tab Take 1 tablet by [...] Male with past medical history of hypertension, Gmdtg-Wyxqijnsv-Xjuqx syndrome admitted with new-onset Atrial fibrillation. Transthoracic [...] on 05/24/13. [Appointment already scheduled; Office number [phone]] WPW (Yiclm-Xjthiaxou-Btvyo syndrome) 04/06/2013 Patient has been previously told that he has WPW when reviewed at other facilities but has never been offered rx.[facility] of [facility] in [facility] do not show clear evidence of WPW. [...] series) due on (more content not included)... [facility] 09-30-2022 History of Present illness Narrative Patient [...] IN THE RIGHT EYE TWICE A DAY Kxnwuvszlvqvp-Rbdklksu-Wflmdg (CENTRUM SILVER) tab Take 1 tablet by [...] Male with past medical history of hypertension, Dtqkn-Prwwiljml-Fnilq syndrome admitted with new-onset Atrial fibrillation. Transthoracic [...] on 05/24/13. [Appointment already scheduled; Office number [phone]] WPW (Hlqrb-Ihqwlsmgc-Uroge syndrome) 04/06/2013 Patient has been previously told that he has WPW when reviewed at other facilities but has never been offered rx.[facility] of [facility] in [facility] do not show clear evidence of WPW. [...] Carleen Mcnair MD documented in this encounter [facility] 07-12-2022 Miscellaneous Notes Patient phones requesting refills as follows: Requested Prescriptions Pending Prescriptions Disp Refills gabapentin (NEURONTIN) 400 mg capsule 270 capsule 0 Sig: Take 1 capsule by mouth three times daily for 90 days. ROBEL 04/29/22 NOV 09/30/22 Please review and advise. Johnny Ramirez LPN documented in this encounter [facility] 04-29-2022 Note HNO ID: [id number] Author: Prabha Multani APRN.SALESPERSON FURNITURE Service: ? 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) 07/20/2013 Personal history of unspecified urinary disorder Pulmonary nodule, right CT 06/15/14 3mm stable from 11/28/11 RUL Radiation cataract - Right Eye 07/15/2013 Solar Lentigines 02/21/2013 SUMMARY 04/06/2013 62 year old Male with past medical history of hypertension, Trxea-Ncbwpjlcy-Nfaau syndrome admitted with new-onset Atrial fibrillation. Transthoracic [...] on 05/24/13. [Appointment already scheduled; Office number [phone]] WPW (Nisvn-Phsrbtrnu-Jaooc syndrome) 04/06/2013 Patient has been previously told that he has WPW when reviewed at other facilities but has never been offered rx.[facility] of [facility]s in [facility] do not show clear evidence of WPW. [...] Take 1 tablet by mouth twice daily. Uhanlhhbbuipb-Xnebusqe-Fvmwsr (CENTRUM SILVER) tab Take 1 tablet by [...] movements are in (more content not included)... [facility] 04-29-2022 Instructions Prabha Multani APRN.CNP - 04/29/2022 9:44 AM EST Continue the same medication. Get your labwork done. Recheck, as scheduled with Dr. Mcnair. documented in this encounter [facility] 04-29-2022 History of Present illness [...] Male with past medical history of hypertension, Rrgvz-Kvddcjicx-Yubai syndrome admitted with new-onset Atrial fibrillation. Transthoracic [...] on 05/24/13. [Appointment already scheduled; Office number [phone]] WPW (Olzpa-Traqhnanu-Wvqak syndrome) 04/06/2013 Patient has been previously told that he has WPW when reviewed at other facilities but has never been offered rx.review of [facility]s in [facility] do not show clear evidence of WPW. [...] Take 1 tablet by mouth twice daily. Cfpfmexdupdoh-Wwiqjuhd-Muqjew (CENTRUM SILVER) tab Take 1 tablet by [...] as needed for worsening/no improvement. Prabha Multani APRN.SALESPERSON FURNITURE This note was partially generated using Dragon voice recognition system. Note was reviewed for accuracy. There may be minor misspellings or grammar miscues with [employer] voice recognition. documented in this encounter [facility] 04-01-2022 Miscellaneous Notes Svetlana from [...] Carey Winkler, RN documented in this encounter [facility] 03-27-2022 History of Present illness [...] Take 1 tablet by mouth twice daily. Hyxntibfntpts-Zmljkraa-Pdzaaw (CENTRUM SILVER) tab Take 1 tablet by [...] Obstructive sleep apnea PAD (peripheral artery disease) ([facility]) 07/20/2013 Personal history of unspecified urinary disorder Pulmonary nodule, right CT 06/15/14 3mm stable from 11/28/11 RUL Radiation cataract - Right Eye 07/15/2013 Solar Lentigines 02/21/2013 SUMMARY 04/06/2013 62 year old Male with past medical history of hypertension, Beyvd-Feonmobdd-Einlq syndrome admitted with new-onset Atrial fibrillation. Transthoracic [...] on 05/24/13. [Appointment already scheduled; Office number [phone]] WPW (Olndm-Naswfcrcp-Ewloi syndrome) 04/06/2013 Patient has been previously told that he has WPW when reviewed at other facilities but has never been offered rx.review of [facility] in [facility] do not show clear evidence of WPW. [...] MG CAPSULE 3. PAF (paroxysmal atrial fibrillation) ([facility]) - ICD9: 427.31, ICD10: I48.0 4. Stage 3 chronic kidney disease, unspecified whether stage 3a or 3b CKD ([facility]) - ICD9: 585.3, ICD10: N18.30 - reassess - URINALYSIS, WITH MICROSCOPIC 5. Chronic ITP (idiopathic thrombocytopenia) ([facility]) - ICD9: 287.31, ICD10: D69.3 - reassess 6. Hyperglycemia - ICD9: 790.29, ICD10: R73.9 - HGB A1C 7. PAD (peripheral artery disease) ([facility]) - ICD9: 443.9, ICD10: I73.9 8. PSVT (paroxysmal supraventricular tachycardia) ([facility]) - ICD9: 427.0, ICD10: I47.1 9. Chronic kidney disease, stage 3a ([facility]) - ICD9: 585.3, ICD10: N18.31 Carleen Mcnair MD Bp check in one month. Rto in six months documented in this encounter [facility] 01-07-2022 Miscellaneous Notes Patient phones requesting refills as follows: Requested Prescriptions Pending Prescriptions Disp Refills gabapentin (NEURONTIN) 300 mg capsule 90 capsule 2 Sig: Take 1 capsule by mouth three times daily for 90 days. ROBEL 11/12/21 Please review and advise. Johnny Ramirez LPN documented in this encounter [facility] 11-29-2021 History of Present illness Narrative Images from the original note were not included. [facility] [place] DEPARTMENT OF VASCULAR SURGERY OUTPATIENT VISIT DATE November 29, 2021 OUTPATIENT VISIT TYPE CONSULTATION SERVICE DATE: 11/29/2021 SERVICE TIME: 3:04 PM PRIMARY CARE PHYSICIAN: Carleen Mcnair MD REFERRING PROVIDER: Carleen Mcnair [phone] [facility] [id number] Consult requested for an opinion regarding the [...] Obstructive sleep apnea PAD (peripheral artery disease) ([facility]) 07/20/2013 Personal history of unspecified urinary disorder Pulmonary nodule, right CT 06/15/14 3mm stable from 11/28/11 RUL Radiation cataract - Right Eye 07/15/2013 Solar Lentigines 02/21/2013 SUMMARY 04/06/2013 62 year old Male with past medical history of hypertension, Teucm-Cfrnbzzyd-Xqyiv syndrome admitted with new-onset Atrial fibrillation. Transthoracic [...] on 05/24/13. [Appointment already scheduled; Office number [phone]] WPW (Gkajn-Hlyycryyf-Wrukw syndrome) 04/06/2013 Patient has been previously told that he has WPW when reviewed at other facilities but has never been offered rx.review of [facility] in [facility] do not show clear evidence of WPW. [...] Take 1 tablet by mouth twice daily. Bhesybcjpmjcu-Rbiznlnm-Sfcabh (CENTRUM SILVER) tab Take 1 tablet by [...] noted. PVRs R 0.68, L-0.65 IMPRESSION: Mr. aCsh is a 70 year old male with [...] TIME: 3:04 PM documented in this encounter [facility] 11-27-2021 Miscellaneous Notes Spoke /c scheduling, pt is scheduled to see Dr. Lucas on 11/29 in [place]. Pt notified. Johnny Ramirez LPN Reviewed his carotids and pvd. He needs set up to vascular [facility]ris. Has 100% occlusion of his right ICA and 60-79 % on the left pvd. Patient aware. Please set up soon documented in this encounter [facility] 11-27-2021 History of Present illness [...] 2021 11:18 AM documented in this encounter [facility] 11-13-2021 Miscellaneous Notes Patient notified [...] breath or edema. documented in this encounter [facility] 11-12-2021 History of Present illness [...] Take 1 tablet by mouth twice daily. Sluyapfuacjvv-Qhnkgonz-Zkwptw (CENTRUM SILVER) tab Take 1 tablet by [...] Male with past medical history of hypertension, Wvryy-Nsugojmzv-Oqqcz syndrome admitted with new-onset Atrial fibrillation. Transthoracic [...] on 05/24/13. [Appointment already scheduled; Office number [phone]] WPW (Gmxhb-Kaoyclocu-Xntso syndrome) 04/06/2013 Patient has been previously told that he has WPW when reviewed at other facilities but has never been offered rx.review of [facility] in [facility] do not show clear evidence of WPW. [...] months and prn. documented in this encounter [facility] 10-09-2021 Miscellaneous Notes Lia from [facility] called requesting status of requested refill for 08/2021. Pharmacy calls in requesting the following refill(s): Requested Prescriptions Pending Prescriptions Disp Refills apixaban (ELIQUIS) 5 mg tab(s) 180 tablet 3 Sig: Take 1 tablet by mouth twice daily. documented in this encounter [facility] 08-14-2021 Miscellaneous Notes This has been completed documented in this encounter [facility] 08-14-2021 Miscellaneous Notes Spoke to patient to clarify medication. Patient needs short term gabapentin due to no knowing he needed to call na request that refill so should be in on 08/21-08/22. Also needs year supply of benicar [facility]. Medication is pended correctly please send Allison Pak Ma documented in this encounter [facility] 07-12-2021 Miscellaneous Notes ROBEL 05/10/21 Patient has been identified by name and date of : Yes Pending Prescriptions Disp Refills OLMESARTAN 40 MG TABLET 90 tablet 3 Sig: Take 1 tablet by mouth once daily. LUCIA: No RX INSTRUCTIONS: Patient aware RX will be sent to pharmacy. No need to notify patient. Shannan Walton Pss documented in this encounter [facility] documented as of this encounter (statuses as of 07/12/2021) [facility] History of Past illness Narrative* [...] of this encounter (statuses as of 08/14/2021) [facility] of Past illness Narrative* [...] of this encounter (statuses as of 08/14/2021) [facility] of Past illness Narrative* [...] of this encounter (statuses as of 09/17/2021) [facility] of Past illness Narrative* [...] of this encounter (statuses as of 10/09/2021) [facility] of Past illness Narrative* [...] of this encounter (statuses as of 11/12/2021) [facility] of Past illness Narrative* [...] of this encounter (statuses as of 11/15/2021) [facility] of Past illness Narrative* [...] of this encounter (statuses as of 11/19/2021) [facility] of [facility] Narrative* [...] of this encounter (statuses as of 11/27/2021) [facility] Narrative* [...] of this encounter (statuses as of 11/28/2021) [facility] Narrative* [...] of this encounter (statuses as of 12/24/2021) [facility] Narrative* [...] of this encounter (statuses as of 01/07/2022) [facility] Narrative* [...] of this encounter (statuses as of 03/27/2022) [facility] Narrative* [...] of this encounter (statuses as of 04/02/2022) [facility] Narrative* [...] of this encounter (statuses as of 04/29/2022) [facility] Narrative* [...] of this encounter (statuses as of 05/07/2022) [facility] Narrative* [...] of this encounter (statuses as of 07/12/2022) [facility] Narrative* [...] of this encounter (statuses as of 10/01/2022) [facility] Narrative* [...] of this encounter (statuses as of 10/02/2022) [facility] Narrative* [...] of this encounter (statuses as of 10/16/2022) [facility] Narrative* [...] of this encounter (statuses as of 10/16/2022) [facility] Narrative* [...] of this encounter (statuses as of 10/21/2022) [facility] Narrative* [...] of this encounter (statuses as of 12/05/2022) [facility] Narrative* [...] of this encounter (statuses as of 12/11/2022) [facility] Narrative* [...] of this encounter (statuses as of 12/12/2022) [facility] Narrative* [...] of this encounter (statuses as of 01/06/2023) [facility] Narrative* [...] of this encounter (statuses as of 01/08/2023) [facility] Narrative* [...] of this encounter (statuses as of 01/11/2023) [facility] Narrative* [...] of this encounter (statuses as of 01/22/2023) [facility] Narrative* [...] of this encounter (statuses as of 04/09/2023) [facility] Narrative* [...] of this encounter (statuses as of 04/14/2023) [facility] Narrative* [...] of this encounter (statuses as of 04/22/2023) [facility] Diagnosis Neuropathy - (NOS) [facility] Diagnosis PAD (peripheral artery disease) ([facility])- Primary Peripheral vascular disease, unspecified Neuropathy - (NOS) HOMERO (obstructive sleep apnea) Obstructive sleep apnea (adult) (pediatric) PSVT (paroxysmal supraventricular tachycardia) ([facility]) Paroxysmal supraventricular tachycardia Hypertensive kidney disease with stage 3 chronic kidney disease, unspecified whether stage 3a or 3b CKD (HCC) Hyperglycemia Other abnormal glucose Bilateral carotid artery stenosis Occlusion and stenosis of carotid artery without mention of cerebral infarction [facility] Diagnosis Renal insufficiency- Primary Unspecified disorder of kidney and ureter [facility] Diagnosis Tobacco abuse Tobacco use disorder [facility] Diagnosis Occlusion of right carotid artery- Primary Occlusion and stenosis of carotid artery without mention of cerebral infarction Stenosis of left carotid artery Occlusion and stenosis of carotid artery without mention of cerebral infarction PVD (peripheral vascular disease) ([facility]) Peripheral vascular disease, unspecified [facility] Diagnosis Renal insufficiency Unspecified disorder of kidney and ureter [facility] Diagnosis Occlusion of right carotid artery Occlusion and stenosis of carotid artery without mention of cerebral infarction Stenosis of left carotid artery Occlusion and stenosis of carotid artery without mention of cerebral infarction PVD (peripheral vascular disease) ([facility]) Peripheral vascular disease, unspecified [facility] Diagnosis Primary hypertension- Primary Unspecified essential hypertension Neuropathy - (NOS) PAF (paroxysmal atrial fibrillation) ([facility]) Atrial fibrillation Stage 3 chronic kidney disease, unspecified whether stage 3a or 3b CKD (HCC) Chronic ITP (idiopathic thrombocytopenia) (HCC) Immune thrombocytopenic purpura Hyperglycemia Other abnormal glucose PAD (peripheral artery disease) (HCC) Peripheral vascular disease, unspecified PSVT (paroxysmal supraventricular tachycardia) (HCC) Paroxysmal supraventricular tachycardia Chronic kidney disease, stage 3a (HCC) [facility] Diagnosis Neuropathy - (NOS) documented in this encounter [facility] note* Diagnosis Primary hypertension- Primary Unspecified essential hypertension documented in this encounter [facility] note* Diagnosis Essential hypertension Unspecified essential hypertension documented in this encounter [facility] note* Diagnosis Neuropathy - (NOS) documented in this encounter [facility] note* Diagnosis Primary hypertension- Primary Unspecified essential [...] of colonic polyps [facility] Diagnosis Chronic ITP (idiopathic thrombocytopenia) (HCC)- Primary Immune thrombocytopenic purpura Renal insufficiency Unspecified disorder of kidney and ureter [facility] Diagnosis Neuropathy - (NOS) [facility] Diagnosis History of colonic polyps Personal history of colonic polyps [facility] Diagnosis Renal insufficiency Unspecified disorder of kidney and ureter [facility] Diagnosis Special screening for malignant neoplasms, colon- Primary History of colonic polyps Personal history of colonic polyps documented in this encounter [facility] note* Diagnosis Neuropathy - (NOS)- Primary Essential [...] of cerebral infarction [facility] Diagnosis Combined forms of age-related cataract, left eye- Primary 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) Procedures PVR ANK PRESS MARIA DEL [facility] NON-INVAS PHYSIOLOGIC STD EXTREMITY ART 2 LEVEL Carleen Mcnair MD [address] [place] [address] [facility] [address] [place] [address] Referral ID Status Reason Start Date Expiration Date Visits Requested Visits Authorized [id number] Authorized Auto-Generat ed Referral 11/12/2021 11/12/2022 1 1 * Outpatient Procedure (Routine) - Authorized Specialty Diagnoses / Procedures Referred By Contac t Referred To Contact [facility] [place] Diagnoses PAD (peripheral artery disease) (HCC) Bilateral carotid artery stenosis Procedures US CAROTID ARTERIES [facility] DUPLEX SCAN EXTRACRANIAL ART COMPL BI STUDY Carleen Mcnair MD [address] [place] [address] [facility] [place] [address] Referral ID Status Reason Start Date Expiration Date Visits Requested Visits Authorized [id number] Authorized Auto-Generat ed Referral 11/12/2021 11/12/2022 1 1 [facility] for referral (narrative)* Diagnostic Procedure Only (Routine) - Authorized Specialty Diagnoses / Procedures Referred By Contac t Referred To Contact US IMAGING Diagnoses Renal insufficiency Procedures US KIDNEY/BLADDER US RETROPERITONEAL REAL TIME W/IMAGE COMPLETE Carleen Mcnair MD [address] [place] [address] Us Imaging Referral ID Status Reason Start Date Expiration Date Visits Requested Visits Authorized [id number] Authorized Auto-Generat ed Referral 11/13/2021 12/13/2022 1 1 [facility] for referral (narrative)* Diagnostic Procedure Only (Routine) - Closed Specialty Diagnoses / Procedures Referred By Contac t Referred To Contact US IMAGING Diagnoses Renal insufficiency Procedures US KIDNEY/BLADDER US RETROPERITONEAL REAL TIME W/IMAGE COMPLETE Carleen Mcnair MD [address] [place] [address] Us Imaging Referral ID Status Reason Start Date Expiration Date V isits Requested Visits Authorized [id number] Closed Auto-Generate d Referral 11/13/2021 12/13/2022 1 1 T [facility] for referral (narrative)* Outpatient Procedure (Routine) - Pending Review Specialty Diagnoses / Procedures Referred By Contac t Referred To Contact [facility] Diagnoses PVD (peripheral vascular disease) (HCC) Procedures PVR LEG [facility] NON-INVASIVE PHYSIOLOGIC STUDY EXTREMITY 3 Edelmira Salvador DO [address] [place] [address] [facility] [address] [place] [address] Referral ID Status Reason Start Date Expiration Date Visits Requested Visits Authorized [id number] Pending Review Auto-Generat ed Referral 11/29/2021 11/29/2022 1 1 * Outpatient Procedure (Routine) - Pending Review Specialty Diagnoses / Procedures Referred By Contac t Referred To Contact [facility] [place] Diagnoses Occlusion of right carotid artery Stenosis of left carotid artery Procedures US CAROTID ARTERIES [facility] DUPLEX SCAN EXTRACRANIAL ART COMPL BI STUDY Edelmira Lucas DO [address] [place] [address] [facility] [address] [place] [address] Referral ID Status Reason Start Date Expiration Date Visits Requested Visits Authorized [id number] Pending Review Auto-Generat ed Referral 11/29/2021 11/29/2022 1 1 [facility] for referral (narrative)* Outpatient Procedure (Routine) - Authorized Specialty Diagnoses / Procedures Referred By Contac t Referred To Contact [facility] [place] Diagnoses History of colonic polyps Procedures COLONOSCOPY SCREENING COLONOSCOPY FLX DX W/COLLJ SPEC WHEN PFRMD Cleve Gallego MD [address] [place] [address] [facility] Disease [address] [address] Referral ID Status Reason Start Date Expiration Date Visits Requested Visits Authorized [id number] Authorized Auto-Generat ed Referral 12/03/2022 12/04/2023 1 1 [facility] for referral (narrative)* Diagnostic Procedure Only (Routine) - Closed Specialty Diagnoses / Procedures Referred By Contac t Referred To Contact US IMAGING Diagnoses Renal insufficiency Procedures US KIDNEY/BLADDER US RETROPERITONEAL REAL TIME W/IMAGE COMPLETE Carleen Mcnair MD [address] [place] [address] Us Imaging [facility] Referral ID Status Reason Start Date Expiration Date V isits Requested Visits Authorized [id number] Closed Auto-Generate d Referral 10/01/2022 10/31/2023 1 1 [facility] for referral (narrative)* Outpatient Procedure (Routine) - Closed Specialty Diagnoses / Procedures Referred By Contac t Referred To Contact [facility] [place] Diagnoses History of colonic polyps Procedures COLONOSCOPY SCREENING COLONOSCOPY FLX DX W/COLLJ SPEC WHEN Cleve Bustamante MD [address] [place] [address] [address] Referral ID Status Reason Start Date Expiration Date V isits Requested Visits Authorized [id number] Closed Auto-Generate d Referral 12/03/2022 12/04/2023 1 1 [facility] for visit Narrative* Outpatient Procedure (Routine) - Closed Specialty Diagnoses / Procedures Referred By Ada johnson Referred To Contact [facility] [place] Diagnoses History of colonic polyps Procedures COLONOSCOPY SCREENING COLONOSCOPY FLX DX W/COLLJ SPEC WHEN Cleve Bustamante MD [address] [facility] [address] [address] Referral ID Status Reason Start Date Expiration Date V isits Requested Visits Authorized [id number] Closed Auto-Generate d Referral 12/03/2022 12/04/2023 1 1 [facility] Summary Purpose Family History No Family History Records FoundNo Family History Records Found Advance Directives No Advanced Directives Records FoundDocuments on File Type Date Recorded 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 anation Advance Directive(s) 10/25/2019 7:25 AM [...] MDM 60-74 MINUTES Carleen Mcnair MD [address] [place] [address] Referral ID Status Reason Start Date Expiration Date Visits Requested Visits Authorized [id number] Authorized PCP Requested Referral 11/27/2021 11/27/2022 1 1 Specialty Diagnoses / Procedures Referred By Contac t Referred To Contact General Surgery Diagnoses History of colonic polyps Procedures CONSULT TO GENERAL SURGERY OFFICE/OUTPATIENT [facility] 60-74 MINUTES Carleen Mcnair MD [facility] [place] [address] Referral ID Status Reason Start Date Expiration Date Visits Requested Visits Authorized [id number] Authorized PCP Requested Referral 09/30/2022 09/30/2023 1 1 Specialty Diagnoses / Procedures Referred By Contac t Referred To Contact Hematology Diagnoses Chronic ITP (idiopathic thrombocytopenia) ([facility]) Procedures CONSULT TO HEMATOLOGY OFFICE/OUTPATIENT [facility] 60-74 MINUTES Carleen Mcnair MD [address] [place] [address] Referral ID Status Reason Start Date Expiration Date Visits Requested Visits Authorized [id number] Authorized PCP Requested Referral 10/01/2022 10/01/2023 1 1 Specialty Diagnoses / Procedures Referred By Contac t Referred To Contact US IMAGING Diagnoses Renal insufficiency Procedures US KIDNEY/BLADDER US RETROPERITONEAL REAL TIME W/IMAGE COMPLETE Carleen Mcnair MD [address] [place] [address] Us Imaging Referral ID Status Reason Start Date Expiration Date Visits Requested Visits Authorized [id number] Authorized Auto-Generat ed Referral 10/01/2022 10/31/2023 1 1 Specialty Diagnoses / Procedures Referred By Contac t Referred To Contact Ophthalmology Diagnoses Cataract, unspecified cataract type, unspecified laterality Procedures CONSULT TO OPHTHALMOLOGY OFFICE/OUTPATIENT [facility] 60 MINUTES Carleen Mcnair MD [address] [place] [address] Referral ID Status Reason Start Date Expiration Date Visits Requested Visits Authorized [id number] Authorized PCP Requested Referral 04/14/2023 04/13/2024 1 1 Specialty Diagnoses / Procedures Referred By Contac t Referred To Contact Vascular Surgery Diagnoses PAD (peripheral artery disease) ([facility]) Bilateral carotid artery stenosis Procedures CONSULT TO VASCULAR SURGERY OFFICE/OUTPATIENT [facility] 60 MINUTES Carleen Mcnair MD [address] [place] [address] Referral ID Status Reason Start Date Expiration Date Visits Requested Visits Authorized [id number] Authorized PCP Requested Referral 04/14/2023 04/13/2024 1 1 Specialty Diagnoses / Procedures Referred By Contac t Referred To Contact [facility] Diagnoses PAD (peripheral artery disease) (HCC) Bilateral carotid artery stenosis Procedures US CAROTID ARTERIES [facility] DUPLEX SCAN EXTRACRANIAL ART COMPL BI STUDY Carleen Mcnair MD [address] [place] [address] [facility] [address] [place] [address] Referral ID Status Reason Start Date Expiration Date Visits Requested Visits Authorized [id number] Authorized Auto-Generat ed Referral 04/14/2023 04/13/2024 1 1 Specialty Diagnoses / Procedures Referred By Contac t Referred To Contact Cardiology Diagnoses PAF (paroxysmal atrial fibrillation) (HCC) PSVT (paroxysmal supraventricular tachycardia) Procedures CONSULT TO CARDIOLOGY OFFICE/OUTPATIENT [facility] 60 MINUTES Carleen Mcnair MD [address] [place] [address] Referral ID Status Reason Start Date Expiration Date Visits Requested Visits Authorized [id number] Authorized PCP Requested Referral 04/14/2023 04/13/2024 1 [...] DATE CREATED AUTHOR AUTHOR'S ORGANIZ ATION 04/23/2023 [facility] Source Comments (unrecognize d section and content) In the event this informatio n is protected by the Federal Confidentiality of Alcohol and Drug Abuse Patient Records regulations: The Federal rules restrict any use of the information to criminally investigate or prosecute any alcohol or drug abuse patient.[facility] Center[facility] the event this information is protected by the Federal Confidentiality of Alcohol and Drug Abuse Patient Records regulations: The Federal rules restrict any use of the information to criminally investigate or prosecute any alcohol or drug abuse patient.[facility] CenterIn the event this information is protected by the Federal Confidentiality of Alcohol and Drug Abuse Patient Records regulations: The Federal rules restrict any use of the information to criminally investigate or prosecute any alcohol or drug abuse patient.[facility] CenterIn the event this information is protected by the Federal Confidentiality of Alcohol and Drug Abuse Patient Records regulations: The Federal rules restrict any use of the information to criminally investigate or prosecute any alcohol or drug abuse patient.[facility] CenterIn the event this information is protected by the Federal Confidentiality of Alcohol and Drug Abuse Patient Records regulations: The Federal rules restrict any use of the information to criminally investigate or prosecute any alcohol or drug abuse patient.[facility] CenterIn the event this information is protected by the Federal Confidentiality of Alcohol and Drug Abuse Patient Records regulations: The Federal rules restrict any use of the information to criminally investigate or prosecute any alcohol or drug abuse patient.[facility] CenterIn the event this information is protected by the Federal Confidentiality of Alcohol and Drug Abuse Patient Records regulations: The Federal rules restrict any use of the information to criminally investigate or prosecute any alcohol or drug abuse patient.[facility] CenterIn the event this information is protected by the Federal Confidentiality of Alcohol and Drug Abuse Patient Records regulations: The Federal rules restrict any use of the information to criminally investigate or prosecute any alcohol or drug abuse patient.[facility] CenterIn the event this information is protected by the Federal Confidentiality of Alcohol and Drug Abuse Patient Records regulations: The Federal rules restrict any use of the information to criminally investigate or prosecute any alcohol or drug abuse patient.[facility] CenterIn the event this information is protected by the Federal Confidentiality of Alcohol and Drug Abuse Patient Records regulations: The Federal rules restrict any use of the information to criminally investigate or prosecute any alcohol or drug abuse patient.[facility] CenterIn the event this information is protected by the Federal Confidentiality of Alcohol and Drug Abuse Patient Records regulations: The Federal rules restrict any use of the information to criminally investigate or prosecute any alcohol or drug abuse patient.[facility] CenterIn the event this information is protected by the Federal Confidentiality of Alcohol and Drug Abuse Patient Records regulations: The Federal rules restrict any use of the information to criminally investigate or prosecute any alcohol or drug abuse patient.[facility] CenterIn the event this information is protected by the Federal Confidentiality of Alcohol and Drug Abuse Patient Records regulations: The Federal rules restrict any use of the information to criminally investigate or prosecute any alcohol or drug abuse patient.[facility] CenterIn the event this information is protected by the Federal Confidentiality of Alcohol and Drug Abuse Patient Records regulations: The Federal rules restrict any use of the information to criminally investigate or prosecute any alcohol or drug abuse patient.[facility] CenterIn the event this information is protected by the Federal Confidentiality of Alcohol and Drug Abuse Patient Records regulations: The Federal rules restrict any use of the information to criminally investigate or prosecute any alcohol or drug abuse patient.[facility] CenterIn the event this information is protected by the Federal Confidentiality of Alcohol and Drug Abuse Patient Records regulations: The Federal rules restrict any use of the information to criminally investigate or prosecute any alcohol or drug abuse patient.[facility] CenterIn the event this information is protected by the Federal Confidentiality of Alcohol and Drug Abuse Patient Records regulations: The Federal rules restrict any use of the information to criminally investigate or prosecute any alcohol or drug abuse patient.[facility] CenterIn the event this information is protected by the Federal Confidentiality of Alcohol and Drug Abuse Patient Records regulations: The Federal rules restrict any use of the information to criminally investigate or prosecute any alcohol or drug abuse patient.[facility] CenterIn the event this information is protected by the Federal Confidentiality of Alcohol and Drug Abuse Patient Records regulations: The Federal rules restrict any use of the information to criminally investigate or prosecute any alcohol or drug abuse patient.[facility] CenterIn the event this information is protected by the Federal Confidentiality of Alcohol and Drug Abuse Patient Records regulations: The Federal rules restrict any use of the information to criminally investigate or prosecute any alcohol or drug abuse patient.[facility] CenterIn the event this information is protected by the Federal Confidentiality of Alcohol and Drug Abuse Patient Records regulations: The Federal rules restrict any use of the information to criminally investigate or prosecute any alcohol or drug abuse patient.[facility] CenterIn the event this information is protected by the Federal Confidentiality of Alcohol and Drug Abuse Patient Records regulations: The Federal rules restrict any use of the information to criminally investigate or prosecute any alcohol or drug abuse patient.[facility] CenterIn the event this information is protected by the Federal Confidentiality of Alcohol and Drug Abuse Patient Records regulations: The Federal rules restrict any use of the information to criminally investigate or prosecute any alcohol or drug abuse patient.[facility] CenterIn the event this information is protected by the Federal Confidentiality of Alcohol and Drug Abuse Patient Records regulations: The Federal rules restrict any use of the information to criminally investigate or prosecute any alcohol or drug abuse patient.[facility] CenterIn the event this information is protected by the Federal Confidentiality of Alcohol and Drug Abuse Patient Records regulations: The Federal rules restrict any use of the information to criminally investigate or prosecute any alcohol or drug abuse patient.[facility] CenterIn the event this information is protected by the Federal Confidentiality of Alcohol and Drug Abuse Patient Records regulations: The Federal rules restrict any use of the information to criminally investigate or prosecute any alcohol or drug abuse patient.[facility] CenterIn the event this information is protected by the Federal Confidentiality of Alcohol and Drug Abuse Patient Records regulations: The Federal rules restrict any use of the information to criminally investigate or prosecute any alcohol or drug abuse patient.[facility] CenterIn the event this information is protected by the Federal Confidentiality of Alcohol and Drug Abuse Patient Records regulations: The Federal rules restrict any use of the information to criminally investigate or prosecute any alcohol or drug abuse patient.[facility] CenterIn the event this information is protected by the Federal Confidentiality of Alcohol and Drug Abuse Patient Records regulations: The Federal rules restrict any use of the information to criminally investigate or prosecute any alcohol or drug abuse patient.[facility] CenterIn the event this information is protected by the Federal Confidentiality of Alcohol and Drug Abuse Patient Records regulations: The Federal rules restrict any use of the information to criminally investigate or prosecute any alcohol or drug abuse patient.[facility] CenterIn the event this information is protected by the Federal Confidentiality of Alcohol and Drug Abuse Patient Records regulations: The Federal rules restrict any use of the information to criminally investigate or prosecute any alcohol or drug abuse patient.[facility] CenterIn the event this information is protected by the Federal Confidentiality of Alcohol and Drug Abuse Patient Records regulations: The Federal rules restrict any use of the information to criminally investigate or prosecute any alcohol or drug abuse patient.[facility] Reason for Visit (unrecogniz ed section and content) Reason Comments Refill Request Reason Onset Date Comments Refill Request 10/09/2021 Reason Comments 6 Month Exam Reason Comments Results Reason Comments Appointment Reason Comments Radiology US Specialty Diagnoses / Procedures [facility] Diagnoses Renal insufficiency Procedures US KIDNEY/BLADDER US RETROPERITONEAL REAL TIME W/IMAGE COMPLETE Carleen Mcnair MD [address] [place] [address] Us Imaging Referral ID Status Reason Start Date Expiration Date V isits Requested Visits Authorized [id number] Closed Auto-Generate d Referral 11/13/2021 12/13/2022 1 1 Reason Comments New Patient Specialty Diagnoses / Procedures [facility] Referred To Contact V[facility] Surgery Diagnoses Occlusion of right carotid artery Stenosis of left carotid artery PVD (peripheral vascular disease) ([facility]) Procedures CONSULT TO VASCULAR SURGERY OFFICE/OUTPATIENT NEW HIGH MDM 60-74 MINUTES Carleen Mcnair MD [address] [place] [address] Referral ID Status Reason Start Date Expiration Date V isits Requested Visits Authorized [id number] Closed PCP Requested Referral 11/27/2021 11/27/2022 1 [...] polyps Procedures CONSULT TO GENERAL SURGERY OFFICE/OUTPATIENT [facility] 60-74 MINUTES Carleen Mcnair MD [address] [place] [address] Referral ID Status Reason Start Date Expiration Date V isits Requested Visits Authorized [id number] Closed PCP Requested Referral 09/30/2022 09/30/2023 1 1 Reason Comments Patient Update Reason Onset Date Comments Refill Request 12/12/2022 Specialty Diagnoses / Procedures Referred By Ada johnson Referred To Contact US IMAGING Diagnoses Renal insufficiency Procedures US KIDNEY/BLADDER US RETROPERITONEAL REAL TIME W/IMAGE COMPLETE Carleen Mcnair MD [address] [place] [address] [place] [address] Referral ID Status Reason Start Date Expiration Date V isits Requested Visits Authorized [id number] Closed Auto-Generate d Referral 10/01/2022 10/31/2023 1 1 Reason Comments Results Reason Onset Date Comments Refill Request 01/21/2023 Reason Onset Date Comments Refill Request 04/09/2023 Reason Comments 6 Month Exam Reason Comments Comprehensive Eye Exam Specialty Diagnoses / Procedures Referred By Ada johnson Referred To Contact Ophthalmology Diagnoses Cataract, unspecified cataract type, unspecified laterality Procedures CONSULT TO OPHTHALMOLOGY OFFICE/OUTPATIENT [facility] 60 MINUTES Carleen Mcnair MD [address] [place] [address] Referral ID Status Reason Start Date Expiration Date V isits Requested Visits Authorized [id number] Closed PCP Requested Referral 04/14/2023 04/13/2024 1 1 Care Teams (unrecognized sec tion and content) Library Technology Instructor Relationship Specialty Start Date End Date Carleen Mcnair MD [address] [place], [place] [id number] PCP - General Family Practice 10/30/12 Danny Arriola MD [address] [place] [address] Primary Staff Physician Cardiology 05/19/18 Library Technology Instructor Relationship Specialty Start Date End Date Carleen Mcnair MD [address] [place] [address] PCP - General Family Practice 10/30/12 Danny Arriola MD [address] [place] [address] Primary Staff Physician Cardiology 05/19/18 Library Technology Instructor Relationship Specialty Start Date End Date Carleen Mcnair MD [address] [place] [address] PCP - General Family Practice 10/30/12 Danny Arriola MD [address] [place] [address] Primary Staff Physician Cardiology 05/19/18 Library Technology Instructor Relationship Specialty Start Date End Date Carleen Mcnair MD [address] [place] [address] PCP - General Family Practice 10/30/12 Danny Arriola MD [address] [place] [address] Primary Staff Physician Cardiology 05/19/18 Library Technology Instructor Relationship Specialty Start Date End Date Carleen Mcnair MD [address] [place] [address] PCP - General Family Practice 10/30/12 Danny Arriola MD [address] [place] [address] Primary Staff Physician Cardiology 05/19/18 Library Technology Instructor Relationship Specialty Start Date End Date Carleen Mcnair MD [address] [place] [address] PCP - General Family Practice 10/30/12 Danny Arriola MD [address] [facility] [place] [address] Primary Staff Physician Cardiology 05/19/18 Library Technology Instructor Relationship Specialty Start Date End Date Carleen Mcnair MD [address] [place] [address] PCP - General Family Medicine 10/30/12 Danny Arriola MD [address] [place] [address] Primary Staff Physician Cardiology 05/19/18 Library Technology Instructor Relationship Specialty Start Date End Date Carleen Mcnair MD [address] [place] [address] PCP - General Family Medicine 10/30/12 Danny Arriola MD [address] [place] [address] Primary Staff Physician Cardiology 05/19/18 Library Technology Instructor Relationship Specialty Start Date End Date Carleen Mcnair MD [address] [place] [address], [place] [address] PCP - General Family Medicine 10/30/12 Danny Arriola MD [address] [place] [address] Primary Staff Physician Cardiology 05/19/18 Library Technology Instructor Relationship Specialty Start Date End Date Carleen Mcnair MD [address] [place] [address], [place] [address] PCP - General Family Medicine 10/30/12 Danny Arriola MD [address] [facility] [place] [address] Primary Staff Physician Cardiology 05/19/18 Library Technology Instructor Relationship Specialty Start Date End Date Carleen Mcnair MD [address] [place] [address], [place] [address] PCP - General Family Medicine 10/30/12 Danny Arriola MD [address] [place] [address] Primary Staff Physician Cardiology 05/19/18 Library Technology Instructor Relationship Specialty Start Date End Date Carleen Mcnair MD [address] [place] [address] PCP - General Family Medicine 10/30/12 Danny Arriola MD [address] [place] [address] Primary Staff Physician Cardiology 05/19/18 Library Technology Instructor Relationship Specialty Start Date End Date Carleen Mcnair MD [address] [place] [address] PCP - General Family Medicine 10/30/12 Danny Arriola MD [address] [place] [address] Primary Staff Physician Cardiology 05/19/18 Library Technology Instructor Relationship Specialty Start Date End Date Carleen Mcnair MD [address] [place] [address] PCP - General Family Medicine 10/30/12 Danny Arriola MD [address] [place] [address] Primary Staff Physician Cardiology 05/19/18 Library Technology Instructor Relationship Specialty Start Date End Date Carleen Mcnair MD [address] [place] [address] PCP - General Family Medicine 10/30/12 Danny Arriola MD [address] [place] [address] Primary Staff Physician Cardiology 05/19/18 Library Technology Instructor Relationship Specialty Start Date End Date Carleen Mcnair MD [address] [place] [address] PCP - General Family Medicine 10/30/12 Danny Arriola MD [address] [place] [address] Primary Staff Physician Cardiology 05/19/18 Library Technology Instructor Relationship Specialty Start Date End Date Carleen Mcnair MD [address] [place] [address] PCP - General Family Medicine 10/30/12 Danny Arriola MD [address] [place] [address] Primary Staff Physician Cardiology 05/19/18 Library Technology Instructor Relationship Specialty Start Date End Date Carleen Mcnair MD [address] [place] [address] PCP - General Family Medicine 10/30/12 Danny Arriola MD [address] [place] [address] Primary Staff Physician Cardiology 05/19/18 Library Technology Instructor Relationship Specialty Start Date End Date Carleen Mcnair MD [address] [place] [address] PCP - General Family Medicine 10/30/12 Danny Arriola MD [address] [place] [address] Primary Staff Physician Cardiology 05/19/18 Library Technology Instructor Relationship Specialty Start Date End Date Carleen Mcnair MD [address] [place] [address] PCP - General Family Medicine 10/30/12 Danny Arriola MD [address] [place] [address] Primary Staff Physician Cardiology 05/19/18 Library Technology Instructor Relationship Specialty Start Date End Date Carleen Mcnair MD [address] [place] [address] PCP - General Family Medicine 10/30/12 Danny Arriola MD [address] [place] [address] Primary Staff Physician Cardiology 05/19/18 Library Technology Instructor Relationship Specialty Start Date End Date Carleen Mcnair MD [address] [place] [address] PCP - General Family Medicine 10/30/12 Danny Arriola MD [address] [place] [address] Primary Staff Physician Cardiology 05/19/18 Library Technology Instructor Relationship Specialty Start Date End Date Carleen Mcnair MD [address] [place], [place] [address] PCP - General Family Medicine 10/30/12 Danny Arriola MD [address] [place] [address] Primary Staff Physician Cardiology 05/19/18 Library Technology Instructor Relationship Specialty Start Date End Date Carleen Mcnair MD [address] [place] [address] PCP - General Family Medicine 10/30/12 Danny Arriola MD [address] [place] [address] Primary Staff Physician Cardiology 05/19/18 Library Technology Instructor Relationship Specialty Start Date End Date Carleen Mcnair MD [address] [place] [address] PCP - General Family Medicine 10/30/12 Danny Arriola MD [address] [place] [address] Primary Staff Physician Cardiology 05/19/18 Library Technology Instructor Relationship Specialty Start Date End Date Carleen Mcnair MD [address] [place] [address] PCP - General Family Medicine 10/30/12 Danny Arriola MD [address] [place] [address] Primary Staff Physician Cardiology 05/19/18 Library Technology Instructor Relationship Specialty Start Date End Date Carleen Mcnair MD [address] [place] [address] PCP - General Family Medicine 10/30/12 Danny Arriola MD [address] [place] [address] Primary Staff Physician Cardiology 05/19/18 Library Technology Instructor Relationship Specialty Start Date End Date Carleen Mcnair MD [address] [place] [address] PCP - General Family Medicine 10/30/12 Danny Arriola MD [address] [place] [address] Primary Staff Physician Cardiology 05/19/18 FOR RECORDS [...] BE BASED ON THE PRIMARY CLINICAL RECORDS. [facility], [facility]. provides no warranty or guarantee of the accuracy or completeness of information in this document.
[2023-04-25 20:52] LABS: Bacteria 0 SEEN /hpf (None Seen); Mucous, Urine 0 SEEN /hpf (<or=2+); White Blood Cells 0 SEEN /hpf (0-5)
[2023-04-25 21:03] LABS: Glucose, Dipstick Normal (Normal); Ketone-Dipstick Negative (Negative); Leukocyte Esterase-Dipstick Negative /ul (Negative); Nitrite-Dipstick Negative (Negative); Occult Blood-Urine 50 /ul (Negative); Protein-Dipstick 100 mg/dl (Negative); Urine Bilirubin Dipstick Negative (Negative); Urine Urobilinogen 1 mg/dl (Normal)
--- NOTE | 2023-04-25 21:08 | US_ITS ---
STUDY: ABDOMINAL ULTRASOUND - RIGHT UPPER QUADRANT REASON FOR VISIT: Male, 72 years old Cystic liver findings on CT, follow-up TECHNIQUE: Ultrasound evaluation of the right upper quadrant was performed with real-time and static silva-scale imaging. TECHNICAL QUALITY: Adequate. COMPARISON: CT the chest 04/25/2023 FINDINGS: Liver: The liver measures 19.2 cm. There is normal echogenicity of the liver. The bile ducts are within normal limits. There is hepatic color flow. The direction of portal flow is hepatopetal. 2.2 cm multiloculated cyst in the left lobe of the liver. 10 cm mixed cystic and solid hypoechoic mass within the right lobe of the liver corresponding to the large mass seen on CT and not consistent with a simple cyst. Correlation with liver mass protocol CT or MRI is recommended. Posterior to this mass is another 5 cm cyst. Gallbladder: Normal distended gallbladder. The gallbladder wall measures 2 mm. There is a negative sonographic Grande''s sign. There is no pericholecystic fluid. There are no gallstones. Common Bile Duct (C.B.D.): The common bile duct measures mm. Pancreas: Normal size of the head, body and tail of the pancreas. There is normal echogenicity of the pancreas. There is no demonstrated pancreatic mass or cyst. Right Kidney: Normal size of the right kidney. The right kidney measures 9.0 cm. Normal renal cortex. The right cortex measures 1.0 cm. Subcentimeter exophytic cyst in the midsection of right kidney. There is no right hydronephrosis. US/Liver IMPRESSION: Large mixed cystic and solid mass of the right lobe of the liver and correlation with liver mass protocol CT or MRI is recommended. Electronically Signed: Cleve Mathis MD at 8:49 EST ,
[2023-04-25 21:09] LABS: Color, Urine Yellow (Yellow); Urine Clarity Clear (Clear)
[2023-04-25 21:19] LABS: Red Blood Cells-Urine 0-5 SEEN /hpf (0-5); Squamous Epithelial Cells - UA 0-5 SEEN /hpf (0-5)
[2023-04-25] MEDS: Azithromycin 500 MG in Dextrose 5%-Water (250mL Bag) 250 ML 250 MG IV (22:53)
[2023-04-25] MEDS: 0.9% Normal Saline (1000mL) 1,000 ML 100 ML IV (22:53)
[2023-04-25] MEDS: Metoprolol Tartrate 25 MG Tablet PO (23:24)
[2023-04-25] MEDS: cloNIDine HCl 0.2 MG Tablet 0.200000000000000011 MG PO (23:24)
[2023-04-25] MEDS: APIXABAN 5 MG TABLET PO (23:25)
[2023-04-25] MEDS: Gabapentin 400 MG Capsule PO (23:25)
[2023-04-25] MEDS: Dorzolamide HCL/Timolol 10 ml Bottle 1 DRP RIGHT EYE (23:27)
[2023-04-25] MEDS: 0.9% Saline Lock 10 ML Syringe IV (23:28)
[2023-04-26] VITALS (63 sets, daily range): BP systolic 86–192; BP diastolic 61–154; PULSE 82–137; RESP 12–44; TEMP 36.9–39.8; O2SAT 81–98; BMI 36.3; BMI 36.9
[2023-04-26 02:19] LABS: M R Staph aureus DNA By PCR Negative (Negative); Probe Check PASS; Specimen Processing Control PASS
[2023-04-26] MEDS: hydrALAZINE 20 MG/ML Vial 10 MG IV (03:46)
[2023-04-26] MEDS: Oseltamivir Phosphate 75 MG Capsule PO (03:46)
[2023-04-26] MEDS: Albuterol 2.5 MG/3 ML VIAL.NEB. INHALATION (04:32)
[2023-04-26] MEDS: Budesonide Respules 0.5 MG/2 ML AMPUL.NEB. INHALATION (04:32)
--- NOTE | 2023-04-26 04:32 | PCM.HOSP.N ---
Hospitalist Note Patient with increased dyspnea, onset notable wheezing, increased oxygenation requirement. Will obtain ABG, will add ipratropium aerosols in addition to his current regimen. Will also add steroids at this time and continue to monitor.
[2023-04-26] MEDS: MethylPREDNISolone 125 MG/2 ML Vial IV (04:48)
[2023-04-26 04:58] LABS: Allen Test Positive; Base Excess -14 mmol/L (-2 to +2); Bicarbonate 16.4 mmol/L (22-26); Blood Gas Specimen Type ART; Mode Not entered; O2 Delivery Device Cannula; PO2 89 mmHG (75-100); SITE L Radial; SO2 91 % (95-99); Total Carbon Dioxide 18 mmol/L; pCO2 59.8 mmHg (35-45); pH 7.05 (7.35-7.45)
[2023-04-26] MEDS: dilTIAZem 25 MG/5 ML Vial 20 MG IV BOLUS (05:10)
[2023-04-26] MEDS: 0.9% Saline Lock 10 ML Syringe IV ×6 (05:11→13:49)
[2023-04-26] MEDS: Sodium Bicarbonate 8.4% 50 ML Syringe 50 MEQ IV (05:19)
[2023-04-26 05:37] LABS: Absolute Lymphocyte Count 4.14 X10^3/uL (0.83-4.51); Absolute Neutrophil Count 5.2 X10^3/uL (2.0-7.7); Basophil# 0.09 X10^3/uL; Basophil% 0.8 % (0-1); Eosinophil# 0.03 X10^3/uL; Eosinophils% 0.3 % (0-5); Hematocrit 53.4 % (40-54); Hemoglobin 16.8 g/dL (13.0-16.5); Lymphocyte # 4.14 X10^3/ul (0.83-4.51); Lymphocyte % 36.3 % (19-41); Mean Corp Hgb Conc 31.5 g/dL (32-36); Mean Corpuscular Hgb 31.9 pg (27.0-32.0); Mean Corpuscular Volume 101.5 fL (80-94); Mean Platelet Vol. 12.9 fl (6.2-12.0); Monocyte# 1.69 X10^3/uL; Monocyte% 14.8 % (0-10); NRBC Flagged by Analyzer 0 % (0-5); Neutrophil # 5.18 X10^3/uL (2.7-7.7); Neutrophil % 45.4 % (47-70); POSITIVE COUNT YES; POSITIVE DIFFERENTIAL YES; Platelet Count 96 K/mm3 (150-450); RBC Distribution Width CV 14.8 % (11.6-14.6); RBC Distribution Width SD 55.9 fl (35.1-43.9); Red Blood Count 5.26 M/mm3 (4.6-6.2); White Blood Count 11.4 K/mm3 (4.4-11.0)
--- NOTE | 2023-04-26 05:40 | NURSING ---
pt became SOB going to the BR, increased 02 requirements, LS wheezy. RT notified for breathing treatment, MD notified. New orders placed, ABG obtained w/ critical results, started on bipap. Decision to move pt up to ICU. Report given to Reina VERMA.
[2023-04-26] MEDS: Furosemide 40 MG/4 ML Vial IV ×2 (05:49→07:50)
[2023-04-26 05:52] LABS: Differential Indicated SCAN CRITERIA MET
[2023-04-26 06:03] LABS: BNP,B-Type NATRIURETIC PEPTIDE 844.3 pg/mL (0-100)
[2023-04-26] MEDS: Propofol 10MG/Ml 1,000 MG/100 ML Bottle 7.70000000000000018 MG CONT INF ×2 (06:15→17:37)
--- NOTE | 2023-04-26 06:15 | PCM.HOSP.N ---
Hospitalist Note Patient unfortunately transition to the ICU and then refused to maintain his BiPAP on with worsening respiratory status. Patient with more overt evidence of volume overload. Will continue Lasix 40 mg IV twice daily and will request echocardiogram. BNP resulted 844.3. Mag pending. Intubation Note: Patient with evidence of respiratory and/or impending distress. Medications administered: Etomidate, Versed, succinylcholine. ETT size: 7.5 Patient intubated in standard fashion with visualization of the vocal cords and passage of the ETT. Positioning verified with auscultation. Post-intubation CXR requested. Will continue with planned home care provider consultation. Will maintain on propofol and fentanyl for sedation. Procedures Hospitalists Procedures: 66048 Insert Emergency Airway
--- NOTE | 2023-04-26 06:16 | ECHOCS_ITS ---
Reason For Study: CHF Procedure This was a 2D Doppler, Color Flow transthoracic echocardiogram. The study was technically difficult. Due to body habitus and patient on vent. Contrast injection was performed. Exam performed portable in ICU/CCU. Left Ventricle Moderately dilated left ventricle. The estimated ejection fraction is 40-45 %. Right Ventricle The right ventricular cavity is small. RV compression noted and diastolic Consistent with signs of pretamponade. Atria The left atrium is mildly enlarged. Normal right atrium. Mitral Valve There is no mitral annular calcification. Tricuspid Valve Normal tricuspid valve. Aortic Valve Trisinus/trileaflet aortic valve. Pulmonic Valve The pulmonic valve is not well visualized. Great Vessels Normal aortic root. Pericardium/Pleural Moderate pericardial effusion. Medication Diluted definity 3.0ml given slow IV push to enhance endocardial definition. MMode/2D Measurements & Calculations LVIDd: 4.9 cm IVSd: 1.3 cm Ao root diam: 3.3 cm LVIDs: 3.8 cm LVPWd: 1.5 cm RVDd: 3.0 cm FS: 22.5 % LAV(MOD-bp): 69.9 ml LVAd ap4: 21.7 cm2 LVAd ap2: 25.4 cm2 LAV(MOD-bp) Indexed: 27.7 ml/m2 LVLd ap4: 8.0 cm LVLd ap2: 7.5 cm LAV(MOD-sp2): 69.1 ml EDV(MOD-sp4): 47.6 ml EDV(MOD-sp2): 70.0 ml LAV(MOD-sp4): 69.0 ml EDV(sp4-el): 50.3 ml EDV(sp2-el): 72.7 ml LVAs ap4: 13.6 cm2 LVAs ap2: 18.6 cm2 LVLs ap4: 6.2 cm LVLs ap2: 6.9 cm ESV(MOD-sp4): 24.6 ml ESV(MOD-sp2): 40.7 ml ESV(sp4-el): 25.1 ml ESV(sp2-el): 42.5 ml EF(MOD-sp4): 48.4 % EF(MOD-sp2): 41.9 % EF(sp4-el): 50.1 % SV(MOD-sp4): 23.0 ml SV(MOD-sp2): 29.4 ml SV(sp4-el): 25.2 ml LA A4 area: 22.6 cm2 LA dimension(2D): 5.4 cm RA A4 area: 20.6 cm2 TAPSE: 2.1 cm Doppler Measurements & Calculations MV E max kathy: 102.8 cm/sec MV V2 max: 126.5 cm/sec Ao V2 max: 119.3 cm/sec MV max P.4 mmHg Ao max P.7 mmHg MV V2 mean: 57.3 cm/sec Ao V2 mean: 87.9 cm/sec MV mean P.8 mmHg Ao mean P.5 mmHg MV V2 VTI: 28.1 cm Ao V2 VTI: 16.8 cm AV (velocity ratio): 0.66 LV V1 max: 71.3 cm/sec PA V2 max: 53.7 cm/sec LV V1 max P.0 mmHg PA V2 mean: 37.0 cm/sec LV V1 mean P.3 mmHg LV V1 mean: 55.0 cm/sec LV V1 VTI: 11.1 cm ECHO/Echo Complete W/ Contrast Interpretation Summary Patient on a ventilator with limited study/TDS. The estimated ejection fraction is 40-45 %. Moderate LV systolic dysfunction with global LV hypokinesia RV compression noted and diastolic Consistent with signs of pretamponade Normal LV inflow pattern. Moderate pericardial effusion In comparison to previous echo in April 2023 increase in size of pericardial effusion with signs of early tamponade /RV cavity size is small Ordering Physician: Mohini Leslie Referring Physician: Pedro Mcnair Performed By: Celine Alba, MIKAELA, RVT
[2023-04-26 06:19] LABS: ALB/GLOB Ratio 0.8 RATIO (0.9-2.4); AST(SGOT) 149 U/L (15-37); Alanine Aminotransfer ALT/SGPT 80 U/L (16-61); Albumin, Serum 3.4 g/dL (3.2-5.0); Alkaline Phosphatase 82 U/L (45-117); Anion Gap 10 (5-15); BUN 26 mg/dL (7-18); BUN/Creat Ratio 11.2 RATIO (10-20); Calcium,Total 8.2 mg/dL (8.5-10.1); Chloride 105 mmol/L (98-107); Creatinine, Serum 2.32 mg/dL (0.70-1.30); EST Glomerular Filtration Rate 29 mL/min (>60); Est Glom Filt Rate - Afr Amer 36 mL/min (>60); Globulin 4.4 g/dL (2.2-4.2); Glucose 110 mg/dL (74-106); Potassium 3.9 mmol/L (3.5-5.1); Protein, Total 7.8 g/dL (6.4-8.2); Sodium Level 140 mmol/L (136-145); T4 Free Direct 0.92 ng/dL (0.76-1.46); Thyroid Stim Hormone (TSH) 0.69 uIU/mL (0.358-3.74)
--- NOTE | 2023-04-26 06:25 | RAD_ITS ---
STUDY: X-RAY CHEST REASON FOR EXAM: Male, 72 years old. To confirm ET placement -- Call wet read to MD TECHNIQUE: Single AP portable view of the chest. COMPARISON: 04/25/2023 FINDINGS: Interval placement of endotracheal tube with the tip approximately 6 cm above the ryan. Interval placement of nasogastric tube with the tip below the diaphragm. Alveolar opacity in the lower right lung consistent with right lower lobe pneumonia. There is no demonstrated pleural abnormality. There is moderate cardiac enlargement. Normal mediastinum and zee. Normal visualized pulmonary arteries. Normal visualized aortic arch and descending thoracic aorta. Normal visualized thoracic spine. Normal visualized ribs, clavicles, and shoulders. There is no demonstrated abnormality of the visualized soft tissue structures of the upper abdomen. RAD/Chest 1 View (Portable) IMPRESSION: 1. Interval placement of endotracheal tube with the tip above the ryan. 2. Interval placement of nasogastric tube with the tip below the diaphragm. 3. Right lower lobe pneumonia. 4. Cardiomegaly. Electronically Signed: Cleve Mathis MD at 9:58 EST ,
--- NOTE | 2023-04-26 06:25 | RAD_ITS ---
STUDY: X-RAY - ABDOMEN/PELVIS REASON FOR EXAM: Male, 72 years old. Confirm OG placement -- Prior to admin of any med,fluid,flush,enteral feed TECHNIQUE: Single AP view of the abdomen / pelvis. COMPARISON: None. FINDINGS: Nasogastric tube with the tip in the midline likely in the antrum the stomach. There is an unremarkable bowel gas pattern. The visualized liver, spleen and kidneys are grossly normal in size and morphology. Normal soft tissue structures. Normal visualized osseous structures. RAD/Abdomen Single View (Portable) IMPRESSION: 1. Nasogastric tube with the tip in the midline likely in the antrum the stomach. 2. No bowel obstruction. Electronically Signed: Cleve Mathis MD at 9:57 EST ,
[2023-04-26] MEDS: fentaNYL drip 100 ML 2.5 MCG CONT INF (06:30)
[2023-04-26] MEDS: Ipratropium 0.5 MG/2.5 ML SOLUTION INHALATION ×3 (06:46→15:12)
[2023-04-26] MEDS: Pantoprazole Sodium 40 MG in 0.9% Normal Saline (100mL MB+) 100 ML 330 MG IV (06:49)
[2023-04-26] MEDS: Succinylcholine Chloride 200 MG/10 ML SYRINGE 100 MG IV (06:54)
[2023-04-26] MEDS: Midazolam 5 MG/ML Syringe 4 MG IV (06:54)
[2023-04-26] MEDS: Etomidate 20 MG/10 ML Vial IV (06:54)
[2023-04-26 06:59] LABS: Magnesium 2.4 mg/dL (1.6-2.6)
[2023-04-26] MEDS: dilTIAZem 25 MG/5 ML Vial 10 MG IV BOLUS (07:01)
--- NOTE | 2023-04-26 07:05 | NURSING ---
0555: Dr. Leslie paged, notified of pt ripping BIPAP off and refusing to wear it. Pt is extremely diaphoretic, working hard to breathe, and mottled. MD gave orders to prepare for intubation. 0605: Dr. Leslie at bedside for intubation. 0607: 20 mg etomidate IVP x1 given 0608: 4 mg versed IVP x1 given 0609: 100 mg succinylcholine IVP x1 given 0610: Intubated, #7.5 mm ETT, 23 @ lip, bilateral breath sounds and positive color change noted. Bilateral wrist restraints applied to maintain tube/line safety. 16 Fr OG and Ruiz also inserted; X-ray at bedside.
[2023-04-26 07:16] LABS: Allen Test Positive; Base Excess -6 mmol/L (-2 to +2); Bicarbonate 22.8 mmol/L (22-26); Blood Gas Specimen Type ART; Mode AC; O2 Delivery Device Adult Vent; PEEP 8; PO2 106 mmHG (75-100); RR 16; SITE L Radial; SO2 96 % (95-99); Total Carbon Dioxide 25 mmol/L; pH 7.18 (7.35-7.45)
[2023-04-26 07:19] LABS: Platelet Estimate SLT DEC (ADEQ)
[2023-04-26 07:53] LABS: CPK Total, Creatine Kinase 1871 U/L (39-308); Triglycerides 134 mg/dL
[2023-04-26] MEDS: Chlorhexidine 15 ML PO (08:00)
[2023-04-26] MEDS: Acetaminophen 650 MG Suppository RC ×2 (08:21→13:59)
[2023-04-26] MEDS: Propofol 10MG/Ml 1,000 MG/100 ML Bottle 23.1000000000000014 MG CONT INF (09:32)
[2023-04-26 09:50] LABS: Allen Test Positive; Base Excess -5 mmol/L (-2 to +2); Bicarbonate 23.2 mmol/L (22-26); Blood Gas Specimen Type ART; Mode AC; O2 Delivery Device Adult Vent; PEEP 8; PO2 90 mmHG (75-100); RR 16; SITE L Radial; SO2 95 % (95-99); Total Carbon Dioxide 25 mmol/L
[2023-04-26] MEDS: Dorzolamide HCL/Timolol 10 ml Bottle 1 DRP RIGHT EYE (11:09)
--- NOTE | 2023-04-26 14:10 | PN_ITS ---
Subjective Subjective Patient seen and examined. HE is intubated and sedated. Unable to do review of systems. He is febrile, with temp of 101.2. Objective Data Objective Data Vital Signs: Vital Signs Temp Pulse Resp BP Pulse Ox O2 Del Method O2 Flow Rate 101.2 F H 89 20 H 93/65 97 Mechanical Ventilator 10 04/26/23 13:15 04/26/23 13:15 04/26/23 13:15 04/26/23 13:15 04/26/23 13:15 04/26/23 13:15 04/26/23 04:55 FiO2 70 04/26/23 13:15 Oxygen Flow Rate (L/min) 10 Oxygen Delivery Method Mechanical Ventilator Weight: 287 lb 11.252 oz Body Mass Index (BMI) 36.9 Intake & Output: Intake and Output for Last 24 Hours 04/24/23 04/25/23 04/26/23 23:59 23:59 23:59 Intake Total 1162 / 1417 1236.24 / 1236.24 Output Total 305 / 305 Balance 1162 / 1417 931.24 / 931.24 Lab / Micro Data 04/26/23 05:22 04/26/23 05:22 Labs: Laboratory Results - last 24 hr 04/25/23 15:44: WBC 6.7, RBC 4.83, Hgb 15.3, Hct 47.4, MCV 98.1 H, MCH 31.7, MCHC 32.3, RDW Std Deviation 52.8 H, RDW Coeff of Sabra 14.6, Plt Count 85 L, MPV 12.9 H, Immature Gran % (Auto) 0.700, Neut % (Auto) 78.1 H, Lymph % (Auto) 8.0 L , Salem % (Auto) 12.8 H, Eos % (Auto) 0.1, Baso % (Auto) 0.3, Absolute Neuts (a uto) 5.3, Absolute Lymphs (auto) 0.54 L, Nucleated RBC % 0, Differential Comment SEE COMMENTS, Platelet Estimate MOD DEC, RBC Morphology N CHROM, Anisocytosis 1+, Macrocytosis 1+ 04/25/23 16:00: Sodium 139, Potassium 4.5, Chloride 104, Carbon Dioxide 29.0, Anion Gap 6, BUN 25 H, Creatinine 2.05 H, Estim Creat Clear Calc 45.94, Est GFR (MDRD) Af Amer 41 L, Est GFR (MDRD) Non-Af 34 L, BUN/Creatinine Ratio 12.2, Glucose 132 H, Calcium 9.1, Total Bilirubin 0.70, AST 29, ALT 22, Alkaline Phosphatase 73, Total Protein 7.8, Albumin 3.6, Globulin 4.2, Albumin/Globulin Ratio 0.9 04/25/23 20:41: Urine Color Yellow, Urine Clarity Clear, Urine pH 6.0, Ur Specific Elcho 1.020, Urine Protein 100 H, Urine Glucose (UA) Normal, Urine Ketones Negative, Urine Occult Blood 50 H, Urine Nitrite Negative, Urine Bilirubin Negative, Urine Urobilinogen 1 H, Ur Leukocyte Esterase Negative, Urine RBC 0-5 SEEN, Urine WBC 0 SEEN, Ur Squamous Epith Cells 0-5 SEEN, Urine Bacteria 0 SEEN, Urine Mucus 0 SEEN 04/25/23 23:25: MRSA (PCR) Negative 04/26/23 05:22: WBC 11.4 H, RBC 5.26, Hgb 16.8 H, Hct 53.4, MCV 101.5 H, MCH 31.9, MCHC 31.5 L, RDW Std Deviation 55.9 H, RDW Coeff of Sabra 14.8 H, Plt Count 96 L, MPV 12.9 H, Immature Gran % (Auto) 2.400 H, Neut % (Auto) 45.4 L, Lymph % (Auto) 36.3, Salem % (Auto) 14.8 H, Eos % (Auto) 0.3, Baso % (Auto) 0.8, Absolute Neuts (auto) 5.2, Absolute Lymphs (auto) 4.14, Nucleated RBC % 0, Platelet Estimate SLT DEC, Sodium 140, Potassium 3.9, Chloride 105, Carbon Dioxide 25.0, Anion Gap 10, BUN 26 H, Creatinine 2.32 H, Estim Creat Clear Calc 40.40, Est GFR (MDRD) Af Amer 36 L, Est GFR (MDRD) Non-Af 29 L, BUN/Creatinine Ratio 11.2, Glucose 110 H, Calcium 8.2 L, Magnesium 2.4, Total Bilirubin 0.70, AST 149 H, ALT 80 H, Alkaline Phosphatase 82, Total Creatine Kinase 1871 H, B-Natriuretic Peptide 844.3 H, Total Protein 7.8, Albumin 3.4, Globulin 4.4 H, Alb umin/Globulin Ratio 0.8 L, Triglycerides 134, TSH 0.69, Free T4 0.92 Micro: Microbiology 04/26/23 00:07 Stool Enteric Bacteriology - Final 04/26/23 00:07 Stool Clostridioides difficile (PCR) - Final 04/26/23 10:30 Gastric Fluid/Contents Gastric Occult Blood - Final Occult Blood Positive 04/25/23 23:15 Mucosa - Nasopharyngeal Respiratory Panel (PCR) - Final 04/25/23 20:48 Urine, Random Legionella Antigen - Final 04/25/23 20:48 Urine, Random Streptococcus pneumoniae Antigen (M - Final 04/25/23 15:52 Mucosa - Nose SARS-CoV-2, Influenza & RSV (PCR) - Final ABG Data ABG results: ABG 04/26/23 04/26/23 04/26/23 04:54 07:12 09:45 Specimen Type ART ART ART Sample Site L Radial L Radial L Radial pH 7.05 L* 7.18 L* 7.20 L Bicarbonate Actual 16.4 L 22.8 23.2 Total CO2 18 25 25 Base Excess -14 L -6 L -5 L O2 Saturation 91 L 96 95 O2 % 8.0 100.0 80.0 ABG pCO2 59.8 H 61.0 H 59.0 H ABG pO2 89 106 H 90 Kolby Test Positive Positive Positive Respiration Rate 16 16 O2 Delivery Device Cannula Adult Vent Adult Vent Vent Mode Not entered AC AC Tidal Volume 450.0 450.0 POC PEEP 8 8 Crit Call To/Read Back Yes Yes Yes Blood Gas Notified Whom DR DON OSEGUERA Blood Gas Notified Time 04:56:13 07:14:06 09:47:19 Radiography Diagnostic Testing: Radiology Impression Chest X-Ray 04/25/23 16:10 IMPRESSION: Right lower lobe interstitial infiltrate. Electronically Signed: Guru Nelson MD at 16:47 EST , Chest CTA 04/25/23 17:18 IMPRESSION: Moderate pericardial effusion increased. Prominent nonspecific mediastinal lymphadenopathy. Mild infiltrate left lower lobe. 2.7 cm left thyroid lesion. Recommend follow-up nonemergent thyroid ultrasound. Large cystic lesion within the liver incompletely imaged at the edge of the [id number]. Electronically Signed: Guru Nelson MD at 18:56 EST , Liver Ultrasound 04/25/23 21:08 IMPRESSION: Large mixed cystic and solid mass of the right lobe of the liver and correlation with liver mass protocol CT or MRI is recommended. Electronically Signed: Cleve Mathis MD at 8:49 EST , Echocardiogram 04/26/23 06:16 Interpretation Summary Patient on a ventilator with limited study/TDS. The estimated ejection fraction is 40-45 %. Moderate LV systolic dysfunction with global LV hypokinesia RV compression noted and diastolic Consistent with signs of pretamponade Normal LV inflow pattern. Moderate pericardial effusion In comparison to previous echo in April 2023 increase in size of pericardial effusion with signs of early tamponade /RV cavity size is small Ordering Physician: Mohini Leslie Referring Physician: Pedro Mcnair Performed By: Celine Alba, MIKAELA, RVT Chest X-Ray 04/26/23 06:25 IMPRESSION: 1. Interval placement of endotracheal tube with the tip above the ryan. 2. Interval placement of nasogastric tube with the tip below the diaphragm. 3. Right lower lobe pneumonia. 4. Cardiomegaly. Electronically Signed: Cleve Mathis MD at 9:58 EST , KUB X-Ray 04/26/23 06:25 IMPRESSION: 1. Nasogastric tube with the tip in the midline likely in the antrum the stomach. 2. No bowel obstruction. Electronically Signed: Cleve Mathis MD at 9:57 EST , Physical Exam Const Constitutional Narrative: intubated, sedated, RASS score is -4 HEENT normocephalic and head/scalp atraumatic Eyes PERRL and EOMs intact bilaterally Neck no lymphadenopathy and supple Resp Resp Narrative: moderately diminished breath sounds bibasally, no wheezes or crackles. Intubated and sedated. Cardio regular rate, regular rhythm, S1 normal heart sound, S2 normal heart sound and no murmurs GI normal to inspection, nondistended, normoactive bowel sounds, soft to palpation, non-tender and non-distended Extremity Extremity Narrative: bilateral diminished peripheral pulses. feet are cyanotic Neuro Neuro Narrative: intubated, sedated, RASS score is -4 Assessment & Plan Assessment/Plan (1) Pneumonia: (2) Hypoxia: PLAN: Plan #Acute hypoxic respiratory failure due to community acquired pneumonia * Was admitted with a complaint of cough and headache as well as fever and weakness at about 35 prior to admission. * Chest x-ray showed right lower lobe interstitial infiltrates. CTA of the chest showed moderate pericardial effusion with prominent nonspecific mediastinal lymphadenopathy and mild left lower lobe infiltrate. * Patient went into worsening respiratory distress and had to be emergently intubated after admission. * Titrate oxygen to maintain saturation above 90%. Critical care consulted. Await recs. * On IV ceftriaxone and azithromycin. Will broaden antibiotics to IV vancomycin and Zosyn. * Blood in sputum cultures pending. Urine for strep and Legionella negative. * #Moderate pericardial effusion * This seems to be chronic. We back in 2011 patient had a PET scan on account of a liver mass and at that time it showed pericardial effusion as well. CT of the chest done during this admission was negative for any evidence of PE but showed a moderate pericardial effusion which appeared to have enlarged. * 2D echo done today showed: EF of 45% with moderate left ventricular systolic dysfunction with global left ventricular hypokinesis consistent with signs of pre-tamponade. Consult cardiology. * cardiology consulted for evaluation * #Liver mass * CT chest showed a large cystic lesion within the liver. This is chronic and has appeared on previous images dating back to 2012. * Per PET scan done in 2012, imaging was concerning for cancer but patient had not followed up * Liver ultrasound showed large mixed cystic and solid mass of the right lobe of the liver. * Will need follow-up with oncology on outpatient basis. * #Left thyroid lesion: CT showed a left thyroid lesion which was about 2.7 cm. To have nonemergent outpatient thyroid ultrasound follow-up #Hypertension: BP meds on hold as patient is currently intubated and sedated. IV hydralazine as needed. #Hyperlipidemia: Not on statin. Unclear why. #PAD: S/p bilateral lower extremity stents. On Eliquis at home. Feet are dark with diminished pulses today. Patient started on heparin drip. Eliquis held. #Paroxysmal A-fib: On metoprolol. Eliquis on hold and patient currently on heparin drip. #DVT prophylaxis: On heparin drip Charges/Coding Visit Charges Inpatient E&M: 39608 [facility] L3
[2023-04-26 14:34] LABS: Prothrombin Time (Protime)PT. 23.2 SECONDS (11.7-14.9)
[2023-04-26 14:43] LABS: Partial Thromboplast Time 38.1 Seconds (24.1-36.2)
--- NOTE | 2023-04-26 14:59 | PCMCONS.TICU ---
HPI Consult Data Date of Consult: 04/26/23 HPI Narrative HPI Narrative: JOSE L ZARAGOZA, is a 72 M who presents [facility] Medical History (Updated 04/26/23 @ 15:[address] Buddy Aguilera MD) Chronic idiopathic thrombocytopenia Chronic neuropathic pain CKD (chronic kidney disease) HLD (hyperlipidemia) Hypertension Obesity Ocular melanoma PAD (peripheral artery disease) Paroxysmal atrial fibrillation Peripheral vascular disease Tobacco abuse Home Medications apixaban 5 mg tablet 5 mg PO BID blood thinner 10/27/18 [History Last Taken 04/25/23] clonidine HCl 0.2 mg tablet 0.2 mg PO BID 11/03/18 [Rx Last Taken 04/25/23] dorzolamide 22.3 mg-timolol 6.8 mg/mL eye drops 1 drp RIGHT EYE BID 11/03/18 [Rx Last Taken 04/25/23] metoprolol tartrate 25 mg tablet 25 mg PO BID 11/03/18 [Rx Last Taken 04/25/23] multivitamin,[id number] 27 mg-0.4 mg tablet 1 tab PO DAILY@0800 11/03/18 [Rx Last Taken 04/25/23] acetaminophen 500 mg tablet 1,000 mg PO Q8 PRN pain 04/25/23 [History Last Taken 04/25/23] duloxetine 30 mg capsule,delayed release 30 mg PO DAILY 04/25/23 [History Last Taken 04/25/23] gabapentin 400 mg capsule 400 mg PO TID 04/25/23 [History Last Taken 04/25/23] olmesartan 40 mg tablet 40 mg PO DAILY 04/25/23 [History Last Taken 04/25/23] Allergy/AdvReac Type Severity Reaction Status Date / Time nebivolol HCl [From Bystolic] Allergy Other Verified 04/25/23 14:57 Penicillins Allergy Other Verified 04/25/23 14:57 trandolapril [From Tarka] Allergy Other Verified 04/25/23 14:57 verapamil HCl [From Tarka] Allergy Other Verified 04/25/23 14:57 Family History Mother Heart disease Father Heart disease Surgical History (Updated 04/26/23 @ 00:[address] Mohini Leslie MD) History of eye surgery S/P arthroscopic surgery of right knee S/P peripheral artery angioplasty with stent placement Social History (Updated 04/26/23 @ 00:[address] Mohini Leslie MD) household members: significant other Smoking Status: Current every day smoker tobacco type: cigarettes alcohol intake: current alcohol intake frequency: a few times a month substance use type: does not use Objective Data Objective Data Vital Signs: Vital Signs Last response Temperature 38.4 C H 04/26/23 13:15 Temperature Source Core 04/26/23 13:15 Pulse Rate 89 04/26/23 13:15 Respiratory Rate 20 H 04/26/23 13:15 Respiratory Effort Accessory Muscle Use, Mechanically Ventilated 04/26/23 12:00 Respiratory Depth Normal 04/26/23 12:00 Respiratory Pattern Normal 04/26/23 12:00 Blood Pressure 93/65 04/26/23 13:15 Blood Pressure Mean 74 04/26/23 13:15 Blood Pressure Source Monitor 04/26/23 13:15 Blood Pressure Position Semi-Fowlers 04/26/23 13:15 Blood Pressure Location Right Arm 04/26/23 13:15 Pulse Ox 97 04/26/23 13:15 Oxygen Delivery Method Mechanical Ventilator 04/26/23 13:15 Oxygen Flow Rate (L/min) 10 04/26/23 04:55 Fraction of Inspired Oxygen (FIO2) 70 04/26/23 13:15 I&O: I&O Last 24 Hours 04/25/23 04/26/23 04/26/23 23:59 11:59 23:59 Intake Total 1162 / 1417 1191.75 / 1236.24 44.49 / 1236.24 Output Total 160 / 305 145 / 305 Balance 1162 / 1417 1031.75 / 931.24 -100.51 / 931.24 I&O: Total Stay 04/25/23 14:56 thru 04/26/23 13:15 Intake Total 2398.24 Output Total 305 Balance 2093.24 Current Meds Ordered / Administered: Current meds ordered / Administered Generic Name Dose Route Start Last Admin Trade Name Freq PRN Reason Stop Dose Admin Acetaminophen 650 mg 04/25/23 21:08 Acetaminophen 325 Mg Tablet PO Q4H PRN PRN Fever, pain 1-10/ Acetaminophen 650 mg 04/26/23 07:56 04/26/23 13:59 Acetaminophen 650 Mg Suppository RC 650 mg Q4H PRN PRN Administration TEMP > 100.5 F Al Hydroxide/Mg Hydroxide 30 ml 04/25/23 21:08 Mag Hydrox/Al Hydrox/Simeth 30 Ml Udc PO Q6H PRN PRN Gastric Burning Albuterol Sulfate 2.5 mg 04/25/23 21:08 04/26/23 04:32 Albuterol 2.5 Mg/3 Ml Vial.Neb. INHALATION 2.5 mg Q2H PRN PRN Administration Dyspnea, wheezing Budesonide 0.5 mg 04/25/23 21:15 04/26/23 04:32 Budesonide Respules 0.5 Mg/2 Ml Ampul.Neb. INHALATION 0.5 mg BID.RT [place] Administration Chlorhexidine Gluconate 15 ml 04/26/23 10:00 04/26/23 08:00 Chlorhexidine 15 Ml PO 15 ml BID [place] Administration Clonidine 0.2 mg 04/25/23 22:07 04/26/23 07:49 Clonidine Hcl 0.2 Mg Tablet PO Not Given BID [place] Protocol Dorzolamide/Timolol 1 drp 04/25/23 22:07 04/26/23 11:09 Dorzolamide Hcl/Timolol 10 Ml Bottle RIGHT EYE 1 drp BID [place] Administration Duloxetine HCl 30 mg 04/26/23 10:00 04/26/23 07:49 Duloxetine Hcl 30 Mg Capsule PO Not Given DAILY [place] Furosemide 40 mg 04/26/23 10:00 04/26/23 07:50 Furosemide 40 Mg/4 Ml Vial IV 40 mg BIDLX [place] Administration Protocol Gabapentin 400 mg 04/25/23 22:07 04/26/23 13:48 Gabapentin 400 Mg Capsule PO Not Given TID [facility] Guaifenesin 20 ml 04/25/23 21:08 Guaifenesin 10 Ml Udc (200mg/10ml) PO Q4H PRN PRN COUGH Heparin Sodium (Porcine) 0 unit 04/26/23 14:25 Heparin Injection (Vial) 5,000 Unit/Ml Vial IV UD PRN dose adjustment Protocol Hydralazine HCl 10 mg 04/25/23 21:08 04/26/23 03:46 Hydralazine 20 Mg/Ml Vial IV 10 mg Q4H PRN PRN Administration SBP > 160 Protocol Ceftriaxone Sodium 1 gm in 50 mls @ 100 mls/hr 04/26/23 22:00 Rocephin IV Q24H [place] Azithromycin 500 mg/ Dextrose 255 mls @ 250 mls/hr 04/26/23 22:00 IV Q24H [place] Sodium Chloride 250 mls @ 15 mls/hr 04/25/23 22:11 IV .[id number] PRN Additional IVPB Infusion Sodium Chloride 250 mls @ 15 mls/hr 04/25/23 22:11 IV .[id number] PRN Saline Flush Propofol 1,000 mg in 100 mls @ 7.71 mls/hr 04/26/23 05:55 04/26/23 13:15 Diprivan CONT INF 10 mcg/kg/min .Q12H [place] 7.7 mls/hr Titration Protocol 10 MCG/KG/MIN Fentanyl 100 mls @ 2.5 mls/hr 04/26/23 05:55 04/26/23 12:55 CONT INF 100 mcg/hr UD [place] 10 mls/hr Titration Protocol 25 MCG/HR Pantoprazole Sodium 40 mg/ 110 mls @ 330 mls/hr 04/26/23 05:55 04/26/23 11:00 Sodium Chloride IV Infused Q12 [place] Infusion Heparin Sodium/Dextrose 25,000 units in 250 mls @ 10 mls/hr 04/26/23 14:10 CONT INF .Q25H [facility] Protocol As Directed Ipratropium [place] 0.5 mg 04/26/23 04:45 04/26/23 11:48 Ipratropium 0.5 Mg/2.5 Ml Solution INHALATION 0.5 mg Q4HWA.RT [place] Administration Lorazepam 0.5 mg 04/26/23 05:42 Lorazepam 2 Mg/Ml Syringe IV Q4H PRN PRN anxiety with BIPAP Melatonin 3 mg 04/25/23 21:08 Melatonin 3 Mg Tablet PO QHS PRN PRN INSOMNIA Methylprednisolone 40 mg 04/26/23 06:00 04/26/23 13:49 Methylprednisolone 40 Mg/Ml Vial IV 40 mg Q8 [place] Administration Metoprolol Tartrate 25 mg 04/25/23 22:07 04/26/23 07:51 Metoprolol Tartrate 25 Mg Tablet PO Not Given BID [facility] Protocol Multivitamins/Minerals 1 tablet 04/26/23 08:00 04/26/23 07:48 Multivitamins,Ther W-Minerals Tablet PO Not Given BREAKFAST [place] Ondansetron HCl 4 mg 04/25/23 21:08 Ondansetron 4 Mg/2 Ml Vial IV Q8H PRN PRN NAUSEA/VOMITING Oseltamivir Phosphate 30 mg 04/26/23 10:00 04/26/23 07:51 Oseltamivir Phosphate 30 Mg Capsule PO 04/30/23 22:01 Not Given BID [place] Prochlorperazine Edisylate 5 mg 04/25/23 21:08 Prochlorperazine 10 Mg/2 Ml Vial IV Q4H PRN PRN Breakthrough Nausea/Vomiting Senna/Docusate Sodium 2 tablet 04/25/23 21:08 Senna/Docusate Sodium 1 Tablet PO BID PRN PRN Constipation Sodium Chloride 10 - 40 ml 04/25/23 22:11 04/26/23 13:49 0.9% Saline Lock 10 Ml Syringe IV 10 ml UD PRN Administration SALINE FLUSH Sodium Chloride 5 ml 04/26/23 05:54 Sodium Cl For Inhalation 15 Ml Vial.Neb. INHALATION Q5M PRN Suctioning Throat Lozenges 1 lozenge 04/25/23 21:08 Benzocaine/Menthol 1 Lozenge MUCOUS MEM Q2H PRN PRN SORE THROAT Lab / Micro Data 04/26/23 05:22 04/26/23 05:22 Labs: Laboratory Results - last 24 hr 04/25/23 15:44: WBC 6.7, RBC 4.83, Hgb 15.3, Hct 47.4, MCV 98.1 H, MCH 31.7, MCHC 32.3, RDW Std Deviation 52.8 H, RDW Coeff of [place] 14.6, Plt Count 85 L, MPV 12.9 H, Immature Gran % (Auto) 0.700, Neut % (Auto) 78.1 H, Lymph % (Auto) 8.0 L, Mayes % (Auto) 12.8 H, Eos % (Auto) 0.1, Baso % (Auto) 0.3, Absolute Neuts (auto) 5.3, Absolute Lymphs (auto) 0.54 L, Nucleated RBC % 0, Differential Comment SEE COMMENTS, Platelet Estimate MOD DEC, RBC Morphology N CHROM, Anisocytosis 1+, Macrocytosis 1+ 04/25/23 16:00: Sodium 139, Potassium 4.5, Chloride 104, Carbon Dioxide 29.0, Anion Gap 6, BUN 25 H, Creatinine 2.05 H, Estim Creat Clear Calc 45.94, Est GFR (MDRD) Af Amer 41 L, Est GFR (MDRD) Non-Af 34 L, BUN/Creatinine Ratio 12.2, Glucose 132 H, Calcium 9.1, Total Bilirubin 0.70, AST 29, ALT 22, Alkaline Phosphatase 73, Total Protein 7.8, Albumin 3.6, Globulin 4.2, Albumin/Globulin Ratio 0.9 04/25/23 20:41: Urine Color Yellow, Urine Clarity Clear, Urine pH 6.0, Ur Specific [place] 1.020, Urine Protein 100 H, Urine Glucose (UA) Normal, Urine Ketones Negative, Urine Occult Blood 50 H, Urine Nitrite Negative, Urine Bilirubin Negative, Urine Urobilinogen 1 H, Ur Leukocyte Esterase Negative, Urine RBC 0-5 SEEN, Urine WBC 0 SEEN, Ur Squamous Epith Cells 0-5 SEEN, Urine Bacteria 0 SEEN, Urine Mucus 0 SEEN 04/25/23 23:25: MRSA (PCR) Negative 04/26/23 05:22: WBC 11.4 H, RBC 5.26, Hgb 16.8 H, Hct 53.4, MCV 101.5 H, MCH 31.9, MCHC 31.5 L, RDW Std Deviation 55.9 H, RDW Coeff of [place] 14.8 H, Plt Count 96 L, MPV 12.9 H, Immature Gran % (Auto) 2.400 H, Neut % (Auto) 45.4 L, Lymph % (Auto) 36.3, Mayes % (Auto) 14.8 H, Eos % (Auto) 0.3, Baso % (Auto) 0.8, Absolute Neuts (auto) 5.2, Absolute Lymphs (auto) 4.14, Nucleated RBC % 0, Platelet Estimate SLT DEC, Sodium 140, Potassium 3.9, Chloride 105, Carbon Dioxide 25.0, Anion Gap 10, BUN 26 H, Creatinine 2.32 H, Estim Creat Clear Calc 40.40, Est GFR (MDRD) Af Amer 36 L, Est GFR (MDRD) Non-Af 29 L, BUN/Creatinine Ratio 11.2, Glucose 110 H, Calcium 8.2 L, Magnesium 2.4, Total Bilirubin 0.70, AST 149 H, ALT 80 H, Alkaline Phosphatase 82, Total Creatine Kinase 1871 H, B-Natriuretic Peptide 844.3 H, Total Protein 7.8, Albumin 3.4, Globulin 4.4 H, Albumin/Globulin Ratio 0.8 L, Triglycerides 134, TSH 0.69, Free T4 0.92 04/26/23 14:20: PT 23.2 H, INR 2.0, APTT 38.1 H Micro: Microbiology 04/26/23 00:07 Stool Enteric Bacteriology - Final 04/26/23 00:07 Stool Clostridioides difficile (PCR) - Final 04/26/23 10:30 Gastric Fluid/Contents Gastric Occult Blood - Final Occult Blood Positive 04/25/23 23:15 Mucosa - Nasopharyngeal Respiratory Panel (PCR) - Final 04/25/23 20:48 Urine, Random Legionella Antigen - Final 04/25/23 20:48 Urine, Random Streptococcus pneumoniae Antigen (M - Final 04/25/23 15:52 Mucosa - Nose SARS-CoV-2, Influenza & RSV (PCR) - Final ABG Data ABG results: ABG 04/26/23 04/26/23 04/26/23 04:54 07:12 09:45 Specimen Type ART ART ART Sample Site L Radial L Radial L Radial pH 7.05 L* 7.18 L* 7.20 L Bicarbonate Actual 16.4 L 22.8 23.2 Total CO2 18 25 25 Base Excess -14 L -6 L -5 L O2 Saturation 91 L 96 95 O2 % 8.0 100.0 80.0 ABG pCO2 59.8 H 61.0 H 59.0 H ABG pO2 89 106 H 90 [place] Test Positive Positive Positive Respiration Rate 16 16 O2 Delivery Device Cannula Adult Vent Adult Vent Vent Mode Not entered AC AC Tidal Volume 450.0 450.0 POC PEEP 8 8 Crit Call To/Read Back Yes Yes Yes Blood Gas Notified Whom DR DON OSEGUERA Blood Gas Notified Time 04:56:13 07:14:06 09:47:19 Imaging Radiology Impression Chest X-Ray 04/25/23 16:10 IMPRESSION: Right lower lobe interstitial infiltrate. Electronically Signed: Guru Nelson MD at 16:47 EST , Chest CTA 04/25/23 17:18 IMPRESSION: Moderate pericardial effusion increased. Prominent nonspecific mediastinal lymphadenopathy. Mild infiltrate left lower lobe. 2.7 cm left thyroid lesion. Recommend follow-up nonemergent thyroid ultrasound. Large cystic lesion within the liver incompletely imaged at the edge of the [id number]. Electronically Signed: Guru Nelson MD at 18:56 EST , Liver Ultrasound 04/25/23 21:08 IMPRESSION: Large mixed cystic and solid mass of the right lobe of the liver and correlation with liver mass protocol CT or MRI is recommended. Electronically Signed: Cleve Mathis MD at 8:49 EST , Echocardiogram 04/26/23 06:16 Interpretation Summary Patient on a ventilator with limited study/TDS. The estimated ejection fraction is 40-45 %. Moderate LV systolic dysfunction with global LV hypokinesia RV compression noted and diastolic Consistent with signs of pretamponade Normal LV inflow pattern. Moderate pericardial effusion In comparison to previous echo in April 2023 increase in size of pericardial effusion with signs of early tamponade /RV cavity size is small Ordering Physician: Mohini Leslie Referring Physician: Pedro Mcnair Performed By: Celine Alba, MIKAELA, RVT Chest X-Ray 04/26/23 06:25 IMPRESSION: 1. Interval placement of endotracheal tube with the tip above the ryan. 2. Interval placement of nasogastric tube with the tip below the diaphragm. 3. Right lower lobe pneumonia. 4. Cardiomegaly. Electronically Signed: Cleve Mathis MD at 9:58 EST , KUB X-Ray 04/26/23 06:25 IMPRESSION: 1. Nasogastric tube with the tip in the midline likely in the antrum the stomach. 2. No bowel obstruction. Electronically Signed: Cleve Mathis MD at 9:57 EST , Assessment and Plan . Assessment and plan: 72 yo obese male smoker w/ significant ASCVD admitted 04/26/23 w/ several days of fever and cough. Low grade fever and mild hypoxemia in ED requiring 2 LPM O2. O/W stable on presentation. Noted wheezing on presentation - treated w/ inhaled BD and corticosteroids. CTA chest (-) for VTED, negligible parenchymal infiltrate, noted pericardial effusion as well as mediastinal RANDA. Viral panel (-) Lab significant for elevated creatinine, polycythemia, elevated CPK and BNP. Also thrombocytopenic - around 100K. TSH WNL. TTE has been performed and reveals LVSF 0.4, dilated LA, small RV w/ pre-tamponade He is currently sedated and appears comfortable. BP and HR WNL. There is minimal UOP currently. LE are cool and dusky. Some fever currently. Wheezing significantly improved. MV 10 LPM, PIP 25, I:E 1:2.3, FiO2 0.5 +8 PEEP PHYSICAL EXAM GEN sedated, NAD VS as above HEENT NURY NECK obese COR irreg CHEST E>>I ABD soft EXT cool distally SKIN feet dusky RENNY sedated ASSESSMENT 1. Acute respiratory failure w/ hypercapnia, requiring MV support 2. Shock w/ oliguria and poor LE perfusion 3. 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 Likely severe ASCVD 5. Pericardial effusion w/ RV compromise 6. Renal insufficiency w/ oliguria 7. Fever 8. Obesity 9. Mediastinal RANDA on CT 10. Hepatic lesion noted on U/S and CT 11. Thrombocytopenia 12. Cardiomyopathy w/ reduced LVSF 13. Rhabdomyolysis TREATMENT PLAN -MV support -sedation as needed -volume expansion - try to volume load RV w/ albumin -follow UOP, renal function, and clinicaly perfusion of ext -would pursue transfer for diagnostic and therapeutic pericardiocentesis -continue empiric ABX -inhaled BD and IV corticosteroids -hold diuretics for now -prognosis very guarded Critical Care Time: 60 min The entirety of this encounter was done via Telemedicine
[2023-04-26] MEDS: HEPARIN/D5w 25,000 UNITS 25,000 UNITS/250 ML IV.SOLN. 10 UNITS CONT INF (15:05)
[2023-04-26] MEDS: 0.9% Normal Saline (1000mL) 1,000 ML 50 ML IV (15:17)
--- NOTE | 2023-04-26 15:43 | CON.PCM.CA_ITS ---
<Statement entered by Buddy Aguilera MD - 04/27/23 13:38> Pt seen & evaluated w/GENIE. I was involved in all aspects of pt's orders, interpretation of results & treatment Patient mated on mechanical ventilator. Echocardiographic evaluation reported with moderate pericardial effusion And early signs of pretamponade. Also noted reduced LV systolic function on the echocardiogram. Underlying cardiac rhythm is A-fib with controlled ventricular rate patient has been on heparin. Assessment & Plan Assessment/Plan (1) Paroxysmal atrial fibrillation: (2) Pneumonia: (3) Hypoxia: (4) Morbid obesity due to excess calories: (5) Pericardial effusion: PLAN: 72-year-old patient with acute hypoxic respiratory failure due to community-acquired pneumonia Patient intubated on the ventilator. Has a known cardiac history with a history of paroxysmal atrial fibrillation currently rate controlled and has been on anticoagulation which is on hold the patient currently on heparin CT scan finding of moderate pericardial effusion noted which prompted echocardiographic evaluation Revealed moderate pericardial effusion with pretamponade. Hemodynamically stable with a stable blood pressure. Also the CT was abnormal with evidence of cystic lesions within the liver. Which has been chronic dating back to 2011. The echo cardiographic finding also revealed evidence of moderate LV systolic dysfunction Ejection fraction of 40-45% with global LV hypokinesia. Will use IV beta- kenny for better controlled ventricular rate Will plan for echocardiogram once the patient is extubated to reevaluate for the RV size and pericardial effusion. At this point not a candidate for DUSTY inhibitor or Entresto due to the renal dysfunction with elevated creatinine to 2.2. Will follow-up clinically. PLAN: Plan Cardiac care plan; This 72-year-old patient HPI Consult Data Date of Consult: 04/27/23 HPI Narrative Reason for Consultation: Patient has moderate size pericardial effusion/pretamponade HPI Narrative: JOSE L ZARAGOZA, is a 72 M who presents [facility] Medical History (Updated 04/26/23 @ 15:[address] Buddy Aguilera MD) Chronic idiopathic thrombocytopenia Chronic neuropathic pain CKD (chronic kidney disease) HLD (hyperlipidemia) Hypertension Obesity Ocular melanoma PAD (peripheral artery disease) Paroxysmal atrial fibrillation Peripheral vascular disease Tobacco abuse Home Medications apixaban 5 mg tablet 5 mg PO BID blood thinner 10/27/18 [History Last Taken 04/25/23] clonidine HCl 0.2 mg tablet 0.2 mg PO BID 11/03/18 [Rx Last Taken 04/25/23] dorzolamide 22.3 mg-timolol 6.8 mg/mL eye drops 1 drp RIGHT EYE BID 11/03/18 [Rx Last Taken 04/25/23] metoprolol tartrate 25 mg tablet 25 mg PO BID 11/03/18 [Rx Last Taken 04/25/23] multivitamin,im-[id number]-[id number] 27 mg-0.4 mg tablet 1 tab PO DAILY@0800 11/03/18 [Rx Last Taken 04/25/23] acetaminophen 500 mg tablet 1,000 mg PO Q8 PRN pain 04/25/23 [History Last Taken 04/25/23] duloxetine 30 mg capsule,delayed release 30 mg PO DAILY 04/25/23 [History Last Taken 04/25/23] gabapentin 400 mg capsule 400 mg PO TID 04/25/23 [History Last Taken 04/25/23] olmesartan 40 mg tablet 40 mg PO DAILY 04/25/23 [History Last Taken 04/25/23] Allergy/AdvReac Type Severity Reaction Status Date / Time nebivolol HCl [From Bystolic] Allergy Other Verified 04/25/23 14:57 Penicillins Allergy Other Verified 04/25/23 14:57 trandolapril [From Tarka] Allergy Other Verified 04/25/23 14:57 verapamil HCl [From Tarka] Allergy Other Verified 04/25/23 14:57 Family History Mother Heart disease Father Heart disease Surgical History (Updated 04/26/23 @ 00:[address] Mohini Leslie MD) History of eye surgery S/P arthroscopic surgery of right knee S/P peripheral artery angioplasty with stent placement Social History (Updated 04/26/23 @ 00:[address] Mohini Leslie MD) household members: significant other Smoking Status: Current every day smoker tobacco type: cigarettes alcohol intake: current alcohol intake frequency: a few times a month substance use type: does not use Physical Exam Cardio Cardio Narrative: Seen and evaluated at bedside along with the nursing staff On the ventilator The radiographer cardiac catheterization showed A-fib controlled ventricular rate Cardiovascular exam S1-S2 is irregular Chest exam diminished air entry bilateral. Risk Stratification Risk Stratification Applicable: No Objective Data Vital Signs: Vital Signs Temp Pulse Resp BP Pulse Ox O2 Del Method O2 Flow Rate 101.2 F H 100 20 H 93/65 95 Mechanical Ventilator 10 04/26/23 13:15 04/26/23 15:12 04/26/23 15:12 04/26/23 13:15 04/26/23 15:12 04/26/23 13:15 04/26/23 04:55 FiO2 50 04/26/23 15:12 Oxygen Flow Rate (L/min) 10 Oxygen Delivery Method Mechanical Ventilator Weight: 287 lb 11.252 oz Body Mass Index (BMI) 36.9 Intake & Output: Intake and Output for Last 24 Hours 04/24/23 04/25/23 04/26/23 23:59 23:59 23:59 Intake Total 1162 / 1417 1263.06 / 1263.06 Output Total 305 / 305 Balance 1162 / 1417 958.06 / 958.06 Lab / Micro Data 04/26/23 05:22 04/26/23 05:22 Labs: Laboratory Results - last 24 hr 04/25/23 15:44: WBC 6.7, RBC 4.83, Hgb 15.3, Hct 47.4, MCV 98.1 H, MCH 31.7, MCHC 32.3, RDW Std Deviation 52.8 H, RDW Coeff of [place] 14.6, Plt Count 85 L, MPV 12.9 H, Immature Gran % (Auto) 0.700, Neut % (Auto) 78.1 H, Lymph % (Auto) 8.0 L , [place] % (Auto) 12.8 H, Eos % (Auto) 0.1, Baso % (Auto) 0.3, Absolute Neuts (auto) 5.3, Absolute Lymphs (auto) 0.54 L, Nucleated RBC % 0, Differential Comment SEE COMMENTS, Platelet Estimate MOD DEC, RBC Morphology N CHROM, Anisocytosis 1+, Macrocytosis 1+ 04/25/23 16:00: Sodium 139, Potassium 4.5, Chloride 104, Carbon Dioxide 29.0, Anion Gap 6, BUN 25 H, Creatinine 2.05 H, Estim Creat Clear Calc 45.94, Est GFR (MDRD) Af Amer 41 L, Est GFR (MDRD) Non-Af 34 L, BUN/Creatinine Ratio 12.2, Glucose 132 H, Calcium 9.1, Total Bilirubin 0.70, AST 29, ALT 22, Alkaline Phosphatase 73, Total Protein 7.8, Albumin 3.6, Globulin 4.2, Albumin/Globulin Ratio 0.9 04/25/23 20:41: Urine Color Yellow, Urine Clarity Clear, Urine pH 6.0, Ur Specific [place] 1.020, Urine Protein 100 H, Urine Glucose (UA) Normal, Urine Ketones Negative, Urine Occult Blood 50 H, Urine Nitrite Negative, Urine Bilirubin Negative, Urine Urobilinogen 1 H, Ur Leukocyte Esterase Negative, Urine RBC 0-5 SEEN, Urine WBC 0 SEEN, Ur Squamous Epith Cells 0-5 SEEN, Urine Bacteria 0 SEEN, Urine Mucus 0 SEEN 04/25/23 23:25: MRSA (PCR) Negative 04/26/23 05:22: WBC 11.4 H, RBC 5.26, Hgb 16.8 H, Hct 53.4, MCV 101.5 H, MCH 31.9, MCHC 31.5 L, RDW Std Deviation 55.9 H, RDW Coeff of [place] 14.8 H, Plt Count 96 L, MPV 12.9 H, Immature Gran % (Auto) 2.400 H, Neut % (Auto) 45.4 L, Lymph % (Auto) 36.3, [place] % (Auto) 14.8 H, Eos % (Auto) 0.3, Baso % (Auto) 0.8, Absolute Neuts (auto) 5.2, Absolute Lymphs (auto) 4.14, Nucleated RBC % 0, Platelet Estimate SLT DEC, Sodium 140, Potassium 3.9, Chloride 105, Carbon Dioxide 25.0, Anion Gap 10, BUN 26 H, Creatinine 2.32 H, Estim Creat Clear Calc 40.40, Est GFR (MDRD) Af Amer 36 L, Est GFR (MDRD) Non-Af 29 L, BUN/Creatinine Ratio 11.2, Glucose 110 H, Calcium 8.2 L, Magnesium 2.4, Total Bilirubin 0.70, AST 149 H, ALT 80 H, Alkaline Phosphatase 82, Total Creatine Kinase 1871 H, B-Natriuretic Peptide 844.3 H, Total Protein 7.8, Albumin 3.4, Globulin 4.4 H, Albumin/Globulin Ratio 0.8 L, Triglycerides 134, TSH 0.69, Free T4 0.92 04/26/23 14:20: PT 23.2 H, INR 2.0, APTT 38.1 H Micro: Microbiology 04/26/23 00:07 Stool Enteric Bacteriology - Final 04/26/23 00:07 Stool Clostridioides difficile (PCR) - Final 04/26/23 06:25 Sputum, Induced/Lukens Gram Stain - Final 04/26/23 10:30 Gastric Fluid/Contents Gastric Occult Blood - Final Occult Blood Positive 04/25/23 23:15 Mucosa - Nasopharyngeal Respiratory Panel (PCR) - Final 04/25/23 20:48 Urine, Random Legionella Antigen - Final 04/25/23 20:48 Urine, Random Streptococcus pneumoniae Antigen (M - Final 04/25/23 15:52 Mucosa - Nose SARS-CoV-2, Influenza & RSV (PCR) - Final ABG Data ABG results: ABG 04/26/23 04/26/23 04/26/23 04:54 07:12 09:45 Specimen Type ART ART ART Sample Site L Radial L Radial L Radial pH 7.05 L* 7.18 L* 7.20 L Bicarbonate Actual 16.4 L 22.8 23.2 Total CO2 18 25 25 Base Excess -14 L -6 L -5 L O2 Saturation 91 L 96 95 O2 % 8.0 100.0 80.0 ABG pCO2 59.8 H 61.0 H 59.0 H ABG pO2 89 106 H 90 [place]by Test Positive Positive Positive Respiration Rate 16 16 O2 Delivery Device Cannula Adult Vent Adult Vent Vent Mode Not entered AC AC Tidal Volume 450.0 450.0 POC PEEP 8 8 Crit Call To/Read Back Yes Yes Yes Blood Gas Notified Whom DR DON OSEGUERA Blood Gas Notified Time 04:56:13 07:14:06 09:47:19 Cardiology Labs/Tests 04/25/23 15:44: WBC 6.7, RBC 4.83, Hgb 15.3, Hct 47.4, MCV 98.1 H, MCH 31.7, MCHC 32.3, Plt Count 85 L, MPV 12.9 H, Immature Gran % (Auto) 0.700, Neut % (Auto) 78.1 H, Lymph % (Auto) 8.0 L, [place] % (Auto) 12.8 H, Eos % (Auto) 0.1, Baso % (Auto) 0.3, Absolute Neuts (auto) 5.3, Nucleated RBC % 0 04/25/23 16:00: Sodium 139, Potassium 4.5, Chloride 104, Carbon Dioxide 29.0, Anion Gap 6, BUN 25 H, Creatinine 2.05 H, Est GFR (MDRD) Af Amer 41 L, Est GFR (MDRD) Non-Af 34 L, BUN/Creatinine Ratio 12.2, Glucose 132 H, Calcium 9.1, Total Bilirubin 0.70 04/25/23 20:41: Urine Color Yellow, Urine Clarity Clear, Urine pH 6.0, Ur Specific [place] 1.020, Urine Protein 100 H, Urine Glucose (UA) Normal, Urine Ketones Negative, Urine Occult Blood 50 H, Urine Nitrite Negative, Urine Bilirubin Negative, Urine Urobilinogen 1 H, Ur Leukocyte Esterase Negative, Urine RBC 0-5 SEEN, Urine WBC 0 SEEN 04/26/23 04:54: pH 7.05 L*, Bicarbonate Actual 16.4 L, Base Excess -14 L, O2 Saturation 91 L, ABG pCO2 59.8 H, ABG pO2 89, [place] Test Positive 04/26/23 05:22: WBC 11.4 H, RBC 5.26, Hgb 16.8 H, Hct 53.4, MCV 101.5 H, MCH 31.9, MCHC 31.5 L, Plt Count 96 L, MPV 12.9 H, Immature Gran % (Auto) 2.400 H, Neut % (Auto) 45.4 L, Lymph % (Auto) 36.3, [place] % (Auto) 14.8 H, Eos % (Auto) 0.3, Baso % (Auto) 0.8, Absolute Neuts (auto) 5.2, Nucleated RBC % 0, Sodium 140, Potassium 3.9, Chloride 105, Carbon Dioxide 25.0, Anion Gap 10, BUN 26 H, Creatinine 2.32 H, Est GFR (MDRD) Af Amer 36 L, Est GFR (MDRD) Non-Af 29 L, BUN/Creatinine Ratio 11.2, Glucose 110 H, Calcium 8.2 L, Magnesium 2.4, Total Bilirubin 0.70, B-Natriuretic Peptide 844.3 H, Triglycerides 134 04/26/23 07:12: pH 7.18 L*, Bicarbonate Actual 22.8, Base Excess -6 L, O2 Saturation 96, ABG pCO2 61.0 H, ABG pO2 106 H, [place] Test Positive 04/26/23 09:45: pH 7.20 L, Bicarbonate Actual 23.2, Base Excess -5 L, O2 Saturation 95, ABG pCO2 59.0 H, ABG pO2 90, [place] Test Positive 04/26/23 14:20: PT 23.2 H, INR 2.0, APTT 38.1 H Rhythm: EKG: ECHO: Stress Test: Cardiac Cath: PCI: CT Surgery: Holter monitor: EPS: PPM: CXR: Chest CT Scan: Radiography Diagnostic Testing: Radiology Impression Chest X-Ray 04/25/23 16:10 IMPRESSION: Right lower lobe interstitial infiltrate. Electronically Signed: Guru Nelson MD at 16:47 EST , Chest CTA 04/25/23 17:18 IMPRESSION: Moderate pericardial effusion increased. Prominent nonspecific mediastinal lymphadenopathy. Mild infiltrate left lower lobe. 2.7 cm left thyroid lesion. Recommend follow-up nonemergent thyroid ultrasound. Large cystic lesion within the liver incompletely imaged at the edge of the [id number]. Electronically Signed: Guru Nelson MD at 18:56 EST , Liver Ultrasound 04/25/23 21:08 IMPRESSION: Large mixed cystic and solid mass of the right lobe of the liver and correlation with liver mass protocol CT or MRI is recommended. Electronically Signed: Cleve Mathis MD at 8:49 EST , Echocardiogram 04/26/23 06:16 Interpretation Summary Patient on a ventilator with limited study/TDS. The estimated ejection fraction is 40-45 %. Moderate LV systolic dysfunction with global LV hypokinesia RV compression noted and diastolic Consistent with signs of pretamponade Normal LV inflow pattern. Moderate pericardial effusion In comparison to previous echo in April 2023 increase in size of pericardial effusion with signs of early tamponade /RV cavity size is small Ordering Physician: Mohini Leslie Referring Physician: Pedro Mcnair Performed By: Celine Alba RDCS, RVT Chest X-Ray 04/26/23 06:25 IMPRESSION: 1. Interval placement of endotracheal tube with the tip above the ryan. 2. Interval placement of nasogastric tube with the tip below the diaphragm. 3. Right lower lobe pneumonia. 4. Cardiomegaly. Electronically Signed: Cleve Mathis MD at 9:58 EST , KUB X-Ray 04/26/23 06:25 IMPRESSION: 1. Nasogastric tube with the tip in the midline likely in the antrum the stomach. 2. No bowel obstruction. Electronically Signed: Cleve Mathis MD at 9:57 EST ,
[2023-04-26 17:04] LABS: Allen Test Positive; Base Excess -4 mmol/L (-2 to +2); Bicarbonate 22.2 mmol/L (22-26); Blood Gas Specimen Type ART; Mode AC; O2 Delivery Device Adult Vent; PEEP 8; PO2 83 mmHG (75-100); RR 20; SITE L Radial; SO2 95 % (95-99); Total Carbon Dioxide 24 mmol/L; pH 7.31 (7.35-7.45)
[2023-04-26] MEDS: Vancomycin HCl 2,000 MG in 0.9% Normal Saline (500mL Bag) 500 ML 250 MG IV (17:23)
[2023-04-26] MEDS: fentaNYL drip 100 ML 5 MCG CONT INF (17:38)
--- NOTE | 2023-04-26 18:08 | PCM.RX.CS ---
Consult Antibiotic Management Pharmacy has been consulted to manage selected antibiotic: Vancomycin Type of Intervention Type of Consult: New start Suspected Infection Suspected Infection: Pneumonia Prior Doses of Antibiotics Prior Doses of Antibiotics Received/Current Regimen: Received a 2000mg iv x 1 as loading dose 04.26.23 @1723. Labs Labs: Sodium 140 mmol/L (136-145) 04/26/23 05:22 Potassium 3.9 mmol/L (3.5-5.1) 04/26/23 05:22 Chloride 105 mmol/L (98-107) 04/26/23 05:22 Carbon Dioxide 25.0 mmol/L (21.0-32.0) 04/26/23 05:22 Anion Gap 10 (5-15) 04/26/23 05:22 BUN 26 mg/dL (7-18) H 04/26/23 05:22 Creatinine 2.32 mg/dL (0.70-1.30) H 04/26/23 05:22 Est GFR (MDRD) Af Amer 36 mL/min (>60) L 04/26/23 05:22 Est GFR (MDRD) Non-Af 29 mL/min (>60) L 04/26/23 05:22 BUN/Creatinine Ratio 11.2 RATIO (10-20) 04/26/23 05:22 Glucose 110 mg/dL (74-106) H 04/26/23 05:22 Microbiology Microbiology: Microbiology 04/26/23 00:07 Stool Enteric Bacteriology - Final 04/26/23 00:07 Stool Clostridioides difficile (PCR) - Final 04/26/23 06:25 Sputum, Induced/Lukens Gram Stain - Final 04/26/23 10:30 Gastric Fluid/Contents Gastric Occult Blood - Final Occult Blood Positive 04/25/23 23:15 Mucosa - Nasopharyngeal Respiratory Panel (PCR) - Final 04/25/23 20:48 Urine, Random Legionella Antigen - Final 04/25/23 20:48 Urine, Random Streptococcus pneumoniae Antigen (M - Final 04/25/23 15:52 Mucosa - Nose SARS-CoV-2, Influenza & RSV (PCR) - Final Dosing Weight Weight used for dosin.5 kg Estimated Creatinine Clearance Estimated Creatinine Clearance: 41ml/min Goal Trough Goal Trough: 15-20 mcg/mL Pharmacy Plan for Drug Dosing Pharmacy Plan for Drug Dosing: Recommend starting 1000mg iv q12h beginning 12hrs after 2000mg iv loading dose. Trough level ordered for before 4th dose. Pharmacy Service will continue to monitor and adjust dosing as required. Follow-Up Labs Follow-Up Labs: Trough: Vancomycin (2.26.24 @0430)
[2023-04-26 18:34] LABS: Bedside Glucose 131 mg/dL (74-106)
--- NOTE | 2023-04-27 07:00 | DS.PCM_ITS ---
Providers Date of Admission: 04/25/23 Date of Discharge: 04/27/23 Primary Care Physician: Dr. Pedro Mcnair MD Consultations 04/26/23 05:42 Consult: Scale Clerk / Pulmonary Medicine Routine Consulting Provider: Intensivists/Pulmonary Med Reason for Consult: Resp failure, Influenza possibly, ? Superimposed PNA EMERGENT Consult: No Notified: No Date Notified: 04/26/23 Time Notified: 04:59 04/26/23 14:22 Consult: Cardiology Routine Consulting Provider: Buddy Aguilera Reason for Consult: enlarging pericardial effusion EMERGENT Consult: No Notified: Yes Date Notified: 04/26/23 Time Notified: 14:23 Method of Notification: Verbal Reason For Visit: HYPOXIA, PNA, PERICARDIAL EFF Diagnosis Discharge Diagnosis (1) Paroxysmal atrial fibrillation: Status: Acute Code(s): I48.0 - Paroxysmal atrial fibrillation (2) Pneumonia: Status: Acute Code(s): J18.9 - Pneumonia, unspecified organism (3) Hypoxia: Status: Acute Code(s): R09.02 - Hypoxemia (4) Morbid obesity due to excess calories: Status: Acute Code(s): E66.01 - Morbid (severe) obesity due to excess calories (5) Pericardial effusion: Status: Acute Code(s): I31.39 - Other pericardial effusion (noninflammatory) Plan #Acute hypoxic respiratory failure due to community acquired pneumonia * Was admitted with a complaint of cough and headache as well as fever and weakness at about 36 prior to admission. * Chest x-ray showed right lower lobe interstitial infiltrates. CTA of the chest showed moderate pericardial effusion with prominent nonspecific m ediastinal lymphadenopathy and mild left lower lobe infiltrate. * Patient went into worsening respiratory distress and had to be emergently intubated after admission. * Titrate oxygen to maintain saturation above 90%. Critical care consulted. Await recs. * On IV ceftriaxone and azithromycin. Will broaden antibiotics to IV vancomycin and Zosyn. * Blood in sputum cultures pending. Urine for strep and Legionella negative. * #Moderate pericardial effusion * This seems to be chronic. We back in 2011 patient had a PET scan on account of a liver mass and at that time it showed pericardial effusion as well. CT of the chest done during this admission was negative for any evidence of PE but showed a moderate pericardial effusion which appeared to have enlarged. * 2D echo done today showed: EF of 45% with moderate left ventricular systolic dysfunction with global left ventricular hypokinesis consistent with signs of pre-tamponade. Consult cardiology. * cardiology consulted for evaluation * #Liver mass * CT chest showed a large cystic lesion within the liver. This is chronic and has appeared on previous images dating back to 2011. * Per PET scan done in 2012, imaging was concerning for cancer but patient had not followed up * Liver ultrasound showed large mixed cystic and solid mass of the right lobe of the liver. * Will need follow-up with oncology on outpatient basis. * #Left thyroid lesion: CT showed a left thyroid lesion which was about 2.7 cm. To have nonemergent outpatient thyroid ultrasound follow-up #Hypertension: BP meds on hold as patient is currently intubated and sedated. IV hydralazine as needed. #Hyperlipidemia: Not on statin. Unclear why. #PAD: S/p bilateral lower extremity stents. On Eliquis at home. Feet are dark with diminished pulses today. Patient started on heparin drip. Eliquis held. #Paroxysmal A-fib: On metoprolol. Eliquis on hold and patient currently on heparin drip. #DVT prophylaxis: On heparin drip Medications at Discharge Home Medications apixaban 5 mg tablet 5 mg PO BID blood thinner 10/27/18 clonidine HCl 0.2 mg tablet 0.2 mg PO BID 11/03/18 dorzolamide 22.3 mg-timolol 6.8 mg/mL eye drops 1 drp RIGHT EYE BID 11/03/18 metoprolol tartrate 25 mg tablet 25 mg PO BID 11/03/18 multivitamin,gs-cfxe-npjgsaxm 27 mg-0.4 mg tablet 1 tab PO DAILY@0800 11/03/18 acetaminophen 500 mg tablet 1,000 mg PO Q8 PRN pain 04/25/23 duloxetine 30 mg capsule,delayed release 30 mg PO DAILY 04/25/23 gabapentin 400 mg capsule 400 mg PO TID 04/25/23 olmesartan 40 mg tablet 40 mg PO DAILY 04/25/23 Hospital Course Operations None Procedures 2-D Echocardiogram Summary of Care Provided Minutes Spent on Discharge: 65 Hospital Course: Patient is a 72-year-old male with a past medical history as outlined was admitted through the ED on 04/25/2023 with a complaint of debility, fever and headache as well as cough which started about 36 hours prior to admission. His significant other was ill with similar symptoms but she improved after 48 hours. He had a cough which was productive of a clear sputum and also had rhinorrhea with decreased appetite and decreased oral intake. In the ED he was febrile and tachypneic. He was saturating at 85% on room air and required 2 L to go up to 96% WBC was 6.7 and platelets were 85 with hemoglobin of 15.3. Chest x-ray showed right lower lobe infiltrate and CT of the chest showed moderate pericardial effusion which had increased in prominence nonspecific mediastinal lymphadenopathy with a 2.7 cm left thyroid lesion. He was admitted and managed for hypoxia due to community-acquired pneumonia. He was started on IV ceftriaxone and azithromycin. However his shortness of breath worsened and patient had to be emergently intubated. He had 2D echo done which showed EF of 45% with moderate left ventricular systolic dysfunction with global left ventricular hypokinesis consistent with signs of pretamponade. Cardiology was consulted. Per his liver mass, patient had a PET scan back in 2011 for the same lesion which was thought to be cancer but it does not appear like he ever followed up. Pulmonology reviewed patient and was concerned about his hypoperfusion status his urine output had decreased significantly and blood pressure was also running low. This was thought to be due to hypoperfusion from the the pretamponade stage as per the 2D echo. Decision was therefore to transfer patient emergently to tertiary facility where he could have intervention for the pericardial effusion as needed. Patient was therefore transferred to [facility] medical ICU on 04/26/2023. Patient was seen and examined. He was intubated. Unable to do review of syste ms. Blood pressure had been running low but improved. Urine output had decreased. Could not do review of systems as he was intubated. Physical Exam Const Constitutional Narrative: intubated, sedated, RASS score is -4 HEENT normocephalic and head/scalp atraumatic Eyes PERRL and EOMs intact bilaterally Neck no lymphadenopathy and supple Resp Resp Narrative: moderately diminished breath sounds bibasally, no wheezes or crackles. Intubated and sedated. Cardio regular rate, regular rhythm, S1 normal heart sound, S2 normal heart sound and no murmurs GI normal to inspection, nondistended, normoactive bowel sounds, soft to palpation, non-tender and non-distended Extremity Extremity Narrative: bilateral diminished peripheral pulses. feet are cyanotic Neuro Neuro Narrative: intubated, sedated, RASS score is -4 Weight / BMI Weight Weight: 287 lb 11.252 oz Body Mass Index (BMI) 36.9 ABG / Lab / Microbiology Data 04/26/23 05:22 04/26/23 05:22 Laboratory: Laboratory Results - last 24 hr 04/26/23 05:22: Platelet Estimate SLT DEC, Total Creatine Kinase 1871 H, Triglycerides 134 04/26/23 14:20: PT 23.2 H, INR 2.0, APTT 38.1 H 04/26/23 18:15: POC Glucose 131 H Microbiology: Microbiology 04/26/23 00:07 Stool Enteric Bacteriology - Final 04/26/23 00:07 Stool Clostridioides difficile (PCR) - Final 04/26/23 06:25 Sputum, Induced/Lukens Gram Stain - Final 04/26/23 10:30 Gastric Fluid/Contents Gastric Occult Blood - Final Occult Blood Positive 04/25/23 23:15 Mucosa - Nasopharyngeal Respiratory Panel (PCR) - Final 04/25/23 20:48 Urine, Random Legionella Antigen - Final 04/25/23 20:48 Urine, Random Streptococcus pneumoniae Antigen (M - Final 04/25/23 15:52 Mucosa - Nose SARS-CoV-2, Influenza & RSV (PCR) - Final ABG: ABG 04/26/23 04/26/23 04/26/23 07:12 09:45 17:01 Specimen Type ART ART ART Sample Site L Radial L Radial L Radial pH 7.18 L* 7.20 L 7.31 L Bicarbonate Actual 22.8 23.2 22.2 Total CO2 25 25 24 Base Excess -6 L -5 L -4 L O2 Saturation 96 95 95 O2 % 100.0 80.0 50.0 ABG pCO2 61.0 H 59.0 H 44.0 ABG pO2 106 H 90 83 Kolby Test Positive Positive Positive Respiration Rate 16 16 20 O2 Delivery Device Adult Vent Adult Vent Adult Vent Vent Mode AC AC AC Tidal Volume 450.0 450.0 500.0 POC PEEP 8 8 8 Crit Call To/Read Back Yes Yes Blood Gas Notified Whom WHITE OUMAR Blood Gas Notified Time 07:14:06 09:47:19 Radiography Diagnostic Testing: Radiology Impression Liver Ultrasound 04/25/23 21:08 IMPRESSION: Large mixed cystic and solid mass of the right lobe of the liver and correlation with liver mass protocol CT or MRI is recommended. Electronically Signed: Cleve Mathis MD at 8:49 EST , Echocardiogram 04/26/23 06:16 Interpretation Summary Patient on a ventilator with limited study/TDS. The estimated ejection fraction is 40-45 %. Moderate LV systolic dysfunction with global LV hypokinesia RV compression noted and diastolic Consistent with signs of pretamponade Normal LV inflow pattern. Moderate pericardial effusion In comparison to previous echo in April 2023 increase in size of pericardial effusion with signs of early tamponade /RV cavity size is small Ordering Physician: Mohini Leslie Referring Physician: Pedro Mcnair Performed By: Celine Alba RDCS, RVT Chest X-Ray 04/26/23 06:25 IMPRESSION: 1. Interval placement of endotracheal tube with the tip above the ryan. 2. Interval placement of nasogastric tube with the tip below the diaphragm. 3. Right lower lobe pneumonia. 4. Cardiomegaly. Electronically Signed: Cleve Mathis MD at 9:58 EST , KUB X-Ray 04/26/23 06:25 IMPRESSION: 1. Nasogastric tube with the tip in the midline likely in the antrum the stomach. 2. No bowel obstruction. Electronically Signed: Cleve Mathis MD at 9:57 EST , Meaningful Use Info Meaningful Use Diagnoses (Choose all that apply): None applicable Discharge Plan Admission Admit Date/Time: 04/25/23 20:03 Primary Reason for Your Visit: acute hypoxic respiratory failure, pericardial effusion Attending Provider: Toña Obregon Primary Care Provider: Pedro Mcnair Consulting Providers: Mohini Leslie; Buddy Aguilera Discharge Orders/Prescriptions Prescriptions: No Action apixaban 5 MG tablet 5 mg PO BID clonidine HCl 0.2 MG tablet 0.2 mg PO BID 0RF dorzolamide-timolol 1 DROP bottle 1 drp RIGHT EYE BID 0RF multivitamin,ag-fbcq-uphxeqhn 1 TABLET tablet 1 tab PO DAILY@0800 0RF metoprolol tartrate 25 MG tablet 25 mg PO BID 0RF gabapentin 400 mg capsule 400 mg PO TID duloxetine 30 mg capsule,delayed release(DR/EC) 30 mg PO DAILY olmesartan 40 mg tablet 40 mg PO DAILY acetaminophen 500 MG tablet 1,000 mg PO Q8 PRN (Reason: pain) Referrals / Follow Up: Pedro Mcnair MD [Primary Care Provider] - Disposition Disposition (needs filled in before D/C Order can be placed): Acute Care Hospital Charges/Coding Visit Charges Inpatient E&M: 56457 Disch Hosp >30min
== END 2023-04-26 18:20 | disposition short-term general hospital (02) | DRG 208 ==
LOC: ED 19:16 → PCU 20:17 → ICU 04-26 05:47
PROVIDERS: Admitting Provider Family Medicine; Emergency Provider Emergency Medicine; PCP Family Medicine; Visit Provider Student in an Organized Health Care Education/Training Program
DX: J96.01 Acute respiratory failure with hypoxia (principal); J18.8 Other pneumonia, unspecified organism; R57.9 Shock, unspecified; I31.39 Other pericardial effusion (noninflammatory); I42.9 Cardiomyopathy, unspecified; N17.9 Acute kidney failure, unspecified; M62.82 Rhabdomyolysis; D69.6 Thrombocytopenia, unspecified; I73.9 Peripheral vascular disease, unspecified; E66.01 Morbid (severe) obesity due to excess calories; I48.0 Paroxysmal atrial fibrillation; J96.02 Acute respiratory failure with hypercapnia; I12.9 Hypertensive chronic kidney disease with stage 1 through stage 4 chronic kidney disease, or unspecified chronic kidney disease; N18.9 Chronic kidney disease, unspecified; G62.9 Polyneuropathy, unspecified; I25.10 Atherosclerotic heart disease of native coronary artery without angina pectoris; F17.210 Nicotine dependence, cigarettes, uncomplicated; E07.9 Disorder of thyroid, unspecified; R16.0 Hepatomegaly, not elsewhere classified; G89.29 Other chronic pain; Z79.01 Long term (current) use of anticoagulants; Z79.899 Other long term (current) drug therapy; Z68.36 Body mass index [BMI] 36.0-36.9, adult; Z95.5 Presence of coronary angioplasty implant and graft
CPT/HCPCS: 31500; 31720; 36600; 71045; 71275; 74018; 76705; 80053; 81001; 82271; 82550; 82803; 82962; 83735; 83880; 84439; 84443; 84478; 85025; 85610; 85730; 87040; 87070; 87205; 87449; 87493; 87506; 87631; 87633; 87641; 93005; 93306; 94002; 94640; 94762; 99252; 99285; J7030; J7040; J7050; Q9957; Q9967; A4216; C8929; G0463; J1940

== ENCOUNTER 2023-05-09 01:50 | Inpatient (IN) | payer MEDICARE, OTHER, SELFPAY ==
[2023-05-09 02:27] VITALS: BP 128/60; PULSE 59; RESP 18; TEMP 36.9; O2SAT 97
--- NOTE | 2023-05-09 03:22 | RAD.NOTE ---
Written communication left for Dr. Hickman requesting clarification for Gavilyte bowel prep order on discharge med list, eye drop listed on home med list but not ordered on discharge med list and requesting cream for patient thick dry skin to BLE/feet.
--- NOTE | 2023-05-09 03:26 | NURSING ---
Patient arrived on unit at 0144. Patient was transferred to bed by EMS staff. This nurse and a second nurse went to patients room to do assessments. Patient complied. Patient did refuse to sign paperwork and fill out a menu at this time, patient was getting agitated with answering questions and was giving inappropriate answers, so this nurse left room to let patient rest.
[2023-05-09 05:53] VITALS: BMI 33.7
[2023-05-09 05:58] VITALS: BP 145/61; PULSE 61
[2023-05-09] MEDS: hydrALAZINE 50 MG Tablet PO ×2 (05:58→09:02)
[2023-05-09 06:11] LABS: Absolute Lymphocyte Count 2.09 X10^3/uL (0.83-4.51); Absolute Neutrophil Count 8.4 X10^3/uL (2.0-7.7); Basophil# 0.07 X10^3/uL; Basophil% 0.6 % (0-1); Eosinophil# 0.35 X10^3/uL; Eosinophils% 2.8 % (0-5); Hematocrit 43.8 % (40-54); Hemoglobin 13.9 g/dL (13.0-16.5); Lymphocyte # 2.09 X10^3/ul (0.83-4.51); Lymphocyte % 16.4 % (19-41); Mean Corp Hgb Conc 31.7 g/dL (32-36); Mean Corpuscular Hgb 31.6 pg (27.0-32.0); Mean Corpuscular Volume 99.5 fL (80-94); Mean Platelet Vol. 14.3 fl (6.2-12.0); Monocyte# 1.65 X10^3/uL; NRBC Flagged by Analyzer 0 % (0-5); Neutrophil # 8.44 X10^3/uL (2.7-7.7); Neutrophil % 66.3 % (47-70); POSITIVE DIFFERENTIAL YES; Platelet Count 130 K/mm3 (150-450); RBC Distribution Width CV 15.2 % (11.6-14.6); RBC Distribution Width SD 55.5 fl (35.1-43.9); White Blood Count 12.7 K/mm3 (4.4-11.0)
[2023-05-09 06:22] LABS: Differential Indicated SCAN CRITERIA MET
[2023-05-09 06:45] LABS: Anion Gap 8 (5-15); BUN 45 mg/dL (7-18); BUN/Creat Ratio 13.3 RATIO (10-20); Calcium,Total 8.7 mg/dL (8.5-10.1); Chloride 106 mmol/L (98-107); Creatinine, Serum 3.39 mg/dL (0.70-1.30); EST Glomerular Filtration Rate 19 mL/min (>60); Est Glom Filt Rate - Afr Amer 23 mL/min (>60); Estimated Creatinine Clearance 26.62 ml/min; Glucose 118 mg/dL (74-106); Potassium 4.5 mmol/L (3.5-5.1); Sodium Level 138 mmol/L (136-145)
--- NOTE | 2023-05-09 07:58 | HP.PCM_ITS ---
[facility] - General General Date of Admission: 05/09/23 Date of Service: 05/09/23 Chief Complaint: Here for rehabilitation. HPI Narrative JOSE L ZARAGOZA, is a 72 M who presents with following: [facility] 04/25/2023 to 04/27/2023: #Acute hypoxic respiratory failure due to community acquired pneumonia * Was admitted with a complaint of cough and headache as well as fever and weakness at about 36 prior to admission. * Chest x-ray showed right lower lobe interstitial infiltrates. CTA of the chest showed moderate pericardial effusion with prominent nonspecific mediastinal lymphadenopathy and mild left lower lobe infiltrate. * Patient went into worsening respiratory distress and had to be emergently intubated after admission. * Titrate oxygen to maintain saturation above 90%. Critical care consulted. Await recs. * On IV ceftriaxone and azithromycin. Will broaden antibiotics to IV vancomycin and Zosyn. * Blood in sputum cultures pending. Urine for strep and Legionella negative. * #Moderate pericardial effusion * This seems to be chronic. We back in 2011 patient had a PET scan on account of a liver mass and at that time it showed pericardial effusion as well. CT of the chest done during this admission was negative for any evidence of PE but showed a moderate pericardial effusion which appeared to have enlarged. * 2D echo done today showed: EF of 45% with moderate left ventricular systolic dysfunction with global left ventricular hypokinesis consistent with signs of pre-tamponade. Consult cardiology. * cardiology consulted for evaluation * #Liver mass * CT chest showed a large cystic lesion within the liver. This is chronic and has appeared on previous images dating back to 2011. * Per PET scan done in 2012, imaging was concerning for cancer but patient had not followed up * Liver ultrasound showed large mixed cystic and solid mass of the right lobe of the liver. * Will need follow-up with oncology on outpatient basis. * #Left thyroid lesion: CT showed a left thyroid lesion which was about 2.7 cm. To have nonemergent outpatient thyroid ultrasound follow-up #Hypertension: BP meds on hold as patient is currently intubated and sedated. IV hydralazine as needed. #Hyperlipidemia: Not on statin. Unclear why. #PAD: S/p bilateral lower extremity stents. On Eliquis at home. Feet are dark with diminished pulses today. Patient started on heparin drip. Eliquis held. #Paroxysmal A-fib: On metoprolol. Eliquis on hold and patient currently on hep david drip. 04/27/2023 Transfer to [facility] for pericardial effusion with tamponade. 04/27/2023 Admit to [facility]. 1. Acute hypoxic respiratory failure s/p intubation, extubated 04/28/2023. 2. Influenza A s/p peramivir/oseltamivir. 3. Acute on chronic pericardial effusion s/p pericardial drain placement 04/27/2023, removed 04/28/2023. a. Repeat TTE 05/02/2023: EF 60%, no wall motion abnormality, trivial pericardial effusion without tamponade. b. Completed course of antibiotics for possible pneumonia. 4. Acute metabolic encephalopathy. a. 04/30/2023: CT head showed right hypodensity, potential for stroke. MRI negative for ischemic stroke, however high burden for chronic vascular disease. b. Neurology consulted, signed off. c. Started on Seroquel, Neurontin restarted (100mg twice daily) d. Geriatrcis consulted. 5. CRISTOPHER/CKD 3 a. Likely prerenal 2/2 ATN or cardiorenal syndrome. b. Will need outpatient follow-up with nephrology. c. Renal function now stable around 3.1-3.3. d. Needs repeat BMP as outpatient. 6. Atrial fibrillation, on Eliquis s/p TTE/DCCV 04/03/2023. a. Required cardene drip, now off. b. Has been seen by cardiology, continue Metoprolol, Eliquis, Hydralazine. c. Statin held given elevated LFT's, restart when able. d. Follows with cardiology at [facility]. 7. PVD a. Dopplers were intact. No intervention per vascular surgery. Continue oral anticoagulation. 8. Dysphagia a. Thin liquids per speech therapy. 9. HTN a. SBP goal less than 160. b. Continue Hydralazine, Lopressor. Can add amlodipine back on if needed. 10. Transaminitis. 11. Large liver lesion - needs f/u. 12. Thyroid nodule - needs f/u. 13. 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 05/09/2023 Admit to TCU with debility, here for rehabilitation, strengthening, prior to discharge home with significant other. [facility] Medical History (Updated 05/09/23 @ 08:[address] Myron Hickman MD) Chronic idiopathic thrombocytopenia Chronic neuropathic pain CKD (chronic kidney disease) HLD (hyperlipidemia) Hypertension Hypoxia Morbid obesity due to excess calories Obesity Ocular melanoma PAD (peripheral artery disease) Paroxysmal atrial fibrillation Pericardial effusion Peripheral vascular disease Pneumonia Tobacco abuse Home Medications apixaban 5 mg tablet 5 mg PO BID blood thinner 10/27/18 [History Last Taken 04/25/23] clonidine HCl 0.2 mg tablet 0.2 mg PO BID heart 11/03/18 [Rx Last Taken 04/25/23] metoprolol tartrate 25 mg tablet 25 mg PO BID blood pressure 11/03/18 [Rx Last Taken 04/25/23] multivitamin,pu-eohb-nbglkqht 27 mg-0.4 mg tablet 1 tab PO DAILY@0800 supplement 11/03/18 [Rx Last Taken 04/25/23] acetaminophen 500 mg tablet 1,000 mg PO Q8 PRN pain 04/25/23 [History Last Taken 04/25/23] duloxetine 30 mg capsule,delayed release 30 mg PO DAILY mood 04/25/23 [History Last Taken 04/25/23] gabapentin 400 mg capsule 400 mg PO TID nerve pain 04/25/23 [History Last Taken 04/25/23] olmesartan 40 mg tablet 40 mg PO DAILY heart 04/25/23 [History Last Taken 04/25/23] dorzolamide 22.3 mg-timolol 6.8 mg/mL eye drops 1 drp RIGHT EYE BID eye 05/09/23 [History Last Taken Unknown] Allergy/AdvReac Type Severity Reaction Status Date / Time nebivolol HCl [From Bystolic] Allergy Other Verified 04/25/23 14:57 Penicillins Allergy Other Verified 04/25/23 14:57 trandolapril [From Tarka] Allergy Other Verified 04/25/23 14:57 verapamil HCl [From Tarka] Allergy Other Verified 04/25/23 14:57 Family History Mother Heart disease Father Heart disease Surgical History History of eye surgery S/P arthroscopic surgery of right knee S/P peripheral artery angioplasty with stent placement Social History household members: significant other Smoking Status: Current every day smoker tobacco type: cigarettes alcohol intake: current alcohol intake frequency: a few times a month substance use type: does not use ROS Constitutional Constitutional: Denies chills, fever(s) or weight gain ENT HEENT: Denies headache(s), nasal congestion or nasal discharge Cardiovascular Cardiovascular: Denies chest pain or palpitations Respiratory/Chest Respiratory/Chest: Denies cough, excessive phlegm production or shortness of breath with exertion Gastrointestinal Gastrointestinal: Denies abdominal pain, nausea or vomiting Genitourinary Genitourinary: Denies dysuria Musculoskeletal Musculoskeletal: Denies joint pain or joint swelling Integumentary Integumentary: Denies rash or wounds Neurologic Neurologic: Denies focal weakness, numbness or tingling Psychiatric Psychiatric: Denies anxiety, auditory hallucinations, depression, homicidal ideation or suicidal ideation Vital Signs Vital Signs Vital Signs: 05/09/23 02:27 05/09/23 02:43 05/09/23 05:58 Temperature 98.4 F Temperature Source Oral Pulse Rate 59 L 61 Pulse Rhythm Regular Pulse Strength Normal (2+) Respiratory Rate 18 Respiratory Effort Normal Respiratory Depth Normal Respiratory Pattern Normal Blood Pressure 128/60 H 145/61 H Blood Pressure Mean 82 Blood Pressure Source Monitor Blood Pressure Position Sitting Blood Pressure Location Left Arm Pulse Ox 97 Oxygen Delivery Method Room Air Room Air Weight Weight: 119.096 kg Body Mass Index (BMI) 33.7 Physical Exam Const alert General Appearance: cooperative HEENT normocephalic Eyes PERRL and EOMs intact bilaterally Neck supple, no JVD and no carotid bruits Resp normal respiratory effort, normal air movement and clear to auscultation bilaterally Cardio regular rate and regular rhythm GI normal to inspection, nondistended, normoactive bowel sounds, non-tender and non-distended Extremity normal capillary refill General Extremity: Negative for edema Skin no rashes or lesions noted General Skin Exam: no breakdown Psych affect normal Appearance: appropriate Results Lab / Micro Data 05/09/23 05:20 05/09/23 05:20 Labs: Laboratory Results - last 24 hr 05/09/23 05:20: WBC 12.7 H, RBC 4.40 L, Hgb 13.9, Hct 43.8, MCV 99.5 H, MCH 31.6, MCHC 31.7 L, RDW Std Deviation 55.5 H, RDW Coeff of Sabra 15.2 H, Plt Count 130 L, MPV 14.3 H, Immature Gran % (Auto) 0.900, Neut % (Auto) 66.3, Lymph % (Auto) 16.4 L, Person % (Auto) 13.0 H, Eos % (Auto) 2.8, Baso % (Auto) 0.6, Absolute Neuts (auto) 8.4 H, Absolute Lymphs (auto) 2.09, Nucleated RBC % 0, Sodium 138, Potassium 4.5, Chloride 106, Carbon Dioxide 24.0, Anion Gap 8, BUN 45 H, Creatinine 3.39 H, Estim Creat Clear Calc 26.62, Est GFR (MDRD) Af Amer 23 L, Est GFR (MDRD) Non-Af 19 L, BUN/Creatinine Ratio 13.3, Glucose 118 H, Calcium 8.7 Assessment & Plan Assessment/Plan (1) Debility: (2) Acute respiratory failure with hypoxia: (3) Pneumonia: (4) Influenza A: (5) Pericardial effusion with cardiac tamponade: (6) Acute encephalopathy: (7) Acute kidney injury: (8) Atrial fibrillation: (9) Hypertension: (10) Chronic idiopathic thrombocytopenia: (11) Liver mass: (12) Thyroid nodule: PLAN: Plan 72 year old male with below past medical history hospitalized for acute respiratory failure requiring intubation 2/2 influenza A/pneumonia, complicated by pericardial effusion with tamponade requiring drainage, encephalopathy, CRISTOPHER, atrial fibrillation with RVR, admitted to TCU with debility, here for rehabilitation, strengthening, prior to discharge home with significant other. * Debility - PT/OT. * Dysphagia - ST. * Pain - Monitor * Bowel - Monitor. * Adult immunization - Administer pneumonia vaccine, covid vaccine, flu vaccine. * DVT prophylaxis - Eliquis 5mg bid. * Venous stasis dermatitis - Ammonium lactate topical bid bilateral lower extremities, feet. * Atrial Fibrillation - Metoprolol 150mg bid, Eliquis 5mg bid. * Glaucoma - Dorzolamide/Timolol 1gtt ou bid. * Neuropathic pain - Gabapentin 100mg bidcm. * Hypertension - Metoprolol 150mg bid, Hydralazine 50mg tid. * Liver mass - order MRI liver, alpha protein, consider biopsy. * Thyroid nodule - order thyroid ultrasound, schedule FNA with general surgery. * CRISTOPHER - order renal ultrasound, consult Nephrology.
--- NOTE | 2023-05-09 08:17 | US_ITS ---
EXAM: US SOFT TISSUES HEAD AND NECK, THYROID CLINICAL INDICATION: Thyroid nodule. TECHNIQUE: Greyscale and color doppler imaging was performed of the thyroid gland. COMPARISON: No relevant prior studies available. FINDINGS: LEFT THYROID LOBE: The left lobe of the thyroid is heterogeneous. Numerous nodules in the right lobe of the thyroid. The largest 3 nodules were measured. Solid nodule measuring 3.2 x 2.1 x 2.1 cm left lobe of the thyroid is heterogeneous isoechoic, taller than wide, smooth, without echogenic foci. Solid/cystic nodule left lobe of the thyroid is heterogeneous, hypoechoic, wider than tall, lobulated without echogenic foci. The left lobe of the thyroid lobe measures 6.3 x 2.9 x 2.4 cm. RIGHT THYROID LOBE: The right lobe of the thyroid is heterogeneous. Solid nodule measuring 0.5 x 0.4 x 0.4 cm in the right lobe of the thyroid is hypoechoic, wider than tall, smooth, without echogenic foci. Solid nodule measuring 1.2 x 0.9 x 0.9 cm right lobe of the thyroid is heterogeneous isoechoic, wider than tall, smooth, without echogenic foci. Solid nodule measuring 0.9 x 0.6 x 0.8 cm right lobe of the thyroid is hypoechoic, wider than tall, smooth, without echogenic foci. The right lobe of the thyroid lobe measures 6.1 x 2.4 x 2.5 cm. ISTHMUS: Unremarkable. No thyroid nodules are present. The isthmus measures 1.2 cm in thickness. US/Thyroid IMPRESSION: 1. Solid nodule measuring 0.5 x 0.4 x 0.4 cm in the right lobe of the thyroid is hypoechoic, wider than tall, smooth, without echogenic foci. TI-RADS points: 4. TI-RADS category: TR4. This nodule is moderately suspicious but no FNA or follow-up is necessary given the small size of this nodule. 2. Solid nodule measuring 1.2 x 0.9 x 0.9 cm right lobe of the thyroid is heterogeneous isoechoic, wider than tall, smooth, without echogenic foci. TI-RADS points: 3. TI-RADS category: TR3. This nodule is mildly suspicious but no FNA or follow-up is necessary given the small size of this nodule. 3. Solid nodule measuring 0.9 x 0.6 x 0.8 cm right lobe of the thyroid is hypoechoic, wider than tall, smooth, without echogenic foci. TI-RADS points: 4. TI-RADS category: TR4. This nodule is moderately suspicious but no FNA or follow-up is necessary given the small size of this nodule. 4. Solid nodule measuring 3.2 x 2.1 x 2.1 cm left lobe of the thyroid is heterogeneous isoechoic, taller than wide, smooth, without echogenic foci. TI-RADS points: 6. TI-RADS category: TR4. This nodule is moderately suspicious. Recommend FNA evaluation. 5. Solid/cystic nodule left lobe of the thyroid is heterogeneous, hypoechoic, wider than tall, lobulated without echogenic foci. TI-RADS points: 5. TI-RADS category: TR4. This nodule is moderately suspicious. Recommend FNA evaluation. Electronically Signed: Aleks Garcia MD at 0:15 EST ,
--- NOTE | 2023-05-09 08:20 | US_ITS ---
STUDY: RENAL ULTRASOUND - COMPLETE REASON FOR EXAM: Male, 72 years old. CRISTOPHER. TECHNIQUE: Ultrasound evaluation of the kidneys was performed with real-time and static whitehead-scale imaging. COMPARISON: None. FINDINGS: Bilateral perinephric stranding. RIGHT KIDNEY: Normal location of the right kidney, which is normal in size. The right kidney measures 9.6 cm. . There is a normal cortex of the right kidney. 10 mm exophytic cyst noted. There are no right renal calculi. There is no right hydronephrosis. DISTAL RIGHT URETER: There is non-visualization of the distal right ureter. There is no demonstrated right ureterovesical junction calculus. There is no demonstrated right ureteral jet. LEFT KIDNEY: Normal location of the left kidney, which is normal in size. The left kidney measures 13 cm. . There is a normal cortex of the left kidney. There are total 3 cyst in the left kidney. The largest is 18 x 16 mm. There are no left renal calculi. There is no left hydronephrosis. DISTAL LEFT URETER: There is non-visualization of the distal left ureter. There is no demonstrated left ureterovesical junction calculus. There is no demonstrated left ureteral jet. AORTA: There is obscuration of the abdominal aorta by overlying bowel gas I.V.C.: It is not visualized. There is too much overlying bowel gas. BLADDER: The distended urinary bladder has a volume in cc of 41. There is a normal wall thickness of the distended urinary bladder. There is no demonstrated mass within the urinary bladder. There are no demonstrated bladder calculi. US/Kidney and Bladder IMPRESSION: Simple bilateral renal cysts. Note: Renal size measurements and size measurements of other organs etc may vary depending on modality and farm operator dependent variations in measurements. (i.e. Measuring a kidney on an US does not correlate with an exact same measurement on a CT.) Electronically Signed: Rolando Hogan MD at 16:29 EST ,
--- NOTE | 2023-05-09 08:31 | PHA.CONS_ITS ---
Documented by User: Dragan Jasperaislinn 05/09/23 08:46 TCU RX Drug Regimen Review Subjective/Objective Subjective/Objective: Subjective: TCU admission note. 72 year old male with below past medical history hospitalized for acute respiratory failure requiring intubation 2/2 influenza A/pneumonia, complicated by pericardial effusion with tamponade requiring drainage, encephalopathy, CRISTOPHER, atrial fibrillation with RVR, admitted to TCU with debility, here for rehabilitation, strengthening, prior to discharge home with significant other. Objective: Allergies nebivolol HCl [From Bystolic] Allergy (Verified 04/25/23 14:57) Other Penicillins Allergy (Verified 04/25/23 14:57) Other trandolapril [From Tarka] Allergy (Verified 04/25/23 14:57) Other verapamil HCl [From Tarka] Allergy (Verified 04/25/23 14:57) Other Current Medications Generic Name Dose Route Start Last Admin Trade Name Freq PRN Reason Stop Dose Admin Apixaban 5 mg 05/09/23 10:00 Apixaban 5 Mg Tablet PO BID CHIQUIS Dorzolamide/Timolol 1 drp 05/09/23 10:00 Dorzolamide Hcl/Timolol 10 Ml Bottle RIGHT EYE BID CHIQUIS Gabapentin 100 mg 05/09/23 08:00 Gabapentin 100 Mg Capsule PO BIDCM CHIQUIS Hydralazine HCl 50 mg 05/09/23 06:00 05/09/23 05:58 Hydralazine 50 Mg Tablet PO 50 mg TID CHIQUIS Administration Protocol Lactic Acid 1 applic 05/09/23 10:00 Ammonium Lactate 225 Gm Bottle TOPICAL BID CHIQUIS Protocol Metoprolol Tartrate 150 mg 05/09/23 10:00 Metoprolol Tartrate 100 Mg Tablet PO BID CHIQUIS Protocol Sodium Chloride 10 - 40 ml 05/09/23 03:48 0.9% Saline Lock 10 Ml Syringe IV UD PRN SALINE FLUSH Tuberculin PPD 0.1 ml 05/17/23 10:00 Tuberculin,Purif.Prot.Deriv. 50 Tu/Ml Vial ID 05/17/23 10:01 X1 ONE Tuberculin PPD 0.1 ml 05/10/23 10:00 Tuberculin,Purif.Prot.Deriv. 50 Tu/Ml Vial ID 05/10/23 10:01 X1 ONE Problem List (Updated 05/09/23 @ 08:[address] Myron Hickman MD) Thyroid nodule (Acute) Liver mass (Acute) Chronic idiopathic thrombocytopenia (Chronic) Hypertension (Chronic) Atrial fibrillation (Acute) Acute kidney injury (Acute) Acute encephalopathy (Acute) Pericardial effusion with cardiac tamponade (Acute) Influenza A (Acute) Pneumonia (Acute) Acute respiratory failure with hypoxia (Acute) Debility (Acute) Vital Signs Temp Pulse Resp BP Pulse Ox O2 Del Method 98.4 F 61 18 145/61 H 97 Room Air 05/09/23 02:27 05/09/23 05:58 05/09/23 02:27 05/09/23 05:58 05/09/23 02:27 05/09/23 02:43 Oxygen Delivery Method Room Air Weight: 119.096 kg Body Mass Index (BMI) 33.7 Sodium 138 mmol/L (136-145) 05/09/23 05:20 Potassium 4.5 mmol/L (3.5-5.1) 05/09/23 05:20 Chloride 106 mmol/L (98-107) 05/09/23 05:20 Carbon Dioxide 24.0 mmol/L (21.0-32.0) 05/09/23 05:20 Anion Gap 8 (5-15) 05/09/23 05:20 BUN 45 mg/dL (7-18) H 05/09/23 05:20 Creatinine 3.39 mg/dL (0.70-1.30) H 05/09/23 05:20 Est GFR (MDRD) Af Amer 23 mL/min (>60) L 05/09/23 05:20 Est GFR (MDRD) Non-Af 19 mL/min (>60) L 05/09/23 05:20 BUN/Creatinine Ratio 13.3 RATIO (10-20) 05/09/23 05:20 Glucose 118 mg/dL (74-106) H 05/09/23 05:20 Assessment/Plan: 1. Atrial fibrillation/hypertension: apixaban 5 mg PO BID, hydralazine 50 mg PO TID, metoprolol tartrate 150 mg PO BID. Please continue to monitor for s/s of a trial fibrillation such as palpitations, for bleeding/excessive bruising, hemoglobin levels (Hgb = 13.9 g/dL on 05/09/23), serum creatinine levels (Scr = 3.39 mg/dL on 05/09/23), heart rates (recent range = 59-100 beats/min), blood pressures (recent range = 128-145/60-61 mmHg), and for fatigue. 2. Neuropathic pain: gabapentin 100 mg PO BID with meals. Please continue to monitor for neuropathic pain, lower extremity edema, drowsiness and dizziness. 3. Venous stasis dermatitis: ammonium lactate 1 application topically BID. Please continue to monitor for dermatitis resolution. 4. Glaucoma: dorzolamide/timolol 1 drop in each eye BID. Please continue to monitor eye health, hyperemia, eye itchiness, and heart rate (recent range = 59- 100 beats/min). Assessment/Plan for indications treated with psychotropic medications: NA Medical chart and medication regimen reviewed. The following medication irregularities or issues were identified: NA Date Date of Note:: 05/09/23 Documented by User: Dr. Myron Hickman MD 05/09/23 08:56 TCU RX Drug Regimen Review Provider Comments Provider responsibility Provider Comments to Recommendations by Pharmacy: Agree
--- NOTE | 2023-05-09 08:53 | NURSING ---
[facility] OFFICE CALLED PER ORDER, THERE INBOUND CALL CENTER AGENT WILL LET KNOW.
[2023-05-09] MEDS: Gabapentin 100 MG Capsule PO ×2 (08:58→17:12)
[2023-05-09 09:01] VITALS: BP 160/82; PULSE 66
[2023-05-09] MEDS: Metoprolol Tartrate 100 MG Tablet 150 MG PO (09:01)
[2023-05-09] MEDS: APIXABAN 5 MG TABLET PO (09:01)
[2023-05-09 09:02] VITALS: BP 160/82; PULSE 66
[2023-05-09] MEDS: Dorzolamide HCL/Timolol 10 ml Bottle 1 DRP RIGHT EYE (09:03)
--- NOTE | 2023-05-09 09:16 | NURSING ---
WENT TO DO PT BELONGINGS PER WORK LIST. PT CAME WITH NOTHING WITH HIM.
[2023-05-09 09:19] VITALS: BP 160/82; PULSE 66
[2023-05-09 09:30] VITALS: BMI 33.7
[2023-05-09] MEDS: Ammonium Lactate 225 gm Bottle 1 APPLIC TOPICAL (10:30)
[2023-05-09] MEDS: amLODIPine 5 MG Tablet PO (11:32)
--- NOTE | 2023-05-09 11:36 | NURSING ---
PT NONCOMPLIANT SHOOTER'S HELPER MCCLENDON FOUND UP WALKING IN ROOM. REEDUCATED PT ON USE OF THE CALL MCCLENDON. PT STATED I GOT TIRED OF WAITING. PT GIRLFRIEND BROUGHT IN LUNCH FOR PT AND THIS NURSE EDUCATED THEM BOTH ON PT DIET ORDERS AND WHY HE HAS THEM. BOTH PRETTY MUCH IGNORED THIS NURSE. ASKED PT IF HE NEEDED ANYTHING ELSE PT STATED YES MY F IN [place] THAT GOT LEFT ON THE AIR PLANE AND DRUGS. THIS NURSE STATED THEY WOULD HAVE TO GET A HOLD OF THE PLANE/HELICOPTER THAT TRANSPORTED HIM. AND THIS NURSE ASKED IF PT HAD ANY PAIN. PT STATED NO,THIS NURSE STATED TO PT THAT THERE ARE NO PAIN MEDS TO GIVE IF HE IS NOT HAVING ANY PAIN. RN AWARE
--- NOTE | 2023-05-09 13:02 | NURSING ---
Tuckpointer Cleaner Caulker Note; Activity Asset: Anglea Ghotra is independent in his choice of daily activities. He has stated he is not interested in doing activities outside of his room. His significant other and daughter will visit and bring him items he may need or want. He really just wants to go home. He does have his cell phone, watch tv and read. Staff will remind him of weekly activities and respect his right to say no.
--- NOTE | 2023-05-09 14:05 | PCM.PN.BLA ---
Progress Note Received consult. Patient is currently in therapy. Full note to follow. Reviewed chart Recently admitted to the hospital with shortness of breath. Found to have pericardial effusion. Liver mass which is chronic, needs follow-up. Creatinine up to 3.1. Was in the mid twos before. No recent baseline available. Will try to get old records. Renal ultrasound pending. Urine analysis shows 3+ protein, will send urine protein creatinine ratio
--- NOTE | 2023-05-09 14:49 | CHAPLAIN ---
Type of Pastoral Visit _x__ Initial Visit ___ Follow-up Visit ___ On-call Visit ___ General Patient Visit ___ Spiritual Assessment ___ Family Conference ___ Bereavement ___ Rapid Response ___ Code Blue ___ Other (describe below) Pastoral Care Referral From _x_ Patient ___ Family ___ Nurse ___ Physician ___ Plater Printed Circuit Board Panels ___ Sliver Lap Machine Tender ___ Other (describe below) Sacrament/Intervention _x__ Active listening ___ Anointing ___ Anabaptist ___ Bereavement ___ Communion ___ Brenda exploration ___ ___ Life review ___ Prayer ___ Reconciliation ___ Sacrament of Sick _x__ Supportive presence ___ Wedding ___ Other (describe below) Pastoral Comments patient is resting in bed and daughter is in the room working on her computer; introduced self and role of the wheel aligner; daughter is welcoming and explains that pt has been in another hospital for the last two weeks; pt is alert and answers questions but with simple and one word responses; pt is offered time to get acquainted and to receive presence and support; pt is offered opportunity for a prayer; pt denies any needs at this time
[2023-05-09 15:13] VITALS: BP 153/81; PULSE 89; RESP 18; TEMP 35.3; O2SAT 94
--- NOTE | 2023-05-09 16:25 | CASEMGMT ---
Social Work Met with patient to complete initial assessment. Pt known to this worker from previous stay. Dtr and SO present in room. Pt agreeable for family to remain. SW answered dtr's questions as well. Verified/updated contacts. Educated to Medicare benefit and copay coverage. Pt's goal is to return home living with SO. Pt has a split level house and SO cannot physically assist. SW will continue to follow for DC planning. KOURTNEY SalgadoW
--- NOTE | 2023-05-09 20:46 | NURSING ---
This nurse went to administer medications for HS, asked patient if we could take blood pressure due to his blood pressure medications. Patient would not remove arm from under blanket and allow this nurse to take blood pressure. Multiple attempts and education were given. Patient still refused. Advised patient that medications will be marked as refused, patient states, thats fine.
[2023-05-10] VITALS (7 sets, daily range): BP systolic 128–190; BP diastolic 61–90; PULSE 63–73; RESP 16–18; TEMP 37.4; O2SAT 90–94
--- NOTE | 2023-05-10 02:43 | NURSING ---
Patient observed self transferring to the bathroom. Education provided on safety, call light placed by patient in recliner. While doing 0200 rounds, patient had transferred himself back to bed. Education once again provided.
[2023-05-10 04:07] LABS: AFP, Tumor Marker 4.7 ng/mL (0.0-8.4)
--- NOTE | 2023-05-10 05:29 | NURSING ---
This nurse went to give 0600 dose of hydralazine, patient let this nurse take blood pressure, hydralazine was place in patients hand. Patient continued to hold on to it, this nurse asked if he was going to take the medication. Patient proceeded to throw medication on the ground. This nurse again asked if he was going to take his medication. Patient tells this nurse that there is no point in taking medication now. This nurse asked if he could explain. Patient just stares and purposely expelled flatulence and refused to answer. Medication marked as refused.
[2023-05-10] MEDS: Dorzolamide HCL/Timolol 10 ml Bottle 1 DRP RIGHT EYE ×2 (08:46→22:18)
[2023-05-10] MEDS: Gabapentin 100 MG Capsule PO ×2 (08:46→17:52)
[2023-05-10] MEDS: APIXABAN 5 MG TABLET PO ×2 (08:47→22:17)
[2023-05-10] MEDS: amLODIPine 5 MG Tablet PO ×2 (08:47→22:17)
[2023-05-10] MEDS: Ammonium Lactate 225 gm Bottle 1 APPLIC TOPICAL ×2 (08:47→22:24)
[2023-05-10] MEDS: Metoprolol Tartrate 100 MG Tablet 150 MG PO ×2 (08:48→22:17)
[2023-05-10] MEDS: hydrALAZINE 50 MG Tablet PO ×2 (13:46→22:18)
[2023-05-10] MEDS: Tuberculin,Purif.prot.deriv. 50 TU/ML Vial 0.100000000000000006 ML ID (13:56)
--- NOTE | 2023-05-10 16:37 | NURSING ---
MRI complete today to liver for liver mass. 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 Awaiting MRI results.
[2023-05-11 06:09] LABS: Protein, Urine (Random) 36.1 mg/dL (<11.9); Protein:Creat Ratio 373 mg/g CRE (0-200)
[2023-05-11 06:44] VITALS: BP 144/69; PULSE 61
[2023-05-11] MEDS: hydrALAZINE 50 MG Tablet PO ×3 (06:44→22:20)
[2023-05-11 09:04] VITALS: BP 136/74; PULSE 71; RESP 17; TEMP 37.4; O2SAT 93
[2023-05-11] MEDS: APIXABAN 5 MG TABLET PO ×2 (09:12→22:17)
[2023-05-11] MEDS: Dorzolamide HCL/Timolol 10 ml Bottle 1 DRP RIGHT EYE ×2 (09:12→22:17)
[2023-05-11] MEDS: Gabapentin 100 MG Capsule PO ×2 (09:12→17:13)
[2023-05-11 09:13] VITALS: PULSE 71
[2023-05-11] MEDS: Ammonium Lactate 225 gm Bottle 1 APPLIC TOPICAL ×2 (09:13→22:18)
[2023-05-11] MEDS: Metoprolol Tartrate 100 MG Tablet 150 MG PO ×2 (09:13→22:20)
[2023-05-11] MEDS: amLODIPine 5 MG Tablet PO ×2 (09:14→22:18)
--- NOTE | 2023-05-11 13:51 | NURSING ---
Dr. Hickman updated on Family concern of increased edema to Bilateral feet and legs. +2 pitting to Bilateral Feet and +1 to Bilateral legs. N.O. for Lasix 40mg x1 start now and daily for 3 days. BMP daily for 3 days starting 05/11/22. Order read back.
[2023-05-11 14:34] VITALS: BP 140/75; PULSE 62
[2023-05-11 14:38] VITALS: PULSE 62
[2023-05-11] MEDS: Furosemide 40 MG Tablet PO (14:38)
[2023-05-11 22:20] VITALS: BP 151/61; PULSE 70
[2023-05-12] VITALS (9 sets, daily range): BP systolic 133–147; BP diastolic 61–77; PULSE 55–71; RESP 16; TEMP 36.8; O2SAT 92–93
[2023-05-12] MEDS: hydrALAZINE 50 MG Tablet PO ×3 (06:14→21:11)
[2023-05-12 06:24] LABS: Anion Gap 7 (5-15); BUN 29 mg/dL (7-18); BUN/Creat Ratio 10.5 RATIO (10-20); Calcium,Total 8.7 mg/dL (8.5-10.1); Chloride 102 mmol/L (98-107); Creatinine, Serum 2.76 mg/dL (0.70-1.30); EST Glomerular Filtration Rate 24 mL/min (>60); Est Glom Filt Rate - Afr Amer 29 mL/min (>60); Estimated Creatinine Clearance 32.69 ml/min; Glucose 107 mg/dL (74-106); Potassium 3.8 mmol/L (3.5-5.1); Sodium Level 135 mmol/L (136-145)
[2023-05-12] MEDS: APIXABAN 5 MG TABLET PO ×2 (08:43→21:12)
[2023-05-12] MEDS: Gabapentin 100 MG Capsule PO ×2 (08:43→16:47)
[2023-05-12] MEDS: Metoprolol Tartrate 100 MG Tablet 150 MG PO ×2 (08:44→21:12)
[2023-05-12] MEDS: amLODIPine 5 MG Tablet PO ×2 (08:45→21:12)
[2023-05-12] MEDS: Dorzolamide HCL/Timolol 10 ml Bottle 1 DRP RIGHT EYE ×2 (08:46→21:13)
[2023-05-12] MEDS: Furosemide 40 MG Tablet PO (08:52)
--- NOTE | 2023-05-12 09:47 | NURSING ---
PT REFUSING TO CHANGE SOILED PANTS. THERAPY AND BOOK RETAILER ALSO TRIED AND STILL REFUSED.
--- NOTE | 2023-05-12 09:56 | PCA ---
Seen patient on camera self transferring. Went back there, he was incontinent, bed wet, cleaned the bed, put new linens on. Staff asked patient if he was ready to get washed up & he said NO. I told him since he was incontinent, I would get him some new clothes to put on. Staff got his new clothes & put them in the bathroom. A few minutes later, staff went back into his room & he was sitting in his recliner with his dirty clothes still on. Patient refused to change his clothes
--- NOTE | 2023-05-12 11:42 | NURSING ---
PT HAS APPOINTMENT TOMORROW [05/13/23] WITH AT 9:15 AM. PT GIRL FRIEND WILL TRANSPORT AND WILL STUNNER ANIMAL AT 9AM.
--- NOTE | 2023-05-12 11:57 | NURSING ---
Spoke with patient and girlfriend about gen surgery appt for thyroid nodules. Patient not sure he wants appt set up. He stalled and wouldn't answer nurse. RN encouraged him to go to appt sooner rather than later so what was seen on US can be addressed. He continued to not answer, closed eyes and didn't talk. Told him and girlfriend nurse would let him think about it and nurse can follow-up on decision later. Don BORRERO notified.
--- NOTE | 2023-05-12 12:19 | NURSING ---
Offered Covid vaccine, VIS provided. Patient refused at this time.
[2023-05-12] MEDS: Ammonium Lactate 225 gm Bottle 1 APPLIC TOPICAL (21:11)
--- NOTE | 2023-05-12 21:18 | NURSING ---
Addendum entered by Bismark Smith 05/13/23 02:02: Written communication left for therapy regarding patient request to be up ad ayush. Original Note: Patient observed self transferring. Patient presents as alert and oriented to person/place/time/situation. Encouraged not to self transfer in an effort to promote safety. Educated on fall prevention and call light system, encouraged to utilize call button for staff assist at any time for staff assist. Educated patient on current therapy recommendation for staff assist x1 with transfers. Patient refuses use of alarm and is at times resistant to staff assist with care. Patient requesting to be up ad ayush, will relay request to oncoming nurse to assess if appropriate for patient to be up ad ayush. Patient denies requests, prefers to sit up in recliner at this time time. Call light within reach. Accepts HS medication per order. No distress observed or reported.
[2023-05-13] VITALS (7 sets, daily range): BP systolic 140–146; BP diastolic 56–69; PULSE 62–71; RESP 18; TEMP 36.3; O2SAT 93; BMI 33.7
[2023-05-13] MEDS: hydrALAZINE 50 MG Tablet PO ×3 (05:46→21:43)
[2023-05-13 06:38] LABS: Anion Gap 7 (5-15); BUN 30 mg/dL (7-18); BUN/Creat Ratio 10.5 RATIO (10-20); Calcium,Total 8.8 mg/dL (8.5-10.1); Chloride 100 mmol/L (98-107); Creatinine, Serum 2.87 mg/dL (0.70-1.30); EST Glomerular Filtration Rate 23 mL/min (>60); Est Glom Filt Rate - Afr Amer 28 mL/min (>60); Estimated Creatinine Clearance 31.44 ml/min; Glucose 114 mg/dL (74-106); Potassium 3.8 mmol/L (3.5-5.1); Sodium Level 134 mmol/L (136-145)
[2023-05-13 07:47] LABS: Pathologist Review Reviewed
[2023-05-13] MEDS: APIXABAN 5 MG TABLET PO ×2 (07:56→21:45)
[2023-05-13] MEDS: Metoprolol Tartrate 100 MG Tablet 150 MG PO ×2 (07:56→21:45)
[2023-05-13] MEDS: Furosemide 40 MG Tablet PO (07:56)
[2023-05-13] MEDS: amLODIPine 5 MG Tablet PO ×2 (07:57→21:45)
[2023-05-13] MEDS: Dorzolamide HCL/Timolol 10 ml Bottle 1 DRP RIGHT EYE ×2 (07:57→21:46)
[2023-05-13] MEDS: Gabapentin 100 MG Capsule PO ×2 (07:59→17:24)
--- NOTE | 2023-05-13 09:14 | NURSING ---
R' LEFT UNIT AT 0850 FOR APPT. GIRLFRIEND TRANSPORTED.
--- NOTE | 2023-05-13 14:28 | NURSING ---
R' BACK FROM APPT WITH DR JACQUES JOHNSON. NO N.O. HIM AND GIRLFRIEND STATE HE WILL F/U IN JUNE AND WILL LET STAFF KNOW SPECIFIC DATE IF HE'S STILL ON UNIT.
[2023-05-13] MEDS: Ammonium Lactate 225 gm Bottle 1 APPLIC TOPICAL (21:46)
[2023-05-14] VITALS (9 sets, daily range): BP systolic 120–137; BP diastolic 56–75; PULSE 60–72; RESP 12–18; TEMP 37.3; O2SAT 97
[2023-05-14] MEDS: hydrALAZINE 50 MG Tablet PO ×3 (05:27→20:17)
[2023-05-14] MEDS: Gabapentin 100 MG Capsule PO ×2 (08:28→16:59)
[2023-05-14] MEDS: Dorzolamide HCL/Timolol 10 ml Bottle 1 DRP RIGHT EYE ×2 (08:28→20:20)
[2023-05-14] MEDS: APIXABAN 5 MG TABLET PO ×2 (08:30→20:18)
[2023-05-14] MEDS: Furosemide 40 MG Tablet PO (08:30)
[2023-05-14] MEDS: Ammonium Lactate 225 gm Bottle 1 APPLIC TOPICAL (08:30)
[2023-05-14] MEDS: Metoprolol Tartrate 100 MG Tablet 150 MG PO ×2 (08:30→20:18)
[2023-05-14] MEDS: amLODIPine 5 MG Tablet PO ×2 (08:31→20:19)
--- NOTE | 2023-05-14 11:36 | CASEMGMT ---
Social Work Collaboration with [employer] on presenting social work information for care plan meeting. Information included explanation of Medicare benefit and copay coverage. Pt requested to DC. IDT offered 05/16 and pt/family agreed. Pt denied any therapy or DME needs at DC. SO to transport. Plan: DC home with SO 05/16, no needs. KOURTNEY SalgadoW
[2023-05-14 13:28] LABS: Anion Gap 9 (5-15); BUN 28 mg/dL (7-18); BUN/Creat Ratio 10.1 RATIO (10-20); Calcium,Total 8.7 mg/dL (8.5-10.1); Chloride 98 mmol/L (98-107); Creatinine, Serum 2.78 mg/dL (0.70-1.30); EST Glomerular Filtration Rate 24 mL/min (>60); Est Glom Filt Rate - Afr Amer 29 mL/min (>60); Estimated Creatinine Clearance 32.48 ml/min; Glucose 137 mg/dL (74-106); Potassium 3.6 mmol/L (3.5-5.1); Sodium Level 134 mmol/L (136-145)
--- NOTE | 2023-05-14 14:55 | NURSING ---
PT VERY AGITATED WHEN THIS NURSE WALKED IN TO ROOM TO DO PT ASSESSMENT AND GIVE SCHEDULED MEDS. ASKED PT IF I COULD TAKE HIS VITALS DUE TO HIM GETTING A BP MED AND BEING ON LASIX. PT STATED THEY DID THEM ALREADY. THIS NURSE STATED VITALS WERE DONE AROUND 8AM THIS MORNING AND NEEDED TO BE RECHECKED DUE TO HIM BEING ON LASIX AND BP MEDS. PT STATED VLADIMIR GETTING TIRED OF THIS BULL SHIT IN THIS HOSPITAL. THIS NURSE STATED HE HAD A DISCHARGE DATE FOR 05/17/23 THIS FRIDAY. PT STATED WELL YOU KNOW PEOPLE LIE AND THINGS CHANGE. THIS NURSE STATED TO PT THAT IF HE WANTS TO LEAVE TO JUST LET ME KNOW AND I WILL LET THE JAVA USER INTERFACE DEVELOPER ETC KNOW AND GET THINGS STARTED CAUSE WE CAN NOT FORCE HIM TO STAY,BUT IT WOULD ALSO BE AGAINST . PT DID NOT REPLY AND LET THIS NURSE DO HIS ASSESSMENT.
--- NOTE | 2023-05-14 15:53 | CHAPLAIN ---
Type of Pastoral Visit ___ Initial Visit _x__ Follow-up Visit ___ On-call Visit ___ General Patient Visit ___ Spiritual Assessment ___ Family Conference ___ Bereavement ___ Rapid Response ___ Code Blue ___ Other (describe below) Pastoral Care Referral From _x__ Patient ___ Family ___ Nurse ___ Physician ___ Dietary Server ___ Chemist Instrumentation ___ Other (describe below) Sacrament/Intervention ___ Active listening ___ Anointing ___ Pentecostal ___ Bereavement ___ Communion ___ Brenda exploration ___ ___ Life review _x__ Prayer ___ Reconciliation ___ Sacrament of Sick _x__ Supportive presence ___ Wedding ___ Other (describe below) Pastoral Comments patient is sitting up in chair and has a family member in the room; pt and individual speak of improvement and hopes of going home on Friday; pt states that he has no concerns or needs; family member asks if a prayer could be given on behalf of the patient and same is given
--- NOTE | 2023-05-14 19:46 | DS.PCM_ITS ---
Providers Date of Admission: 05/09/23 Primary Care Physician: Dr. Pedro Mcnair MD Consultations 05/09/23 07:30 Consult: Nephrology Routine Consulting Provider: Yoan Moon Reason for Consult: Acute on chronic renal failure. EMERGENT Consult: No MD Notified: Yes Date Notified: 05/09/23 Time Notified: 07:31 Method of Notification: Answering Service Reason For Visit: ACUTE RESPIRATORY FAILURE, PERICARDIAL EFFUSION Diagnosis Discharge Diagnosis (1) Debility: Status: Acute Code(s): R53.81 - Other malaise (2) Acute respiratory failure with hypoxia: Status: Acute Code(s): J96.01 - Acute respiratory failure with hypoxia (3) Pneumonia: Status: Acute Code(s): J18.9 - Pneumonia, unspecified organism (4) Influenza A: Status: Acute Code(s): J10.1 - Influenza due to other identified influenza virus with other respiratory manifestations (5) Pericardial effusion with cardiac tamponade: Status: Acute Code(s): I31.39 - Other pericardial effusion (noninflammatory); I31.4 - Cardiac tamponade (6) Acute encephalopathy: Status: Acute Code(s): G93.40 - Encephalopathy, unspecified (7) Acute kidney injury: Status: Acute Code(s): N17.9 - Acute kidney failure, unspecified (8) Atrial fibrillation: Status: Acute Code(s): I48.91 - Unspecified atrial fibrillation (9) Hypertension: Status: Chronic Code(s): I10 - Essential (primary) hypertension (10) Chronic idiopathic thrombocytopenia: Status: Chronic Code(s): D69.3 - Immune thrombocytopenic purpura (11) Liver mass: Status: Acute Code(s): R16.0 - Hepatomegaly, not elsewhere classified (12) Thyroid nodule: Status: Acute Code(s): E04.1 - Nontoxic single thyroid nodule Plan 72 year old male with below past medical history hospitalized for acute respiratory failure requiring intubation 2/2 influenza A/pneumonia, complicated by pericardial effusion with tamponade requiring drainage, encephalopathy, CRISTOPHER, atrial fibrillation with RVR, admitted to TCU with debility, here for rehabilitation, strengthening, prior to discharge home with significant other. * Debility - PT/OT. * Dysphagia - ST. * Pain - Monitor * Bowel - Monitor. * Adult immunization - Administer pneumonia vaccine, covid vaccine, flu vaccine. * DVT prophylaxis - Eliquis 5mg bid. * Venous stasis dermatitis - Ammonium lactate topical bid bilateral lower extremities, feet. * Atrial Fibrillation - Metoprolol 150mg bid, Eliquis 5mg bid. * Glaucoma - Dorzolamide/Timolol 1gtt ou bid. * Neuropathic pain - Gabapentin 100mg bidcm. * Hypertension - Metoprolol 150mg bid, Hydralazine 50mg tid. * Liver mass - order MRI liver, alpha protein, consider biopsy. * Thyroid nodule - order thyroid ultrasound, schedule FNA with general surgery. * CRISTOPHER - order renal ultrasound, consult Nephrology. Medications at Discharge Home Medications amlodipine 5 mg tablet 5 mg PO BID 30 days #60 tabs 05/14/23 apixaban 5 mg tablet (Eliquis) 5 mg PO BID #0 tabs 05/14/23 dorzolamide 22.3 mg-timolol 6.8 mg/mL eye drops 1 drp RIGHT EYE BID #0 mL 05/14/23 gabapentin 100 mg capsule 100 mg PO BIDCM 30 days #60 caps 05/14/23 hydralazine 50 mg tablet 50 mg PO TID 30 days #90 tabs 05/14/23 metoprolol tartrate 100 mg tablet 150 mg (1.5 x 100 mg) PO BID 30 days #90 tabs 05/14/23 Hospital Course Operations None Procedures None Summary of Care Provided Minutes Spent on Discharge: 35 Hospital Course: 72 year old male with below past medical history hospitalized for acute respiratory failure requiring intubation 2/2 influenza A/pneumonia, complicated by pericardial effusion with tamponade requiring drainage, encephalopathy, CRISTOPHER, atrial fibrillation with RVR, admitted to TCU with debility, here for rehabilitation, strengthening, prior to discharge home with significant other. CRISTOPHER improved, renal ultrasound ok, f/u Dr. Moon. Thyroid ultrasound shows multiple suspicious thyroid nodules, f/u Dr. Schmitt for FNA. MRI liver shows large liver cyst, no further evaluation recommended. Discharge home with significant other 05/17/2023, No needs. Physical Exam Const alert General Appearance: cooperative HEENT normocephalic Eyes PERRL and EOMs intact bilaterally Neck supple, no JVD and no carotid bruits Resp normal respiratory effort, normal air movement and clear to auscultation bilaterally Cardio regular rate and regular rhythm GI normal to inspection, nondistended, normoactive bowel sounds, non-tender and non-distended Extremity normal capillary refill General Extremity: Negative for edema Skin no rashes or lesions noted General Skin Exam: no breakdown Psych affect normal Appearance: appropriate Medical Records Data Medical Nutrition Assessment Dietitian: Malnutrition Criteria Met Start: 05/09/23 14:40 Freq: Status: Active Protocol: Document 05/09/23 14:40 DREA (Rec: 05/09/23 14:41 [facility] [id number]) Nutrition Malnutrition Evidence of Malnutrition Exists Yes Malnutrition (severe): Acute Illness/Injury Evidenced By Suboptimal Energy Intake ( Severe),Weight Loss (Severe) Clinical Problem Acute Disease or Injury Related Malnutrition Etiology related to decreased ability to consume sufficient energy to meet estimated nutrient needs Signs/Symptoms as evidenced by a significant weight loss of 8.7% x 2 weeks and prolonged poor oral intakes of less than 50% of estimated nutrient needs for at least 5 days. Status Active Problem Recommendation Dietitian Recommendations/Changes Change diet to Regular - General No Added Salt for some liberalization. Res agreeable to Magic Cup padilla flavor with lunch and dinner, as well as Beneprotein with meals to be mixed with pudding or applesauce, etc. to help increase oral intakes. Will continue to follow and modify nutrition interventions as needed. Weight / BMI Weight Weight: 119.249 kg Body Mass Index (BMI) 33.7 ABG / Lab / Microbiology Data 05/09/23 05:20 05/14/23 12:46 Laboratory: Laboratory Results - last 24 hr 05/14/23 12:46: Sodium 134 L, Potassium 3.6, Chloride 98, Carbon Dioxide 27.0, Anion Gap 9, BUN 28 H, Creatinine 2.78 H, Estim Creat Clear Calc 32.48, Est GFR (MDRD) Af Amer 29 L, Est GFR (MDRD) Non-Af 24 L, BUN/Creatinine Ratio 10.1, Glucose 137 H, Calcium 8.7 D/C Instructions Discharge Diet: No restrictions Discharge Activity: Return to Normal Activity and May Shower May resume sexual activity in: 6-8 weeks Weight Bearing Status: Weight bearing as tolerated Call your doctor if you observe: Fever of 101 or Higher, Inability to urinate, Inability to have a bowel movement, Shortness of breath, Dizziness, Fainting spells, Swelling in the ankles, Chest pain and Uncontrolled pain Additional Instructions: Discharge home with significant other 05/17/2023, No needs. Meaningful Use Info Meaningful Use Diagnoses (Choose all that apply): None applicable Discharge Plan Admission Admit Date/Time: 05/09/23 01:50 Primary Reason for Your Visit: Debility. Attending Provider: Myron Hickman Chi Primary Care Provider: Pedro Mcnair Consulting Providers: Yoan Moon Instructions Additional Instructions / Restrictions: Discharge home with significant other 05/17/2023, No needs. Discharge Orders/Prescriptions Prescriptions: New metoprolol tartrate 100 mg Tablet 150 mg PO BID 30 Days Qty: 90 0RF amlodipine 5 mg Tablet 5 mg PO BID 30 Days Qty: 60 0RF dorzolamide-timolol 22.3-6.8 mg/mL Drops 1 drp RIGHT EYE BID Qty: 0 0RF hydralazine 50 mg Tablet 50 mg PO TID 30 Days Qty: 90 0RF gabapentin 100 mg Capsule 100 mg PO BIDCM 30 Days Qty: 60 0RF Eliquis 5 mg Tablet 5 mg PO BID Qty: 0 0RF Discontinued apixaban 5 MG tablet 5 mg PO BID clonidine HCl 0.2 MG tablet 0.2 mg PO BID 0RF Hold Instructions: not ordered on discharge med list from [facility] multivitamin,dg-oecq-adklyulk 1 TABLET tablet 1 tab PO DAILY@0800 0RF Hold Instructions: not ordered on discharge med list from [facility] metoprolol tartrate 25 MG tablet 25 mg PO BID 0RF Hold Instructions: Order Changed gabapentin 400 mg capsule 400 mg PO TID Hold Instructions: Order Changed duloxetine 30 mg capsule,delayed release(DR/EC) 30 mg PO DAILY Hold Instructions: not ordered on discharge med list from [facility] olmesartan 40 mg tablet 40 mg PO DAILY Hold Instructions: not ordered on discharge med list from [facility] acetaminophen 500 MG tablet 1,000 mg PO Q8 PRN (Reason: pain) Hold Instructions: not ordered on discharge med list from [facility] dorzolamide-timolol 1 DROP bottle 1 drp RIGHT EYE BID Hold Instructions: not ordered on discharge med list from [facility] Referrals / Follow Up: Yoan Moon MD [Med Staff - Consulting] - Within 1 Month Aleks Schmitt MD [Med Staff - Active Staff] - Within 2 Weeks (FNA multiple suspicious thyroid nodules. Thyroid ultrasound done at [facility].) Pedro Mcnair MD [Primary Care Provider] - 05/20/23 2:00 pm Disposition Disposition (needs filled in before D/C Order can be placed): Home, Self Care
[2023-05-15] VITALS (7 sets, daily range): BP systolic 116–137; BP diastolic 63–72; PULSE 58–66; RESP 18; TEMP 36.5; O2SAT 96
[2023-05-15] MEDS: hydrALAZINE 50 MG Tablet PO ×3 (05:20→21:25)
[2023-05-15] MEDS: Gabapentin 100 MG Capsule PO ×2 (08:17→16:36)
[2023-05-15] MEDS: Dorzolamide HCL/Timolol 10 ml Bottle 1 DRP RIGHT EYE ×2 (08:17→21:26)
[2023-05-15] MEDS: APIXABAN 5 MG TABLET PO ×2 (08:18→21:25)
[2023-05-15] MEDS: Metoprolol Tartrate 100 MG Tablet 150 MG PO ×2 (08:19→21:26)
[2023-05-15] MEDS: amLODIPine 5 MG Tablet PO ×2 (08:20→21:26)
--- NOTE | 2023-05-15 15:48 | CASEMGMT ---
Social Work BIMS () and PHQ-2 () completed for MDS assessment. Su Quiroz MSW [employer] WORK[employer]
[2023-05-16] VITALS (8 sets, daily range): BP systolic 120–140; BP diastolic 60–81; PULSE 58–65; RESP 18; TEMP 36.6; O2SAT 90–96
[2023-05-16 06:02] LABS: Absolute Lymphocyte Count 1.89 X10^3/uL (0.83-4.51); Absolute Neutrophil Count 4.3 X10^3/uL (2.0-7.7); Basophil# 0.06 X10^3/uL; Basophil% 0.8 % (0-1); Eosinophil# 0.41 X10^3/uL; Eosinophils% 5.1 % (0-5); Hemoglobin 13.8 g/dL (13.0-16.5); Lymphocyte # 1.89 X10^3/ul (0.83-4.51); Lymphocyte % 23.7 % (19-41); Mean Corp Hgb Conc 32.9 g/dL (32-36); Mean Corpuscular Hgb 31.6 pg (27.0-32.0); Mean Corpuscular Volume 96.1 fL (80-94); Mean Platelet Vol. 12.5 fl (6.2-12.0); Monocyte% 16.3 % (0-10); NRBC Flagged by Analyzer 0 % (0-5); Neutrophil # 4.28 X10^3/uL (2.7-7.7); Neutrophil % 53.5 % (47-70); Platelet Count 148 K/mm3 (150-450); RBC Distribution Width CV 13.8 % (11.6-14.6); RBC Distribution Width SD 49.3 fl (35.1-43.9); Red Blood Count 4.37 M/mm3 (4.6-6.2)
[2023-05-16] MEDS: hydrALAZINE 50 MG Tablet PO ×3 (06:32→20:41)
[2023-05-16 06:33] LABS: Anion Gap 9 (5-15); BUN 32 mg/dL (7-18); BUN/Creat Ratio 12.5 RATIO (10-20); Calcium,Total 8.9 mg/dL (8.5-10.1); Chloride 97 mmol/L (98-107); Creatinine, Serum 2.56 mg/dL (0.70-1.30); EST Glomerular Filtration Rate 26 mL/min (>60); Est Glom Filt Rate - Afr Amer 32 mL/min (>60); Estimated Creatinine Clearance 35.27 ml/min; Glucose 117 mg/dL (74-106); Potassium 3.2 mmol/L (3.5-5.1); Sodium Level 133 mmol/L (136-145)
[2023-05-16] MEDS: Ammonium Lactate 225 gm Bottle 1 APPLIC TOPICAL (08:53)
[2023-05-16] MEDS: APIXABAN 5 MG TABLET PO ×2 (08:53→20:41)
[2023-05-16] MEDS: Gabapentin 100 MG Capsule PO ×2 (08:53→17:19)
[2023-05-16] MEDS: Dorzolamide HCL/Timolol 10 ml Bottle 1 DRP RIGHT EYE ×2 (08:53→20:41)
[2023-05-16] MEDS: amLODIPine 5 MG Tablet PO ×2 (08:54→20:41)
[2023-05-16] MEDS: Metoprolol Tartrate 100 MG Tablet 150 MG PO ×2 (08:54→20:42)
[2023-05-16] MEDS: Potassium Chloride Oral Tablet 20 MEQ 40 MEQ PO (11:19)
[2023-05-17 05:22] VITALS: BP 114/53; PULSE 60
[2023-05-17] MEDS: hydrALAZINE 50 MG Tablet PO (05:22)
[2023-05-17 07:06] LABS: Anion Gap 9 (5-15); BUN 31 mg/dL (7-18); BUN/Creat Ratio 12.4 RATIO (10-20); Calcium,Total 9.1 mg/dL (8.5-10.1); Chloride 99 mmol/L (98-107); Creatinine, Serum 2.51 mg/dL (0.70-1.30); EST Glomerular Filtration Rate 27 mL/min (>60); Est Glom Filt Rate - Afr Amer 33 mL/min (>60); Estimated Creatinine Clearance 35.97 ml/min; Glucose 119 mg/dL (74-106); Potassium 3.4 mmol/L (3.5-5.1); Sodium Level 133 mmol/L (136-145)
--- NOTE | 2023-05-17 08:54 | NURSING ---
Pt irritable this morning, anxious to discharge home. Refused AM meds, states he will take them at home. Vitals: bp-135/78, p-62, r-18, t-98, sp02-96% on room air. reports pain because [lab] stuck me this morning! denies any other pain. present during discharge and transporting home. Pt leaves unit @0857. No further comments/complaints at this time.
--- NOTE | 2023-05-20 14:06 | MDS.RN ---
Information for the mds was obtained from review of the clinical record, interview of resident, staff, and direct observation of resident's care.
== END 2023-05-17 08:57 | disposition home or self-care (01) | DRG 193 ==
PROVIDERS: Internal Medicine Nephrology; Admitting Provider Family Medicine Geriatric Medicine; PCP Family Medicine; Visit Provider Family Medicine Geriatric Medicine
DX: J10.00 Influenza due to other identified influenza virus with unspecified type of pneumonia (principal); G93.41 Metabolic encephalopathy; I31.4 Cardiac tamponade; I31.39 Other pericardial effusion (noninflammatory); D69.3 Immune thrombocytopenic purpura; R16.0 Hepatomegaly, not elsewhere classified; I48.0 Paroxysmal atrial fibrillation; G62.9 Polyneuropathy, unspecified; N18.30 Chronic kidney disease, stage 3 unspecified; I73.9 Peripheral vascular disease, unspecified; E04.1 Nontoxic single thyroid nodule; I12.9 Hypertensive chronic kidney disease with stage 1 through stage 4 chronic kidney disease, or unspecified chronic kidney disease; K76.9 Liver disease, unspecified; I87.2 Venous insufficiency (chronic) (peripheral); F17.210 Nicotine dependence, cigarettes, uncomplicated; E78.5 Hyperlipidemia, unspecified; K76.89 Other specified diseases of liver; Z79.01 Long term (current) use of anticoagulants; H40.9 Unspecified glaucoma; Z79.899 Other long term (current) drug therapy
CPT/HCPCS: 36415; 76536; 76770; 80048; 82105; 82570; 84156; 85025; 92610; 97110; 97162; 97166; 97530; 97535; 97802

== ENCOUNTER → 2023-05-10 | Outpatient (CLI) | payer MEDICARE, OTHER, SELFPAY ==
--- NOTE | 2023-05-10 09:50 | MRI_ITS ---
EXAM: MR ABDOMEN WITHOUT INTRAVENOUS CONTRAST CLINICAL INDICATION: MASS TECHNIQUE: Multiplanar and multisequence MR images of the abdomen without intravenous contrast. Magnetic field strength 1.5 T. COMPARISON: CTA chest 04/25/[address] scan of the whole body for PET scan 12/23/2011. FINDINGS: LOWER THORAX: Unremarkable. No pleural effusion. LIVER: Well-circumscribed mildly heterogeneous mass measuring 8.3 cm in diameter in segment VIII of the right lobe of the liver that is high signal on T1 and T2-weighted images and does not suppress with fat suppression techniques. The most recent prior CT scan dated 04/25/2023 demonstrates that this measures 19 Hounsfield units in density and is not significantly changed since the prior CT 12/23/2011. Scattered small simple cysts in the liver. GALLBLADDER AND BILE DUCTS: Unremarkable. No gallstones. No gallbladder distention or wall edema. No intra- or extrahepatic biliary ductal dilation. PANCREAS: Unremarkable. No focal cystic mass. SPLEEN: Unremarkable. Normal size without focal cystic or solid mass. ADRENALS: Unremarkable. No nodules. KIDNEYS AND URETERS: Right renal cyst. Normal renal size and position. No hydronephrosis. INTRAPERITONEAL SPACE: Unremarkable. No ascites or other fluid collection. No free air. VASCULATURE: Unremarkable. Abdominal aorta is non-dilated. LYMPH NODES: No enlarged lymph nodes. MRI/Abdomen without Contrast IMPRESSION: 1. Well-circumscribed heterogeneous 8.3 cm mass in segment VIII of the right lobe of the liver that is not significantly changed since 12/23/2011. MR signal characteristics suggest that it is a cyst containing proteinaceous contents. 2. Scattered small simple cysts in the liver. Electronically Signed: Aleks Garcia MD at 22:44 EDT ,
--- NOTE | 2023-05-10 10:58 | RAD_ITS ---
HISTORY: Possible metal in eye, MRI clearance. TECHNIQUE: 2 views of the orbits. Comparison CT head 10/27/2018. FINDINGS: 1-2 mm vertically oriented linear density overlying the left orbit and sphenoid wing. Symmetric appearance of the osseous structures. No large air-fluid levels in the paranasal sinuses. RAD/Orbits for Foreign Body IMPRESSION: Small density overlying the left orbit and sphenoid wing. Small foreign body not excluded. Consider lateral view or CT. Electronically Signed: Josy Muro MD at 11:15 EST ,
--- NOTE | 2023-05-10 11:25 | RAD_ITS ---
Lateral view of the orbits for MRI clearance. No metallic foreign body identified in the orbits. Electronically Signed: Josy Muro MD at 11:46 EST , RAD/Orbits for Foreign Body IMPRESSION: undefined
== END | disposition home or self-care (01) ==
LOC: MRI 09:46
PROVIDERS: PCP Family Medicine; Referring Provider Family Medicine Geriatric Medicine; Visit Provider Family Medicine Geriatric Medicine
DX: R16.0 Hepatomegaly, not elsewhere classified (principal)
CPT/HCPCS: 70030; 74181

== ENCOUNTER → 2023-06-16 | Outpatient (CLI) | payer MEDICARE, OTHER, SELFPAY ==
--- NOTE | 2023-06-16 | FLU_PTH ---
PATIENT: JOSE L ZARAGOZA LOC: [facility] U#:[id number] AGE/SX: 72/M ROOM: RE06/16/[address]: Dr. Aleks Schmitt MD : 1950 BED: DIS: 06/16/2023 SPEC #: [id number] RECD: 06/16/23 15:11 STATUS: JUNG BRANDON #: [id number] ROSSANA: 06/16/23 00:[address]: Aleks Schmitt DEPT: CYTOLOGY RECD BY: Jenn Melgar ENTERED: 06/17/23 09:34 SP TYPE: Fluid OTHR DR: Dr. Pedro Mcnair MD Tissues: A - Thyroid gland, NOS B - Thyroid gland, NOS C - Thyroid gland, NOS D - Thyroid gland, NOS Procedures: Special Stain Group II Surgery Specimen Level IV Cytospin Fluid Cytology Other HEADER OPERATION: Fine needle aspiration of thyroid nodule PRE-OP DIAGNOSIS: Left thyroid nodule TISSUE SUBMITTED: A- Left isthmic nodule fluid, B- Left isthmic nodule smears, C- Left inferior thyroid nodule fluid, D- Left inferior thyroid smears DIAGNOSIS CYTOLOGY A. Fine needle aspiration, left isthmic nodule fluid (cytospin and cellblock): Macrophages consistent with benign cyst contents. B. Fine needle aspiration, left isthmic nodule (smears): Macrophages consistent with benign cyst contents. See comment. C. Fine needle aspiration, left inferior thyroid nodule (cytospin and cellblock): Scant benign appearing follicular cells present. See comment. PARRIS/ 06/18/2023 COMMENT B. The specimen primarily consists of macrophages and amorphous material and extremely rare follicular cells. The specimen is consistent with [place] Category System I (nondiagnostic or unsatisfactory). Clinical correlation and repeat aspiration is recommended if indicated. C. Only very rare benign appearing follicular cells are identified. The specimen is suboptimal for evaluation. The specimen is consistent with [place] Category System I (nondiagnostic or unsatisfactory) . Clinical correlation and repeat aspiration is recommended if indicated. CYTOLOGY STUDY Slides are reviewed. CYTOLOGY GROSS A. Received is 35 ml of red cloudy fluid labeled with the patient's name and and designated per the requisition as Left isthmic thyroid nodule. Submitted for cytology preparation including cell block. B. Received are 4 smears labeled with the patient's name and designated per the requisition as Left isthmic thyroid nodule. Submitted for staining. C. Received is 35 ml of red-cloudy fluid labeled with the patient's name and and designated per the requisition as Left inferior thyroid nodule. Submitted for cytology preparation including cell block. D. Received are 4 smears labeled with the patient's name and designated per the requisition as Left inferior thyroid nodule. Submitted for staining. Mr 06/17/23 TC:5 CPT: 60464s4,48937x2
--- NOTE | 2023-06-16 | FLU_PTH ---
PATIENT: JOSE L ZARAGOZA LOC: [facility] U#:[id number] AGE/SX: 72/M ROOM: RE06/16/[address]: Dr. Aleks Schmitt MD : 1950 BED: DIS: 06/16/2023 SPEC #: [id number] RECD: 06/16/23 15:11 STATUS: JUNG BRANDON #: [id number] ROSSANA: 06/16/23 00:[address]: Aleks Schmitt DEPT: CYTOLOGY RECD BY: Jenn Melgar ENTERED: 06/17/23 09:34 SP TYPE: Fluid OTHR DR: Dr. Pedro Mcnair MD Tissues: A - Thyroid gland, NOS B - Thyroid gland, NOS C - Thyroid gland, NOS D - Thyroid gland, NOS Procedures: Special Stain Group II Surgery Specimen Level IV Cytospin Fluid Cytology Other HEADER OPERATION: Fine needle aspiration of thyroid nodule PRE-OP DIAGNOSIS: Left thyroid nodule TISSUE SUBMITTED: A- Left isthmic nodule fluid, B- Left isthmic nodule smears, C- Left inferior thyroid nodule fluid, D- Left inferior thyroid smears DIAGNOSIS CYTOLOGY A. Fine needle aspiration, left isthmic nodule fluid (cytospin and cellblock): Macrophages consistent with benign cyst contents. B. Fine needle aspiration, left isthmic nodule (smears): Macrophages consistent with benign cyst contents. See comment. C. Fine needle aspiration, left inferior thyroid nodule (cytospin and cellblock): Scant benign appearing follicular cells present. See comment. / 06/18/23 D. Fine needle aspiration, left inferior thyroid nodule (smears): Consistent with benign follicular nodule ([place] Category II) See comment. / 06/23/23 COMMENT B. The specimen primarily consists of macrophages and amorphous material and extremely rare follicular cells. The specimen is consistent with [place] Category System I (nondiagnostic or unsatisfactory). Clinical correlation and repeat aspiration is recommended if indicated. C. Only very rare benign appearing follicular cells are identified. The specimen is suboptimal for evaluation. The specimen is consistent with [place] Category System I (nondiagnostic or unsatisfactory) . Clinical correlation and repeat aspiration is recommended if indicated. D. The [place] System for thyroid diagnostic categorization was used in the evaluation of this case. A specimen is paucicellular. Clinical correlation is suggested. Case has been reviewed in consultation with Dr. Karimi who concurs with the above diagnosis. IDC:SJ CYTOLOGY STUDY Slides are reviewed. CYTOLOGY GROSS A. Received is 35 ml of red cloudy fluid labeled with the patient's name and and designated per the requisition as Left isthmic thyroid nodule. Submitted for cytology preparation including cell block. B. Received are 4 smears labeled with the patient's name and designated per the requisition as Left isthmic thyroid nodule. Submitted for staining. C. Received is 35 ml of red-cloudy fluid labeled with the patient's name and and designated per the requisition as Left inferior thyroid nodule. Submitted for cytology preparation including cell block. D. Received are 4 smears labeled with the patient's name and designated per the requisition as Left inferior thyroid nodule. Submitted for staining. Mr 06/17/23 TC:5 CPT: 95757x5,10011n7
== END | disposition home or self-care (01) ==
LOC: LABSPEC 15:13
PROVIDERS: PCP Family Medicine; Referring Provider Surgery; Visit Provider Surgery
DX: E04.1 Nontoxic single thyroid nodule (principal)
CPT/HCPCS: 88108; 88161; 88305; 88313

== ENCOUNTER 2023-10-02 19:14 | Inpatient (IN) | payer MEDICARE, OTHER, SELFPAY ==
[2023-10-02] VITALS (11 sets, daily range): BP systolic 114–160; BP diastolic 64–97; PULSE 85–116; RESP 18–36; TEMP 38.1–38.7; O2SAT 91–98; BMI 35.5; BMI 34.9
--- NOTE | 2023-10-02 19:24 | EKG12_ITS ---
Test Reason : DYSRHYTHMIA Blood Pressure : / mmHG Vent. Rate : 113 BPM Atrial Rate : 000 BPM P-R Int : 000 ms QRS Dur : 086 ms QT Int : 356 ms P-R-T Axes : 000 057 114 degrees QTc Int : 488 ms Atrial fibrillation with rapid ventricular response Low voltage QRS Nonspecific ST and T wave abnormality Abnormal ECG Confirmed by EMILIANO TEIXEIRA, TIFFANY ([id number]), editorial cartoonist EMELIA FISCHER ([id number]) on 10/03/2023 9:32:13 AM Referred By: Confirmed By:TIFFANY CUMMINGS MD
[2023-10-02] MEDS: Albuterol 2.5 MG/3 ML VIAL.NEB. INHALATION ×3 (19:44→20:28)
[2023-10-02] MEDS: Ipratropium/Albuterol Sulfate 3 ML AMPUL.NEB INHALATION (19:44)
--- NOTE | 2023-10-02 19:45 | EDS_ITS ---
HPI History of Present Illness Chief Complaint: Shortness of Breath Detail of Chief Complaint: Shortness of breath, productive cough, fever and chills Informant: patient Onset/Context/Timing Onset: Days Context: gradual Timing: Continuous Quality: Positive for Dyspnea on exertion and Wheezing; Negative for Orthopnea or PND Current Severity: Moderate Maximum Severity: Severe Worsened by: Exertion and Coughing Relieved by: - (Improved after patient was placed on oxygen) Associated Symptoms cough, fever, chills and green sputum; Negative for rhinorrhea, post nasal drip, ear pain, sore throat, subjective, sweats, clear sputum, white sputum or yellow sputum Chest Pain: Positive for None Narrative Narrative: Patient is a 72-year-old male. He has a past medical history of atrial fibrillation on Eliquis, liver mass, closed head injury, chronic idiopathic thrombocytopenia and hypertension. He also had a pericardial effusion that was drained at [facility]. He states 900 cc was removed. He endorses chronic leg swelling discoloration. He states the discoloration is due to neuropathy. Patient's had increased shortness of breath of the past several days. He has a cough that is productive of green-silva sputum. He does endorse fever and chills. He denies rhinorrhea, congestion postnasal drainage. He denies history of wheezing. He denies history of COPD. He denies history of PE or DVT. He denies pain with breathing. PE Risk Factors: Positive for Recent surgery; Negative for Cancer, OCP + Smoking + > 35, Prior DVT or PE, Recent immobilization or Recent travel Prior similar symptoms: No Recent Illness/Hospitalization: No PFSH PFSH Medical History Peripheral neuropathy Atrial fibrillation Pericardial effusion CKD (chronic kidney disease) Chronic neuropathic pain Chronic idiopathic thrombocytopenia PAD (peripheral artery disease) Obesity HLD (hyperlipidemia) Pneumonia Hypoxia Morbid obesity due to excess calories Ocular melanoma Paroxysmal atrial fibrillation Peripheral vascular disease Tobacco abuse Hypertension Home Medications ?Medication ?Instructions ?Recorded ?Last Taken ?Type amlodipine 5 mg tablet 5 mg PO BID 30 days #60 tabs 05/14/23 Unknown Rx apixaban 5 mg tablet (Eliquis) 5 mg PO BID #0 tabs 05/14/23 Unknown Rx hydralazine 50 mg tablet 50 mg PO TID 30 days #90 tabs 05/14/23 Unknown Rx metoprolol tartrate 100 mg tablet 150 mg (1.5 x 100 mg) PO BID 30 05/14/23 Unknown Rx days #90 tabs dorzolamide 22.3 mg-timolol 6.8 1 drp RIGHT EYE BID PRN eye 10/02/23 Unknown History mg/mL eye drops irritation gabapentin 400 mg capsule 400 mg PO TID 10/02/23 Unknown History multivitamin 1 tab PO DAILY 10/02/23 Unknown History Allergy/AdvReac Type Severity Reaction Status Date / Time nebivolol HCl (From [facility]) Allergy Other Verified 10/02/23 19:48 Penicillins Allergy Other Verified 10/02/23 19:48 trandolapril (From [facility]) Allergy Other Verified 10/02/23 19:48 verapamil HCl (From [facility]) Allergy Other Verified 10/02/23 19:48 Family History Mother Heart disease Father Heart disease Surgical History S/P arthroscopic surgery of right knee S/P peripheral artery angioplasty with stent placement History of eye surgery Social History household members: significant other Smoking Status: Current every day smoker tobacco type: cigarettes alcohol intake: current alcohol intake frequency: holidays/special occasions only substance use type: does not use ROS ROS ED Constitutional Constitutional ED: Reports chills and fever(s); Denies weight loss Eyes Eyes: Denies blurry vision or change in vision ENT ENT ED: Denies ear pain, rhinorrhea or sore throat Cardiovascular Cardiovascular: Reports palpitations and racing heartbeat; Denies chest pain, orthopnea or paroxysmal nocturnal dyspnea Respiratory/Chest Respiratory/Chest: Reports cough, dyspnea, dyspnea on exertion and sputum; Denies orthopnea or paroxysmal nocturnal dyspnea Gastrointestinal Gastrointestinal: Denies abdominal pain, diarrhea, nausea or vomiting Genitourinary Genitourinary ED: Denies dysuria, hematuria or urinary frequency Musculoskeletal Musculoskeletal: Denies arthralgias, back pain, myalgias or neck pain Integumentary Denies rash Neurologic Neurologic: Reports weakness; Denies paresthesias Psychiatric Psychiatric: Denies anxiety or depression Endocrine Endocrinology: Denies cold intolerance or heat intolerance Hematologic/Lymphatic Hematologic/Lymphatic: Denies easy bleeding or easy bruising EXAM Physical Exam Const Vital Signs: 10/02/23 19:15 10/02/23 19:19 10/02/23 19:20 Temperature 101.7 F H 101.7 F H Temperature Source Oral Oral Pulse Rate 110 H 110 H Respiratory Rate 22 H 22 H Respiratory Effort Short of Breath Labored Accessory Muscle Use Respiratory Pattern Tachypnea Blood Pressure 160/88 H 160/88 H Blood Pressure Mean 112 112 Pulse Ox 92 93 Oxygen Delivery Method Nasal Cannula Nasal Cannula Nasal Cannula Oxygen Flow Rate (L/min) 3 3 3 Fraction of Inspired Oxygen (FIO2) 10/02/23 19:30 10/02/23 19:44 10/02/23 19:50 Temperature 101.4 F H Temperature Source Oral Pulse Rate 108 H 113 H Respiratory Rate 24 H 36 H Respiratory Effort Respiratory Pattern Tachypnea Blood Pressure 114/97 H Blood Pressure Mean 102 Pulse Ox 94 Oxygen Delivery Method Nasal Cannula Nasal Cannula Oxygen Flow Rate (L/min) 3 3 Fraction of Inspired Oxygen (FIO2) 96 10/02/23 20:30 Temperature 100.5 F H Temperature Source Oral Pulse Rate 113 H Respiratory Rate 22 H Respiratory Effort Respiratory Pattern Blood Pressure 144/80 H Blood Pressure Mean 101 Pulse Ox 96 Oxygen Delivery Method Nasal Cannula Oxygen Flow Rate (L/min) 3 Fraction of Inspired Oxygen (FIO2) Positive well nourished, well developed, obese and unkempt Constitutional Narrative: Patient is tachypneic. He is tachycardic. He does not appear well. General Appearance ED: unkempt and well developed; Negative for NAD or pallor Nutritional Appearance: obese HEENT Reports moist mucous membranes HEENT Narrative: Ears normal. Nares patent. Posterior pharynx is normal. atraumatic Eyes PERRL and EOMs intact bilaterally General Eye ED: Negative for pale conjunctiva or scleral icterus Neck no lymphadenopathy, supple, no meningeal signs and no JVD Resp No normal respiratory effort and No clear to auscultation bilaterally Auscultation: rales bilateral, wheezes expiratory wheezes and scattered wheezes and diminished lung sounds diffuse Cardio S1 normal heart sound, S2 normal heart sound and no murmurs Rate: tachycardic Rhythm: abnormal rhythm irregularly irregular GI non-tender, non-distended and no masses Back/Spine no CVA tenderness and normal to inspection Extremity Negative for normal to inspection Extremity Narrative: Venous stasis dermatitis with pitting edema of the right and left lower extremity Neuro oriented x3 and CN's II-XII intact bilaterally [place] Coma Scale: document GCS findings Spontaneous Obeys Commands Oriented 15 Sensorium / Orientation: alert Psych Appearance: unkempt Thought Process: normal thought process Skin no wounds General Skin Exam: Negative for jaundice or pallor MDM MDM MDM Narrative Medical decision making narrative: Sepsis workup was undertaken. Suspect patient has pneumonia in light of the fact that he is febrile, tachycardic, hypoxic with green-silva productive sputum. Patient was treated with levofloxacin because he developed blisters with penicillin which would suggest he had toxic epidermal necrolysis. History & Record Review Additional record(s) reviewed:: Prior inpatient record (Patient mated to TCU May for debility, respiratory failure with hypoxia, pneumonia, pericardial effusion, encephalopathy, chronic atrial fibrillation and immune thrombocytopenia purpura.) Lab Data Attestation: I reviewed the patient's lab results. Lab results narrative: White count is elevated 17.2 thousand. H&H 12.9 and 39.3 with elevated indices. There is a slight shift. There is no bandemia. Coags are elevated because patient is on anticoagulant. Lactate is normal. Labs: Laboratory Results - last 24 hr 10/02/23 19:41 WBC 17.2 H RBC 3.98 L Hgb 12.9 L Hct 39.3 L MCV 98.7 H MCH 32.4 H MCHC 32.8 RDW Std Deviation 50.4 H RDW Coeff of [place]ra 13.9 Plt Count 146 L MPV 11.5 Immature Gran % (Auto) 0.800 Neut % (Auto) 77.9 H Lymph % (Auto) 9.3 L [place] % (Auto) 11.2 H Eos % (Auto) 0.6 Baso % (Auto) 0.2 Absolute Neuts (auto) 13.4 H Absolute Lymphs (auto) 1.61 Nucleated RBC % 0 Differential Comment SCANNED Diff Path Review July PT 17.9 H INR 1.5 APTT 38.4 H Lactic Acid 1.4 ABG Data Attestation: I personally reviewed and interpreted this ABG as follows: Interpretation: ABG reveals no acid-base disturbance. There is an increased AA gradient. Patient sat is 96% on 3 L by nasal cannula. I was informed by the respiratory therapist at 2036 the patient's breathing is better. He looks better. ABG results: ABG 10/02/23 19:55 Specimen Type ART Sample Site L Radial pH 7.40 Bicarbonate Actual 23.8 Total CO2 25 Base Excess -1 O2 Saturation 96 O2 % 3.0 ABG pCO2 38.3 ABG pO2 83 [place] Test Positive O2 Delivery Device Cannula Vent Mode Not entered Radiography Chest X-Ray - ED: 1 View and Read by ED Physician (There is no comparison that is not abnormal. His most recent x-ray was for respiratory failure with intubation and right lower lobe pneumonia. Does have some increased interstitial markings on the right. There is no obvious consolidation.) Diagnostic Testing: Clinical Impression(s) from Imaging Studies Chest X-Ray 10/02/23 20:05 IMPRESSION: 1. Similar appearance of cardiomegaly and/or pericardial effusion. 2. Mild diffuse interstitial prominence decreased since prior examination which may be in part due to chronic interstitial changes and/or edema. No discrete pneumonia. Electronically Signed: Viraj Lui DO at 20:36 EDT , EKG Initial EKG: Attestation: I personally reviewed and interpreted this EKG as follows: Interpretation: Atrial Fibrillation (Rate is 113. Cures duration 86 ms. QT duration 3 and 56 ms. [place] is normal. He has decreased voltage.) Management Discussion w/another healthcare provider: Hospitalist (Spoke to the hospitalist. He wants to see patient prior to signing units.) Treatment and Re-Evaluation :: Patient was reevaluated at 2036. He is moving more air. He still has wheezing. He has conversational dyspnea. His respiratory rate prior to me entering the room and talking and was 20. By the time I left the room he was breathing 30+ times a minute. Critical Care Time Critical Care Time: Yes Critical care time (excluding procedures): 30-74 minutes (31), Including time spent: (History, physical, documentation, review of prior records including admission in April for respiratory failure on ventilator with right-sided pneumonia.), Discussing w/Patient &/or Family/Rfid Engineer, Discussing w/Consultants and Arranging Admission or Transfer Discharge Plan Dx/Rx/DC Orders Clinical Impression: Acute hypoxemic respiratory failure, Hypertension, Chronic idiopathic thrombocytopenia, Acute bronchospasm, Pneumonia, Atrial fibrillation with RVR, Anticoagulant long-term use, SIRS without acute organ dysfunction due to infectious process Disposition Disposition: Acute Care [facility]
[2023-10-02] MEDS: levoFLOXacin IV 750 MG/150 ML BAG 100 MG IV (19:46)
[2023-10-02 19:59] LABS: Allen Test Positive; Base Excess -1 mmol/L (-2 to +2); Bicarbonate 23.8 mmol/L (22-26); Blood Gas Specimen Type ART; Mode Not entered; O2 Delivery Device Cannula; PO2 83 mmHG (75-100); SITE L Radial; SO2 96 % (95-99); Total Carbon Dioxide 25 mmol/L; pCO2 38.3 mmHg (35-45)
[2023-10-02 19:59] LABS: Absolute Lymphocyte Count 1.61 X10^3/uL (0.83-4.51); Absolute Neutrophil Count 13.4 X10^3/uL (2.0-7.7); Basophil# 0.04 X10^3/uL; Basophil% 0.2 % (0-1); Eosinophil# 0.11 X10^3/uL; Eosinophils% 0.6 % (0-5); Hematocrit 39.3 % (40-54); Hemoglobin 12.9 g/dL (13.0-16.5); Lymphocyte # 1.61 X10^3/ul (0.83-4.51); Lymphocyte % 9.3 % (19-41); Mean Corp Hgb Conc 32.8 g/dL (32-36); Mean Corpuscular Hgb 32.4 pg (27.0-32.0); Mean Corpuscular Volume 98.7 fL (80-94); Mean Platelet Vol. 11.5 fl (6.2-12.0); Monocyte# 1.93 X10^3/uL; Monocyte% 11.2 % (0-10); NRBC Flagged by Analyzer 0 % (0-5); Neutrophil # 13.42 X10^3/uL (2.7-7.7); Neutrophil % 77.9 % (47-70); POSITIVE DIFFERENTIAL YES; Platelet Count 146 K/mm3 (150-450); RBC Distribution Width CV 13.9 % (11.6-14.6); RBC Distribution Width SD 50.4 fl (35.1-43.9); Red Blood Count 3.98 M/mm3 (4.6-6.2); White Blood Count 17.2 K/mm3 (4.4-11.0)
[2023-10-02 20:03] LABS: Differential Indicated SCAN CRITERIA MET
--- NOTE | 2023-10-02 20:05 | RAD_ITS ---
EXAM: XR CHEST, 1 VIEW CLINICAL INDICATION: SOB TECHNIQUE: Frontal view of the chest. COMPARISON: 04/26/2023 FINDINGS: LUNGS AND PLEURAL SPACES: Mild diffuse interstitial prominence decreased since prior examination which may be in part due to chronic interstitial changes and/or edema. No discrete pneumonia. No pneumothorax. No effusion. HEART: Similar appearance of cardiomegaly and/or pericardial effusion. MEDIASTINUM: Central airways and mediastinal contour are unremarkable. BONES/JOINTS: No significant abnormality. No acute fracture. SOFT TISSUES: No significant abnormality. RAD/Chest 1 View (Portable) IMPRESSION: 1. Similar appearance of cardiomegaly and/or pericardial effusion. 2. Mild diffuse interstitial prominence decreased since prior examination which may be in part due to chronic interstitial changes and/or edema. No discrete pneumonia. Electronically Signed: Viraj Lui DO at 20:36 EDT ,
[2023-10-02] MEDS: Acetaminophen 325 MG Tablet 650 MG PO (20:17)
[2023-10-02 20:23] LABS: Lactic Acid 1.4 mmol/L (0.4-1.9)
[2023-10-02 20:26] LABS: Differential Comment SCANNED
[2023-10-02 20:28] LABS: International Normalized Ratio 1.5; Prothrombin Time (Protime)PT. 17.9 SECONDS (11.7-14.9)
[2023-10-02 20:29] LABS: Partial Thromboplast Time 38.4 Seconds (24.1-36.2)
--- NOTE | 2023-10-02 20:40 | CPS ---
[2017] x2 Albuterol given to pt. in ER. Pre-tx: HR = 113, RR = 34 with diminished breath sounds. Post-tx: HR = 119, RR = 26 with diminished breath sounds. Better air movement in pt.'s lungs at this time.
[2023-10-02 20:48] LABS: ALB/GLOB Ratio 0.8 RATIO (0.9-2.4); AST(SGOT) 25 U/L (15-37); Alanine Aminotransfer ALT/SGPT 32 U/L (16-61); Albumin, Serum 3.6 g/dL (3.2-5.0); Alkaline Phosphatase 77 U/L (45-117); Anion Gap 6 (5-15); BUN 28 mg/dL (7-18); BUN/Creat Ratio 13.9 RATIO (10-20); Calcium,Total 8.9 mg/dL (8.5-10.1); Chloride 110 mmol/L (98-107); Creatinine, Serum 2.01 mg/dL (0.70-1.30); EST Glomerular Filtration Rate 35 mL/min (>60); Est Glom Filt Rate - Afr Amer 42 mL/min (>60); Estimated Creatinine Clearance 46.08 ml/min; Globulin 4.7 g/dL (2.2-4.2); Glucose 119 mg/dL (74-106); Potassium 3.6 mmol/L (3.5-5.1); Protein, Total 8.3 g/dL (6.4-8.2); Sodium Level 140 mmol/L (136-145)
--- NOTE | 2023-10-02 21:06 | HP.PCM.HOS_ITS ---
[facility] - General General Date of Service: 10/02/23 Chief Complaint: Shortness of breath HPI Narrative JOSE L ZARAGOZA, is a 72 M with history of heart failure history of pericardial effusion presents with shortness of breath. Patient states that has been short of breath since April which is when he had a pericardial effusion. He was transferred to [facility] and underwent pericardiocentesis and removed roughly 900 cc of fluid. He does not think, though he does not know, that he had a pericardial window. So he went to rehab and then since been home so his improvement status quo not on oxygen at home but over the past week he has become more short of breath. Today became much more intense and he presented to the emergency room. He developed a fever while he was here. Previous to that he was coughing up some productive phlegm. Patient had a chest x-ray that showed interstitial infiltrate versus edema. But with this fever and productive sputum, patient received dose of 750 mg of levofloxacin. He was also placed on oxygen at 3 L nasal cannula. [facility] Medical History Peripheral neuropathy Atrial fibrillation Pericardial effusion CKD (chronic kidney disease) Chronic neuropathic pain Chronic idiopathic thrombocytopenia PAD (peripheral artery disease) Obesity HLD (hyperlipidemia) Pneumonia Hypoxia Morbid obesity due to excess calories Ocular melanoma Paroxysmal atrial fibrillation Peripheral vascular disease Tobacco abuse Hypertension Home Medications ?Medication ?Instructions ?Recorded ?Last Taken ?Type amlodipine 5 mg tablet 5 mg PO BID 30 days #60 tabs 05/14/23 Unknown Rx apixaban 5 mg tablet (Eliquis) 5 mg PO BID #0 tabs 05/14/23 Unknown Rx hydralazine 50 mg tablet 50 mg PO TID 30 days #90 tabs 05/14/23 Unknown Rx metoprolol tartrate 100 mg tablet 150 mg (1.5 x 100 mg) PO BID 30 05/14/23 Unknown Rx days #90 tabs dorzolamide 22.3 mg-timolol 6.8 1 drp RIGHT EYE BID PRN eye 10/02/23 Unknown History mg/mL eye drops irritation gabapentin 400 mg capsule 400 mg PO TID 10/02/23 Unknown History multivitamin 1 tab PO DAILY 10/02/23 Unknown History Allergy/AdvReac Type Severity Reaction Status Date / Time nebivolol HCl (From [facility]) Allergy Other Verified 10/02/23 19:48 Penicillins Allergy Other Verified 10/02/23 19:48 trandolapril (From [facility]) Allergy Other Verified 10/02/23 19:48 verapamil HCl (From [facility]) Allergy Other Verified 10/02/23 19:48 Family History Mother Heart disease Father Heart disease Surgical History S/P arthroscopic surgery of right knee S/P peripheral artery angioplasty with stent placement History of eye surgery Social History household members: significant other Smoking Status: Current every day smoker tobacco type: cigarettes alcohol intake: current alcohol intake frequency: holidays/special occasions only substance use type: does not use ROS ROS Narrative Chronic lower extremity edema. He has put on weight recently but it is actually lower than it was earlier this year. He lost roughly 40 pounds but since has been on 30 pounds. All review of systems were negative except as mentioned above in the history of present illness and the other review of systems. Vital Signs Vital Signs Vital Signs: 10/02/23 19:15 10/02/23 19:19 10/02/23 19:20 Temperature 38.7 C H 38.7 C H Temperature Source Oral Oral Pulse Rate 110 H 110 H Respiratory Rate 22 H 22 H Respiratory Effort Short of Breath Labored Accessory Muscle Use Respiratory Pattern Tachypnea Blood Pressure 160/88 H 160/88 H Blood Pressure Mean 112 112 Pulse Ox 92 93 Oxygen Delivery Method Nasal Cannula Nasal Cannula Nasal Cannula Oxygen Flow Rate (L/min) 3 3 3 Fraction of Inspired Oxygen (FIO2) 10/02/23 19:30 10/02/23 19:44 10/02/23 19:50 Temperature 38.6 C H Temperature Source Oral Pulse Rate 108 H 113 H Respiratory Rate 24 H 36 H Respiratory Effort Respiratory Pattern Tachypnea Blood Pressure 114/97 H Blood Pressure Mean 102 Pulse Ox 94 Oxygen Delivery Method Nasal Cannula Nasal Cannula Oxygen Flow Rate (L/min) 3 3 Fraction of Inspired Oxygen (FIO2) 96 10/02/23 20:30 10/02/23 20:42 10/02/23 21:00 Temperature 38.1 C H 38.1 C H 38.1 C H Temperature Source Oral Oral Pulse Rate 113 H 116 H 116 H Respiratory Rate 22 H 24 H 24 H Respiratory Effort Respiratory Pattern Blood Pressure 144/80 H 144/80 H 122/64 H Blood Pressure Mean 101 101 83 Pulse Ox 96 96 95 Oxygen Delivery Method Nasal Cannula Nasal Cannula Oxygen Flow Rate (L/min) 3 3 Fraction of Inspired Oxygen (FIO2) Weight Weight: 125.509 kg Body Mass Index (BMI) 35.5 Physical Exam Narrative - Physical Exam General: Alert, Oriented x3, Cooperative. On indicating oxygen. No respiratory distress. No conversational dyspnea. HEENT: Atraumatic, PERRLA, EOMI, Normocephalic Oral: Moist Mucosa, No Gingival or Mucosal Lesions/ Ulcerations poor dentition. Mallampati 4. Lungs: Diminished breath sounds bilaterally. Right lower lobe crackles faint. Cardiovascular: Irregularly irregular. No murmurs Or rubs. Abdomen: Obese. Bowel Sounds Present, Soft, Non Tender, Non-Distended, No Hepato-splenomegaly Extremities: Bilateral lower extremity edema with lymphedematous changes bilaterally. Skin: No rashes, No breakdown Musculoskeletal: No Tenderness to Palpation of Joints or Extremities Neurological: Neuro grossly intact. Moves all extremities. Psych/Mental Status: Normal Affect, Appropriate Results Lab / Micro Data Attestation: I reviewed the patient's lab results. 10/02/23 19:41 10/02/23 19:41 Labs: Laboratory Results - last 24 hr 10/02/23 19:41: WBC 17.2 H, RBC 3.98 L, Hgb 12.9 L, Hct 39.3 L, MCV 98.7 H, MCH 32.4 H, MCHC 32.8, RDW Std Deviation 50.4 H, RDW Coeff of [place] 13.9, Plt Count 146 L, MPV 11.5, Immature Gran % (Auto) 0.800, Neut % (Auto) 77.9 H, Lymph % (Auto) 9.3 L, [place] % (Auto) 11.2 H, Eos % (Auto) 0.6, Baso % (Auto) 0.2, A bsolute Neuts (auto) 13.4 H, Absolute Lymphs (auto) 1.61, Nucleated RBC % 0, Differential Comment SCANNED, Diff Path Review July foll, PT 17.9 H, INR 1.5, A PTT 38.4 H, Sodium 140, Potassium 3.6, Chloride 110 H, Carbon Dioxide 24.0, Anion Gap 6, BUN 28 H, Creatinine 2.01 H, Estim Creat Clear Calc 46.08, Est GFR (MDRD) Af Amer 42 L, Est GFR (MDRD) Non-Af 35 L, BUN/Creatinine Ratio 13.9, G lucose 119 H, Lactic Acid 1.4, Calcium 8.9, Total Bilirubin 0.70, AST 25, ALT 32, Alkaline Phosphatase 77, Total Protein 8.3 H, Albumin 3.6, Globulin 4.7 H, A lbumin/Globulin Ratio 0.8 L ABG Data ABG results: ABG 10/02/23 19:55 Specimen Type ART Sample Site L Radial pH 7.40 Bicarbonate Actual 23.8 Total CO2 25 Base Excess -1 O2 Saturation 96 O2 % 3.0 ABG pCO2 38.3 ABG pO2 83 [place] Test Positive O2 Delivery Device Cannula Vent Mode Not entered EKG Initial EKG: Attestation: I personally reviewed and interpreted this EKG as follows: Prior EKG tracings: available for review EKG Rhythm Intrepretation: Atrial Fibrillation (With RVR) Imaging Radiology Impression Chest X-Ray 10/02/23 20:05 IMPRESSION: 1. Similar appearance of cardiomegaly and/or pericardial effusion. 2. Mild diffuse interstitial prominence decreased since prior examination which may be in part due to chronic interstitial changes and/or edema. No discrete pneumonia. Electronically Signed: Viraj Lui DO at 20:36 EDT , Assessment & Plan Assessment/Plan (1) Pneumonia: (2) HFrEF (heart failure with reduced ejection fraction): PLAN: Plan Acute pneumonia * Chest x-ray does not show any consolidation but does show some diffuse infiltrates. With the patient's fever, leukocytosis and productive phlegm, its most prudent to treat him with antibiotics. Patient received IV levofloxacin in emergency room and will continue that for at 750 mg every 48 hours. Patient has some chronic kidney disease with creatinine greater than 2 symptoms daily dosing at this time. * Blood cultures drawn in the emergency room they will need to be followed up (labs shortage of blood cultures only 1 set was drawn), check sputum culture, check strep and Legionella antigens, check COVID-19. * Additionally we will treat him with bronchodilators as needed. Mucinex to help with the sputum production. And a pulmonary toilet Acute heart failure with reduced ejection fraction * Echocardiogram from showed an EF of 40 to 45%. Patient does have marked cardiomegaly, chest x-ray. Patient previously underwent a pericardiocentesis and removed about 900 cc of fluid. Feel the patient is having any significant pericardial effusion. * Patient's weight has gone up he does have lower extremity edema and also with his abnormal chest x-ray we will treat him with IV diuretics cautiously. This may be cautious given his chronic kidney disease. * Patient is not a candidate for DUSTY inhibitor nor angiotensin receptor blockers. Chronic kidney disease. * Fluid restrict. Tobacco abuse * Cessation advised. Nicotine patch Chronic conditions * CKD 3 A. Monitor while on diuretics. Creatinine does appear to be improved from May of this year. * Obesity class II: Complicates care and recovery. * Atrial fibrillation: Continue with anticoagulation with apixaban, rate control with metoprolol titrate. * Hypertension: Continue with amlodipine VTE prophylaxis: Not indicated as patient is already anticoagulated. CODE STATUS: Addressed with patient. Patient wishes to be full code Charges/Coding Visit Charges Inpatient E&M: 24634 Init Hosp L3
[2023-10-02] MEDS: Metoprolol Tartrate 50 MG Tablet 150 MG PO (22:47)
[2023-10-02] MEDS: hydrALAZINE 50 MG Tablet PO (22:47)
[2023-10-02] MEDS: Gabapentin 400 MG Capsule PO (22:47)
[2023-10-02] MEDS: APIXABAN 5 MG TABLET PO (22:48)
[2023-10-02] MEDS: guaiFENesin 1,200 MG Tablet 1200 MG PO (22:48)
[2023-10-02] MEDS: amLODIPine 5 MG Tablet PO (22:48)
[2023-10-02 23:14] LABS: Mucous, Urine 0 SEEN /hpf (<or=2+); White Blood Cells 0 SEEN /hpf (0-5)
[2023-10-02 23:17] LABS: Color, Urine Yellow (Yellow); Glucose, Dipstick Normal (Normal); Ketone-Dipstick Negative (Negative); Leukocyte Esterase-Dipstick Negative /ul (Negative); Nitrite-Dipstick Negative (Negative); Occult Blood-Urine 25 /ul (Negative); Protein-Dipstick 500 mg/dl (Negative); Urine Bilirubin Dipstick Negative (Negative); Urine Clarity Clear (Clear); Urine Urobilinogen Normal (Normal)
[2023-10-02 23:38] LABS: Bacteria 1+ /hpf (None Seen); Fine Granular Cast- Urine 0-5 SEEN /lpf (0-5); Hyaline Cast 0-5 SEEN /lpf (0-5); Red Blood Cells-Urine 5-10 SEEN /hpf (0-5); Squamous Epithelial Cells - UA 0-5 SEEN /hpf (0-5)
[2023-10-03 05:09] LABS: Absolute Lymphocyte Count 1.84 X10^3/uL (0.83-4.51); Absolute Neutrophil Count 11.2 X10^3/uL (2.0-7.7); Basophil# 0.05 X10^3/uL; Basophil% 0.3 % (0-1); Eosinophil# 0.13 X10^3/uL; Eosinophils% 0.9 % (0-5); Hematocrit 35.2 % (40-54); Hemoglobin 11.2 g/dL (13.0-16.5); Lymphocyte # 1.84 X10^3/ul (0.83-4.51); Lymphocyte % 12.1 % (19-41); Mean Corp Hgb Conc 31.8 g/dL (32-36); Mean Corpuscular Hgb 31.7 pg (27.0-32.0); Mean Corpuscular Volume 99.7 fL (80-94); Monocyte# 1.88 X10^3/uL; Monocyte% 12.3 % (0-10); NRBC Flagged by Analyzer 0 % (0-5); Neutrophil # 11.21 X10^3/uL (2.7-7.7); Neutrophil % 73.6 % (47-70); POSITIVE DIFFERENTIAL YES; Platelet Count 129 K/mm3 (150-450); RBC Distribution Width CV 13.9 % (11.6-14.6); RBC Distribution Width SD 50.3 fl (35.1-43.9); Red Blood Count 3.53 M/mm3 (4.6-6.2); White Blood Count 15.2 K/mm3 (4.4-11.0)
[2023-10-03 05:30] LABS: Differential Indicated SCAN CRITERIA MET
[2023-10-03 05:54] LABS: ALB/GLOB Ratio 0.8 RATIO (0.9-2.4); AST(SGOT) 28 U/L (15-37); Alanine Aminotransfer ALT/SGPT 19 U/L (16-61); Albumin, Serum 3.2 g/dL (3.2-5.0); Alkaline Phosphatase 62 U/L (45-117); Anion Gap 5 (5-15); BUN 28 mg/dL (7-18); BUN/Creat Ratio 15.6 RATIO (10-20); Calcium,Total 8.5 mg/dL (8.5-10.1); Chloride 109 mmol/L (98-107); Creatinine, Serum 1.79 mg/dL (0.70-1.30); EST Glomerular Filtration Rate 40 mL/min (>60); Est Glom Filt Rate - Afr Amer 48 mL/min (>60); Estimated Creatinine Clearance 51.32 ml/min; Globulin 4.2 g/dL (2.2-4.2); Glucose 112 mg/dL (74-106); Potassium 3.4 mmol/L (3.5-5.1); Protein, Total 7.4 g/dL (6.4-8.2); Sodium Level 138 mmol/L (136-145); Thyroid Stim Hormone (TSH) 0.29 uIU/mL (0.358-3.74)
--- NOTE | 2023-10-03 05:55 | ECHOCS_ITS ---
Reason For Study: CHF Procedure This was a 2D Doppler, Color Flow transthoracic echocardiogram. The study was technically difficult. Contrast injection was performed. Exam performed portable in patient room. Left Ventricle Normal left ventricle. The estimated ejection fraction is 60-65 %. Atria Normal left atrium. Normal right atrium. Mitral Valve The mitral valve is structurally normal. No prolapse or stenosis seen. Mild (1+) mitral valve insufficiency. Tricuspid Valve Normal tricuspid valve. Trivial tricuspid valve insufficiency. Aortic Valve Trisinus/trileaflet aortic valve. Mild diffuse aortic valve thickening. Pulmonic Valve The pulmonic valve is not well visualized. Great Vessels Normal aortic root. Pericardium/Pleural Large pericardial effusion. Echo sign of pre tamponade with Large pericardilal Effusion and Fibrinous pericardial ech0 dense mass compressing RV. Medication Diluted definity 1.5ml given slow IV push to enhance endocardial definition. MMode/2D Measurements & Calculations LVIDd: 4.3 cm IVSd: 1.4 cm Ao root diam: 3.8 cm LVIDs: 2.9 cm LVPWd: 1.6 cm FS: 33.2 % LAV(MOD-bp): 115.1 ml LVAd ap4: 39.8 cm2 SV(MOD-sp4): 79.8 ml LAV(MOD-bp) Indexed: 46.5 ml/m2 LVLd ap4: 8.6 cm LAV(MOD-sp2): 112.7 ml EDV(MOD-sp4): 147.9 ml LAV(MOD-sp4): 104.6 ml EDV(sp4-el): 156.7 ml LVAs ap4: 24.6 cm2 LVLs ap4: 7.3 cm ESV(MOD-sp4): 68.1 ml ESV(sp4-el): 70.1 ml EF(MOD-sp4): 53.9 % EF(sp4-el): 55.3 % SV(sp4-el): 86.6 ml LA A4 area: 31.1 cm2 LA dimension(2D): 4.4 cm RA A4 area: 24.0 cm2 Doppler Measurements & Calculations MV E max kathy: 140.3 cm/sec Ao V2 max: 156.3 cm/sec LV V1 max: 136.4 cm/sec Ao max P.8 mmHg LV V1 max P.4 mmHg Ao V2 mean: 100.0 cm/sec LV V1 mean P.0 mmHg Ao mean P.8 mmHg LV V1 mean: 92.5 cm/sec Ao V2 VTI: 27.5 cm LV V1 VTI: 25.9 cm AV (velocity ratio): 0.94 PA V2 max: 91.7 cm/sec PA V2 mean: 69.7 cm/sec ECHO/Echo Complete W/ Contrast Interpretation Summary The estimated ejection fraction is 60-65 %. Echo sign of pre tamponade with Large pericardilal Effusion and Fibrinous pericardial echo dense material compressing RV Recommendation: Recurrent large pericardial Effusion Transfer toTeritary cardiac fascility for pericardial Window Ordering Physician: Brandin Chavez Referring Physician: CARLEEN ARREAGA Performed By: Amparo Rodríguez and Student
[2023-10-03 06:25] VITALS: BP 140/80; PULSE 84; RESP 18; TEMP 36.8; O2SAT 97
[2023-10-03 06:35] VITALS: BP 140/80; PULSE 105
[2023-10-03] MEDS: hydrALAZINE 50 MG Tablet PO (06:35)
[2023-10-03] MEDS: Gabapentin 400 MG Capsule PO (06:35)
[2023-10-03 08:07] VITALS: O2SAT 96
[2023-10-03 09:25] VITALS: BP 147/93; PULSE 96; RESP 18; TEMP 36.6; O2SAT 94
[2023-10-03] MEDS: Potassium Chloride Oral Tablet 20 MEQ 40 MEQ PO (09:41)
[2023-10-03] MEDS: APIXABAN 5 MG TABLET PO (09:43)
[2023-10-03] MEDS: Multivitamins,Therapeutic Tablet 1 TABLET PO (09:43)
[2023-10-03] MEDS: Furosemide 40 MG/4 ML Vial IV (09:43)
[2023-10-03 09:44] VITALS: BP 147/93; PULSE 96
[2023-10-03] MEDS: Metoprolol Tartrate 50 MG Tablet 150 MG PO (09:44)
[2023-10-03] MEDS: guaiFENesin 1,200 MG Tablet 1200 MG PO (09:45)
[2023-10-03] MEDS: amLODIPine 5 MG Tablet PO (09:45)
[2023-10-03 10:00] VITALS: PULSE 96; O2SAT 94
[2023-10-03 11:02] LABS: Pathologist Review Reviewed
[2023-10-03 11:04] LABS: Pathologist Review Reviewed
--- NOTE | 2023-10-03 11:49 | PCM.CONS.C ---
Assessment & Plan Assessment/Plan (1) HFrEF (heart failure with reduced ejection fraction): (2) Anticoagulant long-term use: (3) Acute hypoxemic respiratory failure: (4) Liver mass: (5) Multiple thyroid nodules: (6) Chronic idiopathic thrombocytopenia: (7) Hypertension: (8) Chronic pericardial effusion: PLAN: 72-year-old patient, well-known to me from his previous admission in April 2023 with large pericardial effusion Patient transferred to [facility] and has a pericardial window. Also on review of the medical record noted patient has multiple thyroid nodules and liver masses. Admitted with symptoms of shortness of breath, patient had the symptoms since April He was transferred last time [facility] Where patient has a pericardial window. This presentation he is progressive symptoms of shortness of breath. Patient has multiple other medical comorbidities With history of paroxysmal atrial fibrillation Has history of heart failure with a prior reduced EF in the range of 40-45%. Chronic idiopathic thrombocytopenia with a platelet count today around 129. He was on anticoagulation with Eliquis. Also noted he had a chronic renal insufficiency with creatinine level in the range of 2.2 in April. Which remains similar with a creatinine of 2.01. No active chest pain reported Cardiac care plan; I discussed in detail the cardiac care plan which will include transferring the patient to a tertiary cardiac facility For pericardial window. I discussed this with the patient, the family daughter significant other and the nursing staff. Will start on IV fluid The echocardiogram showed large pericardial effusion with pretamponade with fibrinous material compressing on the RV. LV systolic function is preserved. Will hold Eliquis patient has chronic idiopathic thrombocytopenia with a platelet count 129 The hemoglobin is stable at 12.9 Review of the cardiac telemetry showed underlying atrial fibrillation with controlled ventricular rate. Patient will be transferred to [facility]. Buddy Aguilera MD,[facility] HPI Consult Data Date of Consult: 10/03/23 HPI Narrative Reason for Consultation: Large pericardial fusion with pre-tamponade HPI Narrative: JOSE L ZARAGOZA, is a 72 M who presents [facility] Medical History Peripheral neuropathy Atrial fibrillation Pericardial effusion CKD (chronic kidney disease) Chronic neuropathic pain Chronic idiopathic thrombocytopenia PAD (peripheral artery disease) Obesity HLD (hyperlipidemia) Pneumonia Hypoxia Morbid obesity due to excess calories Ocular melanoma Paroxysmal atrial fibrillation Peripheral vascular disease Tobacco abuse Hypertension Home Medications ?Medication ?Instructions ?Recorded ?Last Taken ?Type amlodipine 5 mg tablet 5 mg PO BID 30 days #60 tabs 05/14/23 Unknown Rx apixaban 5 mg tablet (Eliquis) 5 mg PO BID #0 tabs 05/14/23 Unknown Rx hydralazine 50 mg tablet 50 mg PO TID 30 days #90 tabs 05/14/23 Unknown Rx metoprolol tartrate 100 mg tablet 150 mg (1.5 x 100 mg) PO BID 30 05/14/23 Unknown Rx days #90 tabs dorzolamide 22.3 mg-timolol 6.8 1 drp RIGHT EYE BID PRN eye 10/02/23 Unknown History mg/mL eye drops irritation gabapentin 400 mg capsule 400 mg PO TID 10/02/23 Unknown History multivitamin 1 tab PO DAILY 10/02/23 Unknown History Allergy/AdvReac Type Severity Reaction Status Date / Time nebivolol HCl (From Bystolic) Allergy Other Verified 10/02/23 19:48 Penicillins Allergy Other Verified 10/02/23 19:48 trandolapril (From [place]arka) Allergy Other Verified 10/02/23 19:48 verapamil HCl (From [place]a) Allergy Other Verified 10/02/23 19:48 Family History Mother Heart disease Father Heart disease Surgical History S/P arthroscopic surgery of right knee S/P peripheral artery angioplasty with stent placement History of eye surgery Social History household members: significant other Smoking Status: Current every day smoker tobacco type: cigarettes alcohol intake: current alcohol intake frequency: holidays/special occasions only substance use type: does not use Physical Exam Cardio Cardio Narrative: Patient seen and evaluated in PCU Review of the site monitor showed underlying atrial fibrillation with controlled ventricular rate He was short of breath walking to the bathroom. Blood pressure stable Cardiac exam S1-S2 is irregular No systolic or diastolic murmur Chest exam diminished air entry bilateral. Risk Stratification Risk Stratification Applicable: No Objective Data Vital Signs: Vital Signs Temp Pulse Resp BP Pulse Ox O2 Del Method O2 Flow Rate 98.2 F 96 18 147/93 H 97 Nasal Cannula 2 10/03/23 06:25 10/03/23 09:44 10/03/23 06:25 10/03/23 09:44 10/03/23 06:25 10/03/23 06:29 10/03/23 06:29 FiO2 96 10/02/23 19:50 Oxygen Flow Rate (L/min) 2 Oxygen Delivery Method Nasal Cannula Weight: 272 lb 4.334 oz Body Mass Index (BMI) 34.9 Intake & Output: Intake and Output for Last 24 Hours 10/01/23 10/02/23 10/03/23 23:59 23:59 23:59 Intake Total 150 / 150 100 / 100 Output Total 250 / 250 Balance 150 / 150 -150 / -150 Lab / Micro Data 10/03/23 04:50 10/03/23 04:50 Labs: Laboratory Results - last 24 hr 10/02/23 19:41: WBC 17.2 H, RBC 3.98 L, Hgb 12.9 L, Hct 39.3 L, MCV 98.7 H, MCH 32.4 H, MCHC 32.8, RDW Std Deviation 50.4 H, RDW Coeff of [place] 13.9, Plt Count 146 L, MPV 11.5, Immature Gran % (Auto) 0.800, Neut % (Auto) 77.9 H, Lymph % (Auto) 9.3 L, [place] % (Auto) 11.2 H, Eos % (Auto) 0.6, Baso % (Auto) 0.2, Absolute Neuts (auto) 13.4 H, Absolute Lymphs (auto) 1.61, Nucleated RBC % 0, Differential Comment SCANNED, Diff Path Review Reviewed, PT 17.9 H, INR 1.5, APTT 38.4 H, Sodium 140, Potassium 3.6, Chloride 110 H, Carbon Dioxide 24.0, Anion Gap 6, BUN 28 H, Creatinine 2.01 H, Estim Creat Clear Calc 46.08, Est GFR (MDRD) Af Amer 42 L, Est GFR (MDRD) Non-Af 35 L, BUN/Creatinine Ratio 13.9, Glucose 119 H, Lactic Acid 1.4, Calcium 8.9, Total Bilirubin 0.70, AST 25, ALT 32, Alkaline Phosphatase 77, Total Protein 8.3 H, Albumin 3.6, Globulin 4.7 H, Albumin/Globulin Ratio 0.8 L 10/02/23 22:30: Urine Color Yellow, Urine Clarity Clear, Urine pH 6.0, Ur Specific [place] 1.020, Urine Protein 500 H, Urine Glucose (UA) Normal, Urine Ketones Negative, Urine Occult Blood 25 H, Urine Nitrite Negative, Urine Bilirubin Negative, Urine Urobilinogen Normal, Ur Leukocyte Esterase Negative, Urine RBC 5-10 SEEN, Urine WBC 0 SEEN, Ur Squamous Epith Cells 0-5 SEEN, Urine Bacteria 1+, Hyaline Casts 0-5 SEEN, Fine Granular Casts 0-5 SEEN, Urine Mucus 0 SEEN 10/03/23 04:50: WBC 15.2 H, RBC 3.53 L, Hgb 11.2 L, Hct 35.2 L, MCV 99.7 H, MCH 31.7, MCHC 31.8 L, RDW Std Deviation 50.3 H, RDW Coeff of [place] 13.9, Plt Count 129 L, MPV 12.0, Immature Gran % (Auto) 0.800, Neut % (Auto) 73.6 H, Lymph % (Auto) 12.1 L, [place] % (Auto) 12.3 H, Eos % (Auto) 0.9, Baso % (Auto) 0.3, Absolute Neuts (auto) 11.2 H, Absolute Lymphs (auto) 1.84, Nucleated RBC % 0, Diff Path Review Reviewed, Sodium 138, Potassium 3.4 L, Chloride 109 H, Carbon Dioxide 24.0, Anion Gap 5, BUN 28 H, Creatinine 1.79 H, Estim Creat Clear Calc 51.32, Est GFR (MDRD) Af Amer 48 L, Est GFR (MDRD) Non-Af 40 L, BUN/Creatinine Ratio 15.6, Glucose 112 H, Calcium 8.5, Total Bilirubin 0.80, AST 28, ALT 19, Alkaline Phosphatase 62, Total Protein 7.4, Albumin 3.2, Globulin 4.2, Albumin/Globulin Ratio 0.8 L, TSH 0.29 L Micro: Microbiology 10/02/23 22:30 Urine, Clean Catch Urine Culture - Preliminary Culture exhibits no growth. 10/03/23 00:45 Sputum, Expectorated/Coughed Gram Stain - Preliminary 10/02/23 23:00 Mucosa - Nasopharyngeal Coronavirus COVID-19 PCR - Final 10/02/23 22:30 Urine, Clean Catch Legionella Antigen - Final 10/02/23 22:30 Urine, Clean Catch Streptococcus pneumoniae Antigen (M - Final ABG Data ABG results: ABG 10/02/23 19:55 Specimen Type ART Sample Site L Radial pH 7.40 Bicarbonate Actual 23.8 Total CO2 25 Base Excess -1 O2 Saturation 96 O2 % 3.0 ABG pCO2 38.3 ABG pO2 83 [place] Test Positive O2 Delivery Device Cannula Vent Mode Not entered Cardiology Labs/Tests 10/02/23 19:41: WBC 17.2 H, RBC 3.98 L, Hgb 12.9 L, Hct 39.3 L, MCV 98.7 H, MCH 32.4 H, MCHC 32.8, Plt Count 146 L, MPV 11.5, Immature Gran % (Auto) 0.800, Neut % (Auto) 77.9 H, Lymph % (Auto) 9.3 L, [place] % (Auto) 11.2 H, Eos % (Auto) 0.6, Baso % (Auto) 0.2, Absolute Neuts (auto) 13.4 H, Nucleated RBC % 0, PT 17.9 H, INR 1.5, APTT 38.4 H, Sodium 140, Potassium 3.6, Chloride 110 H, Carbon Dioxide 24.0, Anion Gap 6, BUN 28 H, Creatinine 2.01 H, Est GFR (MDRD) Af Amer 42 L, Est GFR (MDRD) Non-Af 35 L, BUN/Creatinine Ratio 13.9, Glucose 119 H, Lactic Acid 1.4, Calcium 8.9, Total Bilirubin 0.70 10/02/23 19:55: pH 7.40, Bicarbonate Actual 23.8, Base Excess -1, O2 Saturation 96, ABG pCO2 38.3, ABG pO2 83, [place] Test Positive 10/02/23 22:30: Urine Color Yellow, Urine Clarity Clear, Urine pH 6.0, Ur Specific [place] 1.020, Urine Protein 500 H, Urine Glucose (UA) Normal, Urine Ketones Negative, Urine Occult Blood 25 H, Urine Nitrite Negative, Urine Bilirubin Negative, Urine Urobilinogen Normal, Ur Leukocyte Esterase Negative, Urine RBC 5-10 SEEN, Urine WBC 0 SEEN 10/03/23 04:50: WBC 15.2 H, RBC 3.53 L, Hgb 11.2 L, Hct 35.2 L, MCV 99.7 H, MCH 31.7, MCHC 31.8 L, Plt Count 129 L, MPV 12.0, Immature Gran % (Auto) 0.800, Neut % (Auto) 73.6 H, Lymph % (Auto) 12.1 L, [place] % (Auto) 12.3 H, Eos % (Auto) 0.9, Baso % (Auto) 0.3, Absolute Neuts (auto) 11.2 H, Nucleated RBC % 0, Sodium 138, Potassium 3.4 L, Chloride 109 H, Carbon Dioxide 24.0, Anion Gap 5, BUN 28 H, Creatinine 1.79 H, Est GFR (MDRD) Af Amer 48 L, Est GFR (MDRD) Non-Af 40 L, BUN/Creatinine Ratio 15.6, Glucose 112 H, Calcium 8.5, Total Bilirubin 0.80 Rhythm: EKG: ECHO: Stress Test: Cardiac Cath: PCI: CT Surgery: Holter monitor: EPS: PPM: CXR: Chest CT Scan: Radiography Diagnostic Testing: Radiology Impression Chest X-Ray 10/02/23 20:05 IMPRESSION: 1. Similar appearance of cardiomegaly and/or pericardial effusion. 2. Mild diffuse interstitial prominence decreased since prior examination which may be in part due to chronic interstitial changes and/or edema. No discrete pneumonia. Electronically Signed: Viraj Lui DO at 20:36 EDT , Echocardiogram 10/03/23 05:55 Interpretation Summary The estimated ejection fraction is 60-65 %. Echo sign of pre tamponade with Large pericardilal Effusion and Fibrinous pericardial echo dense material compressing RV Recommendation: Recurrent large pericardial Effusion Transfer toTeritary cardiac fascility for pericardial Window Ordering Physician: Jose L Chavez Referring Physician: CARLEEN ARREAGA Performed By: Amparo Rodríguez and Student
[2023-10-03] MEDS: 0.9% Normal Saline (1000mL) 1,000 ML 75 ML IV (12:05)
--- NOTE | 2023-10-03 12:23 | CASEMGMT ---
LUCI HAYES Assessment Face to Face with patient for initial transition planning/care coordination assessment. RN FREDDY introduced self and role at [facility], pt voices understanding. Pt is A&Ox4 and is resting comfortably in bed and is calm. Care providers, pharmacy, and demographics verified. Admitting dx: Pneumonia CHF PCP: Pedro Mcnair Specialists: Robby. Pt has cardio consulted during stay Preferred Pharmacy: [facility] Insurance: [facility] A/B, [employer] Prescription Benefit: Yes LNOK: Elena Cash (Gerardo), Hue Alan (SO) Living Arrangements: Pt lives with his SO in a single story home with two steps to enter ADLs/IADLs: Ind with ADLs, SO assists with IADLs Transportation: Self, SO DME: Cane. Denies further DME uses or needs at this time HHC/SNF: Denies history Plan: Per Cardio and the pt, the plan is to transfer the pt to [facility] for a higher level of care. The pt has [facility] so [facility] is in-network. Pt denies further needs from CM at this time. Nilam Lobato RN, CM
--- NOTE | 2023-10-03 13:00 | CASEMGMT ---
Per admission questions patient does not have advance directives and is not interested in documents. Mary Montiel MSW JUAN JOSÉ
--- NOTE | 2023-10-03 13:06 | PCM.DC.SUM ---
Providers Date of Admission: 10/02/23 Date of Discharge: 10/03/23 Primary Care Physician: Dr. 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 (3) Acute hypoxemic respiratory failure: Status: Acute Code(s): J96.01 - Acute respiratory failure with hypoxia (4) Liver mass: Status: Acute Code(s): R16.0 - Hepatomegaly, not elsewhere classified (5) Multiple thyroid nodules: Status: Acute Code(s): E04.2 - Nontoxic multinodular goiter (6) Chronic idiopathic thrombocytopenia: Status: Chronic Code(s): D69.3 - Immune thrombocytopenic purpura (7) Hypertension: Status: Chronic Code(s): I10 - Essential (primary) hypertension (8) Chronic pericardial effusion: Status: Acute Code(s): I31.39 - Other pericardial effusion (noninflammatory) Medications at Discharge Home Medications amlodipine 5 mg tablet 5 mg PO BID 30 days #60 tabs 05/14/23 apixaban 5 mg tablet (Eliquis) 5 mg PO BID #0 tabs 05/14/23 hydralazine 50 mg tablet 50 mg PO TID 30 days #90 tabs 05/14/23 metoprolol tartrate 100 mg tablet 150 mg (1.5 x 100 mg) PO BID 30 days #90 tabs 05/14/23 dorzolamide 22.3 mg-timolol 6.8 mg/mL eye drops 1 drp RIGHT EYE BID PRN eye irritation 10/02/23 gabapentin 400 mg capsule 400 mg PO TID 10/02/23 multivitamin 1 tab PO DAILY 10/02/23 Hospital Course Operations None Procedures 2-D Echocardiogram Summary of Care Provided Minutes Spent on Discharge: 45 Hospital Course: Patient is a 72 y/o male with a PMH as outlined who was admitted via the ED on 10/03/2023 with a complaint of shortness of breath. HE had a history of heart failure with pericardial effusion and presented in April with such shortness of breath and was found to have pericardial effusion. He was transferred to [facility] and had pericardiocentesis with removal of 900cc of fluid. He started having shortness of breath a few days prior to admission, and the shortness of breath worsened. He also had a fever with cough and productive phlegm, and CXR showed interstial infiltrate vs edema. He was admitted to be managed for hypoxia due to probable community acquired pneumonia. He was started on IV levofloxacin. 2D echo from April showed EF of 40 to 45%. Chest x-ray did show cardiomegaly so 2D echo was also ordered which showed EF of 60 to 65% with large pericardial effusion and fibrinous pericardial echo dense material compressing right ventricle, and evidence of pre tamponade. Cardiology recommended that patient be transferred to tertiary facility for evaluation for pericardiocentesis and possible pericardial window. [facility] was contacted and patient was accepted. He was transferred to [facility] on 10/03/2023. Patient was seen and examined prior to discharge. He had no active complaints and said he felt much better. He said his breathing had improved. Review of systems is otherwise negative. Labs and vitals reviewed. Physical Exam Const alert, oriented x3 and no apparent distress General Appearance: cooperative, comfortable and well kempt Orientation / Consciousness: awake Exam Limitations: no limitations HEENT normocephalic, head/scalp atraumatic, hearing grossly normal bilaterally and moist oral mucous membranes Mouth: oral and palatal mucosa normal Eyes PERRL, EOMs intact bilaterally and conjunctivae normal Neck no lymphadenopathy and supple Resp Resp Narrative: diminished breath sounds bibasally, no wheezes or crackles. on 2L of oxygen Cardio regular rate, regular rhythm, S1 normal heart sound, S2 normal heart sound and no murmurs GI normal to inspection, nondistended, normoactive bowel sounds, soft to palpation and non-tender Extremity normal to inspection, full ROM and no clubbing, cyanosis or edema Skin no rashes or lesions noted Neuro oriented x3, CN's II-XII intact bilaterally and moves all extremities Sensorium / Orientation: awake and alert Motor Exam: strength 5/5 throughout Psych affect normal Weight / BMI Weight Weight: 272 lb 4.334 oz Body Mass Index (BMI) 34.9 ABG / Lab / Microbiology Data 10/03/23 04:50 10/03/23 04:50 Laboratory: Laboratory Results - last 24 hr 10/02/23 19:41: WBC 17.2 H, RBC 3.98 L, Hgb 12.9 L, Hct 39.3 L, MCV 98.7 H, MCH 32.4 H, MCHC 32.8, RDW Std Deviation 50.4 H, RDW Coeff of [place] 13.9, Plt Count 146 L, MPV 11.5, Immature Gran % (Auto) 0.800, Neut % (Auto) 77.9 H, Lymph % (Auto) 9.3 L, [place] % (Auto) 11.2 H, Eos % (Auto) 0.6, Baso % (Auto) 0.2, Absolute Neuts (auto) 13.4 H, Absolute Lymphs (auto) 1.61, Nucleated RBC % 0, Differential Comment SCANNED, Diff Path Review Reviewed, PT 17.9 H, INR 1.5, APTT 38.4 H, Sodium 140, Potassium 3.6, Chloride 110 H, Carbon Dioxide 24.0, Anion Gap 6, BUN 28 H, Creatinine 2.01 H, Estim Creat Clear Calc 46.08, Est GFR (MDRD) Af Amer 42 L, Est GFR (MDRD) Non-Af 35 L, BUN/Creatinine Ratio 13.9, Glucose 119 H, Lactic Acid 1.4, Calcium 8.9, Total Bilirubin 0.70, AST 25, ALT 32, Alkaline Phosphatase 77, Total Protein 8.3 H, Albumin 3.6, Globulin 4.7 H, Albumin/Globulin Ratio 0.8 L 10/02/23 22:30: Urine Color Yellow, Urine Clarity Clear, Urine pH 6.0, Ur Specific [place] 1.020, Urine Protein 500 H, Urine Glucose (UA) Normal, Urine Ketones Negative, Urine Occult Blood 25 H, Urine Nitrite Negative, Urine Bilirubin Negative, Urine Urobilinogen Normal, Ur Leukocyte Esterase Negative, Urine RBC 5-10 SEEN, Urine WBC 0 SEEN, Ur Squamous Epith Cells 0-5 SEEN, Urine Bacteria 1+, Hyaline Casts 0-5 SEEN, Fine Granular Casts 0-5 SEEN, Urine Mucus 0 SEEN 10/03/23 04:50: WBC 15.2 H, RBC 3.53 L, Hgb 11.2 L, Hct 35.2 L, MCV 99.7 H, MCH 31.7, MCHC 31.8 L, RDW Std Deviation 50.3 H, RDW Coeff of [place] 13.9, Plt Count 129 L, MPV 12.0, Immature Gran % (Auto) 0.800, Neut % (Auto) 73.6 H, Lymph % (Auto) 12.1 L, [place] % (Auto) 12.3 H, Eos % (Auto) 0.9, Baso % (Auto) 0.3, Absolute Neuts (auto) 11.2 H, Absolute Lymphs (auto) 1.84, Nucleated RBC % 0, Diff Path Review Reviewed, Sodium 138, Potassium 3.4 L, Chloride 109 H, Carbon Dioxide 24.0, Anion Gap 5, BUN 28 H, Creatinine 1.79 H, Estim Creat Clear Calc 51.32, Est GFR (MDRD) Af Amer 48 L, Est GFR (MDRD) Non-Af 40 L, BUN/Creatinine Ratio 15.6, Glucose 112 H, Calcium 8.5, Total Bilirubin 0.80, AST 28, ALT 19, Alkaline Phosphatase 62, Total Protein 7.4, Albumin 3.2, Globulin 4.2, Albumin/Globulin Ratio 0.8 L, TSH 0.29 L Microbiology: Microbiology 10/02/23 22:30 Urine, Clean Catch Urine Culture - Preliminary Culture exhibits no growth. 10/03/23 00:45 Sputum, Expectorated/Coughed Gram Stain - Preliminary 10/02/23 23:00 Mucosa - Nasopharyngeal Coronavirus COVID-19 PCR - Final 10/02/23 22:30 Urine, Clean Catch Legionella Antigen - Final 10/02/23 22:30 Urine, Clean Catch Streptococcus pneumoniae Antigen (M - Final ABG: ABG 10/02/23 19:55 Specimen Type ART Sample Site L Radial pH 7.40 Bicarbonate Actual 23.8 Total CO2 25 Base Excess -1 O2 Saturation 96 O2 % 3.0 ABG pCO2 38.3 ABG pO2 83 [place] Test Positive O2 Delivery Device Cannula Vent Mode Not entered Radiography Diagnostic Testing: Radiology Impression Chest X-Ray 10/02/23 20:05 IMPRESSION: 1. Similar appearance of cardiomegaly and/or pericardial effusion. 2. Mild diffuse interstitial prominence decreased since prior examination which may be in part due to chronic interstitial changes and/or edema. No discrete pneumonia. Electronically Signed: Viraj Lui DO at 20:36 EDT , Echocardiogram 10/03/23 05:55 Interpretation Summary The estimated ejection fraction is 60-65 %. Echo sign of pre tamponade with Large pericardilal Effusion and Fibrinous pericardial echo dense material compressing RV Recommendation: Recurrent large pericardial Effusion Transfer toTeritary cardiac fascility for pericardial Window Ordering Physician: Brandin Chavez Referring Physician: PEDRO ARREAGA Performed By: Amparo Rodríguez and Student Meaningful Use Info Meaningful Use Meaningful Use Diagnoses (Choose all that apply): None applicable Ischemic Stroke Statin Dosing Therapy Reference: STATIN DOSE THERAPY REFERENCE: * Patients > 75 years receive moderate or high dose statin therapy. * Patients 75 years or YOUNGER should receive HIGH intensity statin dose unless contraindicated. You will be required to document reason for non-treatment if statin daily dose does not meet guidelines. HIGH DOSE STATIN THERAPY DAILY Atorvastatin > than or = to 40 mg Rosuvastatin > than or = to 20 mg Amlodipine + Atorvastatin > than or = to 2.5/40 mg Ezetimibe + Simvastatin 10/80 mg Simvastatin 80mg Discharge Plan Admission Admit Date/Time: 10/02/23 20:58 Primary Reason for Your Visit: shortness of breath, pericardial effusion Attending Provider: Toña Obregon Primary Care Provider: Pedro Arreaga Consulting Providers: Brandin Chavez; Buddy Aguilera Discharge Orders/Prescriptions Prescriptions: No Action metoprolol tartrate 100 mg Tablet 150 mg PO BID 30 Days Qty: 90 0RF amlodipine 5 mg Tablet 5 mg PO BID 30 Days Qty: 60 0RF hydralazine 50 mg Tablet 50 mg PO TID 30 Days Qty: 90 0RF Eliquis 5 mg Tablet 5 mg PO BID Qty: 0 0RF gabapentin 400 mg capsule 400 mg PO TID multivitamin Tablet 1 tab PO DAILY dorzolamide-timolol 22.3-6.8 mg/mL Drops 1 drp RIGHT EYE BID PRN (Reason: eye irritation) Referrals / Follow Up: Pedro Arreaga MD [Primary Care Provider] - Disposition Disposition (needs filled in before D/C Order can be placed): Acute Care Hospital Charges/Coding Visit Charges Inpatient E&M: 67201 Disch Hosp >30min
--- NOTE | 2023-10-03 14:34 | NURSING ---
transferred per ambulance to [place] [id number],family notified, report called to Camille
--- NOTE | 2023-10-07 12:05 | NURSING ---
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 ID was verified. Gabapentin was counted with Hue [place] for 79- 400mg tablets of Gabapentin. Tina VERMA
== END 2023-10-03 14:22 | disposition short-term general hospital (02) | DRG 291 ==
LOC: ED 21:06 → PCU 21:21
PROVIDERS: Emergency Provider Emergency Medicine; PCP Family Medicine; Visit Provider Student in an Organized Health Care Education/Training Program
DX: I13.0 Hypertensive heart and chronic kidney disease with heart failure and stage 1 through stage 4 chronic kidney disease, or unspecified chronic kidney disease (principal); J18.9 Pneumonia, unspecified organism; I50.21 Acute systolic (congestive) heart failure; I31.39 Other pericardial effusion (noninflammatory); D69.3 Immune thrombocytopenic purpura; R16.0 Hepatomegaly, not elsewhere classified; Z79.01 Long term (current) use of anticoagulants; N18.31 Chronic kidney disease, stage 3a; E04.2 Nontoxic multinodular goiter; E66.9 Obesity, unspecified; I48.0 Paroxysmal atrial fibrillation; E78.5 Hyperlipidemia, unspecified; F17.210 Nicotine dependence, cigarettes, uncomplicated; Z68.35 Body mass index [BMI] 35.0-35.9, adult; Z79.899 Other long term (current) drug therapy
CPT/HCPCS: 36415; 36600; 71045; 80053; 81001; 82803; 83605; 84443; 85025; 85610; 85730; 87040; 87070; 87086; 87205; 87449; 87635; 93005; 93306; 94640; 94667; 94668; 97802; 99285; 99406; J7030; J7050; Q9957; A4216; C8929; J1940

== ENCOUNTER → 2023-12-25 | Outpatient (CLI) | payer MEDICARE, OTHER, SELFPAY ==
--- NOTE | 2023-12-25 11:41 | US_ITS ---
STUDY: THYROID ULTRASOUND REASON FOR EXAM: Male, 73 years old. 6 month f/u TECHNIQUE: Ultrasound evaluation of the thyroid was performed with real-time and static silva-scale imaging. COMPARISON: Thyroid ultrasound dated May 09, 2023 FINDINGS: RIGHT LOBE: The right lobe of the thyroid gland measures 5.8 x 2.7 x 2.5 cm, previously measuring 6.1 x 2.4 x 2.5 cm. There is a heterogeneous echotexture. Redemonstration of diffuse multinodular goiter with the largest dominant nodule measuring 1.2 cm in the midpole. LEFT LOBE: The left lobe of the thyroid gland measures 5.3 x 2.6 x 2.9 cm, previously measuring 6.3 x 2.9 x 2.4 cm. There is a heterogeneous echotexture. Redemonstration of multinodular goiter with the largest dominant nodule measuring 3.7 x 3.5 cm which is a mixed cystic and partially solid nodule without internal vascular flow to suggest a malignant process. ISTHMUS: The isthmus measures 7 mm. Interval decrease in the size of the thyroid gland due to interval decrease in some of the nodules. US/Thyroid IMPRESSION: 1. Multinodular goiter with interval decrease in the overall size of the thyroid gland compared to the prior study 2. Dominant mixed solid and cystic nodule in the left lobe without internal vascularity to suggest a malignant process. If there is concern for any malignant process targeted ultrasound of nodules or cysts of concern should be performed with assistance from pathology and pathologic diagnosis. 3. Nuclear medicine I-123 scans can also be obtained if there is concern for malignancy 4. TR2: 2 points = not suspicious ACR Thyroid Imaging Reporting and Data System (ACR TI-RADS) Reference: COMPOSITION (choose 1): Cystic or almost completely cystic - 0 points Spongiform- 0 points Mixed cystic and solid - 1 point Solid almost completely solid - 2 points ECHOGENICITY (choose 1): Anechoic space - 0 points Hyperechoic or isoechoic-1 point Hypoechoic-2 points Very hypoechoic-3 points SHAPE (choose 1): : Wider than tall-0 points Taller than wide-3 points MARGINS ( smooth, lobular, ill-defined) ECHOGENIC FOCI (macro or microcalcifications) Scoring and classification TR1: 0 points = benign TR2: 2 points = not suspicious TR3: 3 points = mildly suspicious TR4: 4-6 points = moderately suspicious TR5: ?7 points = highly suspicious Recommendations TR1: no FNA required TR2: no FNA required TR3: ?1.5 cm follow up, ?2.5 cm FNA = follow up: 1, 3 and 5 years TR4: ?1.0 cm follow up, ?1.5 cm FNA = follow up: 1, 2, 3 and 5 years TR5: ?0.5 cm follow up, ?1.0 cm FNA = annual follow up for up to 5 years FNA biopsy is recommended for suspicious lesions (TR3-TR5) with the above size criteria. If there are multiple nodules, the two with the highest ACR TI-RADS scores should be sampled (rather than the two largest), with largest size being used a tie-breaker if there are multiple nodules of the same classification. Electronically Signed: Fritz Bradley MD at 8:33 EDT Reading Location ID and State: [address] [place] [address] , Service support ,
== END | disposition home or self-care (01) ==
LOC: US 11:36
PROVIDERS: PCP Family Medicine; Referring Provider Surgery; Visit Provider Surgery
DX: E04.2 Nontoxic multinodular goiter (principal); E04.1 Nontoxic single thyroid nodule
CPT/HCPCS: 76536